=== PATIENT | male | born 1965 | race Caucasian/White ===

== ENCOUNTER 2016-12-04 07:56 | Day surgery (SDC) | payer BC ==
[~2016-12-04] VITALS: Ht 177.8 cm; Wt 85.9 kg
[~2016-12-04 07:56] MED LIST: ENOX100P SQ; HYDR-3516 PO
[2016-12-04] MEDS ORDERED: ENOX80P SQ (08:53)
[2016-12-04 08:55] VITALS: BP 125/8; PULSE 95; RESP 20; TEMP 98.3; O2SAT 96
[2016-12-04] MEDS ORDERED: LIDOCAINE 1%/EPINEPHrine 1:100,000 SOLN 20 ML VIAL ONE (09:36)
[2016-12-04 09:40] LABS: APTT (PATIENT) 26.2 SEC (24.3-30.1)
[2016-12-04] MEDS ORDERED: SODIUM CHLOR 0.9% 1000 ML INJ 1,000 ML IV SCH (10:00)
[2016-12-04] MEDS ORDERED: MIDAZOLAM HCL 5 MG/5 ML VIAL ONE (10:17)
[2016-12-04] MEDS ORDERED: fentaNYL CITRATE 250 MCG/5 ML AMP ONE (10:17)
[2016-12-04 11:20] VITALS: BP 119/74; PULSE 94; RESP 18; TEMP 98; O2SAT 95
[2016-12-04 11:35] VITALS: BP 109/73; PULSE 94; RESP 18; O2SAT 94
[2016-12-04 12:05] VITALS: BP 126/77; PULSE 89; RESP 18; O2SAT 99
--- NOTE | 2016-12-04 12:15 | RADRPT ---
EXAM DATE/TIME: 12/04/2016 11:22 [facility] COMPARISON: CHEST EXPIRATION ONLY, June 18, 2016, 16:50. INDICATIONS : Left lung biopsy and thoracentesis. MEDICAL HISTORY : Cardiovascular disease. Carcinoma, lung. SURGICAL HISTORY : None. ENCOUNTER: Initial ACUITY: 1 day PAIN SCORE: 0/10 LOCATION: Bilateral chest FINDINGS: There is no evidence of pneumothorax status post thoracentesis and left pleural biopsy. A right inte rnal jugular [id number] has its tip at the junction of the superior vena cava and right ischium. CONCLUSION: 1. No pneumothorax status post left pleural biopsy and thoracentesis. Kashmir Kahn MD on December 04, 2016 at 12:08 Board Certified Radiologist. This report was verified electronically.
[2016-12-04 12:32] VITALS: BP 117/71; PULSE 87; RESP 18; O2SAT 98
[2016-12-04 13:05] VITALS: BP 123/86; PULSE 88; RESP 16; O2SAT 96
[2016-12-04 13:27] LABS: PLEURAL FLUID LYMPHS 37 %
--- NOTE | 2016-12-04 13:57 | RADRPT ---
EXAM DATE/TIME: 12/04/2016 10:22 [facility] COMPARISON: CT NEEDLE BIOPSY LUNG, LEFT, June 18, 2016, 14:40. INDICATIONS : Left lung mass. SEDATION TIME: 30 minutes BIOPSY SITE: Left lung MEDICATION(S): 1.) 3 mg midazolam (Versed) IV 2.) 150 mcg fentanyl (Sublimaze) IV DEVICE(S): 1.) 20 gauge Temno core biopsy needle MEDICAL HISTORY : Deep venous thrombosis. SURGICAL HISTORY : None. ENCOUNTER: Initial ACUITY: 1 day PAIN SCORE: 0/10 LOCATION: Left pleural-based mass A total of one core specimen(s) were obtained and sent to the laboratory for pathologic evaluation. PROCEDURE: 1. CT guided lung biopsy. 2. Conscious sedation with continuous EKG and oximetry monitoring. 3. EKG and oximetry remained stable throughout the procedure. Prior to the procedure informed consent was obtained. Any appropriate prior imaging studies were rev iewed. Using automated exposure control and adjustment of the mA and/or kV according to patient size, radiation dose was kept as low as reasonably achievable to obtain optimal diagnostic quality images. The site was prepped in a sterile fashion. Full sterile technique was used, including cap, mask, yazmin rile gloves and gown and a large sterile sheet. Hand hygiene and 2% chlorhexidine and/or betadine/al cohol prep was utilized per protocol for cutaneous antisepsis. The skin and subcutaneous tissues wer e infiltrated with local anesthetic solution. With CT guidance the previously identified target was localized. Biopsy was performed using the presc ribed needle as above. Adequate hemostasis was obtained with compression at the puncture site. Follow-up CT scan reveals no pneumothorax. Conscious sedation was performed with the prescribed dosages and duration as above in the presence of an independent trained radiology nurse to assist in the monitoring of the patient. EKG and oximetry remained stable throughout the procedure. The patient tolerated the procedure well and there were no complications. The patient was sent to Radiology Outpatient Unit in stable condition. CONCLUSION: Uncomplicated CT guided biopsy of left pleural-based mass. Kashmir Kahn MD on December 04, 2016 at 13:54 Board Certified Radiologist. This report was verified electronically.
--- NOTE | 2016-12-04 15:20 | RADRPT ---
EXAM DATE/TIME: 12/04/2016 10:45 INDICATIONS : Left pleural effusion. SEDATION TIME: 30 minutes MEDICATION(S): 1.) 3 mg midazolam (Versed) IV 2.) 150 mcg fentanyl (Sublimaze) IV DEVICE(S): 1.) 18 gauge Tellez blunt needle FLUID: Total volume of 70 cc of clear, yellow fluid was removed. Fluid was sent for laboratory ordered studies. MEDICAL HISTORY : Deep venous thrombosis. SURGICAL HISTORY : None. ENCOUNTER: Initial ACUITY: 1 day PAIN SCORE: 0/10 LOCATION: Left chest PROCEDURE: 1. CT guided left thoracentesis. 2. Conscious sedation with continuous EKG and oximetry monitoring. 3. EKG and oximetry remained stable throughout the procedure. The site was prepped in sterile fashion. Full sterile technique was used, including cap, mask, steri le gloves and gown and a large sterile sheet. Hand hygiene and 2% chlorhexidine and/or betadine/alco hol prep was utilized per protocol for cutaneous antisepsis. The skin and subcutaneous tissues were infiltrated with local anesthetic solution. Using automated exposure control and adjustment of the mA and/or kV according to patient size, radiation dose was kept as low as reasonably achievable to obta in optimal diagnostic quality images. With the patient supine on the CT table, entry level business analyst images were obtained through the chest demonstrating t he left-sided pleural effusion. Dermatotomy was made and the prescribed catheter was advanced into t he pleural fluid. The pleural fluid as above was removed from the hemithorax. Post procedural scan show reduction in the amount of fluid with no evidence of pneumothorax. The patient tolerated the procedure well and there were no complications. EKG and oximetry remained s table throughout the procedure. The patient was sent to recovery in stable condition. CONCLUSION: Uncomplicated CT-guided left thoracentesis. Kashmir Kahn MD on December 04, 2016 at 15:18 Board Certified Radiologist. This report was verified electronically.
== END 2016-12-04 13:21 | disposition home or self-care (01) ==
LOC: HRIP 07:56 → HRAD 07:56
PROVIDERS: ATTEND Internal Medicine
DX: C34.12 Malignant neoplasm of upper lobe, left bronchus or lung (principal); J90 Pleural effusion, not elsewhere classified; I25.10 Atherosclerotic heart disease of native coronary artery without angina pectoris; Z86.718 Personal history of other venous thrombosis and embolism; Z79.01 Long term (current) use of anticoagulants
CPT/HCPCS: 32405; 32555; 71010; 77012; 85610; 85730; 88112; 88305; 89051; J1642; J2250; J3010; J7030

== ENCOUNTER 2016-12-16 11:20 | Emergency (ER) | payer BC ==
[~2016-12-16] VITALS: Ht 177.8 cm; Wt 85.5 kg
[~2016-12-16 11:20] MED LIST changes: -ENOX100P SQ; +ENOX80P SQ; -HYDR-3516 PO
[2016-12-16 11:23] VITALS: BP 134/83; PULSE 104; RESP 15; TEMP 98.2; O2SAT 98
--- NOTE | 2016-12-16 11:30 | PD ---
Physical Exam Date Seen by Provider: Dec 16, 2016 Time Seen by Provider: 11:30 Narrative 51 y/o patient of Dr. Lieberman with Hx. of stage 3 lung cancer presents with 4 day Hx. of increased pain and swelling around Port on Left upper chest and neck. Patient recently changed to Xeralto from injectable Heparin and symptoms started. Patient denies fever, Chills or difficulty breathing or swallowing. V.S Stable and Patient awaiting Med Bed Placement. Data Data Last Documented VS Vital Signs Date Time Temp Pulse Resp B/P Pulse Ox O2 Delivery O2 Flow Rate FiO2 12/16/16 11:23 98.2 104 15 134/83 98 MDM Medical Record Reviewed: Yes Supervised Visit with AMAURY: Yes Condition: Stable Gerry Abdul Dec 16, 2016 11:30
[2016-12-16] MEDS ORDERED: SODIUM CHLORIDE 0.9% FLUSH 10 ML FLUSH IV FLUSH PRN (12:15)
[2016-12-16 12:43] VITALS: RESP 16; O2SAT 95
[2016-12-16] MEDS ORDERED: SODIUM CHLOR 0.9% 1000 ML INJ 1,000 ML IV ONE (13:00)
[2016-12-16 13:07] LABS: AUTOMATED NEUTROPHIL # 7.4 TH/MM3 (1.8-7.7); BASOPHIL % 0.2 % (0.0-2.0); EOSINOPHIL % 0.5 % (0.0-4.0); HEMATOCRIT 40.5 % (39.0-51.0); HEMO FLAGS DIFF FINAL; LYMPH % 5.9 % (9.0-44.0); LYMPHOCYTE # 0.5 TH/MM3 (1.0-4.8); MEAN CELL VOLUME 92.7 FL (80.0-100.0); MEAN CORPUSCULAR HEMOGLOBIN 32.1 PG (27.0-34.0); MEAN CORPUSCULAR HGB CONC 34.6 % (32.0-36.0); MONO % 9.4 % (0.0-8.0); PLATELET COUNT 301 TH/MM3 (150-450); RED BLOOD COUNT 4.37 MIL/MM3 (4.50-5.90); RED CELL DISTRIBUTION WIDTH 14.3 % (11.6-17.2); WHITE BLOOD COUNT 8.8 TH/MM3 (4.0-11.0)
[2016-12-16 13:20] LABS: BICARBONATE 27.7 MEQ/L (21.0-32.0); POTASSIUM 3.8 MEQ/L (3.5-5.1)
[2016-12-16] MEDS ORDERED: IOHEXOL 350 MG/ML 10 ML VIAL (for RAD DIAG) IV ONE (14:03)
--- NOTE | 2016-12-16 14:40 | PD ---
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 Patient associates this with the port to being in its apex. Patient states that he is noticeably worsened gradually over the past 2-3 days. He's not had any infusions recently. States the Court was placed many months ago. Denies any difficulty swallowing denies any fevers. He was recently on Xarelto but he didn't like it so he switched back to Lovenox shots for history of DVT in his lower extremity. Denies any chest pain shortness of breath or fever PFSH Past Medical History Arthritis: Yes (KNEE) Cancer: Yes (MASS FOUND IN LEFT LUNG) Cardiovascular Problems: Yes High Cholesterol: Yes Chemotherapy: Yes Diabetes: No Diminished Hearing: No Endocrine: No Gastrointestinal Disorders: Yes Genitourinary: No Immune Disorder: No Musculoskeletal: Yes Neurologic: No Psychiatric: No Reproductive: No Respiratory: No Radiation Therapy: Yes Past Surgical History Other Surgery: Yes (PORT PLACEMENT) Social History Alcohol Use: No Tobacco Use: No Substance Use: No Allergies-Medications (Allergen,Severity, Reaction): Coded Allergies: Penicillin (Verified Allergy, Unknown, 12/16/16) Reported Meds & Prescriptions Reported Meds & Active Scripts Active Reported Lovenox Inj (Enoxaparin Sodium) 80 mg/0.8 ML Syr 80 Mg SQ BID Review of Systems Except as stated in HPI: all other systems reviewed are Neg Physical Exam Narrative GENERAL: Well-developed well-nourished no apparent distress SKIN: Focused skin assessment warm/dry. HEAD: Atraumatic. Normocephalic. EYES: Pupils equal and round. No scleral icterus. No injection or drainage. ENT: No nasal bleeding or discharge. Mucous membranes pink and moist. His nonpulsatile fairly firm area on the right side of the neck appears underneath the tubing from the port on the right side. There is no swelling of the port itself. Minimally tender to palpation of surrounding erythema or fluctuance. This could be consistent with a hematoma or could be mass. NECK: Trachea midline. No JVD. CARDIOVASCULAR: Regular rate and rhythm. No murmur appreciated. RESPIRATORY: No accessory muscle use. Clear to auscultation. Breath sounds equal bilaterally. GASTROINTESTINAL: Abdomen soft, non-tender, nondistended. Hepatic and splenic margins not palpable. MUSCULOSKELETAL: No obvious deformities. No clubbing. No cyanosis. No edema. NEUROLOGICAL: Awake and alert. No obvious cranial nerve deficits. Motor grossly within normal limits. Normal speech. PSYCHIATRIC: Appropriate mood and affect; insight and judgment normal. Data Data Last Documented VS Vital Signs Date Time Temp Pulse Resp B/P Pulse Ox O2 Delivery O2 Flow Rate FiO2 12/16/16 12:43 16 95 Room Air 12/16/16 11:23 98.2 104 134/83 Orders Basic Metabolic Panel (Bmp) (12/16/16 12:15) Complete Blood Count With Diff (12/16/16 12:15) Iv Access Insert/Monitor (12/16/16 12:15) Ecg Monitoring (12/16/16 12:15) Oximetry (12/16/16 12:15) Sodium Chloride 0.9% Flush (Ns Flush) (12/16/16 12:15) Ct Soft Tiss Neck W Iv Cont (12/16/16 ) Sodium Chlor 0.9% 1000 Ml Inj (Ns 1000 M (12/16/16 13:00) Electrocardiogram (12/16/16 ) Troponin I (12/16/16 12:52) Iohexol 350 Inj (Omnipaque 350 Inj) (12/16/16 14:03) Labs Laboratory Tests Test 12/16/16 12:40 White Blood Count 8.8 TH/MM3 Red Blood Count 4.37 MIL/MM3 Hemoglobin 14.0 GM/DL Hematocrit 40.5 % Mean Corpuscular Volume 92.7 FL Mean Corpuscular Hemoglobin 32.1 PG Mean Corpuscular Hemoglobin 34.6 % Concent Red Cell Distribution Width 14.3 % Platelet Count 301 TH/MM3 Mean Platelet Volume 7.3 FL Neutrophils (%) (Auto) 84.0 % Lymphocytes (%) (Auto) 5.9 % Monocytes (%) (Auto) 9.4 % Eosinophils (%) (Auto) 0.5 % Basophils (%) (Auto) 0.2 % Neutrophils # (Auto) 7.4 TH/MM3 Lymphocytes # (Auto) 0.5 TH/MM3 Monocytes # (Auto) 0.8 TH/MM3 Eosinophils # (Auto) 0.0 TH/MM3 Basophils # (Auto) 0.0 TH/MM3 CBC Comment DIFF FINAL Differential Comment Sodium Level 136 MEQ/L Potassium Level 3.8 MEQ/L Chloride Level 102 MEQ/L Carbon Dioxide Level 27.7 MEQ/L Anion Gap 6 MEQ/L Blood Urea Nitrogen 13 MG/DL Creatinine 0.82 MG/DL Estimat Glomerular Filtration 98 ML/MIN Rate Random Glucose 91 MG/DL Calcium Level 9.6 MG/DL MDM Medical Decision Making Medical Screen Exam Complete: Yes Emergency Medical Condition: Yes Differential Diagnosis Mass, hematoma, thyroid nodule, lymphadenopathy, abscess is less likely. Narrative Course Last [address] 12/16/16 0000 Signed Impressions: Service Date/Time: Friday, December 16, 2016 13:51 - CONCLUSION: Multiple enlarged confluent lymph nodes in the right internal jugular chain and supraclavicular region. Multiple necrotic lymph nodes in this region. A discrete defined drainable fluid collection is not seen. Joo Leavitt MD Patient appears well in no apparent distress. I reviewed the note from November [address] Mack the patient's oncologist and apparently the patient had a PET scan sometime recently which did show a 7 mm right supraclavicular lymph node. This may be progression of this lymph node. The necrotic nature of the CAT scan now may indicate that this is his body resolving this lymph node. However I do not feel qualified to make that judgment at this time. I recommended patient follow-up with his oncologist Dr. Mack. 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 The patient 's airway is intact and has no hemodynamic compromise from this lesion. The results were all discussed with the patient and my opinion that this may be spread of metastatic disease versus resolving metastatic disease but the only person to be able to tell for sure would be Dr. Mack. Patient does have orders for an outpatient ultrasound of this area as well as and recurrent PET scan. He is stable for discharge at this time. Diagnosis Primary Impression: Neck mass Disposition: 01 DISCHARGE HOME Condition: Stable Kashmir Saha MD Dec 16, 2016 14:39
--- NOTE | 2016-12-16 14:46 | RADRPT ---
EXAM DATE/TIME: 12/16/2016 13:51 [facility] COMPARISON: No previous studies available for comparison. INDICATIONS : Pain and swelling at right side of neck for two days. IV CONTRAST: 60 cc Omnipaque 350 (iohexol) IV RADIATION DOSE: 13.80 CTDIvol (mGy) MEDICAL HISTORY : Carcinoma, lung. SURGICAL HISTORY : None. ENCOUNTER: Initial ACUITY: 2 days PAIN SCALE: 6/10 LOCATION: Right neck TECHNIQUE: Volumetric scanning of the neck was performed. Using automated exposure control and adjustment of th e mA and/or kV according to patient size, radiation dose was kept as low as reasonably achievable to obtain optimal diagnostic quality images. FINDINGS: NASOPHARYNX: The nasopharyngeal airway has a normal configuration. No mucosal thickening or mass is seen. OROPHARYNX: The intrinsic muscles of the tongue are symmetric. The tonsillar pillars are intact. The prevertebr al soft tissues are not thickened. LARYNX: The supraglottic, glottic, and infraglottic structures are intact. PARAPHARYNGEAL: The parapharyngeal space is intact. SALIVARY GLANDS: The parotid and submandibular glands are intact. LYMPH NODES: Multiple enlarged, necrotic right-sided jugular chain lymph nodes inferior to the hyoid bone. Enlarge d right supraclavicular lymph nodes also seen. Largest discrete low density measures 1.6 x 1.2 cm on image #80. Aggregate of several adjacent lymph nodes in the right supraclavicular region measures 3.7 cm. Prominent surrounding soft tissue edema. Adjacent right internal jugular central venous catheter is seen. Organized drainable abscess is not seen. THYROID: Homogeneous enhancement without evidence of nodule. BONES: Unremarkable. Patchy opacity at the lung apex on the left with 1.1 cm nodular density CONCLUSION: Multiple enlarged confluent lymph nodes in the right internal jugular chain and supraclavicular regio n. Multiple necrotic lymph nodes in this region. A discrete defined drainable fluid collection is not seen. Joo Leavitt MD on December 16, 2016 at 14:38 Board Certified Radiologist. This report was verified electronically.
--- NOTE | 2016-12-16 15:47 | PD ---
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 Problem Time Seen by Provider: 12:07 Travel History International Travel<30 days: No Contact w/Intl Traveler<30days: No Traveled to known affect area: No PFSH Past Medical History Arthritis: Yes (KNEE) Cancer: Yes (MASS FOUND IN LEFT LUNG) Cardiovascular Problems: Yes High Cholesterol: Yes Chemotherapy: Yes Diabetes: No Diminished Hearing: No Endocrine: No Gastrointestinal Disorders: Yes Genitourinary: No Immune Disorder: No Musculoskeletal: Yes Neurologic: No Psychiatric: No Reproductive: No Respiratory: No Radiation Therapy: Yes Past Surgical History Other Surgery: Yes (PORT PLACEMENT) Social History Alcohol Use: No Tobacco Use: No Substance Use: No Allergies-Medications (Allergen,Severity, Reaction): Coded Allergies: Penicillin (Verified Allergy, Unknown, 12/16/16) Reported Meds & Prescriptions Reported Meds & Active Scripts Active Reported Lovenox Inj (Enoxaparin Sodium) 80 mg/0.8 ML Syr 80 Mg SQ BID Data Data Last Documented VS Vital Signs Date Time Temp Pulse Resp B/P Pulse Ox O2 Delivery O2 Flow Rate FiO2 12/16/16 12:43 16 95 Room Air 12/16/16 11:23 98.2 104 134/83 Orders Basic Metabolic Panel (Bmp) (12/16/16 12:15) Complete Blood Count With Diff (12/16/16 12:15) Iv Access Insert/Monitor (12/16/16 12:15) Ecg Monitoring (12/16/16 12:15) Oximetry (12/16/16 12:15) Sodium Chloride 0.9% Flush (Ns Flush) (12/16/16 12:15) Ct Soft Tiss Neck W Iv Cont (12/16/16 ) Sodium Chlor 0.9% 1000 Ml Inj (Ns 1000 M (12/16/16 13:00) Electrocardiogram (12/16/16 ) Troponin I (12/16/16 12:52) Iohexol 350 Inj (Omnipaque 350 Inj) (12/16/16 14:03) Labs Laboratory Tests Test 12/16/16 12:40 White Blood Count 8.8 TH/MM3 Red Blood Count 4.37 MIL/MM3 Hemoglobin 14.0 GM/DL Hematocrit 40.5 % Mean Corpuscular Volume 92.7 FL Mean Corpuscular Hemoglobin 32.1 PG Mean Corpuscular Hemoglobin 34.6 % Concent Red Cell Distribution Width 14.3 % Platelet Count 301 TH/MM3 Mean Platelet Volume 7.3 FL Neutrophils (%) (Auto) 84.0 % Lymphocytes (%) (Auto) 5.9 % Monocytes (%) (Auto) 9.4 % Eosinophils (%) (Auto) 0.5 % Basophils (%) (Auto) 0.2 % Neutrophils # (Auto) 7.4 TH/MM3 Lymphocytes # (Auto) 0.5 TH/MM3 Monocytes # (Auto) 0.8 TH/MM3 Eosinophils # (Auto) 0.0 TH/MM3 Basophils # (Auto) 0.0 TH/MM3 CBC Comment DIFF FINAL Differential Comment Sodium Level 136 MEQ/L Potassium Level 3.8 MEQ/L Chloride Level 102 MEQ/L Carbon Dioxide Level 27.7 MEQ/L Anion Gap 6 MEQ/L Blood Urea Nitrogen 13 MG/DL Creatinine 0.82 MG/DL Estimat Glomerular Filtration 98 ML/MIN Rate Random Glucose 91 MG/DL Calcium Level 9.6 MG/DL MDM Diagnosis Primary Impression: Neck mass Disposition: 01 DISCHARGE HOME Condition: Stable Kashmir Saha MD Dec 16, 2016 15:47
--- NOTE | 2016-12-17 23:07 | EKG ---
Date Performed: 12/16/2016 Time Performed: 13:00:21 PTAGE: 51 years EKG: Sinus rhythm NORMAL ECG PREVIOUS TRACING : 05/22/2016 12.35 Compared to prior tracing no significant change DOCTOR: Mariusz Fatima Interpretating Date/Time 12/17/2016 23:05:54
== END 2016-12-16 16:27 | disposition home or self-care (01) ==
LOC: NEPD 11:20
DX: C34.92 Malignant neoplasm of unspecified part of left bronchus or lung (principal); R22.1 Localized swelling, mass and lump, neck; E78.00 Pure hypercholesterolemia, unspecified; Z79.01 Long term (current) use of anticoagulants; Z86.718 Personal history of other venous thrombosis and embolism
CPT/HCPCS: 70491; 80048; 84484; 85025; 93005; 96360; 99284; J7030; Q9967

== ENCOUNTER 2016-12-31 10:30 | Emergency (ER) | payer BC ==
[~2016-12-31] VITALS: Ht 177.8 cm; Wt 85.0 kg
[2016-12-31 10:31] VITALS: BP 136/94; PULSE 120; RESP 20; TEMP 98; O2SAT 98
--- NOTE | 2016-12-31 11:05 | PD ---
HPI Chief Complaint: Edema Time Seen by Provider: 11:00 Travel History International Travel<30 days: No Contact w/Intl Traveler<30days: No Traveled to known affect area: No History of Present Illness HPI 51-year-old male with history of stage IV cancer of the lungs, has completed chemotherapy and is currently getting radiation therapy with Dr. Hickman, presents to the ER today because he states that he has had right arm discoloration, tingling and swelling starting yesterday. He was told by his oncologist to come to the ER because there is concern that he has a tumor to his right neck area and a may have included his vessels on the right. He reports mild shortness of breath intermittently. Otherwise denies any fevers, chest pains, or other symptoms. Modifying Factors: None Associated Signs & Symptoms: Right arm discoloration, swelling, tingling and discomfort Risk Factors: Right neck metastasis of lung cancer PFSH Past Medical History Arthritis: Yes (KNEE) Cancer: Yes (MASS FOUND IN LEFT LUNG) Cardiovascular Problems: Yes High Cholesterol: Yes Chemotherapy: Yes Diabetes: No Diminished Hearing: No Endocrine: No Gastrointestinal Disorders: Yes Genitourinary: No Immune Disorder: No Musculoskeletal: Yes Neurologic: No Psychiatric: No Reproductive: No Respiratory: No Radiation Therapy: Yes Past Surgical History Other Surgery: Yes (PORT PLACEMENT) Social History Alcohol Use: No Tobacco Use: No Substance Use: No Allergies-Medications (Allergen,Severity, Reaction): Coded Allergies: Penicillin (Verified Allergy, Unknown, 12/31/16) Reported Meds & Prescriptions Reported Meds & Active Scripts Active Reported Lovenox Inj (Enoxaparin Sodium) 80 mg/0.8 ML Syr 80 Mg SQ BID Review of Systems Except as stated in HPI: all other systems reviewed are Neg Physical Exam Narrative GENERAL: Well-developed middle age white male patient currently in mild distress awake and oriented 3. SKIN: Focused skin assessment warm/dry. HEAD: Atraumatic. Normocephalic. EYES: Pupils equal and round. No scleral icterus. No injection or drainage. ENT: No nasal bleeding or discharge. Mucous membranes pink and moist. NECK: Trachea midline. No JVD. CARDIOVASCULAR: Regular rate and rhythm. No murmur appreciated. Pulses are present and equal bilaterally. RESPIRATORY: No accessory muscle use. Clear to auscultation. Breath sounds equal bilaterally. GASTROINTESTINAL: Abdomen soft, non-tender, nondistended. Hepatic and splenic margins not palpable. MUSCULOSKELETAL: No obvious deformities. No clubbing. No cyanosis. No edema. EXTREMITIES: There is notable erythema of the right arm versus the left. Pulses are present bilaterally and is neurovascularly intact. NEUROLOGICAL: Awake and alert. No obvious cranial nerve deficits. Motor grossly within normal limits. Normal speech. PSYCHIATRIC: Appropriate mood and affect; insight and judgment normal. Data Data Last Documented VS Vital Signs Date Time Temp Pulse Resp B/P Pulse Ox O2 Delivery O2 Flow Rate FiO2 12/31/16 10:53 122 18 Room Air 12/31/16 10:31 98.0 136/94 98 Orders Complete Blood Count With Diff (12/31/16 11:00) Comprehensive Metabolic Panel (12/31/16 11:00) Prothrombin Time / Inr (Pt) (12/31/16 11:00) Act Partial Throm Time (Ptt) (12/31/16 11:00) Ct Pulmonary Angiogram (12/31/16 11:15) Us Arm Venous Doppler (12/31/16 11:52) Iohexol 350 Inj (Omnipaque 350 Inj) (12/31/16 13:43) Enoxaparin Inj (Lovenox Inj) (12/31/16 14:00) Labs Laboratory Tests Test 12/31/16 11:19 White Blood Count 9.6 TH/MM3 Red Blood Count 4.16 MIL/MM3 Hemoglobin 13.0 GM/DL Hematocrit 37.7 % Mean Corpuscular Volume 90.7 FL Mean Corpuscular Hemoglobin 31.3 PG Mean Corpuscular Hemoglobin 34.5 % Concent Red Cell Distribution Width 14.4 % Platelet Count 309 TH/MM3 Mean Platelet Volume 7.1 FL Neutrophils (%) (Auto) 84.7 % Lymphocytes (%) (Auto) 4.4 % Monocytes (%) (Auto) 9.6 % Eosinophils (%) (Auto) 0.8 % Basophils (%) (Auto) 0.5 % Neutrophils # (Auto) 8.1 TH/MM3 Lymphocytes # (Auto) 0.4 TH/MM3 Monocytes # (Auto) 0.9 TH/MM3 Eosinophils # (Auto) 0.1 TH/MM3 Basophils # (Auto) 0.0 TH/MM3 CBC Comment DIFF FINAL Differential Comment Prothrombin Time 12.5 SEC Prothromb Time International 1.1 RATIO Ratio Activated Partial 33.8 SEC Thromboplast Time Sodium Level 136 MEQ/L Potassium Level 3.9 MEQ/L Chloride Level 100 MEQ/L Carbon Dioxide Level 28.2 MEQ/L Anion Gap 8 MEQ/L Blood Urea Nitrogen 14 MG/DL Creatinine 0.86 MG/DL Estimat Glomerular Filtration 93 ML/MIN Rate Random Glucose 97 MG/DL Calcium Level 9.3 MG/DL Total Bilirubin 0.5 MG/DL Aspartate Amino Transf 28 U/L (AST/SGOT) Alanine Aminotransferase 41 U/L (ALT/SGPT) Alkaline Phosphatase 93 U/L Total Protein 8.3 GM/DL Albumin 3.5 GM/DL MDM Medical Decision Making Medical Screen Exam Complete: Yes Emergency Medical Condition: Yes Medical Record Reviewed: Yes Interpretation(s) Laboratory Tests Test 12/31/16 11:19 Red Blood Count 4.16 MIL/MM3 (4.50-5.90) Hematocrit 37.7 % (39.0-51.0) Neutrophils (%) (Auto) 84.7 % (16.0-70.0) Lymphocytes (%) (Auto) 4.4 % (9.0-44.0) Monocytes (%) (Auto) 9.6 % (0.0-8.0) Neutrophils # (Auto) 8.1 TH/MM3 (1.8-7.7) Lymphocytes # (Auto) 0.4 TH/MM3 (1.0-4.8) Prothrombin Time 12.5 SEC (9.8-11.6) Activated Partial 33.8 SEC Thromboplast Time (24.3-30.1) Total Protein 8.3 GM/DL (6.4-8.2) Last 24 hours Impressions Upper Extremity Ultrasound 12/31/16 1152 Signed Impressions: Service Date/Time: Saturday, December 31, 2016 12:02 - CONCLUSION: There is occlusive and nonocclusive deep venous thrombosis involving the right upper extremity as noted above. Dash Chester MD CT Angiography 12/31/16 1115 Signed Impressions: Service Date/Time: Saturday, December 31, 2016 13:23 - CONCLUSION: 1. No evidence of acute pulmonary embolism. 2. The previously noted mass in the left upper lung has decreased in size from 5.8 cm to 1.9 cm. 3. New scattered interstitial infiltrates are seen in the left upper lung. 4. There is diffuse infiltrate in the left lower lung 5. Nodular infiltrates are seen in the medial right upper lung and right lower lung. This could be inflammatory or metastatic disease. Dash Chester MD Differential Diagnosis Right arm tingling, swelling, discomfort with cancer historyDVT versus SVC syndrome versus cellulitis Narrative Course Ultrasound shows a right arm DVT. CTA did not reveal any signs of PE. It does spot the right sided lung mass which is our deep been seen previously on scanning. Patient is on Lovenox. Case was discussed with Dr. Hickman who is patient's oncologist and he states that he can manage the patient as an outpatient at this point. He does not recommend further therapy other than Lovenox now. Return for any worsening in symptoms or shortness of breath or new symptoms as needed. The plan has been discussed with the patient and he states understanding. Diagnosis Primary Impression: Deep vein thrombosis (DVT) of right upper extremity Disposition: 01 DISCHARGE HOME Condition: Stable Key Santos MD December 31, 2016 11:04
[2016-12-31 11:33] LABS: AUTOMATED NEUTROPHIL # 8.1 TH/MM3 (1.8-7.7); BASOPHIL % 0.5 % (0.0-2.0); EOSINOPHIL # 0.1 TH/MM3 (0-0.4); EOSINOPHIL % 0.8 % (0.0-4.0); HEMATOCRIT 37.7 % (39.0-51.0); HEMO FLAGS DIFF FINAL; LYMPH % 4.4 % (9.0-44.0); LYMPHOCYTE # 0.4 TH/MM3 (1.0-4.8); MEAN CELL VOLUME 90.7 FL (80.0-100.0); MEAN CORPUSCULAR HEMOGLOBIN 31.3 PG (27.0-34.0); MEAN CORPUSCULAR HGB CONC 34.5 % (32.0-36.0); MONO % 9.6 % (0.0-8.0); NEUT % 84.7 % (16.0-70.0); PLATELET COUNT 309 TH/MM3 (150-450); RED BLOOD COUNT 4.16 MIL/MM3 (4.50-5.90); RED CELL DISTRIBUTION WIDTH 14.4 % (11.6-17.2); WHITE BLOOD COUNT 9.6 TH/MM3 (4.0-11.0)
[2016-12-31 11:41] LABS: APTT (PATIENT) 33.8 SEC (24.3-30.1); INTERNATIONAL NORMALIZED RATIO 1.1 RATIO; PROTHROMBIN TIME - PATIENT 12.5 SEC (9.8-11.6)
[2016-12-31 11:48] LABS: ANION GAP 8 MEQ/L (5-15); AST (GOT) 28 U/L (15-37); BICARBONATE 28.2 MEQ/L (21.0-32.0); BLOOD UREA NITROGEN 14 MG/DL (7-18); CHLORIDE 100 MEQ/L (98-107); GLOMERULAR FILTRATION RATE 93 ML/MIN (>89); POTASSIUM 3.9 MEQ/L (3.5-5.1); SODIUM (NA) 136 MEQ/L (136-145)
[2016-12-31 11:51] LABS: ALKALINE PHOSPHATASE 93 U/L (45-117); ALT (GPT) 41 U/L (12-78); TOTAL BILIRUBIN ADULT 0.5 MG/DL (0.2-1.0)
--- NOTE | 2016-12-31 12:49 | RADRPT ---
EXAM DATE/TIME: 12/31/2016 12:02 [facility] COMPARISON: No previous studies available for comparison. INDICATIONS : Right arm discoloration and pain. MEDICAL HISTORY : Hypercholesterolemia. Arthritis. Carcinoma, lung. Pulmonary embolism. Deep vein thrombosis. Anticoagu lant therapy, Lovenox. SURGICAL HISTORY : Right knee. Chemotherapy. Radiation therapy. Port placement. ENCOUNTER: Initial ACUITY: 2 day PAIN SCORE: 5/10 LOCATION: Right arm. FINDINGS: There is evidence of occlusive deep venous thrombosis involving the subclavian and axillary veins. Th ere is some nonocclusive DVT in the jugular vein. The brachial, basilic and cephalic veins are patent . CONCLUSION: There is occlusive and nonocclusive deep venous thrombosis involving the right upper extremity as not ed above. Dash Chester MD on December 31, 2016 at 12:45 Board Certified Radiologist. This report was verified electronically.
[2016-12-31] MEDS ORDERED: IOHEXOL 350 MG/ML 10 ML VIAL (for RAD DIAG) IV ONE (13:43)
--- NOTE | 2016-12-31 13:54 | RADRPT ---
EXAM DATE/TIME: 12/31/2016 13:23 [facility] COMPARISON: CT PULMONARY ANGIOGRAM, June 14, 2016, 16:41. INDICATIONS : History of lung cancer with dyspnea and right arm swelling IV CONTRAST: 65 cc Omnipaque 350 (iohexol) IV RADIATION DOSE: 23.38 CTDIvol (mGy) MEDICAL HISTORY : Carcinoma, lung. SURGICAL HISTORY : None. ENCOUNTER: Initial ACUITY: 1 day PAIN SCALE: 5/10 LOCATION: Right arm TECHNIQUE: Volumetric scanning of the chest was performed using a pulmonary embolism protocol MIP images were re constructed. Using automated exposure control and adjustment of the mA and/or kV according to patien t size, radiation dose was kept as low as reasonably achievable to obtain optimal diagnostic quality images. FINDINGS: PULMONARY ARTERIES: No filling defects are seen in the pulmonary arteries through the segmental level. LUNGS: There is scattered interstitial infiltrates throughout the left upper lung. There is diffuse intersti tial and some airspace infiltrate involving the left lower lung. There is a nodular infiltrate involv ing the medial right upper lung and medial right lower lung. The previously noted mass in the anterio r left upper lung has decreased in size from 5.8 cm on the prior study to 1.9 cm with pleural thicken ing on today's study. PLEURAE: There is no pleural effusion. MEDIASTINUM: There is good visualization of the great vessels of the middle mediastinum. No evidence of mediastin al or hilar adenopathy/mass. MUSCULOSKELETAL: Within normal limits for patient age. MISCELLANEOUS: The visualized upper abdominal organs demonstrate no acute abnormality. CONCLUSION: 1. No evidence of acute pulmonary embolism. 2. The previously noted mass in the left upper lung has decreased in size from 5.8 cm to 1.9 cm. 3. New scattered interstitial infiltrates are seen in the left upper lung. 4. There is diffuse infiltrate in the left lower lung 5. Nodular infiltrates are seen in the medial right upper lung and right lower lung. This could be in flammatory or metastatic disease. Dash Chester MD on December 31, 2016 at 13:45 Board Certified Radiologist. This report was verified electronically.
[2016-12-31] MEDS ORDERED: ENOXAPARIN SODIUM 80 MG/0.8 ML SYRINGE SQ ONE (14:00)
== END 2016-12-31 14:42 | disposition home or self-care (01) ==
LOC: NEPE 10:30
DX: I82.621 Acute embolism and thrombosis of deep veins of right upper extremity (principal); E78.00 Pure hypercholesterolemia, unspecified; C34.90 Malignant neoplasm of unspecified part of unspecified bronchus or lung; Z51.11 Encounter for antineoplastic chemotherapy; Z79.899 Other long term (current) drug therapy
CPT/HCPCS: 71275; 80053; 85025; 85610; 85730; 93971; 99284; Q9967

== ENCOUNTER 2017-01-07 19:24 | Emergency (ER) | payer BC ==
[~2017-01-07] VITALS: Ht 177.8 cm; Wt 86.0 kg
[2017-01-07 19:27] VITALS: BP 117/78; PULSE 111; RESP 16; TEMP 99; O2SAT 98
--- NOTE | 2017-01-07 19:59 | PD ---
HPI Chief Complaint: Fever Time Seen by Provider: 19:58 Travel History International Travel<30 days: No Contact w/Intl Traveler<30days: No Traveled to known affect area: No History of Present Illness HPI 51-year-old male presents to the emergency department for evaluation of fever. Patient is undergoing chemotherapy and radiation therapy for poorly differentiated non-small cell lung cancer. He had a recent CT scan in October that showed a 7 mm right supraclavicular lymph node. Patient has history of PE and DVT and is currently on Lovenox. He last had radiation therapy on the right neck on . He reports low-grade fever since then. However, last night, his fever reached 102.7. He states that he called his oncologist today, Dr. Mack, who recommended he come to the emergency department. The patient denies any other symptoms. No cough or congestion. No abdominal pain. No nausea, vomiting, diarrhea. Reports no other medical problems. He takes no other medications other than Lovenox. PFSH Past Medical History Hx Anticoagulant Therapy: Yes (LOVENOX) Arthritis: Yes (KNEE) Cancer: Yes (MASS FOUND IN LEFT LUNG) Cardiovascular Problems: Yes High Cholesterol: Yes Chemotherapy: Yes Diabetes: No Diminished Hearing: No Endocrine: No Gastrointestinal Disorders: Yes Genitourinary: No Immune Disorder: No Musculoskeletal: Yes Neurologic: No Psychiatric: No Reproductive: No Respiratory: Yes (LUNG CANCER) Radiation Therapy: Yes Past Surgical History Other Surgery: Yes (PORT PLACEMENT) Social History Alcohol Use: No Tobacco Use: No Substance Use: No Allergies-Medications (Allergen,Severity, Reaction): Coded Allergies: Penicillin (Verified Allergy, Unknown, 01/07/17) Reported Meds & Prescriptions Reported Meds & Active Scripts Active Reported Lovenox Inj (Enoxaparin Sodium) 80 mg/0.8 ML Syr 80 Mg SQ BID Review of Systems Except as stated in HPI: all other systems reviewed are Neg Physical Exam Narrative GENERAL: Well-nourished, well-developed male patient, afebrile at this time. SKIN: Focused skin assessment warm/dry. HEAD: Normocephalic. Atraumatic EYES: No scleral icterus. No injection or drainage. NECK: Supple, trachea midline. No JVD or lymphadenopathy. Patient has right lower neck mass that is firm to palpation. CARDIOVASCULAR: Regular rate and rhythm without murmurs, gallops, or rubs. RESPIRATORY: Breath sounds equal bilaterally. No accessory muscle use. Lungs sounds are clear to auscultation. GASTROINTESTINAL: Abdomen soft, non-tender, nondistended. MUSCULOSKELETAL: No cyanosis, or edema. BACK: Nontender without obvious deformity. No CVA tenderness. Data Data Last Documented VS Vital Signs Date Time Temp Pulse Resp B/P Pulse Ox O2 Delivery O2 Flow Rate FiO2 01/07/17 19:27 99.0 111 16 117/78 98 Room Air Orders Electrocardiogram (01/07/17 19:56) Complete Blood Count With Diff (01/07/17 19:56) Comprehensive Metabolic Panel (01/07/17 19:56) Lactic Acid Sepsis Protocol (01/07/17 19:56) Magnesium (Mg) (01/07/17 19:56) Urinalysis - C+S If Indicated (01/07/17 19:56) Influenzae A/B Antigen (01/07/17 19:56) Blood Culture (01/07/17 19:56) Chest, Single Ap (01/07/17 19:56) Sodium Chlor 0.9% 1000 Ml Inj (Ns 1000 M (01/07/17 20:00) Levofloxacin 750 Mg Premix Inj (Levaquin (01/07/17 21:45) Oseltamivir (Tamiflu) (01/07/17 21:45) Labs Laboratory Tests Test 01/07/17 01/07/17 20:25 20:40 White Blood Count 8.6 TH/MM3 Red Blood Count 3.73 MIL/MM3 Hemoglobin 11.5 GM/DL Hematocrit 32.9 % Mean Corpuscular Volume 88.4 FL Mean Corpuscular Hemoglobin 30.9 PG Mean Corpuscular Hemoglobin 35.0 % Concent Red Cell Distribution Width 14.6 % Platelet Count 379 TH/MM3 Mean Platelet Volume 7.3 FL Neutrophils (%) (Auto) 77.4 % Lymphocytes (%) (Auto) 6.9 % Monocytes (%) (Auto) 14.6 % Eosinophils (%) (Auto) 0.6 % Basophils (%) (Auto) 0.5 % Neutrophils # (Auto) 6.6 TH/MM3 Lymphocytes # (Auto) 0.6 TH/MM3 Monocytes # (Auto) 1.3 TH/MM3 Eosinophils # (Auto) 0.1 TH/MM3 Basophils # (Auto) 0.0 TH/MM3 CBC Comment DIFF FINAL Differential Comment Sodium Level 135 MEQ/L Potassium Level 4.0 MEQ/L Chloride Level 98 MEQ/L Carbon Dioxide Level 28.3 MEQ/L Anion Gap 9 MEQ/L Blood Urea Nitrogen 9 MG/DL Creatinine 0.77 MG/DL Estimat Glomerular Filtration 106 ML/MIN Rate Random Glucose 105 MG/DL Lactic Acid Level 1.2 mmol/L Calcium Level 8.8 MG/DL Magnesium Level 2.3 MG/DL Total Bilirubin 0.3 MG/DL Aspartate Amino Transf 26 U/L (AST/SGOT) Alanine Aminotransferase 34 U/L (ALT/SGPT) Alkaline Phosphatase 90 U/L Total Protein 7.6 GM/DL Albumin 3.1 GM/DL Urine Color YELLOW Urine Turbidity HAZY Urine pH 7.0 Urine Specific [place] 1.009 Urine Protein NEG mg/dL Urine Glucose (UA) NEG mg/dL Urine Ketones NEG mg/dL Urine Occult Blood NEG Urine Nitrite NEG Urine Bilirubin NEG Urine Urobilinogen LESS THAN 2.0 MG/DL Urine Leukocyte Esterase NEG Urine RBC 1 /hpf Urine WBC 2 /hpf Urine Amorphous Sediment RARE Microscopic Urinalysis Comment CATH-CULT NOT IND MDM Medical Decision Making Medical Screen Exam Complete: Yes Emergency Medical Condition: Yes Medical Record Reviewed: Yes Interpretation(s) Last Impressions Chest X-Ray 01/07/171955 Signed Impressions: Service Date/Time: Saturday, January 07, 2017 20:01 - CONCLUSION: 1. Patchy left lung consolidation most characteristic of bronchopneumonia or post radiation changes. There is an underlying left lung mass which is not well delineated. Right lung is clear. Scott Layton MD Differential Diagnosis Fever versus pneumonia versus UTI Narrative Course 51-year-old male presents to the emergency department for evaluation of fever that reached 102.7 last night. Patient is undergoing radiation therapy and chemotherapy. EKG, CBC, CMP, magnesium, lactic acid, blood cultures 2, UA, and influenza are ordered and pending. Chest x-ray is ordered and pending. Patient is given normal saline 1 L IV bolus. EKG shows sinus tachycardia, heart rate 105, no acute ST changes. CBC shows normal WBC of 8.6, hemoglobin 11.5, hematocrit 32.9. CMP shows no acute abnormality. Magnesium is 2.3. Lactic acid is 1.2. UA is negative for acute infection. Influenza is positive for flu A. Chest x-ray shows patchy left lung consolidation most characteristic of bronchopneumonia or post radiation changes. There is an underlying left lung mass which is not well delineated. Right lung is clear. I discussed the case with my attending physician, Dr. Juarez, who agrees with plan and disposition. Patient appears well on exam. He would like to go home. Patient is given Levaquin 750mg IV and Tamiflu 75 mg PO in the emergency department. He will be discharged with a prescription for Levaquin and Tamiflu. He is to return for any acute, worsening of symptoms. Patient is agreeable. The patient was discharged in stable condition with instructions, including return instructions and follow up instructions. Diagnosis Primary Impression: Influenza A Additional Impression: Pneumonia Qualified Code: J18.9 - Pneumonia of left lung due to infectious organism, unspecified part of lung Referrals: Oncologist Patient Instructions: Community Acquired Pneumonia (ED), General Instructions, Influenza (ED) Additional Instructions: Take Levaquin as directed. You received your first dose in the emergency department. Take Tamiflu as directed until gone. You received first dose here in the emergency department. Tylenol every 4 hours as needed for fever. Follow-up with your primary care physician and oncologist. Return to the emergency department for any acute worsening of symptoms. Med/Other Pt SpecificInfo: Prescription(s) given Scripts Levofloxacin (Levaquin)750 Mg Qmm033 Mg PO DAILY 6 Days Ref 0 Prov:Mirian Cummins 01/07/17 Oseltamivir (Tamiflu)75 Mg Cap75 Mg PO BID 5 Days Ref 0 Prov:Mirian Cummins 01/07/17 Disposition: DISCHARGE HOME Condition: Stable Mirian Cummins January 07, 2017 19:59
[2017-01-07] MEDS ORDERED: SODIUM CHLOR 0.9% 1000 ML INJ 1,000 ML IV ONE (20:00)
--- NOTE | 2017-01-07 20:48 | RADRPT ---
EXAM DATE/TIME: 01/07/2017 20:01 [facility] COMPARISON: CT PULMONARY ANGIOGRAM, December 31, 2016, 13:23. INDICATIONS : Fever MEDICAL HISTORY : Cardiovascular disease. Carcinoma, lung. Left lung biopsy and thoracentesis. SURGICAL HISTORY : [place] ENCOUNTER: Initial ACUITY: 1 day PAIN SCORE: 0/10 LOCATION: Bilateral chest FINDINGS: A single view of the chest demonstrates a tear space disease in the left lung, probably slightly incr eased from CT on December 31 and most characteristic of a left-sided pneumonia. There is a known left lung mass recently decreased in size on CT presumably from radiation therapy. [id number] in super vena cava. Right lung is clear. CONCLUSION: 1. Patchy left lung consolidation most characteristic of bronchopneumonia or post radiation changes. There is an underlying left lung mass which is not well delineated. Right lung is clear. Scott Layton MD on January 07, 2017 at 20:45 Board Certified Radiologist. This report was verified electronically.
[2017-01-07 21:00] VITALS: BP 117/77; PULSE 106; RESP 18; O2SAT 98
[2017-01-07 21:05] LABS: AUTOMATED NEUTROPHIL # 6.6 TH/MM3 (1.8-7.7); BASOPHIL % 0.5 % (0.0-2.0); EOSINOPHIL # 0.1 TH/MM3 (0-0.4); EOSINOPHIL % 0.6 % (0.0-4.0); HEMATOCRIT 32.9 % (39.0-51.0); HEMO FLAGS DIFF FINAL; LYMPH % 6.9 % (9.0-44.0); LYMPHOCYTE # 0.6 TH/MM3 (1.0-4.8); MEAN CELL VOLUME 88.4 FL (80.0-100.0); MEAN CORPUSCULAR HEMOGLOBIN 30.9 PG (27.0-34.0); MONO % 14.6 % (0.0-8.0); NEUT % 77.4 % (16.0-70.0); PLATELET COUNT 379 TH/MM3 (150-450); RED BLOOD COUNT 3.73 MIL/MM3 (4.50-5.90); RED CELL DISTRIBUTION WIDTH 14.6 % (11.6-17.2); WHITE BLOOD COUNT 8.6 TH/MM3 (4.0-11.0)
[2017-01-07 21:16] LABS: ANION GAP 9 MEQ/L (5-15); AST (GOT) 26 U/L (15-37); BICARBONATE 28.3 MEQ/L (21.0-32.0); BLOOD UREA NITROGEN 9 MG/DL (7-18); CHLORIDE 98 MEQ/L (98-107); GLOMERULAR FILTRATION RATE 106 ML/MIN (>89); MAGNESIUM 2.3 MG/DL (1.5-2.5); SODIUM (NA) 135 MEQ/L (136-145)
[2017-01-07 21:20] LABS: ALKALINE PHOSPHATASE 90 U/L (45-117); ALT (GPT) 34 U/L (12-78); TOTAL BILIRUBIN ADULT 0.3 MG/DL (0.2-1.0)
[2017-01-07 21:23] LABS: BLOOD, URINE NEG (NEG); GLUCOSE,URINE NEG (NEG); KETONE, URINE NEG (NEG); NITRITE,URINE NEG (NEG); URINE COLOR YELLOW (YELLW/STRAW)
[2017-01-07 21:24] LABS: COMMENT (UR) CATH-CULT NOT IND; CULTURE IF INDICATED CATH CULTURE NOT IND
[2017-01-07] MEDS ORDERED: OSELTAMIVIR PHOSPHATE 75 MG CAP PO ONE (21:45)
[2017-01-07] MEDS ORDERED: LEVOFLOXACIN 750 MG PREMIX INJ 150 ML IV ONE (21:45)
[2017-01-07] MEDS ORDERED: LEVA750T PO (21:46)
[2017-01-07] MEDS ORDERED: OSEL75 PO (21:46)
[2017-01-07 22:25] VITALS: BP 123/75
--- NOTE | 2017-01-08 15:15 | EKG ---
Date Performed: 01/07/2017 Time Performed: 20:46:18 PTAGE: 51 years EKG: SINUS TACHYCARDIA ABNORMAL RHYTHM ECG Compared to prior tracing no significant change PREVIOUS TRACING : 12/16/2016 13.00 DOCTOR: Joseph Whitman Interpretating Date/Time 01/08/2017 15:14:04
== END 2017-01-07 22:35 | disposition home or self-care (01) ==
LOC: NEPC 19:24
DX: J09.X2 Influenza due to identified novel influenza A virus with other respiratory manifestations (principal); J18.9 Pneumonia, unspecified organism; R00.0 Tachycardia, unspecified; C34.90 Malignant neoplasm of unspecified part of unspecified bronchus or lung; E78.00 Pure hypercholesterolemia, unspecified; Z79.01 Long term (current) use of anticoagulants; Z86.79 Personal history of other diseases of the circulatory system; Z87.19 Personal history of other diseases of the digestive system; Z87.39 Personal history of other diseases of the musculoskeletal system and connective tissue
CPT/HCPCS: 71010; 80053; 81001; 83605; 83735; 85025; 87040; 87804; 93005; 96374; 99284; J1642; J1956; J7030

== ENCOUNTER 2017-03-23 19:19 | Inpatient (IN) | payer BC ==
[~2017-03-23] VITALS: Ht 175.3 cm; Wt 96.1 kg
[2017-03-23] VITALS (23 sets, daily range): BP systolic 86–154; BP diastolic 52–92; PULSE 98–140; RESP 14–20; TEMP 99.1–99.6; O2SAT 99–100
[2017-03-23] MEDS: SODIUM CHLORIDE 0.9% FLUSH 10 ML FLUSH IV FLUSH SCH (08:38)
[~2017-03-23 19:19] MED LIST changes: +LEVA750T PO; +OSEL75 PO
[2017-03-23] MEDS ORDERED: PROPOFOL 1000 MG/100 ML INJ 100 ML ONE (19:28)
[2017-03-23] MEDS ORDERED: ETOMIDATE 20 MG/10 ML VIAL ONE (19:28)
[2017-03-23] MEDS ORDERED: LIDOCAINE HCL 2% 100 MG/5 ML SYRINGE ONE (19:28)
[2017-03-23] MEDS ORDERED: LORazepam 2 MG/ML VIAL ONE ×2 (19:29→19:38)
[2017-03-23] MEDS ORDERED: SUCCINYLCHOLINE CHLORIDE 200 MG/10 ML VIAL ONE (19:29)
[2017-03-23] MEDS ORDERED: SODIUM CHLORIDE 0.9% FLUSH 10 ML FLUSH IVF PRN ×4 (19:30→20:30)
[2017-03-23] MEDS ORDERED: SODIUM CHLOR 0.9% 1000 ML INJ 1,000 ML IV ONE (19:35)
[2017-03-23] MEDS ORDERED: ONDANSETRON HCL 4 MG/2 ML VIAL ONE (19:40)
[2017-03-23] MEDS ORDERED: ONDANSETRON HCL 4 MG/2 ML VIAL IV PUSH ONE ×2 (19:45→20:00)
[2017-03-23] MEDS: PROPOFOL 1000 MG/100 ML INJ 100 ML IV SCH (19:45)
[2017-03-23] MEDS ORDERED: LORazepam 2 MG/ML VIAL IVS ONE (19:45)
[2017-03-23] MEDS ORDERED: FOSPHENYTOIN INJ 1,000 MGPE in SODIUM CHLORIDE 0.9% INJ 50 ML IV ONE (19:45)
[2017-03-23] MEDS ORDERED: LORazepam 2 MG/ML VIAL IV PUSH ONE (19:45)
[2017-03-23] MEDS ORDERED: LORazepam 2 MG/ML VIAL IV ONE ×2 (19:55→20:00)
--- NOTE | 2017-03-23 19:59 | RADRPT ---
EXAM DATE/TIME: 03/23/2017 19:47 [facility] COMPARISON: CHEST SINGLE AP, January 07, 2017, 20:01. CT PULMONARY ANGIOGRAM, December 31, 2016, 13:23. INDICATIONS : Post intubation MEDICAL HISTORY : Cardiovascular disease. Carcinoma, lung. Left lung biopsy and SURGICAL HISTORY : [place] ENCOUNTER: Initial ACUITY: 1 day PAIN SCORE: Non-responsive. LOCATION: Bilateral chest FINDINGS: Endotracheal tube is in satisfactory position. Right [id number] in superior vena cava. There is a left lung mass and perihilar airspace disease. No significant effusion. Right lung clear. CONCLUSION: 1. Endotracheal tube in satisfactory position. Left lung mass and perihilar airspace disease similar to January 07. There is now some apical pleural thickening on the left. Scott Layton MD on March 23, 2017 at 19:56 Board Certified Radiologist. This report was verified electronically.
[2017-03-23] MEDS ORDERED: ETOMIDATE 20 MG/10 ML VIAL IV PUSH ONE (20:00)
[2017-03-23] MEDS ORDERED: PROPOFOL 1000 MG/100 ML INJ 100 ML IV SCH (20:00)
[2017-03-23] MEDS ORDERED: SUCCINYLCHOLINE CHLORIDE 200 MG/10 ML VIAL IV PUSH ONE (20:00)
[2017-03-23] MEDS ORDERED: DEXAMETHASONE SOD PHOS 4 MG/ML VIAL IV PUSH ONE (20:15)
[2017-03-23] MEDS ORDERED: MANNITOL 12.5 GM/50 ML VIAL IV ONE (20:15)
[2017-03-23] MEDS ORDERED: MIDAZOLAM 100 MG/100 ML INJ 100 ML IV SCH (20:15)
[2017-03-23] MEDS ORDERED: SODIUM CHLORID 0.9% 500 ML INJ 500 ML IV ONE (20:15)
[2017-03-23] MEDS ORDERED: SODIUM CHLOR 0.9% 1000 ML INJ 1,000 ML IV SCH (20:15)
--- NOTE | 2017-03-23 20:20 | PD ---
HPI Chief Complaint: seizure Time Seen by Provider: 19:35 Travel History International Travel<30 days: No Contact w/Intl Traveler<30days: No Traveled to known affect area: No History of Present Illness HPI 51-year-old male with history of stage IV lung cancer on Lovenox presents to the emergency department from home by EMS transport for evaluation of possible stroke and new onset seizure. According to paramedics to relay the history noted just prior to arrival to the emergency department the patient started having weakness and shaking of the left upper extremity and left lower extremity was some facial droop. Patient was reportedly awake during this episode and the symptoms seemed to dissipate and patient was left with left- sided weakness and then paramedics report en route to the hospital started having recurrent tremor and shaking of the left upper extremity and left lower extremity. Upon arrival to the emergency department patient was awake GCS was 15 patient knew his name and date of and monitored thereafter started having recurrent seizure form activity of the left lower extremity left upper extremity and then developed generalized seizure. Initial onset of seizure activity was approximately 5-8 minutes in duration according to paramedics description by seizure activity en route and while arriving to the emergency department was approximately 10 minutes in duration before stopping and then generalized seizure activity was approximately 5 minutes in duration. Patient started to arouse from postictal state and then again had recurrent generalized seizure activity. 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 histology/chemotherapy-Nivolumab q 2 weeks on arthritis dyslipidemia knee surgery [employer] GERD intractable cough; no tobacco use; nursing notes reviewed Hx Anticoagulant Therapy: Yes (LOVENOX) Arthritis: Yes (KNEE) Cancer: Yes (MASS FOUND IN LEFT LUNG) Cardiovascular Problems: Yes High Cholesterol: Yes Chemotherapy: Yes Diabetes: No Diminished Hearing: No Endocrine: No Gastrointestinal Disorders: Yes Genitourinary: No Immune Disorder: No Musculoskeletal: Yes Neurologic: No Psychiatric: No Reproductive: No Respiratory: Yes (LUNG CANCER) Radiation Therapy: Yes Past Surgical History Other Surgery: Yes (PORT PLACEMENT) Social History Alcohol Use: No Tobacco Use: No Substance Use: No Allergies-Medications (Allergen,Severity, Reaction): Coded Allergies: Penicillin (Verified Allergy, Unknown, 03/24/17) Reported Meds & Prescriptions Reported Meds & Active Scripts Active Reported Lovenox Inj (Enoxaparin Sodium) 80 mg/0.8 ML Syr 80 Mg SQ BID Review of Systems ROS Limitations: Clinical Condition, Altered Mental Status, Other: () Except as stated in HPI: all other systems reviewed are Neg General / Constitutional: No: Fever, Chills HENT: Positive: Congestion Cardiovascular: No: Chest Pain or Discomfort Respiratory: Positive: Cough, No: Shortness of Breath, Pleuritic Pain Gastrointestinal: No: Vomiting, Abdominal Pain Genitourinary: No: Flank Pain Musculoskeletal: No: Pain Neurologic: Positive: Seizures (today) Psychiatric: No: Anxiety Hematologic/Lymphatic: No: Easy Bruising Physical Exam Narrative GENERAL: Well-developed well-nourished male in moderate distress with diaphoresis and tachypnea with active tonic-clonic shaking of the left upper and lower extremities; awake and oriented to person and place. SKIN: Warm and diaphoretic HEAD: Atraumatic. Normocephalic. EYES: Pupils equal and round. Extraocular muscles intact. No scleral icterus. No injection or drainage. ENT: No nasal bleeding or discharge. Mucous membranes pink and moist. NECK: Trachea midline. No JVD. Supple. CARDIOVASCULAR: Increased Regular rate and rhythm. RESPIRATORY: No accessory muscle use. Clear to auscultation. Breath sounds equal bilaterally. GASTROINTESTINAL: Abdomen soft, non-tender, nondistended. Hepatic and splenic margins not palpable. MUSCULOSKELETAL: Extremities without clubbing, cyanosis, or edema. No obvious deformities. NEUROLOGICAL: Awake and alert. No obvious cranial nerve deficits. Motor grossly within normal limits. Five out of 5 muscle strength in the right sided arms and legs. Mild slurring of speech. PSYCHIATRIC: Appropriate mood and affect; insight and judgment normal. Data Data Last Documented VS Vital Signs Date Time Temp Pulse Resp B/P Pulse Ox O2 Delivery O2 Flow Rate FiO2 03/23/17 20:05 126 16 88/54 100 Ventilator 100 03/23/17 19:30 15.00 03/23/17 19:20 99.1 Orders Blood Glucose (03/23/17 19:24) Ecg Monitoring (03/23/17 19:24) Iv Access Insert/Monitor (03/23/17 19:24) Oximetry (03/23/17 19:24) Sodium Chloride 0.9% Flush (Ns Flush) (03/23/17 19:30) Fosphenytoin Inj (Cerebyx Inj) (03/23/17 19:45) Etomidate Inj (Amidate Inj) (03/23/17 19:28) Lidocaine 2% Inj (Xylocaine 2% Inj) (03/23/17 19:28) Propofol 1000 Mg/100 Ml Inj (Diprivan 10 (03/23/17 19:28) Succinylcholine Inj (Quelicin Inj) (03/23/17 19:29) Lorazepam Inj (Ativan Inj) (03/23/17 19:29) Sodium Chloride 0.9% Flush (Ns Flush) (03/23/17 19:45) Complete Blood Count With Diff (03/23/17 19:35) Alcohol (Ethanol) (03/23/17 19:35) Drug Screen, Random Urine (03/23/17 19:35) Blood Culture (03/23/17 19:35) Ct Brain W/O Iv Contrast(Rout) (03/23/17 ) Blood Glucose (03/23/17 19:35) Ecg Monitoring (03/23/17 19:35) Iv Access Insert/Monitor (03/23/17 19:35) Oximetry (03/23/17 19:35) Comprehensive Metabolic Panel (03/23/17 19:35) Sodium Chlor 0.9% 1000 Ml Inj (Ns 1000 M (03/23/17 19:35) Sodium Chloride 0.9% Flush (Ns Flush) (03/23/17 19:45) Lorazepam Inj (Ativan Inj) (03/23/17 19:45) Ua Includes Microscopic (03/23/17 19:35) Chest, Single Ap (03/23/17 ) Lorazepam Inj (Ativan Inj) (03/23/17 19:45) Lorazepam Inj (Ativan Inj) (03/23/17 19:38) Ondansetron Inj (Zofran Inj) (03/23/17 19:45) Ondansetron Inj (Zofran Inj) (03/23/17 19:40) Propofol 1000 Mg/100 Ml Inj (Diprivan 10 (03/23/17 20:00) Propofol 1000 Mg/100 Ml Inj (Diprivan 10 (03/23/17 20:00) ^ Infusion (03/23/17 19:47) RASS (03/23/17 19:47) Neurological Rass Scale BOB.Q2H (03/23/17 19:47) Etomidate Inj (Amidate Inj) (03/23/17 20:00) Succinylcholine Inj (Quelicin Inj) (03/23/17 20:00) Mannitol Inj (Mannitol Inj) (03/23/17 20:15) Dexamethasone Inj (Decadron Inj) (03/23/17 20:15) Sodium Chlorid 0.9% 500 Ml Inj (Ns 500 M (03/23/17 20:15) Midazolam 100 Mg/Ml Inj (Versed 100 Mg/M (03/23/17 20:15) Neurological Rass Scale Q30MX2,Q2HX4,Q4H (03/23/17 20:09) Sodium Chlor 0.9% 1000 Ml Inj (Ns 1000 M (03/23/17 20:15) Dana-Gastric Tube Insert/Mon (03/23/17 20:13) Urinary Catheter Insert/Apply (03/23/17 20:13) Ammonia (03/23/17 20:13) Lactic Acid Sepsis Protocol (03/23/17 20:13) Blood Culture (03/23/17 20:13) Arterial Blood Gas (Abg) (03/23/17 ) Resp Ventilation- Volume (03/23/17 ) Admit To Inpatient (03/23/17 ) Code Status (03/23/17 20:23) Vital Signs (Adult) BOB.Q1H (03/23/17 20:23) Activity Bed Rest (03/23/17 20:23) Scrap Drop Engineer / Telemetry BOB.Q8H (03/23/17 20:23) Intake + Output BOB.Q8H (03/23/17 20:23) Diet Npo (03/24/17 Breakfast) Sodium Chlor 0.9% 1000 Ml Inj (Ns 1000 M (03/23/17 20:23) Sodium Chloride 0.9% Flush (Ns Flush) (03/23/17 20:30) Albuterol-Ipratropium Neb (Duoneb Neb) (03/23/17 22:00) Albuterol Neb (Albuterol Neb) (03/23/17 20:30) Chlorhexidine 0.12% Liq (Peridex 0.12% L (03/24/17 08:00) Pantoprazole Inj (Protonix Inj) (03/24/17 09:00) Complete Blood Count With Diff (03/24/17 06:00) Comprehensive Metabolic Panel (03/24/17 06:00) Sputum Culture And Gram Stain (03/23/17 20:23) Chest, Single Ap (03/24/17 06:00) Resp Pulse Oximetry (03/23/17 ) Resp Ventilation- Volume (03/23/17 ) Scd Bilateral/Knee High BOB.BID (03/23/17 20:23) Kiko Bilateral/Knee High BOB.QSHIFT (03/23/17 20:23) ^ Initiate Protocol (03/23/17 20:23) Instruction (03/23/17 20:23) Misc Nursing Information (03/23/17 20:30) Chlorhexidine 2% Cloth (Chlorhexidine 2% (03/24/17 04:00) Chlorhexidine 2% Cloth (Chlorhexidine 2% (03/23/17 20:30) Mrsa Pcr Surveillance (03/23/17 20:23) Midazolam 100 Mg/Ml Inj (Versed 100 Mg/M (03/23/17 20:30) Neurological Rass Scale Q30MX2,Q2HX4,Q4H (03/23/17 20:23) Inpatient Certification (03/23/17 ) Admit Order (Ed Use Only) (03/23/17 ) ^ Saline Lock (03/23/17 20:25) Resp Oxygen Hector C Titrat 1-4 L (03/23/17 ) Notify Dr: Other (03/23/17 20:25) Sodium Chloride 0.9% Flush (Ns Flush) (03/23/17 21:00) Consult Neurosurgery (03/23/17 20:25) Magnesium (Mg) (03/23/17 20:10) Phosphorus (Po4) (03/23/17 20:10) Labs Laboratory Tests Test 03/23/17 03/23/17 20:10 20:20 White Blood Count 9.7 TH/MM3 Red Blood Count 4.49 MIL/MM3 Hemoglobin 13.4 GM/DL Hematocrit 39.3 % Mean Corpuscular Volume 87.6 FL Mean Corpuscular Hemoglobin 29.8 PG Mean Corpuscular Hemoglobin 34.0 % Concent Red Cell Distribution Width 15.8 % Platelet Count 290 TH/MM3 Mean Platelet Volume 7.6 FL Neutrophils (%) (Auto) 78.0 % Lymphocytes (%) (Auto) 11.0 % Monocytes (%) (Auto) 8.4 % Eosinophils (%) (Auto) 1.4 % Basophils (%) (Auto) 1.2 % Neutrophils # (Auto) 7.6 TH/MM3 Lymphocytes # (Auto) 1.1 TH/MM3 Monocytes # (Auto) 0.8 TH/MM3 Eosinophils # (Auto) 0.1 TH/MM3 Basophils # (Auto) 0.1 TH/MM3 CBC Comment DIFF FINAL Differential Comment Sodium Level 140 MEQ/L Potassium Level 4.3 MEQ/L Chloride Level 105 MEQ/L Carbon Dioxide Level 21.7 MEQ/L Anion Gap 13 MEQ/L Blood Urea Nitrogen 19 MG/DL Creatinine 1.20 MG/DL Estimat Glomerular Filtration 63 ML/MIN Rate Random Glucose 137 MG/DL Calcium Level 8.7 MG/DL Phosphorus Level 4.8 MG/DL Magnesium Level 1.9 MG/DL Total Bilirubin 0.3 MG/DL Aspartate Amino Transf 42 U/L (AST/SGOT) Alanine Aminotransferase 61 U/L (ALT/SGPT) Alkaline Phosphatase 76 U/L Total Protein 7.5 GM/DL Albumin 3.3 GM/DL Ethyl Alcohol Level LESS THAN 3 MG/DL Lactic Acid Level 6.3 mmol/L Ammonia 96 MCMOL/L [facility] Medical Decision Making Medical Screen Exam Complete: Yes Emergency Medical Condition: Yes Medical Record Reviewed: Yes Interpretation(s) CBC & BMP Diagram 03/23/17 20:[address] 03/23/17 0000 Signed Impressions: Service Date/Time: Thursday, March 23, 2017 19:48 - CONCLUSION: 1. 1.7 cm mass in right parietal lobe with surrounding edema and localized mass effect most characteristic of metastatic disease given history of lung carcinoma. Scott Layton MD Chest X-Ray 03/23/17 0000 Signed Impressions: Service Date/Time: Thursday, March 23, 2017 19:47 - CONCLUSION: 1. Endotracheal tube in satisfactory position. Left lung mass and perihilar airspace disease similar to January 07. There is now some apical pleural thickening on the left. Scott Layton MD ammonia: 96, elevated lactic acid: 6.3, elevated uds: negative alcohol: less bharat 3, not elevated Differential Diagnosis New-onset focal seizure, generalized seizure, Eber's paralysis, intracranial bleed, intracranial metastatic mass, arrhythmia, likely disturbance, sepsis Narrative Course Patient arrived with paramedics with left-sided tonic-clonic jerking of the arm and leg and then shortly thereafter went into a generalized seizure. Determination was made to intubate the patient due to ongoing recurrent seizure form activity. IV access had been obtained by EMS prior to arrival additional IV access obtained. Glucose per paramedics and at bedside . Ativan 2 mg ordered stat for seizure activity IV administered this was repeated Ativan 2 mg IV administered with some control of seizure form activity as well as 1 g of fosphenytoin ordered to be administered IV. Patient was admitted with 100 mg of succinylcholine IV and 20 mg of Amidate IV with a #8 endotracheal tube with direct visualization of the vocal cords and rapid color change of CO2 detector and bilateral lung sounds without gastric sounds to auscultation. Postintubation chest x-ray ordered and patient taken immediately to CT CT identifies a mass in the right posterior parietal region of the brain with edema and local mass effect. Call placed to chip bin conveyor tender neurosurgery case discussed with Dr. Palmer Call placed to chip bin conveyor tender neuropsychology service director case discussed with Dr. Lobato Call placed to chip bin conveyor tender oncology case discussed with Dr. Deras covering for patient's oncologist Dr. Hickman @ 8:30 informed of 's/patient's status Critical Care Narrative Aggregate critical care time was 35 minutes. Time to perform other separately billable procedures was not included in the critical care time. My time did not include minutes spent treating any other patients simultaneously or on activities that did not directly contribute to the patient's treatment. The services I provided to this patient were to treat and/or prevent clinically significant deterioration that could result in: Status epilepticus, respiratory arrest, I provided critical care services requiring my management, as noted below: Chart data review, documentation time, medication orders and management, vital sign assessments/reviewing monitor data, ordering and reviewing lab tests, ordering and interpreting/reviewing x-rays and diagnostic studies, care of the patient and discussion of the patient with the admitting physicians. Procedures Procedure Narrative Emergently the following procedure was performed: INTUBATION: The patient was put in optimal position for the procedure. Rapid sequence intubation was initiated by me using 20 milligrams of etomidate IV and 100 milligrams of succinylcholine IV. The patient was intubated with a [-] cuffed endotracheal tube. Tube placement was confirmed by visualization of the tube and balloon passing through the cords, capnometry and subsequent chest x- ray. Breath sounds were equal and well aerated bilaterally postintubation. No breath sounds over stomach. Patient tolerated procedure well. Physician Communication Physician Communication discused with Dr Palmer --mannitol 25 gm now and decadron 4mg q 6h; discussed with Dr Layton 1.7 cm massc/w metastatic disease w mass effect; discussed with Dr Nails--admit to ICU [facility]; discussed w oncology Diagnosis Primary Impression: Neoplasm of brain causing mass effect on adjacent structures Additional Impression: Seizure Admitting Information Admitting Physician Requests: Admit Raine Belle MD Mar 23, 2017 20:20
--- NOTE | 2017-03-23 20:21 | RADRPT ---
EXAM DATE/TIME: 03/23/2017 19:48 [facility] COMPARISON: No previous studies available for comparison. INDICATIONS : Lung cancer.Seizure today. Rule out CVA vs. tumor. RADIATION DOSE: 58.91 CTDIvol (mGy) This report was called by Dr. Layton to Dr. Belle at 8: 19 PM MEDICAL HISTORY : Metastatic, lung. Pulmonary embolism SURGICAL HISTORY : None. ENCOUNTER: Initial ACUITY: 1 day PAIN SCALE: Non-responsive LOCATION: cranial TECHNIQUE: Multiple contiguous axial images were obtained of the head. Using automated exposure control and adj ustment of the mA and/or kV according to patient size, radiation dose was kept as low as reasonably a chievable to obtain optimal diagnostic quality images. DICOM format image data is available electro nically for review and comparison. FINDINGS: There is a 1.7 cm mass in the right parietal lobe with surrounding edema and localized mass effect wi th sulcal effacement. There is no significant midline shift at this time. No hydrocephalus. No other intracranial masses are identified. No evidence for recent infarction. CONCLUSION: 1. 1.7 cm mass in right parietal lobe with surrounding edema and localized mass effect most character istic of metastatic disease given history of lung carcinoma. Scott Layton MD on March 23, 2017 at 20:15 Board Certified Radiologist. This report was verified electronically.
[2017-03-23] MEDS ORDERED: SODIUM CHLORIDE 0.9% FLUSH 10 ML FLUSH IV FLUSH PRN (20:30)
[2017-03-23] MEDS ORDERED: MISCELLANEOUS NURSING INFORMATION XX SCH (20:30)
[2017-03-23] MEDS ORDERED: CHLORHEXIDINE GLUCONATE 2 % 1 PACK (2 CLOTHS) TOP PRN (20:30)
[2017-03-23] MEDS ORDERED: RESP: ALBUTEROL 2.5 MG/3 ML NEB (PRN) INH (20:30)
[2017-03-23] MEDS: SODIUM CHLOR 0.9% 1000 ML INJ 1,000 ML IV SCH (20:30)
[2017-03-23 20:31] LABS: AUTOMATED NEUTROPHIL # 7.6 TH/MM3 (1.8-7.7); BASOPHIL # 0.1 TH/MM3 (0-0.2); BASOPHIL % 1.2 % (0.0-2.0); EOSINOPHIL # 0.1 TH/MM3 (0-0.4); EOSINOPHIL % 1.4 % (0.0-4.0); HEMATOCRIT 39.3 % (39.0-51.0); LYMPHOCYTE # 1.1 TH/MM3 (1.0-4.8); MEAN CELL VOLUME 87.6 FL (80.0-100.0); MEAN CORPUSCULAR HEMOGLOBIN 29.8 PG (27.0-34.0); MONO % 8.4 % (0.0-8.0); PLATELET COUNT 290 TH/MM3 (150-450); RED BLOOD COUNT 4.49 MIL/MM3 (4.50-5.90); RED CELL DISTRIBUTION WIDTH 15.8 % (11.6-17.2); WHITE BLOOD COUNT 9.7 TH/MM3 (4.0-11.0)
[2017-03-23 20:33] LABS: HEMO FLAGS DIFF FINAL
[2017-03-23 20:38] LABS: CHLORIDE 105 MEQ/L (98-107); SODIUM (NA) 140 MEQ/L (136-145)
[2017-03-23 20:39] LABS: BLOOD GAS BASE EXCESS -0.9 mmol/L (-2-2); BLOOD GAS CARBOXYHEMOGLOBIN 1.2 % (0-4); BLOOD GAS HCO3 24 mmol/L (22-26); BLOOD GAS METHEMOGLOBIN 1.2 % (0-2); BLOOD GAS O2 HGB SATURATION 98 % (90-100); BLOOD GAS OXYGEN CONTENT 18.4 Vol % (12.0-20.0); BLOOD GAS PCO2 41 mmHG (38-42); BLOOD GAS PO2 332 mmHG (61-120); BLOOD GAS TOTAL HGB 12.9 G/DL (12.0-16.0); TEMP CORR TO 98.6
[2017-03-23 20:40] LABS: CRITICAL VALUE NO; DRAW SITE LT RADIAL; FIO2 100 %; NUMBER OF ARTERIAL PUNCTURES 1; OXYGEN DEVICE VENTILATOR; STAT YES; ULNAR PULSE PRESENT; VENT SETTINGS PRVC/AC14/600/5PEEP/
[2017-03-23 20:42] LABS: ANION GAP 13 MEQ/L (5-15); BICARBONATE 21.7 MEQ/L (21.0-32.0); BLOOD UREA NITROGEN 19 MG/DL (7-18)
[2017-03-23 20:43] LABS: MAGNESIUM 1.9 MG/DL (1.5-2.5)
[2017-03-23 20:45] LABS: ALT (GPT) 61 U/L (12-78); AST (GOT) 42 U/L (15-37); GLOMERULAR FILTRATION RATE 63 ML/MIN (>89)
[2017-03-23] MEDS ORDERED: MAGNESIUM SULFATE INJ 2 GM in SODIUM CHLORIDE 0.9% INJ 96 ML IV PRN (20:45)
[2017-03-23] MEDS ORDERED: POTASSIUM PHOSPHATE MONOBASIC 500 MG TAB PO/TUBE PRN (20:45)
[2017-03-23] MEDS ORDERED: POTASSIUM CHLORIDE 25 MEQ EFFERVESCENT TAB PO PRN (20:45)
[2017-03-23] MEDS ORDERED: POTASSIUM PHOSPHATE INJ 30 MMOL in SODIUM CHLOR 0.9% 250 ML INJ 250 ML IV PRN (20:45)
[2017-03-23] MEDS ORDERED: MAGNESIUM OXIDE 400 MG TAB PO PRN (20:45)
[2017-03-23] MEDS ORDERED: SODIUM PHOSPHATE INJ 30 MMOL in SODIUM CHLOR 0.9% 250 ML INJ 240 ML IV PRN (20:45)
[2017-03-23] MEDS ORDERED: POTASSIUM CHLOR 40 MEQ PREMIX 100 ML IV PRN ×2 (20:45)
[2017-03-23] MEDS ORDERED: MAGNESIUM SULFATE INJ 4 GM in SODIUM CHLORIDE 0.9% INJ 92 ML IV PRN (20:45)
[2017-03-23] MEDS ORDERED: POTASSIUM CHLOR 20 MEQ PREMIX 100 ML IV PRN ×2 (20:45)
[2017-03-23] MEDS ORDERED: POTASSIUM PHOSPHATE MONOBASIC 500 MG TAB PO PRN (20:45)
[2017-03-23 20:47] LABS: TOTAL BILIRUBIN ADULT 0.3 MG/DL (0.2-1.0)
[2017-03-23 20:48] LABS: ALKALINE PHOSPHATASE 76 U/L (45-117)
[2017-03-23 20:51] LABS: POTASSIUM 4.3 MEQ/L (3.5-5.1)
[2017-03-23 20:56] LABS: ALCOHOL LESS THAN 3 MG/DL (0-5)
--- NOTE | 2017-03-23 20:57 | PD.CONS ---
HPI Service neurosurg Consult Requested By Dr Belle Reason for Consult Brain mass causing seizures Primary Care Physician Unknown History of Present Illness mr Mendosa is a 51-year-old male with history of stage IV lung cancer, Lovenox therapy for DVT and PE, who presented to the emergency department for evaluation of possible stroke alert and new onset seizure. EMS was called for new onset of seizures involving his left lower extremity. According to paramedics during route he developed weakness and shaking of the left upper and lower extremity with a facial droop, but without loss of consciousness. In the ER initially was awake alert then developed focal left- sided seizures followed by generalized seizure for 5 min. No tongue bitting. No incontinence of stool or urine. He received Ativan Initially aroused from postictal state and then developed recurrent generalized seizures. He was intubated for airway protection. CT of the head showed right parietal mass 1.7 cm suspicious for metastatic lesion. He was loaded with Cerebyx 1 g. An EEG had been ordered. He is intubated sedated with Versed. He moves all 4 extremity. Neurosurgical consultation was requested. 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 Hickman Arthritis Dyslipidemia GERD Past Surgical History InfusaPort placement Knee surgery Biopsy Reported Medications Lovenox Inj (Enoxaparin Sodium) 80 mg/0.8 ML Syr 80 Mg SQ BID Active Ordered Medications Current Medications Sodium Chloride 2 ml 2 ml UNSCH PRN IVF FLUSH AFTER USING IV ACCESS; Start 03/23 at 19:30; Stop 03/23/17 at 20:32; Status DC Fosphenytoin Sodium/Sodium Chloride (Cerebyx Inj/NS Inj) 70 ml @ 300 mls/hr ONCE ONCE IV Last administered on 03/23/17t 20:15; Start 03/23/17 at 19:45; Stop 03/23/17 at 19:58; Status DC Etomidate (Amidate Inj) 20 mg STK-MED ONCE .ROUTE ; Start 03/23/17 at 19:28; Stop 03/23/17 at 19:29; Status DC Lidocaine HCl 100 mg 100 mg STK-MED ONCE .ROUTE ; Start 03/23/17 at 19:28; Stop 03/23/17 at 19:52; Status DC Propofol (Diprivan 1000 Mg/100ml Inj) 100 ml @ As Directed STK-MED ONCE .ROUTE ; Start 03/23/17 at 19:28; Stop 03/23/17 at 19:29; Status DC Succinylcholine Chloride (Quelicin Inj) 200 mg STK-MED ONCE .ROUTE ; Start at 19:29; Stop 03/23/17 at 19:30; Status DC Lorazepam (Ativan Inj) 2 mg STK-MED ONCE .ROUTE Last administered on 03/23/17 19:38; Start 03/23/17 at 19:29; Stop 03/23/17 at 19:30; Status DC Sodium Chloride 2 ml 2 ml UNSCH PRN IVF FLUSH AFTER USING IV ACCESS; Start 03/23 at 19:45; Stop 03/23/17 at 20:32; Status DC Sodium Chloride (NS 1000 ml Inj) 1,000 ml @ 125 mls/hr Q8H ONCE IV ; Start 03/23 at 19:35; Stop 03/23/17 at 20:31; Status DC Sodium Chloride (NS Flush) 2 ml UNSCH PRN IVF FLUSH AFTER USING IV ACCESS; Start 03/23/17 at 19:45; Stop 03/23/17 at 20:32; Status DC Lorazepam (Ativan Inj) 2 mg ONCE ONCE IVS ; Start 03/23/17 at 19:45; Stop at 19:52; Status DC Lorazepam (Ativan Inj) 2 mg ONCE ONCE IV PUSH Last administered on 03/23/17 19 :25; Start 03/23/17 at 19:45; Stop 03/23/17 at 19:46; Status DC Lorazepam (Ativan Inj) 2 mg STK-MED ONCE .ROUTE Last administered on 03/23/17 19:40; Start 03/23/17 at 19:38; Stop 03/23/17 at 19:39; Status DC Ondansetron HCl (Zofran Inj) 4 mg ONCE ONCE IV PUSH Last administered on 19:35; Start 03/23/17 at 19:45; Stop 03/23/17 at 19:46; Status DC Ondansetron HCl 4 mg 4 mg STK-MED ONCE .ROUTE ; Start 03/23/17 at 19:40; Stop 03/23/17 at 19:41; Status DC Propofol 100 ml @ 0 mls/hr TITRATE IV Last administered on 03/23/17 19:45; Start 03/23/17 at 20:00 Propofol (Diprivan 1000 Mg/100ml Inj) 100 ml @ 0 mls/hr TITRATE IV ; Start at 20:00 Etomidate (Amidate Inj) 20 mg ONCE ONCE IV PUSH Last administered on 03/23/17 19:30; Start 03/23/17 at 20:00; Stop 03/23/17 at 20:01; Status DC Succinylcholine Chloride (Quelicin Inj) 100 mg ONCE ONCE IV PUSH Last administered on 03/23/17 19:30; Start 03/23/17 at 20:00; Stop 03/23/17 at 20:01; Status DC Mannitol (Mannitol Inj) 25 gm ONCE ONCE IV Last administered on 03/23/17 21:34 ; Start 03/23/17 at 20:15; Stop 03/23/17 at 20:16; Status DC Dexamethasone Sodium Phosphate 4 mg 4 mg ONCE ONCE IV PUSH Last administered on 03/23/17 21:54; Start 03/23/17 at 20:15; Stop 03/23/17 at 20:16; Status DC Sodium Chloride 500 ml @ 500 mls/hr BOLUS ONCE IV Last administered on 19:30; Start 03/23/17 at 20:15; Stop 03/23/17 at 21:14; Status DC Midazolam HCl 100 ml @ 0 mls/hr TITRATE IV ; Start 03/23/17 at 20:15; Stop at 20:44; Status DC Sodium Chloride 1,000 ml @ 125 mls/hr Q8H IV ; Start 03/23/17 at 20:15; Stop 03/23/17 at 20:31; Status DC Sodium Chloride (NS 1000 ml Inj) 1,000 ml @ 75 mls/hr [id number] IV Last administered on 03/24/17 09:43; Start 03/23/17 at 20:23 Sodium Chloride (NS Flush) 2 ml UNSCH PRN IV FLUSH FLUSH AFTER USING IV ACCESS ; Start 03/23/17 at 20:30 Albuterol/ Ipratropium (Duoneb Neb) 1 ampule Q6HR NEB NEB Last administered on 03/24/17 07:57; Start 03/23/17 at 22:00 Albuterol Sulfate (Albuterol Neb) 2.5 mg Q4HR NEB PRN INH SHORTNESS OF BREATH; Start 03/23/17 at 20:30 Chlorhexidine Gluconate (Peridex 0.12% Liq) 15 ml BID@08,20 MT Last administered on 03/24/17 08:37; Start 03/24/17 at 08:00 Pantoprazole Sodium (Protonix Inj) 40 mg DAILY IV Last administered on 08:37; Start 03/24/17 at 09:00 Miscellaneous Information 1 [id number] ; Start 03/23/17 at 20:30 Chlorhexidine Gluconate (Chlorhexidine 2% Cloth) 3 pack Taper DAILY@04 TOP Last administered on 03/24/17 04:00; Start 03/24/17 at 04:00; Stop 03/20/18 at 03: 59 Chlorhexidine Gluconate 3 pack 3 pack UNSCH PRN TOP HYGIENIC CARE; Start at 20:30 Midazolam HCl (Versed 100 Mg/ ml Inj) 100 ml @ 0 mls/hr TITRATE IV Last administered on 03/24/17 05:15; Start 03/23/17 at 20:30 Sodium Chloride (NS Flush) 2 ml BID IV FLUSH Last administered on 03/24/17 08: 40; Start 03/23/17 at 21:00 Sodium Chloride (NS Flush) 2 ml UNSCH PRN IVF FLUSH AFTER USING IV ACCESS; Start 03/23/17 at 20:30; Status UNV Dexamethasone Sodium Phosphate (Decadron Inj) 6 mg Q6HR IV PUSH Last administered on 03/24/17 05:15; Start 03/24/17 at 00:00 Fosphenytoin Sodium 100 mgpe 100 mgpe Q8HR IV Last administered on 03/24/17t 05: 15; Start 03/23/17 at 22:00 Potassium Chloride 100 ml @ 50 mls/hr Q2H PRN IV For Potassium 2.8 - 3.2 mEq/L ; Start 03/23/17 at 20:45 Potassium Chloride (KCl 20 Meq Premix Inj) 100 ml @ 50 mls/hr Q2H PRN IV For Potassium 2.8 - 3.2 mEq/L; Start 03/23/17 at 20:45 Potassium Bicarb/ Potassium Chloride 50 meq 50 meq UNSCH PRN PO For Potassium 3.3 - 3.5 mEq/L; Start 03/23/17 at 20:45 Potassium Chloride 100 ml @ 25 mls/hr UNSCH PRN IV For Potassium 3.3 - 3.5 mEq /L; Start 03/23/17 at 20:45 Potassium Chloride 100 ml @ 50 mls/hr Q2H PRN IV For Potassium 3.3 - 3.5 mEq/L ; Start 03/23/17 at 20:45 Magnesium Sulfate/ Sodium Chloride (Magnesium Sulfate Inj/NS Inj) 100 ml @ 50 mls/hr UNSCH PRN IV For Magnesium 0.9 - 1.1 mg/dL; Start 03/23/17 at 20:45 Magnesium Oxide 800 mg 800 mg UNSCH PRN PO For Magnesium 1.2 - 1.6 mg/dL; Start 03/23/17 at 20:45 Magnesium Sulfate/ Sodium Chloride (Magnesium Sulfate Inj/NS Inj) 100 ml @ 50 mls/hr UNSCH PRN IV For Magnesium 1.2 - 1.6 mg/dL; Start 03/23/17 at 20:45 Potassium Phosphate 2000 mg 2,000 mg Q4H PRN PO For Phosphorus < 2.5 mg/dL; Start 03/23/17 at 20:45 Sodium Phosphate/ Sodium Chloride (Sodium Phosphate Inj/NS 250 ml Inj) 250 ml @ 42 mls/hr UNSCH PRN IV For Phosphorus < 2.5 mg/dL; Start 03/23/17 at 20:45 Potassium Phosphate 2000 mg 2,000 mg UNSCH PRN PO/TUBE SEE LABEL COMMENTS; Start 03/23/17 at 20:45 Potassium Phosphate/Sodium Chloride (Potassium Phosphate Inj/NS 250 ml Inj) 260 ml @ 42 mls/hr UNSCH PRN IV SEE LABEL COMMENTS; Start 03/23/17 at 20:45 Potassium Bicarb/ Potassium Chloride 25 meq 25 meq ONCE ONCE PO ; Start at 21:00; Stop 03/23/17 at 21:01; Status DC Clindamycin Phosphate 600 mg/ Sodium Chloride 104 ml @ 208 mls/hr Q8H IV Last administered on 03/24/17 03:06; Start 03/24/17 at 03:00 Aztreonam/Sodium Chloride (Azactam Inj/NS Inj) 100 ml @ 200 mls/hr Q8H IV Last administered on 03/24/17 03:06; Start 03/24/17 at 03:00 Lorazepam (Ativan Inj) 2 mg Q2H PRN IV PUSH seizure; Start 03/24/17 at 02:00 Lactulose (Lactulose Liq) 30 ml QID PO Last administered on 03/24/17 08:37; Start 03/24/17 at 09:00 Ondansetron HCl (Zofran Inj) 4 mg NOW ONCE IV PUSH Last administered on 20:07; Start 03/23/17 at 20:00; Stop 03/24/17 at 04:15; Status DC Lorazepam (Ativan Inj) 1 mg NOW ONCE IV ; Start 03/23/17 at 20:00; Stop 03/23/17 at 20:01; Status Cancel Lorazepam (Ativan Inj) 1 mg NOW ONCE IV Last administered on 03/23/17 20:00; Start 03/23/17 at 19:55; Stop 03/24/17 at 04:27; Status DC Gadodiamide (Omniscan Pf Inj) 18 ml STK-MED ONCE IV Last administered on 10:02; Start 03/24/17 at 10:02; Stop 03/24/17 at 10:03; Status DC Family History Family History: reviewed and does not contribute to this illness. No history of brain tumors stroke or aneurysms Positive for prostate and colon cancer in mother's relatives Social History Quit smoking 2 years ago. No alcohol use. No illicit drug use Physical Exam Physical Exam The patient is intubated and sedated. Localizes to painful stimulii with all 4 extremities. Cranial Nerves: Pupils equal, round, reactive to light. Eyes appear conjugated. There was no nystagmus, no papilledema. Face musculature appeared symmetrical at rest. Face sensation, olfaction, visual jimenes, and hearing cannot be adequately assessed due to his neurological condition. The patient has a corneal reflex. He has a gag reflex. The sternocleidomastoid and trapezius are symmetrical. Cervical Spine: His neck is soft, supple, without nuchal rigidity. Motor: His muscle tone and bulk are normal. He moves purposefully all 4 extremities with left sided weakness Reflexes: Deep tendon reflexes are 1+ and symmetrical in the biceps, triceps, and brachioradialis, bilaterally, in the upper extremities. In the lower extremities, the patellar and ankles are 1+, bilaterally. There is a right plantar flexion response, equivocal left. There is no clonus Sensory: On examination there is response to painful stimuli, localizing with both upper and lower extremities. Cerebellar: Examination cannot be adequately assessed due to the patient's neurological condition. Laboratory Laboratory Tests Test 03/23/17 03/23/17 03/23/17 20:10 20:20 20:30 White Blood Count 9.7 Red Blood Count 4.49 Hemoglobin 13.4 Hematocrit 39.3 Mean Corpuscular Volume 87.6 Mean Corpuscular Hemoglobin 29.8 Mean Corpuscular Hemoglobin 34.0 Concent Red Cell Distribution Width 15.8 Platelet Count 290 Mean Platelet Volume 7.6 Neutrophils (%) (Auto) 78.0 Lymphocytes (%) (Auto) 11.0 Monocytes (%) (Auto) 8.4 Eosinophils (%) (Auto) 1.4 Basophils (%) (Auto) 1.2 Neutrophils # (Auto) 7.6 Lymphocytes # (Auto) 1.1 Monocytes # (Auto) 0.8 Eosinophils # (Auto) 0.1 Basophils # (Auto) 0.1 CBC Comment DIFF FINAL Differential Comment Sodium Level 140 Potassium Level 4.3 Chloride Level 105 Carbon Dioxide Level 21.7 Anion Gap 13 Blood Urea Nitrogen 19 Creatinine 1.20 Estimat Glomerular Filtration 63 Rate Random Glucose 137 Calcium Level 8.7 Phosphorus Level 4.8 Magnesium Level 1.9 Total Bilirubin 0.3 Aspartate Amino Transf 42 (AST/SGOT) Alanine Aminotransferase 61 (ALT/SGPT) Alkaline Phosphatase 76 Total Protein 7.5 Albumin 3.3 Lactic Acid Level 6.3 Blood Gas Puncture Site LT RADIAL Blood Gas Patient Temperature 98.6 Blood Gas HCO3 24 Blood Gas Base Excess -0.9 Blood Gas Oxygen Saturation 98 Arterial Blood pH 7.38 Arterial Blood Partial 41 Pressure CO2 Arterial Blood Partial 332 Pressure O2 Arterial Blood Oxygen Content 18.4 Arterial Blood 1.2 Carboxyhemoglobin Arterial Blood Methemoglobin 1.2 Blood Gas Hemoglobin 12.9 Oxygen Delivery Device VENTILATOR Blood Gas Ventilator Setting PRVC/AC14/600/5PEEP/ Blood Gas Inspired Oxygen 100 Date/Time Procedure Status Source Growth 03/23/17 20:15 Aerobic Blood Culture Received Blood Peripheral Pending 03/23/17 20:15 Anaerobic Blood Culture Received Blood Peripheral Pending Result Diagram: 03/23/17200903/23/172009 Imaging Last Impressions Head CT 03/23/17 0000 Signed Impressions: Service Date/Time: Thursday, March 23, 2017 19:48 - CONCLUSION: 1. 1.7 cm mass in right parietal lobe with surrounding edema and localized mass effect most characteristic of metastatic disease given history of lung carcinoma. Scott Layton MD Chest X-Ray 03/23/17 0000 Signed Impressions: Service Date/Time: Thursday, March 23, 2017 19:47 - CONCLUSION: 1. Endotracheal tube in satisfactory position. Left lung mass and perihilar airspace disease similar to January 07. There is now some apical pleural thickening on the left. Scott Layton MD Assessment and Plan Assessment and Plan (1) New onset seizure Diagnosis: Principal (2) Acute respiratory failure Diagnosis: Principal (3) Brain metastases Diagnosis: Principal (4) Neoplasm of brain causing mass effect on adjacent structures Diagnosis: Principal (5) Pulmonary embolism Diagnosis: Secondary (6) DVT (deep venous thrombosis) Diagnosis: Secondary (7) Stage 4 lung cancer Diagnosis: Secondary Attending Statement Neuro. neuro checks in a serial fashion. Recommend MRI brain in the morning. Start decadron 4mg q 6 hrs for vasogenic edema, MAnnitol Phosphenytoin or keppra for seizure control. Neurology consult. Follow up EEG Given his clinical condition is at increased surgical risk DVT/PE. Will need to discontinue anticoagulation for surgery. He is a high surgical risk. Recommend placement of Hanna filter Pulmonary. He is on mechanical ventilation, aggressive pulmonary toilette, nasotracheal suction, and breathing treatments with nebulizers. PT and OT evaluation Nutrition. NPO Renal. monitor closely urine output, BUN and creatinine Endocrine. Monitor serial Acu checks and SSI as needed in detail ID monitor for signs of infection Protonix for stress ulcer prophylaxis Kiko hose and SCD's for DVT prophylaxis Gatito Palmer MD Mar 23, 2017 20:57
[2017-03-23] MEDS ORDERED: POTASSIUM CHLORIDE 25 MEQ EFFERVESCENT TAB PO ONE (21:00)
[2017-03-23 21:04] LABS: BLOOD, URINE TRACE (NEG); GLUCOSE,URINE NEG (NEG); KETONE, URINE NEG (NEG); NITRITE,URINE NEG (NEG); PH, URINE 5.5 (5.0-8.5)
[2017-03-23 21:16] LABS: SQUAMOUS EPITHELIAL CELL URINE 0-5 /hpf (0-5); URINE COLOR YELLOW (YELLW/STRAW); WBC, URINE 0-2 /hpf (0-5)
[2017-03-23] MEDS: RESP: ALBUTEROL 2.5 MG/IPRATROPIUM 0.5 MG NEB (SCH) NEB (21:33)
[2017-03-23] MEDS: MIDAZOLAM 100 MG/100 ML INJ 100 ML IV SCH (21:41)
[2017-03-23 22:26] LABS: LACTIC ACID GHOST NOT REPORTABLE
[2017-03-24] VITALS (19 sets, daily range): BP systolic 91–112; BP diastolic 53–86; PULSE 87–100; RESP 13–16; TEMP 97.9–98.8; O2SAT 97–100
[2017-03-24] MEDS: PROPOFOL 1000 MG/100 ML INJ 100 ML IV SCH (00:58)
--- NOTE | 2017-03-24 01:20 | HHI.HP ---
HPI Service Critical Care Medicine Primary Care Physician Unknown Admission Diagnosis brain mass/neoplasm-metastaic; new onset seizure Diagnosis: (1) New onset seizure Diagnosis: Principal (2) Acute respiratory failure Diagnosis: Principal (3) Brain metastases Diagnosis: Principal (4) Neoplasm of brain causing mass effect on adjacent structures Diagnosis: Principal (5) Pulmonary embolism Diagnosis: Secondary (6) DVT (deep venous thrombosis) Diagnosis: Secondary (7) Stage 4 lung cancer Diagnosis: Secondary Chief Complaint: New onset seizures Respiratory failure Travel History International Travel<30 Days: No Contact w/Intl Traveler <30 Da: No Traveled to Known Affected Are: No History of Present Illness Patient is a 51-year-old male with past medical history significant for stage IV lung cancer (Dr. Hickman is the oncologist), chronic Lovenox therapy for DVT and PE, who presented to the emergency department for evaluation of possible stroke and new onset seizure. EMS was called for new onset focal seizures involving left lower extremity. According to paramedics en route patient started having weakness and shaking of the left upper and lower extremity with possible facial droop, but without loss of consciousness. In the ER initially was awake alert then developed focal left-sided seizures followed by generalized seizure for 5 min, received Ativan for this. Initially aroused from postictal state and then again had recurrent generalized seizure activity. Patient was intubated for airway protection. CT of the head showed right parietal mass 1.7 cm suspicious for metastatic lesion. I was contacted for admission. Patient was started on Versed infusion. Patient had been already loaded with Cerebyx 1 g, I will continue 100 mg IV every 8 hours. Also an EEG had been ordered. I have ordered MRI of the brain neurosurgery consult. I evaluated the patient in the Main ICU. He is intubated sedated with Versed. He purposefully moves all 4 extremity Review of Systems ROS Limitations: Intubated, Altered Mental Status Past Family Social History Allergies: Coded Allergies: Penicillin (Verified Allergy, Unknown, 03/24/17) Past Medical History History of DVT and PE on Lovenox Stage IV poorly differentiated non-small cell lung cancer on Nivolumab per Dr. Hickman Arthritis Dyslipidemia GERD Past Surgical History Port placement Knee surgery Biopsy Reported Medications Lovenox Inj (Enoxaparin Sodium) 80 mg/0.8 ML Syr 80 Mg SQ BID Active Ordered Medications Reviewed Family History Positive for prostate and colon cancer in mother's relatives Social History Quit smoking 2 years ago. No alcohol use Physical Exam Vital Signs Vital Signs Date Time Temp Pulse Resp B/P Pulse Ox O2 Delivery O2 Flow Rate FiO2 03/23/17 23:20 100 50 03/23/17 21:24 100 50 03/23/17 20:42 100 60 03/23/17 20:05 126 16 88/54 100 Ventilator 100 03/23/17 20:00 120 16 100/65 100 Ventilator 100 03/23/17 19:57 100 100 03/23/17 19:57 118 16 97/52 100 Ventilator 100 03/23/17 19:50 122 16 110/66 100 Ventilator 100 03/23/17 19:45 120 16 118/70 100 Ventilator 100 03/23/17 19:35 100 100 03/23/17 19:31 100 03/23/17 19:30 100 15.00 03/23/17 19:20 99.1 140 20 154/92 99 03/23/17 19:20 140 20 100 Room Air 03/23/17 19:20 20 100 Room Air Physical Exam GENERAL: Well-developed well-nourished male intubated sedated with Versed SKIN: Warm and dry HEAD: Atraumatic. Normocephalic. EYES: Pupils equal and round. No scleral icterus. No injection or drainage. ENT: No nasal bleeding or discharge. Orotracheally intubated NECK: Trachea midline. No JVD. Supple. CARDIOVASCULAR: S1-S2 normal no murmurs RESPIRATORY: Clear to auscultation. Breath sounds equal bilaterally. GASTROINTESTINAL: Abdomen soft, non-tender, nondistended. Hepatic and splenic margins not palpable. MUSCULOSKELETAL: Extremities without clubbing, cyanosis, or edema. NEUROLOGICAL: Intubated heavily sedated. Pupils are equal. Moves all 4 extremities purposefully did not commands on sedation Laboratory Laboratory Tests Test 03/23/17 03/23/17 03/23/17 03/23/17 20:10 20:20 20:30 22:30 White Blood Count 9.7 Red Blood Count 4.49 Hemoglobin 13.4 Hematocrit 39.3 Mean Corpuscular Volume 87.6 Mean Corpuscular Hemoglobin 29.8 Mean Corpuscular Hemoglobin 34.0 Concent Red Cell Distribution Width 15.8 Platelet Count 290 Mean Platelet Volume 7.6 Neutrophils (%) (Auto) 78.0 Lymphocytes (%) (Auto) 11.0 Monocytes (%) (Auto) 8.4 Eosinophils (%) (Auto) 1.4 Basophils (%) (Auto) 1.2 Neutrophils # (Auto) 7.6 Lymphocytes # (Auto) 1.1 Monocytes # (Auto) 0.8 Eosinophils # (Auto) 0.1 Basophils # (Auto) 0.1 CBC Comment DIFF FINAL Differential Comment Sodium Level 140 Potassium Level 4.3 Chloride Level 105 Carbon Dioxide Level 21.7 Anion Gap 13 Blood Urea Nitrogen 19 Creatinine 1.20 Estimat Glomerular Filtration 63 Rate Random Glucose 137 Calcium Level 8.7 Phosphorus Level 4.8 Magnesium Level 1.9 Total Bilirubin 0.3 Aspartate Amino Transf 42 (AST/SGOT) Alanine Aminotransferase 61 (ALT/SGPT) Alkaline Phosphatase 76 Total Protein 7.5 Albumin 3.3 Ethyl Alcohol Level LESS THAN 3 Lactic Acid Level 6.3 3.2 Ammonia 96 Urine Color YELLOW Urine Turbidity CLEAR Urine pH 5.5 Urine Specific [place] 1.020 Urine Protein 30 Urine Glucose (UA) NEG Urine Ketones NEG Urine Occult Blood TRACE Urine Nitrite NEG Urine Bilirubin NEG Urine Leukocyte Esterase NEG Urine RBC 4-9 Urine WBC 0-2 Urine Squamous Epithelial 0-5 Cells Urine Bacteria NONE Microscopic Urinalysis Comment Blood Gas Puncture Site LT RADIAL Blood Gas Patient Temperature 98.6 Blood Gas HCO3 24 Blood Gas Base Excess -0.9 Blood Gas Oxygen Saturation 98 Arterial Blood pH 7.38 Arterial Blood Partial 41 Pressure CO2 Arterial Blood Partial 332 Pressure O2 Arterial Blood Oxygen Content 18.4 Arterial Blood 1.2 Carboxyhemoglobin Arterial Blood Methemoglobin 1.2 Blood Gas Hemoglobin 12.9 Oxygen Delivery Device VENTILATOR Blood Gas Ventilator Setting PRVC/AC14/600/5PEEP/ Blood Gas Inspired Oxygen 100 Urine Opiates Screen NEG Urine Barbiturates Screen NEG Urine Amphetamines Screen NEG Urine Benzodiazepines Screen NEG Urine Cocaine Screen NEG Urine Cannabinoids Screen NEG Date/Time Procedure Status Source Growth 03/23/17 20:15 Aerobic Blood Culture Received Blood Peripheral Pending 03/23/17 20:15 Anaerobic Blood Culture Received Blood Peripheral Pending Result Diagram: 03/23/17200903/23/172009 Imaging CT of the brain shows right parietal lobe mass with surrounding edema and local mass effect Assessment and Plan Assessment and Plan NEURO: New-onset seizures Acute encephalopathy Right parietal mass with surrounding edema - New onset Seizures secondary to metastatic brain lesion - Ativan when necessary for seizure, Versed for seizure control and ventilator synchrony - Decadron 6 mg 1 and IV every 6 hours. Mannitol 25 g IV [address] Palmer - Neurosurgery consult is pending. MRI with and without contrast - Loaded with Cerebyx 1.5 mg, continue 100 mg IV every 8 hours - Check EEG RESP: Acute respiratory failure Stage IV lung cancer - Intubated due to lack of airway protection - Continue mechanical ventilation - Start weaning trials in 24 hours - DuoNeb every 6 hours when necessary if needed - Antibiotics only if there is evidence of pneumonia CV: Lactic acidosis secondary to seizure - Normal saline IV fluids 1L bolus and 75 ml per hour GI: - Nothing by mouth, IV Protonix, bowel regimen : - Monitor renal function closely. Nunez catheter. ID: - Antibiotics if indicated. Check sputum culture HEME: Stage IV lung cancer History of DVT and PE on chronic anticoagulation - Consult oncology Dr. Hickman - Hold Lovenox secondary to metastatic brain lesion ENDO: - Electrolyte replacement per protocol PROPH: - Bilateral lower extremity SCDs. Avoid chemical DVT prophylaxis due to brain metastases. IV Protonix LINES: - Utilize peripheral IVs, central line if needed CC time 45 min Code Status Full Discussed Condition With Dr. Belle and patient's Problem Qualifiers (1) Acute respiratory failure: Qualified Code: J96.00 - Acute respiratory failure, unspecified whether with hypoxia or hypercapnia (2) Pulmonary embolism: (3) DVT (deep venous thrombosis): (4) Stage 4 lung cancer: Qualified Code: C34.90 - Stage 4 malignant neoplasm of lung, unspecified laterality Home Nails MD Mar 24, 2017 01:20 Home Nails MD Mar 24, 2017 01:20
[2017-03-24] MEDS: DEXAMETHASONE SOD PHOS 4 MG/ML VIAL IV PUSH SCH ×5 (01:22→23:10)
[2017-03-24] MEDS: CLINDAMYCIN INJ 600 MG in SODIUM CHLORIDE 0.9% INJ 100 ML IV SCH ×3 (03:06→20:44)
[2017-03-24] MEDS: AZTREONAM INJ 2,000 MG in SODIUM CHLORIDE 0.9% INJ 100 ML IV SCH ×3 (03:06→18:06)
[2017-03-24] MEDS: RESP: ALBUTEROL 2.5 MG/IPRATROPIUM 0.5 MG NEB (SCH) NEB ×4 (03:39→20:25)
[2017-03-24] MEDS: CHLORHEXIDINE GLUCONATE 2 % 1 PACK (2 CLOTHS) TOP SCH (04:00)
[2017-03-24] MEDS: FOSPHENYTOIN SODIUM 100 MG PE/2 ML VIAL IV SCH ×3 (05:15→23:09)
[2017-03-24] MEDS: MIDAZOLAM 100 MG/100 ML INJ 100 ML IV SCH ×2 (05:15→14:52)
[2017-03-24 07:10] LABS: AUTOMATED NEUTROPHIL # 10.2 TH/MM3 (1.8-7.7); BASOPHIL % 0.1 % (0.0-2.0); HEMO FLAGS DIFF FINAL; LYMPH % 3.2 % (9.0-44.0); LYMPHOCYTE # 0.3 TH/MM3 (1.0-4.8); MEAN CELL VOLUME 88.9 FL (80.0-100.0); MEAN CORPUSCULAR HEMOGLOBIN 29.9 PG (27.0-34.0); MEAN CORPUSCULAR HGB CONC 33.6 % (32.0-36.0); NEUT % 95.7 % (16.0-70.0); PLATELET COUNT 243 TH/MM3 (150-450); RED BLOOD COUNT 4.27 MIL/MM3 (4.50-5.90); RED CELL DISTRIBUTION WIDTH 16.6 % (11.6-17.2); WHITE BLOOD COUNT 10.7 TH/MM3 (4.0-11.0)
[2017-03-24 07:30] LABS: ANION GAP 9 MEQ/L (5-15); BICARBONATE 25.8 MEQ/L (21.0-32.0); BLOOD UREA NITROGEN 17 MG/DL (7-18); CHLORIDE 105 MEQ/L (98-107); GLOMERULAR FILTRATION RATE 89 ML/MIN (>89); SODIUM (NA) 140 MEQ/L (136-145)
[2017-03-24 07:33] LABS: ALKALINE PHOSPHATASE 72 U/L (45-117); ALT (GPT) 61 U/L (12-78); AST (GOT) 44 U/L (15-37); TOTAL BILIRUBIN ADULT 0.3 MG/DL (0.2-1.0)
[2017-03-24] MEDS: LACTULOSE SYRUP 20 GM/30 ML CUP PO SCH ×4 (08:37→20:27)
[2017-03-24] MEDS: PANTOPRAZOLE SODIUM 40 MG VIAL IV SCH (08:37)
[2017-03-24] MEDS: CHLORHEXIDINE 0.12% (ORAL KIT) 15 ML CUP MT SCH ×2 (08:37→20:19)
[2017-03-24] MEDS: SODIUM CHLORIDE 0.9% FLUSH 10 ML FLUSH IV FLUSH SCH ×2 (08:40→20:20)
[2017-03-24] MEDS: SODIUM CHLOR 0.9% 1000 ML INJ 1,000 ML IV SCH ×2 (09:43→23:09)
[2017-03-24] MEDS ORDERED: GADODIAMIDE PF 287 MG/ML 20 ML VIAL (for RAD MRI) IV ONE (10:02)
--- NOTE | 2017-03-24 10:34 | RADRPT ---
EXAM DATE/TIME: 03/24/2017 09:40 [facility] COMPARISON: CT BRAIN W/O CONTRAST, March 23, 2017, 19:48. INDICATIONS : Mass. Seizure. CONTRAST: 18 cc Omniscan (gadodiamide) IV MEDICAL HISTORY : Metastatic, lung. SURGICAL HISTORY : Right knee surgery. ENCOUNTER: Initial ACUITY: 2 day PAIN SCORE: 0/10 LOCATION: cranial TECHNIQUE: Multiplanar, multisequence MRI of the brain was performed both prior to and following the administrat ion of paramagnetic contrast. FINDINGS: Examination quality is significantly degraded by motion artifact. CEREBRUM: The ventricles are normal in size. There is vasogenic edema in the right parietal high convexity surr ounding a peripherally enhancing mass measuring 2.0 x 1.6 x 2.0 cm. There is mild local mass effect. No midline shift, hemorrhage or acute infarction. No extraaxial fluid collections are seen. WHITE MATTER: No significant white matter abnormality is identified POSTERIOR FOSSA: No lesion is visualized. DIFFUSION IMAGING: No focal areas of restricted diffusion are seen. No evidence of acute infarction. EXTRACRANIAL: No acute finding. POST-CONTRAST: There is a peripherally enhancing mass in the right parietal high convexity measuring up to 2 cm. CONCLUSION: Examination quality is degraded by motion artifact. There is a single 2 cm peripherally enhancing les ion in the right parietal high convexity with marked surrounding vasogenic edema. Imaging features ar e nonspecific but given the history of a lung cancer, metastatic disease should be top consideration. Infection or other brain lesions could have a similar appearance. Jesu Beltran MD on March 24, 2017 at 10:26 Board Certified Radiologist. This report was verified electronically.
--- NOTE | 2017-03-24 10:46 | PD.CONS ---
HPI Consult Requested By Primary Care Physician Unknown Past Family Social History Allergies: Coded Allergies: Penicillin (Verified Allergy, Unknown, 03/24/17) Physical Exam Vital Signs Vital Signs Date Time Temp Pulse Resp B/P Pulse Ox O2 Delivery O2 Flow Rate FiO2 03/24/17 10:20 40 03/24/17 09:00 100 60 03/24/17 07:58 99 40 03/24/17 07:00 97 Mechanical Ventilator 50 03/24/17 06:00 100 03/24/17 04:10 99 50 03/24/17 04:00 96 03/24/17 04:00 98.2 96 16 95/53 99 03/24/17 02:00 90 03/24/17 01:48 98 50 03/24/17 00:00 98.4 99 16 112/58 99 03/24/17 00:00 99 03/23/17 23:30 99.6 98 16 122/65 100 03/23/17 23:20 100 50 03/23/17 23:00 118 16 117/63 99 Ventilator 50 03/23/17 22:42 112 16 118/60 99 Ventilator 50 03/23/17 22:28 116 16 125/69 100 Ventilator 50 03/23/17 22:13 138 16 144/73 100 Ventilator 50 03/23/17 21:43 104 16 114/58 100 Ventilator 50 03/23/17 21:28 110 16 96/65 99 Ventilator 50 03/23/17 21:24 50 03/23/17 21:24 100 50 03/23/17 21:13 110 14 101/66 99 Ventilator 60 03/23/17 20:58 108 14 93/59 100 Ventilator 60 03/23/17 20:43 106 14 105/59 100 Ventilator 60 03/23/17 20:42 100 60 03/23/17 20:42 60 03/23/17 20:39 110 16 113/69 100 Ventilator 100 03/23/17 20:30 112 16 86/66 100 Ventilator 100 03/23/17 20:05 126 16 88/54 100 Ventilator 100 03/23/17 20:00 120 16 100/65 100 Ventilator 100 8//17 19:57 100 100 03/23/17 19:57 118 16 97/52 100 Ventilator 100 03/23/17 19:50 122 16 110/66 100 Ventilator 100 03/23/17 19:45 120 16 118/70 100 Ventilator 100 03/23/17 19:35 100 100 03/23/17 19:31 100 03/23/17 19:30 100 15.00 03/23/17 19:20 99.1 140 20 154/92 99 03/23/17 19:20 140 20 100 Room Air 03/23/17 19:20 20 100 Room Air Laboratory Laboratory Tests Test 03/23/17 03/23/17 03/23/17 03/23/17 20:10 20:20 20:30 22:30 White Blood Count 9.7 Red Blood Count 4.49 Hemoglobin 13.4 Hematocrit 39.3 Mean Corpuscular Volume 87.6 Mean Corpuscular Hemoglobin 29.8 Mean Corpuscular Hemoglobin 34.0 Concent Red Cell Distribution Width 15.8 Platelet Count 290 Mean Platelet Volume 7.6 Neutrophils (%) (Auto) 78.0 Lymphocytes (%) (Auto) 11.0 Monocytes (%) (Auto) 8.4 Eosinophils (%) (Auto) 1.4 Basophils (%) (Auto) 1.2 Neutrophils # (Auto) 7.6 Lymphocytes # (Auto) 1.1 Monocytes # (Auto) 0.8 Eosinophils # (Auto) 0.1 Basophils # (Auto) 0.1 CBC Comment DIFF FINAL Differential Comment Sodium Level 140 Potassium Level 4.3 Chloride Level 105 Carbon Dioxide Level 21.7 Anion Gap 13 Blood Urea Nitrogen 19 Creatinine 1.20 Estimat Glomerular Filtration 63 Rate Random Glucose 137 Calcium Level 8.7 Phosphorus Level 4.8 Magnesium Level 1.9 Total Bilirubin 0.3 Aspartate Amino Transf 42 (AST/SGOT) Alanine Aminotransferase 61 (ALT/SGPT) Alkaline Phosphatase 76 Total Protein 7.5 Albumin 3.3 Ethyl Alcohol Level LESS THAN 3 Lactic Acid Level 6.3 3.2 Ammonia 96 Urine Color YELLOW Urine Turbidity CLEAR Urine pH 5.5 Urine Specific [place] 1.020 Urine Protein 30 Urine Glucose (UA) NEG Urine Ketones NEG Urine Occult Blood TRACE Urine Nitrite NEG Urine Bilirubin NEG Urine Leukocyte Esterase NEG Urine RBC 4-9 Urine WBC 0-2 Urine Squamous Epithelial 0-5 Cells Urine Bacteria NONE Microscopic Urinalysis Comment Blood Gas Puncture Site LT RADIAL Blood Gas Patient Temperature 98.6 Blood Gas HCO3 24 Blood Gas Base Excess -0.9 Blood Gas Oxygen Saturation 98 Arterial Blood pH 7.38 Arterial Blood Partial 41 Pressure CO2 Arterial Blood Partial 332 Pressure O2 Arterial Blood Oxygen Content 18.4 Arterial Blood 1.2 Carboxyhemoglobin Arterial Blood Methemoglobin 1.2 Blood Gas Hemoglobin 12.9 Oxygen Delivery Device VENTILATOR Blood Gas Ventilator Setting [id number]/AC14/600/[id number]/ Blood Gas Inspired Oxygen 100 Urine Opiates Screen NEG Urine Barbiturates Screen NEG Urine Amphetamines Screen NEG Urine Benzodiazepines Screen NEG Urine Cocaine Screen NEG Urine Cannabinoids Screen NEG Test 03/23/17 03/24/17 23:45 06:44 Nasal Screen MRSA (PCR) MRSA NOT DETECTED White Blood Count 10.7 Red Blood Count 4.27 Hemoglobin 12.8 Hematocrit 38.0 Mean Corpuscular Volume 88.9 Mean Corpuscular Hemoglobin 29.9 Mean Corpuscular Hemoglobin 33.6 Concent Red Cell Distribution Width 16.6 Platelet Count 243 Mean Platelet Volume 7.0 Neutrophils (%) (Auto) 95.7 Lymphocytes (%) (Auto) 3.2 Monocytes (%) (Auto) 1.0 Eosinophils (%) (Auto) 0.0 Basophils (%) (Auto) 0.1 Neutrophils # (Auto) 10.2 Lymphocytes # (Auto) 0.3 Monocytes # (Auto) 0.1 Eosinophils # (Auto) 0.0 Basophils # (Auto) 0.0 CBC Comment DIFF FINAL Differential Comment Sodium Level 140 Potassium Level 4.0 Chloride Level 105 Carbon Dioxide Level 25.8 Anion Gap 9 Blood Urea Nitrogen 17 Creatinine 0.89 Estimat Glomerular Filtration 89 Rate Random Glucose 145 Calcium Level 8.6 Total Bilirubin 0.3 Aspartate Amino Transf 44 (AST/SGOT) Alanine Aminotransferase 61 (ALT/SGPT) Alkaline Phosphatase 72 Ammonia 32 Total Protein 7.2 Albumin 3.3 Phenytoin (Dilantin) Level 10.5 Date/Time Procedure Status Source Growth 03/23/17 20:15 Aerobic Blood Culture Received Blood Peripheral Pending 03/23/17 20:15 Anaerobic Blood Culture Received Blood Peripheral Pending 03/23/17 06:40 Gram Stain Received Sputum Endotracheal Pending 03/23/17 06:40 Sputum Culture Received Sputum Endotracheal Pending Result Diagram: 03/24/1744 03/24/17 0644 Gatito Palmer MD Mar 24, 2017 10:46 Continue decadron 4mg q6 hrs for vasogenic edema, Mannitol as needed Continue Phosphenytoin for seizure prophylaxis. Neurology consult. EEG Pulmonary. On [id number] ventilation. Continueaggressive pulmonary toilette, nasotracheal suction, and breathing treatments with nebulizers. PT and OT evaluation Nutrition. tube feeding Renal. Continue to monitor closely urine output, BUN and creatinine Endocrine. Continue to Monitor serial Acu checks and SSI as needed in detail ID Continue to monitor for signs of infection ContinueProtonix for stress ulcer prophylaxis Continue Kiko hose and SCD's for DVT prophylaxis Discussed with his Gatito Palmer MD Mar 24, 2017 10:46
--- NOTE | 2017-03-24 10:50 | HHI.NSPN ---
Note Status Status: Progress Note Interval History Diagnosis brain tumor Interval History mr Mendosa is a 51-year-old male with history of stage IV lung cancer, Lovenox therapy for DVT and PE, who presented to the emergency department for evaluation of possible stroke alert and new onset seizure. EMS was called for new onset of seizures involving his left lower extremity. According to paramedics during route he developed weakness and shaking of the left upper and lower extremity with a facial droop, but without loss of consciousness. In the ER initially was awake alert then developed focal left- sided seizures followed by generalized seizure for 5 min. No tongue bitting. No incontinence of stool or urine. He received Ativan Initially aroused from postictal state and then developed recurrent generalized seizures. He was intubated for airway protection. CT of the head showed right parietal mass 1.7 cm suspicious for metastatic lesion. He was loaded with Cerebyx 1 g. An EEG had been ordered. He is intubated sedated with Versed. He moves all 4 extremity. Neurosurgical consultation was requested. 03/24. Intubated and sedated. EEG with seizure activity, on Keppra and phosphenytoin Labs, Micro, & Vital Signs Results Date Time Temp Pulse Resp B/P Pulse Ox O2 Delivery O2 Flow Rate FiO2 03/24/17 10:20 40 03/24/17 09:00 100 60 03/24/17 07:58 99 40 03/24/17 07:00 97 Mechanical Ventilator 50 03/24/17 06:00 100 03/24/17 04:10 99 50 03/24/17 04:00 96 03/24/17 04:00 98.2 96 16 95/53 99 03/24/17 02:00 90 03/24/17 01:48 98 50 03/24/17 00:00 98.4 99 16 112/58 99 03/24/17 00:00 99 03/23/17 23:30 99.6 98 16 122/65 100 03/23/17 23:20 100 50 03/23/17 23:00 118 16 117/63 99 Ventilator 50 03/23/17 22:42 112 16 118/60 99 Ventilator 50 8/5/17 22:28 116 16 125/69 100 Ventilator 50 8/5/17 22:13 138 16 144/73 100 Ventilator 50 8/5/17 21:43 104 16 114/58 100 Ventilator 50 8/5/17 21:28 110 16 96/65 99 Ventilator 50 8/5/17 21:24 50 8/5/17 21:24 100 50 8/5/17 21:13 110 14 101/66 99 Ventilator 60 8/5/17 20:58 108 14 93/59 100 Ventilator 60 8/5/17 20:43 106 14 105/59 100 Ventilator 60 8/5/17 20:42 100 60 8/5/17 20:42 60 8//17 20:39 110 16 113/69 100 Ventilator 100 8/17 20:30 112 16 86/66 100 Ventilator 100 17 20:05 126 16 88/54 100 Ventilator 100 03/23/17 20:00 120 16 100/65 100 Ventilator 100 03/23/17 19:57 100 100 03/23/17 19:57 118 16 97/52 100 Ventilator 100 03/23/17 19:50 122 16 110/66 100 Ventilator 100 17 19:45 120 16 118/70 100 Ventilator 100 03/23/17 19:35 100 100 03/23/17 19:31 100 03/23/17 19:30 100 15.00 03/23/17 19:20 99.1 140 20 154/92 99 03/23/17 19:20 140 20 100 Room Air 03/23/17 19:20 20 100 Room Air 03/24/17 06:59 Intake Total 812 ml Output Total 1410 ml Balance -598 ml Constitutional Vital Signs Date Time Temp Pulse Resp B/P Pulse Ox O2 Delivery O2 Flow Rate FiO2 03/24/17 10:20 40 03/24/17 09:00 100 60 03/24/17 07:58 99 40 03/24/17 07:00 97 Mechanical Ventilator 50 03/24/17 06:00 100 03/24/17 04:10 99 50 03/24/17 04:00 96 03/24/17 04:00 98.2 96 16 95/53 99 03/24/17 02:00 90 03/24/17 01:48 98 50 03/24/17 00:00 98.4 99 16 112/58 99 8/6/17 00:00 99 8//17 23:30 99.6 98 16 122/65 100 8/5/17 23:20 100 50 8/5/17 23:00 118 16 117/63 99 Ventilator 50 8/17 22:42 112 16 118/60 99 Ventilator 50 8//17 22:28 116 16 125/69 100 Ventilator 50 8//17 22:13 138 16 144/73 100 Ventilator 50 8//17 21:43 104 16 114/58 100 Ventilator 50 8// 21:28 110 16 96/65 99 Ventilator 50 8/01/02 21:24 50 8// 21:24 100 50 8// 21:13 110 14 101/66 99 Ventilator 60 8/01/02 20:58 108 14 93/59 100 Ventilator 60 /01/02 20:43 106 14 105/59 100 Ventilator 60 8/01/02 20:42 100 60 8/01/02 20:42 60 8/01/02 20:39 110 16 113/69 100 Ventilator 100 03/23/17 20:30 112 16 86/66 100 Ventilator 100 03/23/17 20:05 126 16 88/54 100 Ventilator 100 8 20:00 120 16 100/65 100 Ventilator 100 8 19:57 100 100 8/01/02 19:57 118 16 97/52 100 Ventilator 100 03/23/17 19:50 122 16 110/66 100 Ventilator 100 03/23/17 19:45 120 16 118/70 100 Ventilator 100 03/23/17 19:35 100 100 8/01/02 19:31 100 8/01/02 19:30 100 15.00 8 19:20 99.1 140 20 154/92 99 03/23/17 19:20 140 20 100 Room Air 03/23/17 19:20 20 100 Room Air 03/24/17 06:59 Intake Total 812 ml Output Total 1410 ml Balance -598 ml Review of Systems/Exam Exam Mr Mendosa remains intubated and sedated. Localizes to painful stimulus with all 4 extremities. Cranial Nerves: Pupils equal, round, reactive to light. Eyes appear conjugated. There was no nystagmus, no papilledema. Face musculature appeared symmetrical at rest. Face sensation, olfaction, visual jimenes, and hearing cannot be adequately assessed due to his neurological condition. The patient has a corneal reflex. He has a gag reflex. The sternocleidomastoid and trapezius are symmetrical. Cervical Spine: His neck is soft, supple, without nuchal rigidity. Motor: His muscle tone and bulk are normal. He moves purposefully all 4 extremities with left sided weakness Reflexes: Deep tendon reflexes are 1+ and symmetrical in the biceps, triceps, and brachioradialis, bilaterally, in the upper extremities. In the lower extremities, the patellar and ankles are 1+, bilaterally. There is a bilateral plantar flexion response. There is no clonus Sensory: On examination there is response to painful stimuli, localizing with both upper and lower extremities. Cerebellar: Examination cannot be adequately assessed due to the patient's neurological condition. Medications Current Medications Current Medications Sodium Chloride 2 ml 2 ml UNSCH PRN IVF FLUSH AFTER USING IV ACCESS; Start 03/23 at 19:30; Stop 03/23/17 at 20:32; Status DC Fosphenytoin Sodium/Sodium Chloride (Cerebyx Inj/NS Inj) 70 ml @ 300 mls/hr ONCE ONCE IV Last administered on 03/23/17 20:15; Start 03/23/17 at 19:45; Stop 03/23/17 at 19:58; Status DC Etomidate (Amidate Inj) 20 mg STK-MED ONCE .ROUTE ; Start 03/23/17 at 19:28; Stop 03/23/17 at 19:29; Status DC Lidocaine HCl 100 mg 100 mg STK-MED ONCE .ROUTE ; Start 03/23/17 at 19:28; Stop 03/23/17 at 19:52; Status DC Propofol (Diprivan 1000 Mg/100ml Inj) 100 ml @ As Directed STK-MED ONCE .ROUTE ; Start 03/23/17 at 19:28; Stop 03/23/17 at 19:29; Status DC Succinylcholine Chloride (Quelicin Inj) 200 mg STK-MED ONCE .ROUTE ; Start at 19:29; Stop 03/23/17 at 19:30; Status DC Lorazepam (Ativan Inj) 2 mg STK-MED ONCE .ROUTE Last administered on 03/23/17 19:38; Start 03/23/17 at 19:29; Stop 03/23/17 at 19:30; Status DC Sodium Chloride 2 ml 2 ml UNSCH PRN IVF FLUSH AFTER USING IV ACCESS; Start 03/23 at 19:45; Stop 03/23/17 at 20:32; Status DC Sodium Chloride (NS 1000 ml Inj) 1,000 ml @ 125 mls/hr Q8H ONCE IV ; Start 03/23 at 19:35; Stop 03/23/17 at 20:31; Status DC Sodium Chloride (NS Flush) 2 ml UNSCH PRN IVF FLUSH AFTER USING IV ACCESS; Start 03/23/17 at 19:45; Stop 03/23/17 at 20:32; Status DC Lorazepam (Ativan Inj) 2 mg ONCE ONCE IVS ; Start 03/23/17 at 19:45; Stop at 19:52; Status DC Lorazepam (Ativan Inj) 2 mg ONCE ONCE IV PUSH Last administered on 03/23/17 19 :25; Start 03/23/17 at 19:45; Stop 03/23/17 at 19:46; Status DC Lorazepam (Ativan Inj) 2 mg STK-MED ONCE .ROUTE Last administered on 03/23/17 19:40; Start 03/23/17 at 19:38; Stop 03/23/17 at 19:39; Status DC Ondansetron HCl (Zofran Inj) 4 mg ONCE ONCE IV PUSH Last administered on 19:35; Start 03/23/17 at 19:45; Stop 03/23/17 at 19:46; Status DC Ondansetron HCl 4 mg 4 mg STK-MED ONCE .ROUTE ; Start 03/23/17 at 19:40; Stop 03/23/17 at 19:41; Status DC Propofol 100 ml @ 0 mls/hr TITRATE IV Last administered on 03/23/17 19:45; Start 03/23/17 at 20:00 Propofol (Diprivan 1000 Mg/100ml Inj) 100 ml @ 0 mls/hr TITRATE IV ; Start at 20:00 Etomidate (Amidate Inj) 20 mg ONCE ONCE IV PUSH Last administered on 03/23/17 19:30; Start 03/23/17 at 20:00; Stop 03/23/17 at 20:01; Status DC Succinylcholine Chloride (Quelicin Inj) 100 mg ONCE ONCE IV PUSH Last administered on 03/23/17 19:30; Start 03/23/17 at 20:00; Stop 03/23/17 at 20:01; Status DC Mannitol (Mannitol Inj) 25 gm ONCE ONCE IV Last administered on 03/23/17 21:34 ; Start 03/23/17 at 20:15; Stop 03/23/17 at 20:16; Status DC Dexamethasone Sodium Phosphate 4 mg 4 mg ONCE ONCE IV PUSH Last administered on 03/23/17 21:54; Start 03/23/17 at 20:15; Stop 03/23/17 at 20:16; Status DC Sodium Chloride 500 ml @ 500 mls/hr BOLUS ONCE IV Last administered on 19:30; Start 03/23/17 at 20:15; Stop 03/23/17 at 21:14; Status DC Midazolam HCl 100 ml @ 0 mls/hr TITRATE IV ; Start 03/23/17 at 20:15; Stop at 20:44; Status DC Sodium Chloride 1,000 ml @ 125 mls/hr Q8H IV ; Start 03/23/17 at 20:15; Stop 03/23/17 at 20:31; Status DC Sodium Chloride (NS 1000 ml Inj) 1,000 ml @ 75 mls/hr [id number] IV Last administered on 03/24/17 09:43; Start 03/23/17 at 20:23 Sodium Chloride (NS Flush) 2 ml UNSCH PRN IV FLUSH FLUSH AFTER USING IV ACCESS ; Start 03/23/17 at 20:30 Albuterol/ Ipratropium (Duoneb Neb) 1 ampule Q6HR NEB NEB Last administered on 03/24/17 07:57; Start 03/23/17 at 22:00 Albuterol Sulfate (Albuterol Neb) 2.5 mg Q4HR NEB PRN INH SHORTNESS OF BREATH; Start 03/23/17 at 20:30 Chlorhexidine Gluconate (Peridex 0.12% Liq) 15 ml BID@08,20 MT Last administered on 03/24/17 08:37; Start 03/24/17 at 08:00 Pantoprazole Sodium (Protonix Inj) 40 mg DAILY IV Last administered on 08:37; Start 03/24/17 at 09:00 Miscellaneous Information 1 [id number] ; Start 03/23/17 at 20:30 Chlorhexidine Gluconate (Chlorhexidine 2% Cloth) 3 pack Taper DAILY@04 TOP Last administered on 03/24/17 04:00; Start 03/24/17 at 04:00; Stop 03/20/18 at 03: 59 Chlorhexidine Gluconate 3 pack 3 pack UNSCH PRN TOP HYGIENIC CARE; Start at 20:30 Midazolam HCl (Versed 100 Mg/ ml Inj) 100 ml @ 0 mls/hr TITRATE IV Last administered on 03/24/17 05:15; Start 03/23/17 at 20:30 Sodium Chloride (NS Flush) 2 ml BID IV FLUSH Last administered on 03/24/17 08: 40; Start 03/23/17 at 21:00 Sodium Chloride (NS Flush) 2 ml UNSCH PRN IVF FLUSH AFTER USING IV ACCESS; Start 03/23/17 at 20:30; Status UNV Dexamethasone Sodium Phosphate (Decadron Inj) 6 mg Q6HR IV PUSH Last administered on 03/24/17 05:15; Start 03/24/17 at 00:00 Fosphenytoin Sodium 100 mgpe 100 mgpe Q8HR IV Last administered on 03/24/17 05: 15; Start 03/23/17 at 22:00 Potassium Chloride 100 ml @ 50 mls/hr Q2H PRN IV For Potassium 2.8 - 3.2 mEq/L ; Start 03/23/17 at 20:45 Potassium Chloride (KCl 20 Meq Premix Inj) 100 ml @ 50 mls/hr Q2H PRN IV For Potassium 2.8 - 3.2 mEq/L; Start 03/23/17 at 20:45 Potassium Bicarb/ Potassium Chloride 50 meq 50 meq UNSCH PRN PO For Potassium 3.3 - 3.5 mEq/L; Start 03/23/17 at 20:45 Potassium Chloride 100 ml @ 25 mls/hr UNSCH PRN IV For Potassium 3.3 - 3.5 mEq /L; Start 03/23/17 at 20:45 Potassium Chloride 100 ml @ 50 mls/hr Q2H PRN IV For Potassium 3.3 - 3.5 mEq/L ; Start 03/23/17 at 20:45 Magnesium Sulfate/ Sodium Chloride (Magnesium Sulfate Inj/NS Inj) 100 ml @ 50 mls/hr UNSCH PRN IV For Magnesium 0.9 - 1.1 mg/dL; Start 03/23/17 at 20:45 Magnesium Oxide 800 mg 800 mg UNSCH PRN PO For Magnesium 1.2 - 1.6 mg/dL; Start 03/23/17 at 20:45 Magnesium Sulfate/ Sodium Chloride (Magnesium Sulfate Inj/NS Inj) 100 ml @ 50 mls/hr UNSCH PRN IV For Magnesium 1.2 - 1.6 mg/dL; Start 03/23/17 at 20:45 Potassium Phosphate 2000 mg 2,000 mg Q4H PRN PO For Phosphorus < 2.5 mg/dL; Start 03/23/17 at 20:45 Sodium Phosphate/ Sodium Chloride (Sodium Phosphate Inj/NS 250 ml Inj) 250 ml @ 42 mls/hr UNSCH PRN IV For Phosphorus < 2.5 mg/dL; Start 03/23/17 at 20:45 Potassium Phosphate 2000 mg 2,000 mg UNSCH PRN PO/TUBE SEE LABEL COMMENTS; Start 03/23/17 at 20:45 Potassium Phosphate/Sodium Chloride (Potassium Phosphate Inj/NS 250 ml Inj) 260 ml @ 42 mls/hr UNSCH PRN IV SEE LABEL COMMENTS; Start 03/23/17 at 20:45 Potassium Bicarb/ Potassium Chloride 25 meq 25 meq ONCE ONCE PO ; Start at 21:00; Stop 03/23/17 at 21:01; Status DC Clindamycin Phosphate 600 mg/ Sodium Chloride 104 ml @ 208 mls/hr Q8H IV Last administered on 03/24/17 03:06; Start 03/24/17 at 03:00 Aztreonam/Sodium Chloride (Azactam Inj/NS Inj) 100 ml @ 200 mls/hr Q8H IV Last administered on 03/24/17 03:06; Start 03/24/17 at 03:00 Lorazepam (Ativan Inj) 2 mg Q2H PRN IV PUSH seizure; Start 03/24/17 at 02:00 Lactulose (Lactulose Liq) 30 ml QID PO Last administered on 03/24/17 08:37; Start 03/24/17 at 09:00 Ondansetron HCl (Zofran Inj) 4 mg NOW ONCE IV PUSH Last administered on 20:07; Start 03/23/17 at 20:00; Stop 03/24/17 at 04:15; Status DC Lorazepam (Ativan Inj) 1 mg NOW ONCE IV ; Start 03/23/17 at 20:00; Stop 03/23/17 at 20:01; Status Cancel Lorazepam (Ativan Inj) 1 mg NOW ONCE IV Last administered on 03/23/17 20:00; Start 03/23/17 at 19:55; Stop 03/24/17 at 04:27; Status DC Gadodiamide (Omniscan Pf Inj) 18 ml STK-MED ONCE IV Last administered on 10:02; Start 03/24/17 at 10:02; Stop 03/24/17 at 10:03; Status DC Medical Decision Making MDM Remarks Last Impressions Brain MRI 03/24/17 0000 Signed Impressions: Service Date/Time: Friday, March 24, 2017 09:40 - CONCLUSION: Examination quality is degraded by motion artifact. There is a single 2 cm peripherally enhancing lesion in the right parietal high convexity with marked surrounding vasogenic edema. Imaging features are nonspecific but given the history of a lung cancer, metastatic disease should be top consideration. Infection or other brain lesions could have a similar appearance. Jesu Beltran MD Head CT 03/23/17 0000 Signed Impressions: Service Date/Time: Thursday, March 23, 2017 19:48 - CONCLUSION: 1. 1.7 cm mass in right parietal lobe with surrounding edema and localized mass effect most characteristic of metastatic disease given history of lung carcinoma. Scott Layton MD Chest X-Ray 03/23/17 0000 Signed Impressions: Service Date/Time: Thursday, March 23, 2017 19:47 - CONCLUSION: 1. Endotracheal tube in satisfactory position. Left lung mass and perihilar airspace disease similar to January 07. There is now some apical pleural thickening on the left. Scott Layton MD Attending Statement Neuro. Continue neuro checks in a serial fashion. MRI brain will be done today. It shows an enhancing mass on the right side with extensive surrounding edema. I discussed with his the alternatives of treatment including surgery, radiation versus palliative treatment. I favor a surgical resection. I have discussed the case with who is in agreement. We will further discuss with Continue decadron 4mg q6 hrs for vasogenic edema, Mannitol as needed Continue Phosphenytoin for seizure prophylaxis. Neurology consult. EEG Pulmonary. On [id number] ventilation. Continueaggressive pulmonary toilette, nasotracheal suction, and breathing treatments with nebulizers. PT and OT evaluation Nutrition. tube feeding Renal. Continue to monitor closely urine output, BUN and creatinine Endocrine. Continue to Monitor serial Acu checks and SSI as needed in detail ID Continue to monitor for signs of infection ContinueProtonix for stress ulcer prophylaxis Continue Kiko hose and SCD's for DVT prophylaxis Discussed with his and Dr Deras, Gatito Mireles MD Mar 24, 2017 10:50
--- NOTE | 2017-03-24 11:18 | RADRPT ---
EXAM DATE/TIME: 03/24/2017 11:08 [facility] COMPARISON: CHEST SINGLE AP, March 23, 2017, 19:47. INDICATIONS : Respiratory disease MEDICAL HISTORY : Metastatic, lung. Seizure. SURGICAL HISTORY : Right knee surgery. Infusaport ENCOUNTER: Initial ACUITY: 2 days PAIN SCORE: Non-responsive. LOCATION: chest FINDINGS: Portable AP view of the chest demonstrates a normal-sized cardiac silhouette. Endotracheal tube tip i s at the clavicular head level measuring 4.6 cm from the lulú. Nasogastric tube is looped in the st omach. [id number] remains present. Patient is rotated but there is slight leftward shift of the me diastinum. There is stable opacity at the left lung apex. Right lung is clear. No pneumothorax is see n. CONCLUSION: Stable opacity at the apex of the left hemithorax. Jesu Beltran MD on March 24, 2017 at 11:15 Board Certified Radiologist. This report was verified electronically.
[2017-03-24] MEDS ORDERED: levETIRAcetam 1000 MG INJ 100 ML IV ONE (12:30)
--- NOTE | 2017-03-24 13:13 | MB ---
cc: SERGEY LYNCH M.D. DATE OF CONSULTATION: 03/24/2017. REASON FOR CONSULTATION: Seizure. HISTORY OF PRESENT ILLNESS: Mr. Mendosa is a 52-year-old man who has a history of lung cancer with known metastasis to the neck diagnosed last May and treated with chemotherapy and radiation therapy. He was stable until yesterday when he had a new onset generalized seizure which started as a focal seizure involving the left upper and left lower extremity and facial twitching. Following this, he was weak on the left side and came to the ER had a grand mal seizure in the emergency room. He has since been loaded with Cerebyx and was started on Keppra with no recurrent seizure activity. He has no previous history of seizure. PAST MEDICAL HISTORY: 1. History of DVT. 2. History of PE. He is on Lovenox at home. 3. He has a history of nonsmall cell lung cancer with metastasis to the neck area treating with radiation therapy and chemotherapy. ALLERGIES: PENICILLIN. MEDICATIONS AT HOME: 1. Lovenox 80 milligrams subcutaneous twice a day. SOCIAL HISTORY: No history of alcohol use. NEUROLOGICAL EXAMINATION: VITAL SIGNS: Blood pressure is 99/86, pulse 91, respiratory rate is 16, temperature 98 degrees. HIGHER CORTICAL FUNCTIONS: He is sedated at the present time and intubated. CRANIAL NERVES: Pupils equal and reactive. MOTOR EXAM: On motor exam, he has no spontaneous limb movement. There is no seizure activity noted. Tone is diminished. REFLEXES: Reflexes are symmetric. IMAGING STUDIES: CT of the brain shows a 1.7 cm mass in the right parietal lobe with edema and localized mass effect. MR of the brain reveals a 2 cm peripherally enhancing lesion in the right parietal high convexity with surrounding edema, probable metastatic tumor. LABS: White count 10,700, hemoglobin 12.8, hematocrit 38%, platelet count 243,000. Sodium is 140, potassium is 4, chloride 105, carbon dioxide is 25.8, the BUN is 17, the creatinine is 0.89, GFR is 89, glucose is 145, calcium is 8.6. AST 44, ALT 61. Ammonia 96. Tox screen: Dilantin level today is 10.5. IMPRESSION: A focal seizure with secondary generalization most likely related to what appears to be a solitary metastasis in the right parietal area. RECOMMENDATIONS: 1. Continue the Cerebyx as well as the Keppra. 2. Will review the EEG. 3. Neurosurgery has already been consulted as well regarding the metastatic tumor. 4. The patient currently is on Decadron as well for the mass effect. MD JONATHAN Seals/VAL /12:32 PM /1:04 PM
--- NOTE | 2017-03-24 14:05 | MB ---
cc: LISA RAMIREZ M.D. DATE OF CONSULTATION: 03/24/2017. REASON FOR CONSULTATION: Oncology was consulted to render opinion regarding a patient with metastatic lung cancer who presented with new-onset seizure. ATTENDING PHYSICIAN: Dr. Nails. HISTORY OF PRESENT ILLNESS: The patient is a 52-year-old male diagnosed with [id number] lung cancer about a year ago. Initially he was diagnosed with stage III squamous cell carcinoma and he received radiation with chemotherapy followed by consolidation chemotherapy. He subsequently developed progression of disease and received more radiation. He was recently started on Opdivo. He saw Dr. Hickman recently and CT scan reportedly showed "good response to the Opdivo". He was doing well but was brought in by EMS yesterday because of new-onset seizure. According to his daughter, the patient suddenly collapsed and was noted to have twitching of his left side. EMS was called and he developed recurrent generalized seizure. He was subsequently intubated. On presentation, CT of the head showed a 1.7 cm mass in the right parietal lobe with significant vasogenic edema and no bleeding noted. There was mass effect but no midline shift. PAST MEDICAL HISTORY: 1. Metastatic non-small cell lung cancer. 2. Recurrent DVT and pulmonary embolism. He was on Lovenox. 3. Osteoarthritis. 4. Hyperlipidemia. 5. Gastroesophageal reflux disease (GERD). PAST SURGICAL HISTORY: 1. Port placement. 2. Knee surgery. 3. Lung biopsy. FAMILY HISTORY: Noncontributory. SOCIAL HISTORY: He has quit tobacco about two years ago. No significant alcohol use. ALLERGIES: PENICILLIN. CURRENT MEDICATIONS: 1. Keppra. 2. Protonix. 3. Lactulose. 4. Clindamycin. 5. Aztreonam. 6. DuoNeb. 7. Fosphenytoin. 8. Decadron. 9. Versed. REVIEW OF SYSTEMS: Review of systems not obtainable. PHYSICAL EXAMINATION: VITAL SIGNS: Temperature 97.9, blood pressure 93/55. GENERAL: He is sedated on ventilator. HEAD, EYES, EARS, NOSE, THROAT: Atraumatic, normocephalic. Pupils equal, round, reactive to light. OROPHARYNX: ET tube noted. No bleeding. NECK: No thyromegaly. No palpable mass. LYMPHATIC: No palpable cervical, clavicular, axillary or inguinal lymph nodes. CARDIOVASCULAR: Regular S1-S2. No murmur. LUNGS: Clear to auscultation anteriorly. ABDOMEN: Abdomen soft. I could not palpate liver or spleen. EXTREMITIES: No cyanosis or clubbing. No significant edema. SCDs in place. NEUROLOGIC EXAM: He is sedated but still arousable. ASSESSMENT: 1. Metastatic non-small cell lung cancer. He was diagnosed with stage III squamous cell carcinoma of the lungs about a year ago. He was treated with radiation with concurrent cisplatin and Taxol. He also received two cycles of consolidation chemotherapy after concurrent treatment. He developed supraclavicular adenopathy and progression of disease. He then received radiation. He subsequently was started on Opdivo and had a good response. His recent CT reportedly showed good response and no evidence of progression of disease. He now has developed new onset seizure. CT showed a new 1.7 cm mass in the right parietal lobe with significant vasogenic edema. He also had a brain MRI which showed a single 2-cm peripherally enhancing lesion in the right parietal high complexity with marked surrounding vasogenic edema. There is no other lesion noted. No midline shift noted. Dr. Palmer has seen the patient and the patient is a candidate for surgical resection of this mass. I had an extensive discussion with the patient's daughter at the bedside. Given his significant symptoms with multiple seizures, I think surgical intervention may be the fastest way to control his symptoms. I told her also that if the family does not want surgery then the next option will be radiation. With a solitary brain lesion, he would be a candidate for stereotactic radiation. She is going to discuss this with family before making a decision. 2. Brain metastasis as above. 3. 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 He is currently on fosphenytoin and Keppra. He is also on Decadron. 4. History of multiple DVTs and pulmonary embolism. He was on Lovenox. His last thromboembolic event was several months ago. He has no lower extremity edema at this time. He is on a ventilator to protect the airway because of the seizure. However, with his metastatic disease and history of multiple clots, he likely is going to have another thromboembolic event without the anticoagulation. Unfortunately he has competing needs at this time. He has a risk of developing bleeding in the brain with anticoagulation. I am going to discuss this with Dr. Palmer to see if we could maintain him on a low-dose prophylactic heparin which could give him some protection against another recurrent clot. I explained the dilemma to the patient's daughter and she understands. 5. Osteoarthritis. 6. Hyperlipidemia. 7. Gastroesophageal reflux disease (GERD). RECOMMENDATIONS: 1. Discussion with the patient's daughter at the bedside as above. 2. Continue Decadron. 3. Management of seizures per neurology. 4. Awaiting the patient's family's decision regarding whether to proceed with resection of the brain mass. If not, he is going to need radiation. 5. Will discuss with Dr. Palmer to see if we could start the patient on low-dose prophylactic heparin. Thank you, Dr. Nails, for asking me to see this patient. MD CAMILO Stacy/JCC /1:17 PM /1:47 PM PRERNA
--- NOTE | 2017-03-24 14:09 | MG ---
cc: SERGEY LYNCH M.D. Lab No: [id number]. Date: 03/24/2017 Age: Sex: M Race: TECHNIQUE: 17 channel EEG. DESCRIPTION: The background rhythm reveals a symmetrical alpha rhythm frequency of 8 Hz, amplitude is about 20-30 microvolts. There is some focal slowing of the left hemisphere in the theta range. Occasional sharp activity is identified over the right parietal area and there is element of phase reversal as well on occasion. No other lateralizing features are identified. Photic was done with a normal driving response. INTERPRETATION: Abnormal study. There is sharp activity of the right hemisphere consistent with the right hemisphere seizure focus as well as focal slowing of the right hemisphere, which is consistent with a diagnosis of right hemisphere tumor. MD JONATHAN Seals/VAL /1:58 PM /2:03 PM
[2017-03-24] MEDS: HEPARIN SODIUM - SQ 10,000 UNITS/ML VIAL SQ SCH ×2 (14:22→20:20)
[2017-03-24] MEDS ORDERED: FOSPHENYTOIN SODIUM 500 MG PE/10 ML VIAL IV ONE (18:45)
[2017-03-24] MEDS ORDERED: FOSPHENYTOIN INJ 500 MGPE in SODIUM CHLORIDE 0.9% INJ 50 ML IV ONE (19:00)
[2017-03-24] MEDS: levETIRAcetam 1000 MG INJ 100 ML IV SCH (21:46)
[2017-03-25] VITALS (19 sets, daily range): BP systolic 94–103; BP diastolic 55–64; PULSE 70–97; RESP 12–16; TEMP 97.9–98.2; O2SAT 94–100
[2017-03-25] MEDS: MIDAZOLAM 100 MG/100 ML INJ 100 ML IV SCH ×3 (00:26→19:39)
[2017-03-25] MEDS: RESP: ALBUTEROL 2.5 MG/IPRATROPIUM 0.5 MG NEB (SCH) NEB ×4 (04:33→20:10)
[2017-03-25] MEDS: CLINDAMYCIN INJ 600 MG in SODIUM CHLORIDE 0.9% INJ 100 ML IV SCH ×3 (06:13→18:54)
[2017-03-25] MEDS: CHLORHEXIDINE GLUCONATE 2 % 1 PACK (2 CLOTHS) TOP SCH (06:15)
[2017-03-25] MEDS: DEXAMETHASONE SOD PHOS 4 MG/ML VIAL IV PUSH SCH ×4 (06:46→23:22)
[2017-03-25] MEDS: AZTREONAM INJ 2,000 MG in SODIUM CHLORIDE 0.9% INJ 100 ML IV SCH ×3 (06:46→20:28)
[2017-03-25] MEDS: FOSPHENYTOIN SODIUM 100 MG PE/2 ML VIAL IV SCH ×3 (06:46→23:22)
[2017-03-25] MEDS: CHLORHEXIDINE 0.12% (ORAL KIT) 15 ML CUP MT SCH ×2 (08:53→20:28)
[2017-03-25] MEDS: levETIRAcetam 1000 MG INJ 100 ML IV SCH ×2 (09:26→20:28)
[2017-03-25] MEDS: PANTOPRAZOLE SODIUM 40 MG VIAL IV SCH (09:27)
[2017-03-25] MEDS: LACTULOSE SYRUP 20 GM/30 ML CUP PO SCH ×4 (09:27→20:28)
[2017-03-25] MEDS: SODIUM CHLORIDE 0.9% FLUSH 10 ML FLUSH IV FLUSH SCH ×2 (09:27→20:28)
[2017-03-25] MEDS: HEPARIN SODIUM - SQ 10,000 UNITS/ML VIAL SQ SCH (09:27)
--- NOTE | 2017-03-25 10:23 | PD.ONC.PN ---
Subjective Subjective Remarks Afebrile overnight. Patient intubated, sedated. Objective Data Date Time Temp Pulse Resp B/P Pulse Ox O2 Delivery O2 Flow Rate FiO2 03/25/17 07:56 94 40 03/25/17 07:00 100 Mechanical Ventilator 50 03/25/17 06:35 96 40 03/25/17 06:00 88 03/25/17 04:00 98.1 83 12 94/57 97 03/25/17 04:00 83 03/25/17 04:00 40 03/25/17 03:45 98 40 03/25/17 02:00 82 03/25/17 00:00 98.2 88 12 99/55 96 03/25/17 00:00 40 03/25/17 00:00 88 03/24/17 22:00 92 03/24/17 20:20 97 40 03/24/17 20:00 98.8 92 13 92/54 99 03/24/17 20:00 92 03/24/17 20:00 40 03/24/17 19:00 100 Mechanical Ventilator 50 03/24/17 18:00 90 03/24/17 16:49 97 40 03/24/17 16:00 87 03/24/17 16:00 97.9 87 13 91/57 97 03/24/17 16:00 40 03/24/17 14:00 90 03/24/17 12:00 97.9 89 14 93/55 100 03/24/17 12:00 40 03/24/17 12:00 89 03/24/17 11:07 98 40 03/24/17 10:20 40 03/25/17 03/25/17 03/25/17 06:59 14:59 22:59 Intake Total 618 ml Output Total 675 ml Balance -57 ml Result Diagram: 03/24/17 0644 03/24/17 0644 Laboratory Results Laboratory Tests Test 03/24/17 03/25/17 21:19 03:59 Phenytoin (Dilantin) Level 16.4 MCG/ML 13.0 MCG/ML Culture Results Microbiology Date/Time Procedure Status Source Growth 03/23/17 06:40 Gram Stain - Final Resulted Sputum Endotracheal 03/23/17 06:40 Sputum Culture Resulted Sputum Endotracheal Pending 03/23/17 20:10 Aerobic Blood Culture - Preliminary Resulted Blood Peripheral NO GROWTH IN 1 DAY 03/23/17 20:10 Anaerobic Blood Culture - Preliminary Resulted Blood Peripheral NO GROWTH IN 1 DAY 03/23/17 20:15 Aerobic Blood Culture - Preliminary Resulted Blood Peripheral NO GROWTH IN 1 DAY 03/23/17 20:15 Anaerobic Blood Culture - Preliminary Resulted Blood Peripheral NO GROWTH IN 1 DAY Administered Medications Medications (Trade) Dose Ordered Sig/Pina Route PRN Reason Start Time Stop Time Status Last Admin Dose Admin Propofol 100 ml @ 0 mls/hr TITRATE IV 03/23/17 20:00 03/23/17 19:45 Sodium Chloride (NS 1000 ml Inj) 1,000 ml @ 75 mls/hr [id number] IV 03/23/17 20:23 03/24/17 23:09 Chlorhexidine Gluconate (Peridex 0.12% Liq) 15 ml BID@08,20 MT 03/24/17 08:00 03/25/17 08:53 Pantoprazole Sodium (Protonix Inj) 40 mg DAILY IV 03/24/17 09:00 03/25/17 09:27 Chlorhexidine Gluconate 3 pack 3 pack Taper DAILY@04 TOP 03/24/17 04:00 03/20/18 03:59 03/25/17 06:15 Midazolam HCl (Versed 100 Mg/ ml Inj) 100 ml @ 0 mls/hr TITRATE IV 03/23/17 20:30 03/25/17 00:26 Sodium Chloride (NS Flush) 2 ml BID IV FLUSH 03/23/17 21:00 03/25/17 09:27 Dexamethasone Sodium Phosphate (Decadron Inj) 6 mg Q6HR IV PUSH 03/24/17 00:00 03/25/17 06:46 Fosphenytoin Sodium 100 mgpe 100 mgpe Q8HR IV 03/23/17 22:00 03/25/17 06:46 Clindamycin Phosphate 600 mg/ Sodium Chloride 104 ml @ 208 mls/hr Q8H IV 03/24/17 03:00 03/25/17 06:13 Aztreonam/Sodium Chloride (Azactam Inj/NS Inj) 100 ml @ 200 mls/hr Q8H IV 03/24/17 03:00 03/25/17 06:46 Lactulose 30 ml 30 ml QID PO 03/24/17 09:00 03/25/17 09:27 Levetriacetam (Keppra 1000 Mg Inj) 100 ml @ 400 mls/hr Q12HR IV 03/24/17 21:00 03/25/17 09:26 Heparin Sodium (Porcine) (Heparin Inj) 5,000 units Q12HR SQ 03/24/17 13:45 03/25/17 09:27 Objective Remarks GENERAL: Middle aged male supine in bed intubated, sedated. SKIN: Warm and dry. HEAD: Normocephalic. EYES: no injection or drainage. NECK: Supple, trachea midline CARDIOVASCULAR: Regular rate and rhythm RESPIRATORY: anterior jimenes clear. on mechanical ventilation. GASTROINTESTINAL: Abdomen soft, non-tender, nondistended. EXTREMITIES: No cyanosis NEUROLOGICAL: intubated, sedated. Assessment/Plan Problem List: (1) Metastatic primary lung cancer Status: Acute Plan: --Metastatic non-small cell lung cancer. 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 --was treated with radiation with concurrent cisplatin and Taxol. received two cycles of consolidation chemotherapy after concurrent treatment. --developed supraclavicular adenopathy and progression of disease. then received radiation. --subsequently was started on Opdivo and had a good response. --recent CT reportedly showed good response and no evidence of progression of disease. now has developed new onset seizure. --CT showed a new 1.7 cm mass in the right parietal lobe with significant vasogenic edema. also had a brain MRI which showed a single 2-cm peripherally enhancing lesion in the right parietal high complexity with marked surrounding vasogenic edema. no other lesion noted. No midline shift noted. --the patient is a candidate for surgical resection of this mass. --With a solitary brain lesion, he would be a candidate for stereotactic radiation. 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 --currently on fosphenytoin and Keppra + Decadron. (3) DVT (deep venous thrombosis) Status: Acute Plan: IVC filter ordered in IR --History of multiple DVTs and pulmonary embolism. --was on Lovenox. --last thromboembolic event was several months ago. --with his metastatic disease and history of multiple clots, he likely is going to have another thromboembolic event without the anticoagulation. --Unfortunately he has competing needs at this time. He has a risk of developing bleeding in the brain with anticoagulation. Assessment 52y/o male with metastatic lung cancer who presented with new-onset seizure. h/o Metastatic non-small cell lung cancer. Recurrent DVT and pulmonary embolism. He was on Lovenox. Osteoarthritis. Hyperlipidemia. Gastroesophageal reflux disease (GERD). Plan 1. will order retrievable IVC filter in invasive radiology 2. supportive care 3. continue Decadron. d/w Dr. Hickman, patient's nurse, Dr. Art Attending Statement The exam, history, and the medical decision-making described in the above note were completed with the assistance of the mid-level provider. I reviewed and agree with the findings presented. I attest that I had a [id number] encounter with the patient on the same day, and personally performed and documented my assessment and findings in the medical record. 2 cm right parietal mass--had seizure activity. intubated for airway protection case discussed with Dr. Yoon and Dr. Palmer Best option is to proceed with resection of isolated mass to minimize co- morbidity that may result from mass effect XRT treatment post-op will need restaging once stable post-op Hx of PE continue heparin will need to be stopped prior to surgery and post -op IVC filter placement today will need to switch to another treatment option systemically. PDL-1 inhibitor vs systemic chemotherapy discussed with patient's at length d/w rn Problem Qualifiers (1) DVT (deep venous thrombosis): Luisa Sal Mar 25, 2017 10:23 Fermin Hickman MD Mar 25, 2017 22:15
[2017-03-25 12:06] LABS: APTT (PATIENT) 19.6 SEC (24.3-30.1)
[2017-03-25] MEDS: SODIUM CHLOR 0.9% 1000 ML INJ 1,000 ML IV SCH (12:33)
--- NOTE | 2017-03-25 14:13 | HHI.NSPN ---
(Nancy Barajas) Note Status Status: Progress Note (Nancy Barajas) Interval History Interval History 03/25: pt seen this am during rounds, remains intubated, MRI Brain yesterday completed, no reports of clinical seizures overnight - for repeat EEG this morning. (Nancy Barajas) Labs, Micro, & Vital Signs Results Date Time Temp Pulse Resp B/P Pulse Ox O2 Delivery O2 Flow Rate FiO2 03/25/17 12:00 40 03/25/17 12:00 98.1 97 16 100/60 100 03/25/17 12:00 97 03/25/17 11:16 40 03/25/17 11:14 100 40 03/25/17 10:00 87 03/25/17 08:00 50 03/25/17 08:00 86 03/25/17 08:00 97.9 86 16 100/58 100 03/25/17 07:56 94 40 03/25/17 07:00 100 Mechanical Ventilator 50 03/25/17 06:35 96 40 03/25/17 06:00 88 03/25/17 04:00 98.1 83 12 94/57 97 03/25/17 04:00 83 03/25/17 04:00 40 03/25/17 03:45 98 40 03/25/17 02:00 82 03/25/17 00:00 98.2 88 12 99/55 96 03/25/17 00:00 40 03/25/17 00:00 88 03/24/17 22:00 92 03/24/17 20:20 97 40 03/24/17 20:00 98.8 92 13 92/54 99 03/24/17 20:00 92 03/24/17 20:00 40 03/24/17 19:00 100 Mechanical Ventilator 50 03/24/17 18:00 90 03/24/17 16:49 97 40 03/24/17 16:00 87 03/24/17 16:00 97.9 87 13 91/57 97 03/24/17 16:00 40 03/25/17 06:59 Intake Total 2679 ml Output Total 2205 ml Balance 474 ml Constitutional Vital Signs Date Time Temp Pulse Resp B/P Pulse Ox O2 Delivery O2 Flow Rate FiO2 03/25/17 12:00 40 03/25/17 12:00 98.1 97 16 100/60 100 03/25/17 12:00 97 03/25/17 11:16 40 03/25/17 11:14 100 40 03/25/17 10:00 87 03/25/17 08:00 50 03/25/17 08:00 86 03/25/17 08:00 97.9 86 16 100/58 100 03/25/17 07:56 94 40 03/25/17 07:00 100 Mechanical Ventilator 50 03/25/17 06:35 96 40 03/25/17 06:00 88 03/25/17 04:00 98.1 83 12 94/57 97 03/25/17 04:00 83 03/25/17 04:00 40 03/25/17 03:45 98 40 03/25/17 02:00 82 03/25/17 00:00 98.2 88 12 99/55 96 03/25/17 00:00 40 03/25/17 00:00 88 03/24/17 22:00 92 03/24/17 20:20 97 40 03/24/17 20:00 98.8 92 13 92/54 99 03/24/17 20:00 92 03/24/17 20:00 40 03/24/17 19:00 100 Mechanical Ventilator 50 03/24/17 18:00 90 03/24/17 16:49 97 40 03/24/17 16:00 87 03/24/17 16:00 97.9 87 13 91/57 97 03/24/17 16:00 40 03/25/17 06:59 Intake Total 2679 ml Output Total 2205 ml Balance 474 ml (Nancy Barajas) Review of Systems/Exam Exam Mr Mendosa remains intubated and sedated. Follows simple commands Cranial Nerves: Pupils equal, round, reactive to light. Eyes appear conjugated. There was no nystagmus, no papilledema. Face musculature appeared symmetrical at rest. Cervical Spine: His neck is soft, supple, without nuchal rigidity. Motor: His muscle tone and bulk are normal. He moves purposefully all 4 extremities to command, appears weaker on the left Reflexes: bilateral plantar flexion response. Sensory: On examination there is response to painful stimuli, localizing with both upper and lower extremities. Cerebellar: Examination cannot be adequately assessed due to the patient's neurological condition. (Nancy Barajas) Exam Mr Mendosa remains intubated and sedated. Follows simple commands Cranial Nerves: Pupils equal, round, reactive to light. Eyes appear conjugated. There was no nystagmus, no papilledema. Face musculature appeared symmetrical at rest. Cervical Spine: His neck is soft, supple, without nuchal rigidity. Motor: His muscle tone and bulk are normal. He moves purposefully all 4 extremities to command, with left-sided weakness Reflexes: bilateral plantar flexion response. No ankle clonus Sensory: On examination there is response to painful stimuli, localizing with both upper and lower extremities. Cerebellar: Examination cannot be adequately assessed due to the patient's neurological condition (Gatito Palmer MD) Medications Current Medications Current Medications Medications (Trade) Dose Ordered Sig/Pina Route PRN Reason Start Time Stop Time Status Last Admin Dose Admin Propofol 100 ml @ 0 mls/hr TITRATE IV 03/23/17 20:00 03/23/17 19:45 Propofol 100 ml @ 0 mls/hr TITRATE IV 03/23/17 20:00 Sodium Chloride (NS 1000 ml Inj) 1,000 ml @ 75 mls/hr [id number] IV 03/23/17 20:23 03/25/17 12:33 Sodium Chloride (NS Flush) 2 ml UNSCH PRN IV FLUSH FLUSH AFTER USING IV ACCESS 03/23/17 20:30 Chlorhexidine Gluconate (Peridex 0.12% Liq) 15 ml BID@08,20 MT 03/24/17 08:00 03/25/17 08:53 Pantoprazole Sodium (Protonix Inj) 40 mg DAILY IV 03/24/17 09:00 03/25/17 09:27 Miscellaneous Information 1 [id number] XX 03/23/17 20:30 Chlorhexidine Gluconate (Chlorhexidine 2% Cloth) 3 pack Taper DAILY@04 TOP 03/24/17 04:00 03/20/18 03:59 03/25/17 06:15 Chlorhexidine Gluconate 3 pack 3 pack UNSCH PRN [facility] 03/23/17 20:30 Midazolam HCl (Versed 100 Mg/ ml Inj) 100 ml @ 0 mls/hr TITRATE IV 03/23/17 20:30 03/25/17 11:05 Sodium Chloride (NS Flush) 2 ml BID IV FLUSH 03/23/17 21:00 03/25/17 09:27 Dexamethasone Sodium Phosphate (Decadron Inj) 6 mg Q6HR IV PUSH 03/24/17 00:00 03/25/17 11:43 Fosphenytoin Sodium 100 mgpe 100 mgpe Q8HR IV 03/23/17 22:00 03/25/17 13:29 Potassium Chloride 100 ml @ 50 mls/hr Q2H PRN IV For Potassium 2.8 - 3.2 mEq/L 03/23/17 20:45 Potassium Chloride (KCl 20 Meq Premix Inj) 100 ml @ 50 mls/hr Q2H PRN IV For Potassium 2.8 - 3.2 mEq/L 03/23/17 20:45 Potassium Bicarb/ Potassium Chloride 50 meq 50 meq UNSCH PRN PO For Potassium 3.3 - 3.5 mEq/L 03/23/17 20:45 Potassium Chloride 100 ml @ 25 mls/hr UNSCH PRN IV For Potassium 3.3 - 3.5 mEq/L 03/23/17 20:45 Potassium Chloride 100 ml @ 50 mls/hr Q2H PRN IV For Potassium 3.3 - 3.5 mEq/L 03/23/17 20:45 Magnesium Sulfate/ Sodium Chloride (Magnesium Sulfate Inj/NS Inj) 100 ml @ 50 mls/hr UNSCH PRN IV For Magnesium 0.9 - 1.1 mg/dL 03/23/17 20:45 Magnesium Oxide 800 mg 800 mg UNSCH PRN PO For Magnesium 1.2 - 1.6 mg/dL 03/23/17 20:45 Magnesium Sulfate/ Sodium Chloride (Magnesium Sulfate Inj/NS Inj) 100 ml @ 50 mls/hr UNSCH PRN IV For Magnesium 1.2 - 1.6 mg/dL 03/23/17 20:45 Potassium Phosphate 2000 mg 2,000 mg Q4H PRN PO For Phosphorus < 2.5 mg/dL 03/23/17 20:45 Sodium Phosphate/ Sodium Chloride (Sodium Phosphate Inj/NS 250 ml Inj) 250 ml @ 42 mls/hr UNSCH PRN IV For Phosphorus < 2.5 mg/dL 03/23/17 20:45 Potassium Phosphate 2000 mg 2,000 mg UNSCH PRN PO/TUBE SEE LABEL COMMENTS 03/23/17 20:45 Potassium Phosphate 30 mmol/ Sodium Chloride 260 ml @ 42 mls/hr UNSCH PRN IV SEE LABEL COMMENTS 03/23/17 20:45 Clindamycin Phosphate 600 mg/ Sodium Chloride 104 ml @ 208 mls/hr Q8H IV 03/24/17 03:00 03/25/17 11:05 Aztreonam/Sodium Chloride (Azactam Inj/NS Inj) 100 ml @ 200 mls/hr Q8H IV 03/24/17 03:00 03/25/17 11:43 Lorazepam (Ativan Inj) 2 mg Q2H PRN IV PUSH seizure 03/24/17 02:00 Lactulose 30 ml 30 ml QID PO 03/24/17 09:00 03/25/17 13:29 Levetriacetam (Keppra 1000 Mg Inj) 100 ml @ 400 mls/hr Q12HR IV 03/24/17 21:00 03/25/17 09:26 Heparin Sodium (Porcine) (Heparin Inj) 5,000 units Q12HR SQ 03/24/17 13:45 03/25/17 09:27 (Nancy Barajas) Medical Decision Making MDM Remarks 52 y/o male presents for seizures MRI Brain shows left right parietal mass lesion, suspected for metastatic lung CA DVT, PE (Nancy Barajas) Plan Plan Remarks dw , to OR tomorrow for resection of brain mass, will need IVC filter placed prior surgery hold sq heparin for surgery tomorrow cont AEDs, f/u levels, f/u EEG NPO tonight at midnight (Nancy Barajas) Attending Statement I discussed his condition with Dr Hickman and with his . The alternatives of treatment were again discussed including surgery versus radiation. I recommend consideration to a stereotactic image guided right parieto-occipital craniotomy with microsurgical resection mass. We have discussed the details including the [id number] details of the surgical procedure, its indications, alternatives, risks, and potential complications. Risks and potential complications include, but are not limited to, infection, blood loss, CSF leak, partial or complete loss of sight in one or both eyes, paresis, paralysis, permanent pain or difficulty swallowing, loss of bowel or bladder function, complications from anesthesia, blood clot, stroke, myocardial infarction, or even . He is in 2 anticonvulsants,, Keppra And fosphenytoin. Follow-up he's levels. EEG shows some improvement He is at increased surgical risk due to his recent DVT. I recommend placement of a Omi filter prior to the surgery Pulmonary. Continue aggressive pulmonary toilette, nasotracheal suction, and breathing treatments with nebulizers. Daily PT and OT Nutrition. Tolerating Oral diet Renal. Continue to monitor closely urine output, BUN and creatinine Endocrine. Continue to Monitor serial Acu checks and SSI as needed in detail ID continue to monitor for signs of infection Continue Protonix for stress ulcer prophylaxis Continue DVT prophylaxis Further recommendations will be provided depending on the patient's clinical evaluation and follow up studies. The exam, history, and the medical decision-making described in the above note were completed with the assistance of the mid-level provider. I reviewed and agree with the findings presented. I attest that I had a [id number] encounter with the patient on the same day, and personally performed and documented my assessment and findings in the medical record. (Gatito Palmer MD) Nancy Barajas Mar 25, 2017 14:13 Gatito Palmer MD Mar 25, 2017 14:59
[2017-03-25] MEDS ORDERED: VANCOMYCIN INJ 1,000 MG in SODIUM CHLOR 0.9% 250 ML INJ 250 ML IV SCH (14:30)
[2017-03-25] MEDS ORDERED: GADODIAMIDE PF 287 MG/ML 20 ML VIAL (for RAD MRI) IV ONE (16:31)
--- NOTE | 2017-03-25 17:36 | RADRPT ---
EXAM DATE/TIME: 03/25/2017 16:10 [facility] COMPARISON: No previous studies available for comparison. INDICATIONS : Metastatic disease. CONTRAST: 18 cc Omniscan (gadodiamide) IV MEDICAL HISTORY : Carcinoma, lung. SURGICAL HISTORY : Rt knee surgery. ENCOUNTER: Initial ACUITY: 1 week PAIN SCORE: Nonresponsive. LOCATION: head TECHNIQUE: An MRI brain stealth procedure was performed. The information will be used in the OR for localizatio n. FINDINGS: A 2 cm heterogeneously enhancing mass is present in the high convexity right parietal region with mod erate surrounding vasogenic edema. No other similar lesions are present elsewhere. The contralateral left hemisphere is unremarkable. Ventricles are symmetric and normal. Basal cisterns are patent. CONCLUSION: 2 cm enhancing mass in the right parietal region Jesu Veras MD on March 25, 2017 at 17:32 Board Certified Radiologist. This report was verified electronically.
--- NOTE | 2017-03-25 19:11 | PD.RAD ---
Post Procedure Progress Note Pre Procedure Diagnosis: (1) Stage 4 lung cancer Post Procedure Diagnosis: (1) Stage 4 lung cancer Procedure Date: Mar 25, 2017 Supervising Radiologist: Jesu Veras Proceduralist/Assist: Lazaro Juares, RT(R), Debbi Huff RT(R) Anesthesia: Local, Conscious Sedation Plan of Activity Patient to Unit: Critical Care Patient Condition: Critical See PACS Report for procedural detail/treatment Vascular-Venous Procedure Procedure 1 Procedure(s): Permanent IVC Filter Access Access Site(s): Right Femoral Vein Closure Site(s): Right manual pressure Jesu Veras MD Mar 25, 2017 19:11
[2017-03-25] MEDS ORDERED: IOHEXOL 350 MG/ML 50 ML BTL (for RAD DIAG) IV ONE (20:09)
--- NOTE | 2017-03-25 20:58 | RADRPT ---
EXAM DATE/TIME: 03/25/2017 16:24 [facility] COMPARISON: No previous studies available for comparison. INDICATIONS : Patient presents with chronic lovenox therapy for deep vein thrombosis in need of filter placement. 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 Ultrasound-guided puncture of the right subclavian vein. 2. Conscious sedation with continuous EKG and Oximetry monitoring. 3. venography of the right subclavian vein The risks, benefits and alternatives to the procedure were explained and verbal and written consent w as obtained. The site was prepped in sterile fashion. Full sterile technique was used, including ca p, mask, sterile gloves and gown and a large sterile sheet. Hand hygiene and 2% chlorhexidine and/or betadine/alcohol prep was utilized per protocol for cutaneous antisepsis. The skin and subcutaneous tissues were infiltrated with local anesthetic solution. A right internal jugular vein was found to be occluded by ultrasound evaluation. Attention was turned to ultrasound guided puncture of the right subclavian vein which was accomplished lateral to the rig ht clavicle. Micropuncture guidewire would not pass centrally and therefore a 3 Icelandic vessel dilator was inserted and venography was performed. Subtraction venography reveals total occlusion of the medial right subclavian vein with flow through supraclavicular, low neck and chest collaterals. There is no reconstitution of the right brachiocepha lic vein identified. The puncture site was closed with manual pressure and hemostasis was obtained. The patient tolerated the procedure well and there were no complications. Conscious sedation was performed with the prescribed dosages and duration as above in the presence of an independent trained radiology nurse to assist in the monitoring of the patient. EKG and oximetry remained stable throughout the procedure. 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 Inferior vena caval filter will be placed via the femoral vein. Jesu Veras MD on March 25, 2017 at 20:54 Board Certified Radiologist. This report was verified electronically.
--- NOTE | 2017-03-25 20:59 | RADRPT ---
EXAM DATE/TIME: 03/25/2017 16:24 [facility] COMPARISON: No previous studies available for comparison. INDICATIONS : Patient presents with chronic lovenox therapy for deep vein thrombosis in need of filter placement. 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 Ultrasound-guided venipuncture. 2. Inferior venacavogram. 3. Inferior vena cava filter placement. 4. Conscious sedation with continuous EKG and oximetry monitoring. The risks, benefits and alternatives to the procedure were explained and verbal and written consent w as obtained. The site was prepped in sterile fashion. Full sterile technique was used, including ca p, mask, sterile gloves and gown and a large sterile sheet. Hand hygiene and 2% chlorhexidine and/or betadine/alcohol prep was utilized per protocol for cutaneous antisepsis. The skin and subcutaneous tissues were infiltrated with local anesthetic solution. With ultrasound and fluoroscopic guidance the targeted vein was punctured and a vascular sheath was p laced. Inferior venacavogram was performed to demonstrate level of renal veins. No caval thrombus was identified. The prescribed filter was deployed in the infrarenal inferior vena cava. Following deplo yment the filter was identified in good position. Conscious sedation was performed with the prescribed dosages and duration as above in the presence of an independent trained radiology nurse to assist in the monitoring of the patient. EKG and oximetry remained stable throughout the procedure. The patient tolerated the procedure well and there were n o complications. The patient was sent to post anesthesia recovery in stable condition. CONCLUSION: Uncomplicated inferior vena cava filter placement as above. Jesu Veras MD on March 25, 2017 at 20:57 Board Certified Radiologist. This report was verified electronically.
--- NOTE | 2017-03-25 21:30 | HHI.CCPN ---
Subjective Remarks/Hospital Course Hospital Course: Patient is a 51-year-old male with past medical history significant for stage IV lung cancer (Dr. Hickman is the oncologist), chronic Lovenox therapy for DVT and PE, who presented to the emergency department for evaluation of possible stroke and new onset seizure. EMS was called for new onset focal seizures involving left lower extremity. According to paramedics en route patient started having weakness and shaking of the left upper and lower extremity with possible facial droop, but without loss of consciousness. In the ER initially was awake alert then developed focal left-sided seizures followed by generalized seizure for 5 min, received Ativan for this. Initially aroused from postictal state and then again had recurrent generalized seizure activity. Patient was intubated for airway protection. CT of the head showed right parietal mass 1.7 cm suspicious for metastatic lesion. I was contacted for admission. Patient was started on Versed infusion. Patient had been already loaded with Cerebyx 1 g, I will continue 100 mg IV every 8 hours. Also an EEG had been ordered. I have ordered MRI of the brain neurosurgery consult. I evaluated the patient in the Main ICU. He is intubated sedated with Versed. He purposefully moves all 4 extremity Subjective: 03/25: persistent seizures yesterday. repeat cerebyx load and keppra load. plan to go to OR for tumor resection tomorrow. also has history of DVt/PE. will need IVC filter prior to OR. Objective Vital Signs Date Time Temp Pulse Resp B/P Pulse Ox O2 Delivery O2 Flow Rate FiO2 03/25/17 20:03 100 40 03/25/17 18:00 98.2 85 16 100/63 03/25/17 07:00 Mechanical Ventilator 03/23/17 19:30 15.00 Intake and Output 03/24/17 03/24/17 03/24/17 07:59 15:59 23:59 Intake Total 762 ml 1178 ml 883 ml Output Total 550 ml 1100 ml 430 ml Balance 212 ml 78 ml 453 ml Result Diagram: 03/24/17 0644 03/24/[address] of the brain shows right parietal lobe mass with surrounding edema and local mass effect Objective Remarks GENERAL: middle-aged male intubated sedated with Versed SKIN: Warm and dry HEAD: Atraumatic. Normocephalic. EYES: Pupils equal and round. No scleral icterus. No injection or drainage. ENT: No nasal bleeding or discharge. Orotracheally intubated NECK: Trachea midline. No JVD CARDIOVASCULAR: regular rate, rhythm. RESPIRATORY: Breath sounds equal bilaterally. GASTROINTESTINAL: Abdomen soft, non-tender, nondistended. MUSCULOSKELETAL: Extremities without clubbing, cyanosis, or edema. NEUROLOGICAL: Intubated heavily sedated. Pupils are equal. Moves all 4 extremities purposefully did not commands on sedation A/P Assessment and Plan Assessment: 52yM with metastatic lung cancer, mets to brain presents with intractable seizures. repeat phenytoin levels. leave intubated for OR tomorrow. NEURO: New-onset seizures Acute encephalopathy Right parietal mass with surrounding edema - New onset Seizures secondary to metastatic brain lesion - Ativan when necessary for seizure, Versed for seizure control and ventilator synchrony - Decadron 6 mg IV every 6 hours. - Neurosurgery following - or tomorrow for resection. - cerebyx 100 mg IV every 8 hours - repeat levels. - Check EEG again today RESP: Acute hypoxic and hypercarbic respiratory failure Stage IV lung cancer - Continue mechanical ventilation - no SBT today given going to OR tomorrow. - DuoNeb every 6 hours when necessary if needed CV: Lactic acidosis secondary to seizure- resolved. - Normal saline mivf @ 75cc/hr. GI: - Nothing by mouth, IV Protonix, bowel regimen : - Monitor renal function closely. Nunez catheter. ID: - Antibiotics if indicated. Check sputum culture- ngtd. HEME: Stage IV lung cancer History of DVT and PE on chronic anticoagulation - Consult oncology Dr. Hickman - Hold Lovenox secondary to metastatic brain lesion - IVC filter today before surgery. ENDO: - Electrolyte replacement per protocol PROPH: - Bilateral lower extremity SCDs. Avoid chemical DVT prophylaxis due to brain metastases. IV Protonix LINES: - Utilize peripheral IVs, central line if needed William Art MD Mar 25, 2017 21:30
[2017-03-26] VITALS (16 sets, daily range): BP systolic 88–125; BP diastolic 54–75; PULSE 62–87; RESP 16–22; TEMP 97.7–98.1; O2SAT 96–100
[2017-03-26] MEDS: SODIUM CHLOR 0.9% 1000 ML INJ 1,000 ML IV SCH ×2 (01:43→06:08)
[2017-03-26] MEDS: AZTREONAM INJ 2,000 MG in SODIUM CHLORIDE 0.9% INJ 100 ML IV SCH ×4 (02:24→20:38)
[2017-03-26] MEDS: CHLORHEXIDINE GLUCONATE 2 % 1 PACK (2 CLOTHS) TOP SCH (02:24)
[2017-03-26] MEDS: CLINDAMYCIN INJ 600 MG in SODIUM CHLORIDE 0.9% INJ 100 ML IV SCH ×3 (02:24→20:38)
[2017-03-26] MEDS: RESP: ALBUTEROL 2.5 MG/IPRATROPIUM 0.5 MG NEB (SCH) NEB ×4 (03:45→21:53)
[2017-03-26 05:06] LABS: HEMATOCRIT 38.5 % (39.0-51.0); MEAN CELL VOLUME 90.1 FL (80.0-100.0); MEAN CORPUSCULAR HEMOGLOBIN 30.6 PG (27.0-34.0); MEAN CORPUSCULAR HGB CONC 33.9 % (32.0-36.0); PLATELET COUNT 250 TH/MM3 (150-450); RED BLOOD COUNT 4.27 MIL/MM3 (4.50-5.90); RED CELL DISTRIBUTION WIDTH 16.7 % (11.6-17.2); REVIEW FLAG FINAL; WHITE BLOOD COUNT 12.6 TH/MM3 (4.0-11.0)
[2017-03-26 05:16] LABS: APTT (PATIENT) 21.7 SEC (24.3-30.1); PROTHROMBIN TIME - PATIENT 10.9 SEC (9.8-11.6)
[2017-03-26 05:35] LABS: BICARBONATE 26.3 MEQ/L (21.0-32.0); POTASSIUM 3.7 MEQ/L (3.5-5.1)
[2017-03-26] MEDS: FOSPHENYTOIN SODIUM 100 MG PE/2 ML VIAL IV SCH ×3 (05:36→22:49)
[2017-03-26] MEDS: DEXAMETHASONE SOD PHOS 4 MG/ML VIAL IV PUSH SCH ×3 (05:37→17:46)
[2017-03-26] MEDS: MIDAZOLAM 100 MG/100 ML INJ 100 ML IV SCH ×2 (06:08→17:46)
[2017-03-26] MEDS: PROPOFOL 1000 MG/100 ML INJ 100 ML IV SCH ×3 (06:08→17:45)
[2017-03-26] MEDS: VANCOMYCIN HCL 1000 MG VIAL ONE ×2 (07:59→12:31)
[2017-03-26] MEDS ORDERED: ceFAZolin 2 GM PREMIX 50 ML ONE (07:59)
[2017-03-26] MEDS: THROMBIN (TOPICAL) 5,000 UNIT VIAL ONE ×2 (07:59→12:31)
[2017-03-26] MEDS: GENTAMICIN SULFATE 80 MG/2 ML VIAL ONE ×2 (08:00→12:31)
[2017-03-26] MEDS: BACITRACIN TOP OINT 15 GM TUBE ONE ×2 (08:00→12:31)
[2017-03-26] MEDS ORDERED: levETIRAcetam 500 MG/5 ML VIAL IV ONE (08:00)
[2017-03-26] MEDS: GELFOAM SIZE 100 ONE ×2 (08:00→12:31)
[2017-03-26] MEDS ORDERED: FUROSEMIDE 40 MG/4 ML VIAL ONE (08:00)
[2017-03-26] MEDS ORDERED: LIDOCAINE 1%/EPINEPHrine 1:100,000 SOLN 20 ML VIAL ONE (08:01)
[2017-03-26] MEDS ORDERED: SODIUM CHLOR 0.9% 250 ML INJ 250 ML ONE (08:01)
[2017-03-26] MEDS ORDERED: MANNITOL INJ 50 ML ONE (08:01)
[2017-03-26] MEDS ORDERED: LIDOCAINE HCL 1% 50 ML VIAL ONE (08:03)
[2017-03-26] MEDS: CHLORHEXIDINE 0.12% (ORAL KIT) 15 ML CUP MT SCH ×2 (08:22→20:39)
[2017-03-26] MEDS: levETIRAcetam 1000 MG INJ 100 ML IV SCH ×2 (08:38→20:39)
[2017-03-26] MEDS: PANTOPRAZOLE SODIUM 40 MG VIAL IV SCH (08:41)
[2017-03-26] MEDS: SODIUM CHLORIDE 0.9% FLUSH 10 ML FLUSH IV FLUSH SCH (08:42)
[2017-03-26] MEDS: LACTULOSE SYRUP 20 GM/30 ML CUP PO SCH ×4 (08:42→20:38)
--- NOTE | 2017-03-26 10:23 | MG ---
cc: SRIDEVI RIZO M.D. Lab No: Date: 03/25/2017 Age: Sex: M Race: REQUESTING PHYSICIAN Dr. Chavarria. An EEG was obtained on this 52-year-old patient with history of hemisphere tumor and new onset seizures. MEDICATIONS 1. Keppra. 2. Cerebyx. 3. Decadron. DESCRIPTION The EEG is showing a lot of asleep features with sleepy spindles and beta activity as well. There is a right hemisphere slowing and intermittently there is some delta activity with some probable occasional intermixed sharp discharge, some sharp waves are seen intermixed with this delta slowing on the right and this appears to be maximum posteriorly. The patient seems asleep and described as intubated. Photic stimulation showed no overt change. At the very end the patient awakens and there is muscle artifact. INTERPRETATION Abnormal EEG because of intermixed slowing that appears to be maximum on the right hemisphere, more posteriorly with some associated sharp waves and possible sharp discharge suggesting focal structural and possible epileptiform features on the right. No ictal pattern. Sridevi Rizo MD OFC/TLL /8:33 PM /10:13 AM
--- NOTE | 2017-03-26 10:51 | PD.ONC.PN ---
Subjective Subjective Remarks Afebrile overnight. Patient intubated, sedated. Going for surgery at 11AM today. Objective Data Date Time Temp Pulse Resp B/P Pulse Ox O2 Delivery O2 Flow Rate FiO2 03/26/17 10:00 69 03/26/17 08:00 63 03/26/17 08:00 98.0 63 16 90/57 96 03/26/17 08:00 40 03/26/17 07:57 96 40 03/26/17 06:00 83 03/26/17 04:00 77 03/26/17 04:00 97.8 69 16 109/54 100 03/26/17 04:00 40 03/26/17 03:41 100 40 03/26/17 02:00 82 03/26/17 00:00 86 03/26/17 00:00 98.0 86 22 88/54 100 03/26/17 00:00 40 03/25/17 23:58 99 40 03/25/17 22:00 70 03/25/17 20:03 100 40 03/25/17 20:00 98.1 70 16 103/64 100 03/25/17 20:00 70 03/25/17 20:00 40 03/25/17 18:47 100 03/25/17 18:00 98.2 85 16 100/63 100 03/25/17 18:00 40 03/25/17 18:00 85 03/25/17 16:00 100 03/25/17 14:00 80 03/25/17 12:00 40 03/25/17 12:00 98.1 97 16 100/60 100 03/25/17 12:00 97 03/25/17 11:16 40 03/25/17 11:14 100 40 03/26/17 03/26/17 03/26/17 07:00 15:00 23:00 Intake Total 885 ml Output Total 1750 ml Balance -865 ml Result Diagram: 03/26/1740903/26/17409 Laboratory Results Laboratory Tests Test 03/25/17 03/26/17 11:22 04:10 Prothrombin Time 11.0 SEC 10.9 SEC Prothromb Time International 1.0 RATIO 1.0 RATIO Ratio Activated Partial 19.6 SEC 21.7 SEC Thromboplast Time White Blood Count 12.6 TH/MM3 Red Blood Count 4.27 MIL/MM3 Hemoglobin 13.1 GM/DL Hematocrit 38.5 % Mean Corpuscular Volume 90.1 FL Mean Corpuscular Hemoglobin 30.6 PG Mean Corpuscular Hemoglobin 33.9 % Concent Red Cell Distribution Width 16.7 % Platelet Count 250 TH/MM3 Mean Platelet Volume 7.4 FL Sodium Level 142 MEQ/L Potassium Level 3.7 MEQ/L Chloride Level 107 MEQ/L Carbon Dioxide Level 26.3 MEQ/L Anion Gap 9 MEQ/L Blood Urea Nitrogen 18 MG/DL Creatinine 0.70 MG/DL Estimat Glomerular Filtration 118 ML/MIN Rate Random Glucose 120 MG/DL Calcium Level 8.9 MG/DL Phenytoin (Dilantin) Level 11.1 MCG/ML Blood Type A POSITIVE Antibody Screen NEGATIVE Blood Bank Comment Culture Results Microbiology Date/Time Procedure Status Source Growth 03/23/17 20:10 Aerobic Blood Culture - Preliminary Resulted Blood Peripheral NO GROWTH IN 2 DAYS 03/23/17 20:10 Anaerobic Blood Culture - Preliminary Resulted Blood Peripheral NO GROWTH IN 2 DAYS 03/23/17 20:15 Aerobic Blood Culture - Preliminary Resulted Blood Peripheral NO GROWTH IN 2 DAYS 03/23/17 20:15 Anaerobic Blood Culture - Preliminary Resulted Blood Peripheral NO GROWTH IN 2 DAYS Administered Medications Medications (Trade) Dose Ordered Sig/Pina Route PRN Reason Start Time Stop Time Status Last Admin Dose Admin Sodium Chloride (NS 1000 ml Inj) 1,000 ml @ 75 mls/hr [id number] IV 03/23/17 20:23 03/26/17 06:08 Pantoprazole Sodium (Protonix Inj) 40 mg DAILY IV 03/24/17 09:00 03/26/17 08:41 Chlorhexidine Gluconate 3 pack 3 pack Taper DAILY@04 TOP 03/24/17 04:00 03/20/18 03:59 03/26/17 02:24 Midazolam HCl (Versed 100 Mg/ ml Inj) 100 ml @ 0 mls/hr TITRATE IV 03/23/17 20:30 03/26/17 06:08 Sodium Chloride (NS Flush) 2 ml BID IV FLUSH 03/23/17 21:00 03/26/17 08:42 Dexamethasone Sodium Phosphate (Decadron Inj) 6 mg Q6HR IV PUSH 03/24/17 00:00 03/26/17 05:37 Fosphenytoin Sodium 100 mgpe 100 mgpe Q8HR IV 03/23/17 22:00 03/26/17 05:36 Clindamycin Phosphate 600 mg/ Sodium Chloride 104 ml @ 208 mls/hr Q8H IV 03/24/17 03:00 03/26/17 02:24 Aztreonam/Sodium Chloride (Azactam Inj/NS Inj) 100 ml @ 200 mls/hr Q8H IV 03/24/17 03:00 03/26/17 10:19 Lactulose 30 ml 30 ml QID PO 03/24/17 09:00 03/25/17 20:28 Levetriacetam (Keppra 1000 Mg Inj) 100 ml @ 400 mls/hr Q12HR IV 03/24/17 21:00 03/26/17 08:38 Heparin Sodium (Porcine) (Heparin Inj) 5,000 units Q12HR SQ 03/24/17 13:45 Hold 03/25/17 09:27 Chlorhexidine Gluconate 15 ml 15 ml BID@08,20 MT 03/26/17 08:00 03/26/17 08:22 Propofol (Diprivan 1000 Mg/100ml Inj) 100 ml @ 0 mls/hr TITRATE IV 03/25/17 22:30 03/26/17 06:08 Objective Remarks GENERAL: Middle aged male supine in bed intubated. at bedside. SKIN: Warm and dry. HEAD: Normocephalic. EYES: no injection or drainage. NECK: Supple, trachea midline CARDIOVASCULAR: +S1/S2 RESPIRATORY: anterior jimenes clear. on mechanical ventilation. GASTROINTESTINAL: Abdomen soft, non-tender, nondistended. EXTREMITIES: No cyanosis NEUROLOGICAL: intubated, sedated. Assessment/Plan Problem List: (1) Metastatic primary lung cancer Status: Acute Plan: --Metastatic non-small cell lung cancer. 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 --was treated with radiation with concurrent cisplatin and Taxol. received two cycles of consolidation chemotherapy after concurrent treatment. --developed supraclavicular adenopathy and progression of disease. then received radiation. --subsequently was started on Opdivo and had a good response. --recent CT reportedly showed good response and no evidence of progression of disease. now has developed new onset seizure. --CT showed a new 1.7 cm mass in the right parietal lobe with significant vasogenic edema. also had a brain MRI which showed a single 2-cm peripherally enhancing lesion in the right parietal high complexity with marked surrounding vasogenic edema. no other lesion noted. No midline shift noted. --the patient is a candidate for surgical resection of this mass. --With a solitary brain lesion, he would be a candidate for stereotactic radiation. 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 --currently on fosphenytoin and Keppra + Decadron. (3) DVT (deep venous thrombosis) Status: Acute Plan: --s/p IVC filter in IR --History of multiple DVTs and pulmonary embolism. --last thromboembolic event was several months ago. --with his metastatic disease and history of multiple clots, he likely is going to have another thromboembolic event without the anticoagulation. --Unfortunately he has competing needs at this time. He has a risk of developing bleeding in the brain with anticoagulation. Assessment 52y/o male with metastatic lung cancer who presented with new-onset seizure. h/o Metastatic non-small cell lung cancer. Recurrent DVT and pulmonary embolism. He was on Lovenox. Osteoarthritis. Hyperlipidemia. Gastroesophageal reflux disease (GERD). Plan 1. monitor CBC 2. supportive care 3. hold heparin vangie-operatively Attending Statement The exam, history, and the medical decision-making described in the above note were completed with the assistance of the mid-level provider. I reviewed and agree with the findings presented. I attest that I had a [id number] encounter with the patient on the same day, and personally performed and documented my assessment and findings in the medical record. Patient seen post-op. intubated and sedated bedside continue to hold heparin discussion with ---answered questions--patient will need rehab Brain XRT will be most likely outpatient further systemic therapy outpatient . d/w rn Problem Qualifiers (1) DVT (deep venous thrombosis): Luisa Sal Mar 26, 2017 10:51 Fermin Hickman MD Mar 27, 2017 00:05
[2017-03-26] MEDS ORDERED: SODIUM CHLORID 0.9% 500 ML INJ 500 ML IV ONE (12:00)
[2017-03-26] MEDS ORDERED: SODIUM CHLOR 0.9% 250 ML INJ 250 ML IV ONE (12:00)
[2017-03-26] MEDS ORDERED: ePHEDrine/NS 25 MG/5 ML SYR IV ONE (12:00)
[2017-03-26] MEDS ORDERED: PHENYLEPH/NS 1000 MCG/10 ML SYR IV ONE (12:00)
[2017-03-26] MEDS ORDERED: LACTATED RINGER'S 1000 ML INJ 3,000 ML IV ONE (12:00)
[2017-03-26] MEDS ORDERED: PROPOFOL 200 MG/20 ML AMP IV ONE (12:00)
[2017-03-26] MEDS ORDERED: ACETAMINOPHEN/HYDROcodone 325 MG/10 MG TAB PO PRN ×2 (14:00)
[2017-03-26] MEDS ORDERED: MAGNESIUM SULFATE INJ 4 GM in SODIUM CHLORIDE 0.9% INJ 100 ML IV PRN (14:00)
[2017-03-26] MEDS ORDERED: POTASSIUM CHLOR 20 MEQ PREMIX 100 ML IV PRN (14:00)
[2017-03-26] MEDS ORDERED: SODIUM CHLORIDE 0.9% FLUSH 5 ML FLUSH IVF PRN (14:00)
[2017-03-26] MEDS ORDERED: CALCIUM GLUCONATE 10% 1 GM/10 ML VIAL IV PRN (14:00)
[2017-03-26] MEDS ORDERED: MORPHINE SULFATE 4 MG/ML INJ IV PUSH PRN ×2 (14:00)
[2017-03-26] MEDS ORDERED: ACETAMINOPHEN 325 MG TAB PO PRN (14:00)
[2017-03-26] MEDS ORDERED: BISACODYL 10 MG SUPP RECTAL PRN (14:00)
[2017-03-26] MEDS ORDERED: ONDANSETRON HCL 4 MG/2 ML VIAL IV PRN (14:00)
[2017-03-26] MEDS ORDERED: DO NOT ADM ANY ANTICOAGULANT DRUGS PRN (14:05)
[2017-03-26] MEDS ORDERED: fentaNYL CITRATE 250 MCG/5 ML AMP ONE (14:23)
--- NOTE | 2017-03-26 14:57 | RADRPT ---
EXAM DATE/TIME: 03/26/2017 14:47 [facility] COMPARISON: MRI BRAIN STEALTH W CONTRAST, March 25, 2017, 16:10. CT BRAIN W/O CONTRAST, March 23, 2017, 19:48 . INDICATIONS : Post operative brain mass. RADIATION DOSE: 62.85 CTDIvol (mGy) MEDICAL HISTORY : Brain tumor. SURGICAL HISTORY : Craniotomy. ENCOUNTER: Initial ACUITY: 1 day PAIN SCALE: Non-responsive LOCATION: Bilateral cranial TECHNIQUE: Multiple contiguous axial images were obtained of the head. Using automated exposure control and adj ustment of the mA and/or kV according to patient size, radiation dose was kept as low as reasonably a chievable to obtain optimal diagnostic quality images. DICOM format image data is available electro nically for review and comparison. FINDINGS: Today's exam is compared to the prior studies. Patient is recently status post a right posterior cran iotomy. The previously noted enhancing lesion in the posterior right parietal lobe has been surgicall y removed. Postsurgical changes are now noted in this area along with a internal drain. The ventricle s remain normal in size and midline in position. There is some intracranial air and system with recen t surgery. No acute intracranial hemorrhage. The posterior fossa is unremarkable and stable. There is good position of the craniotomy flap. CONCLUSION: 1. Status post a right-sided craniotomy. 2. Expected postsurgical changes are noted in the right posterior parietal lobe. Dash Chester MD on March 26, 2017 at 14:54 Board Certified Radiologist. This report was verified electronically.
--- NOTE | 2017-03-26 15:08 | PD.OP ---
Operative Report Date of Surgery: Mar 26, 2017 Preoperative Diagnosis: Right parietal mass Postoperative Diagnosis: Right parietal mass, non-small cell carcinoma Procedure: Stereotactic image guided right parietal craniotomy with microsurgical resection of unknown small cell carcinoma Anesthesia: general Surgeon: Gatito Palmer Care Giver(s): Anjali Rich Operation and Findings: INTRAOPERATIVE FINDINGS Frozen section consistent with metastatic non-small cell carcinoma INDICATIONS FOR THE PROCEDURE Mr Mendosa is a 52-year-old male with history of lung carcinoma who presented with new onset seizures and left sided weakness. he was found to have a right parietal lobe mass with severe edema, causing mass effect on the underlying brain and midline shift. I have discussed with his the [id number] details of the procedure, its indications, alternatives, risks and potential complications with the patient including but not limited to the risk of infection, hemorrhage, paralysis, stroke, heart attack, even vegetative state or even the possibility of . The patient fully understands. All her questions were answered. No guarantees were given. She voiced requesting the procedure and provided informed consent. She has been offered the alternative of not having aggressive management. DETAILS OF THE SURGICAL PROCEDURE Prior to the surgery the patient underwent MRI of the brain according to the stereotactic protocol. The information was transferred to the workstation located in the operative suite. Preoperative registration was performed. The patient was then transferred to the operating room. After induction of general anesthesia, endotracheal intubation was done. A Nunez catheter, bilateral BG hose, sequential compression devices were placed and kept throughout the procedure. The patient was positioned supine on a 30/80 table over gel mattress with her head in rigid fixation using the [place] head teacher. All pressure points were carefully padded with egg crate mattress. The eyes were tapped shut after ointment was applied by the anesthesiologist to prevent corneal abrasion. A Nara hugger was placed over the exposed lower body to maintain control of the core body temperature. The electrophysiological team placed the needles and electrodes in their proper location and baseline SSEP's evoked potentials were registered. The rigid reference body was attached to the head teacher and intraoperative registration was performed with a laser. The right parietal area was shaved, prepped and draped in the usual sterile fashion. A standard curvilinear horse shoe incision was outlined on the scalp and infiltrated with 1% lidocaine with epinephrine. The skin incision was made with a #10 blade down to the level of the periosteum. Arely clips were applied to the scalp. Using a Bovie, the temporalis fascia and muscle were incised and a subperiosteal dissection was performed reflecting the scalp flap anteriorly. The scalp was covered with a moist sponge and held in position using fish hooks. The TPS drill was brought to the field and a bur hole was made in the parietal region using the craniotome attachment. Then, using the footplate attachment, a frontal craniotomy flap was elevated. The dura was bulging, with mass effect due to the underlying tumor. The tumor was identified with the brainlab, and the dura was opened with a 15 blade and metzembaun sissors and retracted with 4- 0 Neurolon sutures attached to the fascia. At this point of the procedure the operative microscope was draped in the usual sterile fashion and brought to the field. The rest of the surgical procedure was performed using microdissection technique with the exception of the closure. Under the operative microscope a small corticotomy was performed and the mass was ressected using microsurgical dissection technique, with the micro-bipolar forceps, microscissors, micro-suction, and gentle irrigation. The specimen was sent to the lab for histological analysis. The frozen section was reported as consistent with non-small cell metastatic carcinoma. Specimen was also sent for final hystopathological annalysis. A gross total resection of the mass was achieved. Appropriate hemostasis was then secured using the bipolar conference organizer. Then the incision was irrigated with saline solution. The dural edges were tacked to the bone. The craniotomy flap was then repositioned and secured in place using Striker plates and screws. A 7 millimeter Lorenzo-Evans drain was then left in the subgaleal space and externalized through a separate stab incision. The incision was then closed in layers. 0 Vicryl in interrupted sutures were used to close the temporalis fascia. The galea was closed with interrupted 3- 0 Vicryl. Modesta were applied to the skin. The drain was secured with a 3-0 nylon. At the end of the procedure, the sponge, needle and instrument counts were all correct. Estimated blood loss was less than 100 cc. No blood transfusion was given. No intraoperative complications occurred. The patient received prophylactic antibiotics. The patient was then transferred to the recovery room in stable condition. COMPLICATIONS None Gatito Palmer MD Mar 26, 2017 15:08
[2017-03-26 15:23] LABS: AUTOMATED NEUTROPHIL # 8.2 TH/MM3 (1.8-7.7); HEMATOCRIT 33.8 % (39.0-51.0); HEMO FLAGS DIFF FINAL; LYMPH % 2.8 % (9.0-44.0); LYMPHOCYTE # 0.2 TH/MM3 (1.0-4.8); MEAN CELL VOLUME 89.8 FL (80.0-100.0); MEAN CORPUSCULAR HEMOGLOBIN 30.8 PG (27.0-34.0); MEAN CORPUSCULAR HGB CONC 34.3 % (32.0-36.0); MONO % 5.3 % (0.0-8.0); NEUT % 91.9 % (16.0-70.0); PLATELET COUNT 222 TH/MM3 (150-450); RED BLOOD COUNT 3.76 MIL/MM3 (4.50-5.90); RED CELL DISTRIBUTION WIDTH 16.8 % (11.6-17.2); WHITE BLOOD COUNT 8.9 TH/MM3 (4.0-11.0)
[2017-03-26 15:56] LABS: BICARBONATE 26.5 MEQ/L (21.0-32.0); POTASSIUM 3.5 MEQ/L (3.5-5.1)
[2017-03-26] MEDS: NS + KCL 20 MEQ INJ 1,000 ML IV SCH (16:09)
[2017-03-26] MEDS: ceFAZolin 2 GM PREMIX 50 ML IV SCH (20:38)
[2017-03-26] MEDS: DOCUSATE SODIUM 100 MG CAP PO SCH (20:39)
[2017-03-26] MEDS: SODIUM CHLORIDE 0.9% FLUSH 5 ML FLUSH IVF SCH (20:39)
--- NOTE | 2017-03-26 20:52 | HHI.CCPN ---
Subjective Remarks/Hospital Course Hospital Course: Patient is a 51-year-old male with past medical history significant for stage IV lung cancer (Dr. Hickman is the oncologist), chronic Lovenox therapy for DVT and PE, who presented to the emergency department for evaluation of possible stroke and new onset seizure. EMS was called for new onset focal seizures involving left lower extremity. According to paramedics en route patient started having weakness and shaking of the left upper and lower extremity with possible facial droop, but without loss of consciousness. In the ER initially was awake alert then developed focal left-sided seizures followed by generalized seizure for 5 min, received Ativan for this. Initially aroused from postictal state and then again had recurrent generalized seizure activity. Patient was intubated for airway protection. CT of the head showed right parietal mass 1.7 cm suspicious for metastatic lesion. I was contacted for admission. Patient was started on Versed infusion. Patient had been already loaded with Cerebyx 1 g, I will continue 100 mg IV every 8 hours. Also an EEG had been ordered. I have ordered MRI of the brain neurosurgery consult. I evaluated the patient in the Main ICU. He is intubated sedated with Versed. He purposefully moves all 4 extremity Subjective: 03/25: persistent seizures yesterday. repeat cerebyx load and keppra load. plan to go to OR for tumor resection tomorrow. also has history of DVt/PE. will need IVC filter prior to OR. 03/26: went to OR today for crani. s/p crani, I evaluated the patient when he was immediately post-op. still somnolent from anesthesia. remains intubated. successful crani resection, minimal EBL. Objective Vital Signs Date Time Temp Pulse Resp B/P Pulse Ox O2 Delivery O2 Flow Rate FiO2 03/26/17 18:00 76 03/26/17 16:33 98 40 03/26/17 16:00 98.1 16 110/62 Automatic Cuff 03/26/17 14:35 Mechanical Ventilator 03/23/17 19:30 15.00 Intake and Output 03/25/17 03/25/17 03/25/17 07:59 15:59 23:59 Intake Total 618 ml 1043 ml 710 ml Output Total 675 ml 1850 ml 1650 ml Balance -57 ml -807 ml -940 ml Result Diagram: 03/26/17 1420 03/26/[address] of the brain shows right parietal lobe mass with surrounding edema and local mass effect Objective Remarks GENERAL: middle-aged male intubated sedated with Versed SKIN: Warm and dry HEAD: Atraumatic. Normocephalic. EYES: Pupils equal and round. No scleral icterus. No injection or drainage. ENT: No nasal bleeding or discharge. Orotracheally intubated NECK: Trachea midline. No JVD CARDIOVASCULAR: regular rate, rhythm. RESPIRATORY: Breath sounds equal bilaterally. GASTROINTESTINAL: Abdomen soft, non-tender, nondistended. MUSCULOSKELETAL: Extremities without clubbing, cyanosis, or edema. NEUROLOGICAL: Intubated heavily sedated. Pupils are equal. Moves all 4 extremities purposefully did not commands on sedation A/P Assessment and Plan Assessment: 52yM with metastatic lung cancer, mets to brain presents with intractable seizures. now POD 0 s/p craniotomy with tumor resection. NEURO: New-onset seizures Acute encephalopathy Right parietal mass with surrounding edema - New onset Seizures secondary to metastatic brain lesion - Ativan when necessary for seizure, Versed for seizure control and ventilator synchrony - Decadron 6 mg IV every 6 hours. - Neurosurgery following - Crani 03/26 with tumor resection - cerebyx 100 mg IV every 8 hours - f/u post-op CT head RESP: Acute hypoxic and hypercarbic respiratory failure Stage IV lung cancer - Continue mechanical ventilation - no SBT today given recent post-op. will discuss with Dr. Palmer possibility of wean to extubate tomorrow. - DuoNeb every 6 hours when necessary if needed CV: Lactic acidosis secondary to seizure- resolved. - Normal saline mivf @ 75cc/hr. GI: - start TF., IV Protonix, bowel regimen : - Monitor renal function closely. Nunez catheter. ID: - no suspicion of infection. vangie-op abx per nsgy. HEME: Stage IV lung cancer History of DVT and PE on chronic anticoagulation - Consult oncology Dr. Hickman - Hold Lovenox secondary to metastatic brain lesion - IVC filter 03/25. ENDO: - Electrolyte replacement per protocol PROPH: - Bilateral lower extremity SCDs. Avoid chemical DVT prophylaxis due to brain metastases. IV Protonix LINES: - Utilize peripheral IVs, central line if needed William Art MD Mar 26, 2017 20:51
[2017-03-27] VITALS (17 sets, daily range): BP systolic 97–142; BP diastolic 57–84; PULSE 65–109; RESP 12–18; TEMP 98–99.5; O2SAT 94–100
[2017-03-27] MEDS: NS + KCL 20 MEQ INJ 1,000 ML IV SCH ×3 (00:36→20:00)
[2017-03-27] MEDS: DEXAMETHASONE SOD PHOS 4 MG/ML VIAL IV PUSH SCH ×5 (00:36→23:51)
[2017-03-27] MEDS: CHLORHEXIDINE GLUCONATE 2 % 1 PACK (2 CLOTHS) TOP SCH (03:37)
[2017-03-27] MEDS: SODIUM CHLOR 0.9% 1000 ML INJ 1,000 ML IV SCH ×2 (03:38→17:43)
[2017-03-27] MEDS: AZTREONAM INJ 2,000 MG in SODIUM CHLORIDE 0.9% INJ 100 ML IV SCH ×3 (03:45→18:02)
[2017-03-27] MEDS: CLINDAMYCIN INJ 600 MG in SODIUM CHLORIDE 0.9% INJ 100 ML IV SCH ×3 (03:45→18:03)
[2017-03-27] MEDS: RESP: ALBUTEROL 2.5 MG/IPRATROPIUM 0.5 MG NEB (SCH) NEB ×4 (03:49→21:58)
[2017-03-27] MEDS: PROPOFOL 1000 MG/100 ML INJ 100 ML IV SCH ×2 (04:02→08:12)
[2017-03-27] MEDS: ceFAZolin 2 GM PREMIX 50 ML IV SCH ×2 (04:03→11:51)
[2017-03-27 05:12] LABS: AUTOMATED NEUTROPHIL # 11.3 TH/MM3 (1.8-7.7); BASOPHIL % 0.2 % (0.0-2.0); EOSINOPHIL % 0.1 % (0.0-4.0); HEMATOCRIT 36.7 % (39.0-51.0); LYMPH % 4.5 % (9.0-44.0); LYMPHOCYTE # 0.6 TH/MM3 (1.0-4.8); MEAN CELL VOLUME 88.2 FL (80.0-100.0); MEAN CORPUSCULAR HEMOGLOBIN 29.8 PG (27.0-34.0); MEAN CORPUSCULAR HGB CONC 33.8 % (32.0-36.0); MONO % 7.1 % (0.0-8.0); NEUT % 88.1 % (16.0-70.0); PLATELET COUNT 236 TH/MM3 (150-450); RED BLOOD COUNT 4.17 MIL/MM3 (4.50-5.90); WHITE BLOOD COUNT 12.9 TH/MM3 (4.0-11.0)
[2017-03-27 05:21] LABS: HEMO FLAGS AUTO DIFF
[2017-03-27 05:25] LABS: BICARBONATE 22.6 MEQ/L (21.0-32.0); POTASSIUM 3.7 MEQ/L (3.5-5.1)
[2017-03-27] MEDS: FOSPHENYTOIN SODIUM 100 MG PE/2 ML VIAL IV SCH ×3 (05:34→21:48)
[2017-03-27 06:18] LABS: SCAN/DIFF AUTO DIFF CONFIRMED
[2017-03-27] MEDS: CHLORHEXIDINE 0.12% (ORAL KIT) 15 ML CUP MT SCH ×2 (07:36→20:00)
[2017-03-27] MEDS: SODIUM CHLORIDE 0.9% FLUSH 5 ML FLUSH IVF SCH ×2 (07:36→20:10)
[2017-03-27] MEDS: PANTOPRAZOLE SOD 40 MG DELAYED RELEASE TAB PO SCH (07:36)
--- NOTE | 2017-03-27 07:41 | HHI.CCPN ---
Subjective Remarks/Hospital Course Hospital Course: Patient is a 51-year-old male with past medical history significant for stage IV lung cancer (Dr. Hickman is the oncologist), chronic Lovenox therapy for DVT and PE, who presented to the emergency department for evaluation of possible stroke and new onset seizure. EMS was called for new onset focal seizures involving left lower extremity. According to paramedics en route patient started having weakness and shaking of the left upper and lower extremity with possible facial droop, but without loss of consciousness. In the ER initially was awake alert then developed focal left-sided seizures followed by generalized seizure for 5 min, received Ativan for this. Initially aroused from postictal state and then again had recurrent generalized seizure activity. Patient was intubated for airway protection. CT of the head showed right parietal mass 1.7 cm suspicious for metastatic lesion. I was contacted for admission. Patient was started on Versed infusion. Patient had been already loaded with Cerebyx 1 g, I will continue 100 mg IV every 8 hours. Also an EEG had been ordered. I have ordered MRI of the brain neurosurgery consult. I evaluated the patient in the Main ICU. He is intubated sedated with Versed. He purposefully moves all 4 extremity Subjective: 03/25: persistent seizures yesterday. repeat cerebyx load and keppra load. plan to go to OR for tumor resection tomorrow. also has history of DVt/PE. will need IVC filter prior to OR. 03/26: went to OR today for crani. s/p crani, I evaluated the patient when he was immediately post-op. still somnolent from anesthesia. remains intubated. successful crani resection, minimal EBL. 03/27: Wild when sedation lightened - will need to perform rapid extubation. Objective Vital Signs Date Time Temp Pulse Resp B/P Pulse Ox O2 Delivery O2 Flow Rate FiO2 03/27/17 06:00 71 03/27/17 04:00 40 03/27/17 04:00 98.1 16 124/71 100 03/26/17 14:35 Mechanical Ventilator 03/23/17 19:30 15.00 Intake and Output 03/26/17 03/26/17 03/27/17 08:00 16:00 00:00 Intake Total 885 ml 6162 ml 551 ml Output Total 1750 ml 4225 ml 1950 ml Balance -865 ml 1937 ml -1399 ml Result Diagram: 03/27/17 0452 03/27/[address] of the brain shows right parietal lobe mass with surrounding edema and local mass effect Objective Remarks GENERAL: middle-aged male intubated sedated with Versed SKIN: Warm and dry HEAD: Atraumatic. Normocephalic. EYES: Pupils equal and round. No scleral icterus. No injection or drainage. ENT: No nasal bleeding or discharge. Orotracheally intubated NECK: Trachea midline. No JVD CARDIOVASCULAR: regular rate, rhythm. RESPIRATORY: Breath sounds equal bilaterally. GASTROINTESTINAL: Abdomen soft, non-tender, nondistended. MUSCULOSKELETAL: Extremities without clubbing, cyanosis, or edema. NEUROLOGICAL: Intubated heavily sedated. Pupils are equal. Moves all 4 extremities purposefully did not commands on sedation A/P Assessment and Plan Assessment: 52yM with metastatic lung cancer, mets to brain presents with intractable seizures. now POD 0 s/p craniotomy with tumor resection. NEURO: New-onset seizures Acute encephalopathy Right parietal mass with surrounding edema - New onset Seizures secondary to metastatic brain lesion - Ativan when necessary for seizure, Versed for seizure control and ventilator synchrony - Decadron 6 mg IV every 6 hours. - Neurosurgery following - Crani 03/26 with tumor resection - cerebyx 100 mg IV every 8 hours - f/u post-op CT head RESP: Acute hypoxic and hypercarbic respiratory failure Stage IV lung cancer - Continue mechanical ventilation - no SBT today given recent post-op. will discuss with Dr. Palmer possibility of wean to extubate tomorrow. - DuoNeb every 6 hours when necessary if needed CV: Lactic acidosis secondary to seizure- resolved. - Normal saline mivf @ 75cc/hr. GI: - start TF., IV Protonix, bowel regimen : - Monitor renal function closely. Nunez catheter. ID: - no suspicion of infection. vangie-op abx per nsgy. HEME: Stage IV lung cancer History of DVT and PE on chronic anticoagulation - Consult oncology Dr. Hickman - Hold Lovenox secondary to metastatic brain lesion - IVC filter 03/25. ENDO: - Electrolyte replacement per protocol PROPH: - Bilateral lower extremity SCDs. Avoid chemical DVT prophylaxis due to brain metastases. IV Protonix LINES: - Utilize peripheral IVs, central line if needed Overall impression: Acceptable respiratory status on ventilator - try to extubated today. Nabor Westfall MD Mar 27, 2017 07:40
[2017-03-27] MEDS: levETIRAcetam 1000 MG INJ 100 ML IV SCH ×2 (07:45→20:10)
[2017-03-27] MEDS: DOCUSATE SODIUM 100 MG CAP PO SCH ×2 (07:45→20:10)
[2017-03-27] MEDS: PANTOPRAZOLE SODIUM 40 MG VIAL IVP SCH (07:45)
[2017-03-27] MEDS: LACTULOSE SYRUP 20 GM/30 ML CUP PO SCH ×4 (07:45→20:10)
--- NOTE | 2017-03-27 09:34 | HHI.NSPN ---
(Nancy Barajas) Note Status Status: Progress Note (Nancy Barajas) Interval History Interval History Mr. Mendosa is a 52 y/o male underwent right parietal craniotomy for resection of brain mets 03/26/17. 03/27: intubated and sedated. post/op CT Head completed. possible extubation today. EEG yesterday report noted. Dilantin levels yesterday was 11. (Nancy Barajas) Labs, Micro, & Vital Signs Results Date Time Temp Pulse Resp B/P Pulse Ox O2 Delivery O2 Flow Rate FiO2 03/27/17 08:00 98.0 73 17 107/69 100 Arterial Line 03/27/17 08:00 40 03/27/17 08:00 65 03/27/17 07:55 100 40 03/27/17 06:00 71 03/27/17 04:00 68 03/27/17 04:00 40 03/27/17 04:00 98.1 68 16 124/71 100 03/27/17 03:45 100 50 03/27/17 02:00 73 03/27/17 00:21 100 50 03/27/17 00:00 40 03/27/17 00:00 98.1 66 16 97/57 100 03/27/17 00:00 66 03/26/17 22:00 87 03/26/17 20:56 100 40 03/26/17 20:00 74 03/26/17 20:00 40 03/26/17 20:00 97.7 80 19 125/75 100 03/26/17 18:00 76 03/26/17 16:33 98 40 03/26/17 16:00 62 03/26/17 16:00 98.1 62 16 110/62 100 Automatic Cuff 03/26/17 16:00 40 03/26/17 14:35 72 14 100/58 100 Mechanical Ventilator 40 03/26/17 14:30 99 100 03/26/17 14:15 73 14 104/57 99 Mechanical Ventilator 40 03/26/17 14:05 97.5 72 14 102/67 100 Mechanical Ventilator 40 03/26/17 11:00 98.0 68 16 90/54 97 Arterial Line 03/26/17 11:00 100 03/26/17 10:00 69 03/27/17 06:59 Intake Total 7958 ml Output Total 7870 ml Balance 88 ml Constitutional Vital Signs Date Time Temp Pulse Resp B/P Pulse Ox O2 Delivery O2 Flow Rate FiO2 03/27/17 08:00 98.0 73 17 107/69 100 Arterial Line 03/27/17 08:00 40 03/27/17 08:00 65 03/27/17 07:55 100 40 03/27/17 06:00 71 03/27/17 04:00 68 03/27/17 04:00 40 03/27/17 04:00 98.1 68 16 124/71 100 03/27/17 03:45 100 50 03/27/17 02:00 73 03/27/17 00:21 100 50 03/27/17 00:00 40 03/27/17 00:00 98.1 66 16 97/57 100 03/27/17 00:00 66 03/26/17 22:00 87 03/26/17 20:56 100 40 03/26/17 20:00 74 03/26/17 20:00 40 03/26/17 20:00 97.7 80 19 125/75 100 03/26/17 18:00 76 03/26/17 16:33 98 40 03/26/17 16:00 62 03/26/17 16:00 98.1 62 16 110/62 100 Automatic Cuff 03/26/17 16:00 40 03/26/17 14:35 72 14 100/58 100 Mechanical Ventilator 40 03/26/17 14:30 99 100 03/26/17 14:15 73 14 104/57 99 Mechanical Ventilator 40 03/26/17 14:05 97.5 72 14 102/67 100 Mechanical Ventilator 40 03/26/17 11:00 98.0 68 16 90/54 97 Arterial Line 03/26/17 11:00 100 03/26/17 10:00 69 03/27/17 06:59 Intake Total 7958 ml Output Total 7870 ml Balance 88 ml (Nancy Barajas) Review of Systems/Exam Exam Navya intubated and sedated. Cranial Nerves: Pupils 3 mm equal, round, reactive to light. Eyes conjugated. Wound is clean and dry with wrapped dressing. JOEY drain intact with min to mod drainage. Motor: sedated, minimal withdrawals to extremities (Nancy Barajas) Medications Current Medications Current Medications Medications (Trade) Dose Ordered Sig/Pina Route PRN Reason Start Time Stop Time Status Last Admin Dose Admin Sodium Chloride (NS 1000 ml Inj) 1,000 ml @ 75 mls/hr [id number] IV 03/23/17 20:23 03/26/17 06:08 Miscellaneous Information 1 Q361D XX 03/23/17 20:30 Chlorhexidine Gluconate (Chlorhexidine 2% Cloth) 3 pack Taper DAILY@04 TOP 03/24/17 04:00 03/20/18 03:59 03/27/17 03:37 Chlorhexidine Gluconate 3 pack 3 pack UNSCH PRN TOP HYGIENIC CARE 03/23/17 20:30 Midazolam HCl (Versed 100 Mg/ ml Inj) 100 ml @ 0 mls/hr TITRATE IV 03/23/17 20:30 03/26/17 17:46 Dexamethasone Sodium Phosphate (Decadron Inj) 6 mg Q6HR IV PUSH 03/24/17 00:00 03/27/17 05:34 Fosphenytoin Sodium 100 mgpe 100 mgpe Q8HR IV 03/23/17 22:00 03/27/17 05:34 Potassium Chloride 100 ml @ 50 mls/hr Q2H PRN IV For Potassium 2.8 - 3.2 mEq/L 03/23/17 20:45 Potassium Chloride (KCl 20 Meq Premix Inj) 100 ml @ 50 mls/hr Q2H PRN IV For Potassium 2.8 - 3.2 mEq/L 03/23/17 20:45 Potassium Bicarb/ Potassium Chloride 50 meq 50 meq UNSCH PRN PO For Potassium 3.3 - 3.5 mEq/L 03/23/17 20:45 Potassium Chloride 100 ml @ 25 mls/hr UNSCH PRN IV For Potassium 3.3 - 3.5 mEq/L 03/23/17 20:45 Potassium Chloride 100 ml @ 50 mls/hr Q2H PRN IV For Potassium 3.3 - 3.5 mEq/L 03/23/17 20:45 Magnesium Sulfate/ Sodium Chloride (Magnesium Sulfate Inj/NS Inj) 100 ml @ 50 mls/hr UNSCH PRN IV For Magnesium 0.9 - 1.1 mg/dL 03/23/17 20:45 Magnesium Oxide 800 mg 800 mg UNSCH PRN PO For Magnesium 1.2 - 1.6 mg/dL 03/23/17 20:45 Magnesium Sulfate/ Sodium Chloride (Magnesium Sulfate Inj/NS Inj) 100 ml @ 50 mls/hr UNSCH PRN IV For Magnesium 1.2 - 1.6 mg/dL 03/23/17 20:45 Potassium Phosphate 2000 mg 2,000 mg Q4H PRN PO For Phosphorus < 2.5 mg/dL 03/23/17 20:45 Sodium Phosphate/ Sodium Chloride (Sodium Phosphate Inj/NS 250 ml Inj) 250 ml @ 42 mls/hr UNSCH PRN IV For Phosphorus < 2.5 mg/dL 03/23/17 20:45 Potassium Phosphate 2000 mg 2,000 mg UNSCH PRN PO/TUBE SEE LABEL COMMENTS 03/23/17 20:45 Potassium Phosphate 30 mmol/ Sodium Chloride 260 ml @ 42 mls/hr UNSCH PRN IV SEE LABEL COMMENTS 03/23/17 20:45 Clindamycin Phosphate 600 mg/ Sodium Chloride 104 ml @ 208 mls/hr Q8H IV 03/24/17 03:00 03/27/17 03:45 Aztreonam/Sodium Chloride (Azactam Inj/NS Inj) 100 ml @ 200 mls/hr Q8H IV 03/24/17 03:00 03/27/17 03:45 Lorazepam (Ativan Inj) 2 mg Q2H PRN IV PUSH seizure 03/24/17 02:00 Lactulose 30 ml 30 ml QID PO 03/24/17 09:00 03/27/17 07:45 Levetriacetam (Keppra 1000 Mg Inj) 100 ml @ 400 mls/hr Q12HR IV 03/24/17 21:00 03/27/17 07:45 Heparin Sodium (Porcine) (Heparin Inj) 5,000 units Q12HR SQ 03/24/17 13:45 Hold 03/25/17 09:27 Chlorhexidine Gluconate 15 ml 15 ml BID@08,20 MT 03/26/17 08:00 03/27/17 07:36 Propofol 100 ml @ 0 mls/hr TITRATE IV 03/25/17 22:30 03/27/17 08:12 Potassium Chloride/Sodium Chloride (NS + KCl 20 Meq Inj) 1,000 ml @ 100 mls/hr Q10H IV 03/26/17 14:00 03/27/17 00:36 IV Flush (NS Flush) 2 ml UNSCH PRN IVF FLUSH AFTER USING IV ACCESS 03/26/17 14:00 IV Flush 2 ml 2 ml BID IVF 03/26/17 21:00 03/27/17 07:36 Cefazolin Sodium/ Dextrose (Ancef 2 Gm Premix) 50 ml @ 100 mls/hr Q8H IV 03/26/17 20:00 03/27/17 12:29 03/27/17 04:03 Bisacodyl (Dulcolax Supp) 10 mg DAILY PRN RECTAL CONSTIPATION 03/26/17 14:00 Docusate Sodium (Colace) 100 mg BID PO 03/26/17 21:00 03/27/17 07:45 Pantoprazole Sodium (Protonix) 40 mg DAILY PO 03/27/17 09:00 Pantoprazole Sodium (Protonix Inj) 40 mg DAILY IVP 03/27/17 09:00 03/27/17 07:45 Ondansetron HCl (Zofran Inj) 4 mg Q6H PRN IV NAUSEA OR VOMITING 03/26/17 14:00 Calcium Gluconate 1 gm 1 gm UNSCH PRN IV SEE LABEL COMMENTS 03/26/17 14:00 Potassium Chloride 100 ml @ 50 mls/hr UNSCH PRN IV POTASSIUM LESS THAN 4 03/26/17 14:00 Magnesium Sulfate/ Sodium Chloride (Magnesium Sulfate Inj/NS Inj) 108 ml @ 108 mls/hr UNSCH PRN IV MAGNESIUM LESS THAN 2 03/26/17 14:00 Acetaminophen/ Hydrocodone Bitart ([place] 10-325 Mg) 1 tab Q4H PRN PO PAIN SCALE 1 TO 5 03/26/17 14:00 Acetaminophen/ Hydrocodone Bitart ([place] 10-325 Mg) 2 tab Q4H PRN PO PAIN SCALE 6 TO 10 03/26/17 14:00 Morphine Sulfate (Morphine Inj) 2 mg Q2H PRN IV PUSH PAIN SCALE 1 TO 6 03/26/17 14:00 Morphine Sulfate (Morphine Inj) 4 mg Q2H PRN IV PUSH PAIN SCALE 7 TO 10 03/26/17 14:00 Acetaminophen (Tylenol) 650 mg Q4H PRN PO TEMPERATURE > 101.5 F 03/26/17 14:00 Miscellaneous Information ALL NURSING DEPARTME... UNSCH PRN .XX SEE LABEL COMMENTS 03/26/17 14:05 03/27/17 14:04 (Nancy Barajas) Medical Decision Making MDM Remarks 52 y/o male presents for seizures MRI Brain shows left right parietal mass lesion, suspected for metastatic lung CA. s/p right parietal craniotomy with resection of brain mass 03/26/17 f/u CT Head 03/26/17 with expected postsurgical changes DVT, PE, s/p placement of IVC filter EEG 03/26/17 reports poss right epileptiform activities (Nancy Barajas) Plan Plan Remarks cont neuro checks possible extubation today per critical care Dr. Palmer requests repeat EEG today, cont current AEDs, Neurology following for mgt of seizures (Nancy Barajas) Attending Statement The exam, history, and the medical decision-making described in the above note were completed with the assistance of the mid-level provider. I reviewed and agree with the findings presented. I attest that I had a [id number] encounter with the patient on the same day, and personally performed and documented my assessment and findings in the medical record. (Gatito Palmer MD) Nancy Barajas Mar 27, 2017 09:34 Gatito Palmer MD Mar 30, 2017 17:03
--- NOTE | 2017-03-27 11:26 | PD.ONC.PN ---
Subjective Subjective Remarks Afebrile overnight. Patient intubated, mildly sedated. at bedside. Per nurse, they are planning possible extubation this afternoon. Objective Data Date Time Temp Pulse Resp B/P Pulse Ox O2 Delivery O2 Flow Rate FiO2 03/27/17 11:10 40 03/27/17 10:28 100 40 03/27/17 10:25 40 03/27/17 10:00 84 03/27/17 08:00 98.0 73 17 107/69 100 Arterial Line 03/27/17 08:00 40 03/27/17 08:00 65 03/27/17 07:55 100 40 03/27/17 06:00 71 03/27/17 04:00 68 03/27/17 04:00 40 03/27/17 04:00 98.1 68 16 124/71 100 03/27/17 03:45 100 50 03/27/17 02:00 73 03/27/17 00:21 100 50 03/27/17 00:00 40 03/27/17 00:00 98.1 66 16 97/57 100 03/27/17 00:00 66 03/26/17 22:00 87 03/26/17 20:56 100 40 03/26/17 20:00 74 03/26/17 20:00 40 03/26/17 20:00 97.7 80 19 125/75 100 03/26/17 18:00 76 03/26/17 16:33 98 40 03/26/17 16:00 62 03/26/17 16:00 98.1 62 16 110/62 100 Automatic Cuff 03/26/17 16:00 40 03/26/17 14:35 72 14 100/58 100 Mechanical Ventilator 40 03/26/17 14:30 99 100 03/26/17 14:15 73 14 104/57 99 Mechanical Ventilator 40 03/26/17 14:05 97.5 72 14 102/67 100 Mechanical Ventilator 40 03/27/17 03/27/17 03/27/17 07:00 15:00 23:00 Intake Total 1245 ml Output Total 1695 ml Balance -450 ml Result Diagram: 03/27/17 0452 03/27/17 0452 Laboratory Results Laboratory Tests Test 03/26/17 03/27/17 14:20 04:52 White Blood Count 8.9 TH/MM3 12.9 TH/MM3 Red Blood Count 3.76 MIL/MM3 4.17 MIL/MM3 Hemoglobin 11.6 GM/DL 12.4 GM/DL Hematocrit 33.8 % 36.7 % Mean Corpuscular Volume 89.8 FL 88.2 FL Mean Corpuscular Hemoglobin 30.8 PG 29.8 PG Mean Corpuscular Hemoglobin 34.3 % 33.8 % Concent Red Cell Distribution Width 16.8 % 17.0 % Platelet Count 222 TH/MM3 236 TH/MM3 Mean Platelet Volume 7.3 FL 7.2 FL Neutrophils (%) (Auto) 91.9 % 88.1 % Lymphocytes (%) (Auto) 2.8 % 4.5 % Monocytes (%) (Auto) 5.3 % 7.1 % Eosinophils (%) (Auto) 0.0 % 0.1 % Basophils (%) (Auto) 0.0 % 0.2 % Neutrophils # (Auto) 8.2 TH/MM3 11.3 TH/MM3 Lymphocytes # (Auto) 0.2 TH/MM3 0.6 TH/MM3 Monocytes # (Auto) 0.5 TH/MM3 0.9 TH/MM3 Eosinophils # (Auto) 0.0 TH/MM3 0.0 TH/MM3 Basophils # (Auto) 0.0 TH/MM3 0.0 TH/MM3 CBC Comment DIFF FINAL AUTO DIFF Differential Comment AUTO DIFF CONFIRMED Sodium Level 143 MEQ/L 141 MEQ/L Potassium Level 3.5 MEQ/L 3.7 MEQ/L Chloride Level 107 MEQ/L 111 MEQ/L Carbon Dioxide Level 26.5 MEQ/L 22.6 MEQ/L Anion Gap 10 MEQ/L 7 MEQ/L Blood Urea Nitrogen 18 MG/DL 18 MG/DL Creatinine 0.73 MG/DL 0.72 MG/DL Estimat Glomerular Filtration 112 ML/MIN 114 ML/MIN Rate Random Glucose 117 MG/DL 104 MG/DL Calcium Level 8.1 MG/DL 8.3 MG/DL Administered Medications Medications (Trade) Dose Ordered Sig/Pina Route PRN Reason Start Time Stop Time Status Last Admin Dose Admin Sodium Chloride (NS 1000 ml Inj) 1,000 ml @ 75 mls/hr [id number] IV 03/23/17 20:23 03/26/17 06:08 Chlorhexidine Gluconate 3 pack 3 pack Taper DAILY@04 TOP 03/24/17 04:00 03/20/18 03:59 8/9/17 03:37 Midazolam HCl (Versed 100 Mg/ ml Inj) 100 ml @ 0 mls/hr TITRATE IV 03/23/17 20:30 03/26/17 17:46 Dexamethasone Sodium Phosphate (Decadron Inj) 6 mg Q6HR IV PUSH 03/24/17 00:00 03/27/17 05:34 Fosphenytoin Sodium 100 mgpe 100 mgpe Q8HR IV 03/23/17 22:00 03/27/17 05:34 Clindamycin Phosphate 600 mg/ Sodium Chloride 104 ml @ 208 mls/hr Q8H IV 03/24/17 03:00 03/27/17 10:05 Aztreonam/Sodium Chloride (Azactam Inj/NS Inj) 100 ml @ 200 mls/hr Q8H IV 03/24/17 03:00 03/27/17 10:05 Lactulose 30 ml 30 ml QID PO 03/24/17 09:00 03/27/17 07:45 Levetriacetam (Keppra 1000 Mg Inj) 100 ml @ 400 mls/hr Q12HR IV 03/24/17 21:00 03/27/17 07:45 Heparin Sodium (Porcine) (Heparin Inj) 5,000 units Q12HR SQ 03/24/17 13:45 Hold 03/25/17 09:27 Chlorhexidine Gluconate 15 ml 15 ml BID@08,20 MT 03/26/17 08:00 03/27/17 07:36 Propofol 100 ml @ 0 mls/hr TITRATE IV 03/25/17 22:30 03/27/17 08:12 Potassium Chloride/Sodium Chloride (NS + KCl 20 Meq Inj) 1,000 ml @ 100 mls/hr Q10H IV 03/26/17 14:00 03/27/17 10:04 IV Flush 2 ml 2 ml BID IVF 03/26/17 21:00 03/27/17 07:36 Cefazolin Sodium/ Dextrose (Ancef 2 Gm Premix) 50 ml @ 100 mls/hr Q8H IV 03/26/17 20:00 03/27/17 12:29 03/27/17 04:03 Docusate Sodium (Colace) 100 mg BID PO 03/26/17 21:00 03/27/17 07:45 Pantoprazole Sodium (Protonix Inj) 40 mg DAILY IVP 03/27/17 09:00 03/27/17 07:45 Objective Remarks GENERAL: chronically ill male supine in bed intubated. SKIN: Warm and dry. HEAD: Normocephalic. bandages and JOEY drains in place with SS drainage EYES: no injection or drainage. NECK: Supple, trachea midline CARDIOVASCULAR: +S1/S2 RESPIRATORY: anterior jimenes clear. on mechanical ventilation. GASTROINTESTINAL: Abdomen nondistended. EXTREMITIES: No cyanosis NEUROLOGICAL: intubated, sedated. Assessment/Plan Problem List: (1) Metastatic primary lung cancer Status: Acute Plan: admitted with new onset seizure. --CT showed a new 1.7 cm mass in the right parietal lobe with significant vasogenic edema. also had a brain MRI which showed a single 2-cm peripherally enhancing lesion in the right parietal high complexity with marked surrounding vasogenic edema. no other lesion noted. No midline shift noted. --s/p craniotomy and resection of mass via Dr. Palmer on 03/26/17 History: --Metastatic non-small cell lung cancer. 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 --was treated with radiation with concurrent cisplatin and Taxol. received two cycles of consolidation chemotherapy after concurrent treatment. --developed supraclavicular adenopathy and progression of disease. then received radiation. --subsequently was started on Opdivo and had a good response. --recent CT reportedly showed good response and no evidence of progression of disease. 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 --currently on fosphenytoin and Keppra + Decadron. (3) DVT (deep venous thrombosis) Status: Acute Plan: --s/p IVC filter in IR --History of multiple DVTs and pulmonary embolism. --last thromboembolic event was several months ago. --with his metastatic disease and history of multiple clots, he likely is going to have another thromboembolic event without the anticoagulation. --Unfortunately he has competing needs at this time. He has a risk of developing bleeding in the brain with anticoagulation. Assessment 52y/o male with metastatic lung cancer who presented with new-onset seizure. h/o Metastatic non-small cell lung cancer. Recurrent DVT and pulmonary embolism. He was on Lovenox. Osteoarthritis. Hyperlipidemia. Gastroesophageal reflux disease (GERD). Plan 1. continue Decadron 2. extubation today per critical care 3. supportive care Attending Statement The exam, history, and the medical decision-making described in the above note were completed with the assistance of the mid-level provider. I reviewed and agree with the findings presented. I attest that I had a [id number] encounter with the patient on the same day, and personally performed and documented my assessment and findings in the medical record. supportive care for now continue steroids hold heparin for now Problem Qualifiers (1) DVT (deep venous thrombosis): Luisa Sal Mar 27, 2017 11:26 Fermin Hickman MD Mar 27, 2017 23:13
--- NOTE | 2017-03-27 16:49 | HHI.PR ---
Review/Management Diagnosis parietal metastasis s/p resection secondary SZ---stable on cerebyx and keppra. Diagnosis/Plan: Subjective Subjective Comments s/p craniotomy for right parietal tumor No recurrent focal sz. Active Medications Current Medications Medications (Trade) Dose Ordered Sig/Pina Route Start Time Stop Time Status Last Admin (NS 1000 ml Inj) 1,000 ml @ 75 mls/hr [id number] IV 03/23/17 20:23 03/26/17 06:08 Miscellaneous Information 1 Q361D XX 03/23/17 20:30 (Chlorhexidine 2% Cloth) 3 pack Taper DAILY@04 TOP 03/24/17 04:00 03/20/18 03:59 03/27/17 03:37 Chlorhexidine Gluconate 3 pack 3 pack UNSCH PRN TOP 03/23/17 20:30 (Versed 100 Mg/ ml Inj) 100 ml @ 0 mls/hr TITRATE IV 03/23/17 20:30 03/26/17 17:46 (Decadron Inj) 6 mg Q6HR IV PUSH 03/24/17 00:00 03/27/17 11:51 Fosphenytoin Sodium 100 mgpe 100 mgpe Q8HR IV 03/23/17 22:00 03/27/17 14:22 Potassium Chloride 100 ml @ 50 mls/hr Q2H PRN IV 03/23/17 20:45 (KCl 20 Meq Premix Inj) 100 ml @ 50 mls/hr Q2H PRN IV 03/23/17 20:45 Potassium Bicarb/ Potassium Chloride 50 meq 50 meq UNSCH PRN PO 03/23/17 20:45 Potassium Chloride 100 ml @ 25 mls/hr UNSCH PRN IV 03/23/17 20:45 Potassium Chloride 100 ml @ 50 mls/hr Q2H PRN IV 03/23/17 20:45 (Magnesium Sulfate Inj/NS Inj) 100 ml @ 50 mls/hr UNSCH PRN IV 03/23/17 20:45 Magnesium Oxide 800 mg 800 mg UNSCH PRN PO 03/23/17 20:45 (Magnesium Sulfate Inj/NS Inj) 100 ml @ 50 mls/hr UNSCH PRN IV 03/23/17 20:45 Potassium Phosphate 2000 mg 2,000 mg Q4H PRN PO 03/23/17 20:45 (Sodium Phosphate Inj/NS 250 ml Inj) 250 ml @ 42 mls/hr UNSCH PRN IV 03/23/17 20:45 Potassium Phosphate 2000 mg 2,000 mg UNSCH PRN PO/TUBE 03/23/17 20:45 Potassium Phosphate 30 mmol/ Sodium Chloride 260 ml @ 42 mls/hr UNSCH PRN IV 03/23/17 20:45 Clindamycin Phosphate 600 mg/ Sodium Chloride 104 ml @ 208 mls/hr Q8H IV 03/24/17 03:00 03/27/17 10:05 (Azactam Inj/NS Inj) 100 ml @ 200 mls/hr Q8H IV 03/24/17 03:00 03/27/17 10:05 (Ativan Inj) 2 mg Q2H PRN IV PUSH 03/24/17 02:00 Lactulose 30 ml 30 ml QID PO 03/24/17 09:00 03/27/17 12:55 (Keppra 1000 Mg Inj) 100 ml @ 400 mls/hr Q12HR IV 03/24/17 21:00 03/27/17 07:45 (Heparin Inj) 5,000 units Q12HR SQ 03/24/17 13:45 Hold 03/25/17 09:27 Chlorhexidine Gluconate 15 ml 15 ml BID@08,20 MT 03/26/17 08:00 03/27/17 07:36 Propofol 100 ml @ 0 mls/hr TITRATE IV 03/25/17 22:30 03/27/17 08:12 (NS + KCl 20 Meq Inj) 1,000 ml @ 100 mls/hr Q10H IV 03/26/17 14:00 03/27/17 10:04 (NS Flush) 2 ml UNSCH PRN IVF 03/26/17 14:00 (NS Flush) 2 ml BID IVF 03/26/17 21:00 03/27/17 07:36 (Dulcolax Supp) 10 mg DAILY PRN RECTAL 03/26/17 14:00 (Colace) 100 mg BID PO 03/26/17 21:00 03/27/17 07:45 (Protonix) 40 mg DAILY PO 03/27/17 09:00 (Protonix Inj) 40 mg DAILY IVP 03/27/17 09:00 03/27/17 07:45 (Zofran Inj) 4 mg Q6H PRN IV 03/26/17 14:00 Calcium Gluconate 1 gm 1 gm UNSCH PRN IV 03/26/17 14:00 Potassium Chloride 100 ml @ 50 mls/hr UNSCH PRN IV 03/26/17 14:00 (Magnesium Sulfate Inj/NS Inj) 108 ml @ 108 mls/hr UNSCH PRN IV 03/26/17 14:00 ([place] 10-325 Mg) 1 tab Q4H PRN PO 03/26/17 14:00 ([place] 10-325 Mg) 2 tab Q4H PRN PO 03/26/17 14:00 (Morphine Inj) 2 mg Q2H PRN IV PUSH 03/26/17 14:00 (Morphine Inj) 4 mg Q2H PRN IV PUSH 03/26/17 14:00 (Tylenol) 650 mg Q4H PRN PO 03/26/17 14:00 Allergies Allergies Coded Allergies Penicillin (Verified Allergy, Unknown, 03/24/17) Exam I&O / VS 03/26/17 03/26/17 03/27/17 15:00 23:00 07:00 Intake Total 6162 ml 551 ml 1245 ml Output Total 4225 ml 1950 ml 1695 ml Balance 1937 ml -1399 ml -450 ml Intake IV Total 1762 ml 551 ml 1245 ml Other 4400 ml Output Urine Total 2550 ml 1800 ml 1600 ml Gastric Drainage Total 50 ml 0 ml 75 ml Drainage Total 25 ml 150 ml 20 ml Estimated Blood Loss 200 ml Other 1400 ml # Bowel Movements 0 0 Vital Signs Date Time Temp Pulse Resp B/P Pulse Ox O2 Delivery O2 Flow Rate FiO2 03/27/17 16:00 100 03/27/17 16:00 98.0 109 18 138/76 100 03/27/17 14:05 108 03/27/17 14:05 99 Nasal Cannula 3 03/27/17 14:05 99 Nasal Cannula 3.00 03/27/17 14:05 99 Nasal Cannula 3.00 03/27/17 14:00 108 03/27/17 13:55 40 03/27/17 13:42 40 03/27/17 12:00 40 03/27/17 12:00 108 03/27/17 12:00 98.2 105 12 123/71 100 03/27/17 11:10 Nasal Cannula 40 03/27/17 11:10 40 03/27/17 10:28 100 40 03/27/17 10:25 40 03/27/17 10:00 84 03/27/17 08:00 98.0 73 17 107/69 100 Arterial Line 03/27/17 08:00 40 03/27/17 08:00 65 03/27/17 07:55 100 40 03/27/17 06:00 71 03/27/17 04:00 68 03/27/17 04:00 40 03/27/17 04:00 98.1 68 16 124/71 100 03/27/17 03:45 100 50 03/27/17 02:00 73 03/27/17 00:21 100 50 03/27/17 00:00 40 03/27/17 00:00 98.1 66 16 97/57 100 03/27/17 00:00 66 03/26/17 22:00 87 03/26/17 20:56 100 40 03/26/17 20:00 74 03/26/17 20:00 40 03/26/17 20:00 97.7 80 19 125/75 100 03/26/17 18:00 76 Exam Comments alert, follow commands, \CN intact MOTOR 12/21 bue no drift. Objective Micro and Labs Laboratory Tests Test 03/27/17 04:52 White Blood Count 12.9 Red Blood Count 4.17 Hemoglobin 12.4 Hematocrit 36.7 Mean Corpuscular Volume 88.2 Mean Corpuscular Hemoglobin 29.8 Mean Corpuscular Hemoglobin 33.8 Concent Red Cell Distribution Width 17.0 Platelet Count 236 Mean Platelet Volume 7.2 Neutrophils (%) (Auto) 88.1 Lymphocytes (%) (Auto) 4.5 Monocytes (%) (Auto) 7.1 Eosinophils (%) (Auto) 0.1 Basophils (%) (Auto) 0.2 Neutrophils # (Auto) 11.3 Lymphocytes # (Auto) 0.6 Monocytes # (Auto) 0.9 Eosinophils # (Auto) 0.0 Basophils # (Auto) 0.0 CBC Comment AUTO DIFF Differential Comment AUTO DIFF CONFIRMED Sodium Level 141 Potassium Level 3.7 Chloride Level 111 Carbon Dioxide Level 22.6 Anion Gap 7 Blood Urea Nitrogen 18 Creatinine 0.72 Estimat Glomerular Filtration 114 Rate Random Glucose 104 Calcium Level 8.3 Date/Time Procedure Status Source Growth 03/23/17 20:15 Aerobic Blood Culture - Preliminary Resulted Blood Peripheral NO GROWTH IN 4 DAYS 03/23/17 20:15 Anaerobic Blood Culture - Preliminary Resulted Blood Peripheral NO GROWTH IN 4 DAYS 03/23/17 06:40 Gram Stain - Final Complete Sputum Endotracheal 03/23/17 06:40 Sputum Culture - Final Complete Sputum Endotracheal HEAVY GROWTH NORMAL RESPIRATORY ELIGIO Alfonso Wilkins PhD Mar 27, 2017 16:49
--- NOTE | 2017-03-27 22:03 | MG ---
cc: SRIDEVI RIZO M.D. Lab No: Date: 03/27/17 Age: 52 Sex: M Race: REFERRING KAIDEN Barajas. An EEG was obtained on this 52-year-old patient history of being intubated and Versed was turned off, Diprivan turned off. There is a lot of sleep activity. There are delta rhythms, some probable sleepy spindles. Right hemisphere slowing is consistent and there are associated sharp discharge. The patient seems to awaken for brief periods of time and artifact is noted. Later on some spike discharges on the right posterior head region are noted as well. Photic stimulation shows some driving response versus mild photomyoclonus. INTERPRETATION Abnormal EEG because of continuous right hemisphere slowing with posterior sharp and some spike discharges. These discharges are of epileptiform significance but no ictal pattern noted. Findings suggest right more than left hemisphere structural abnormality as well. Sridevi Rizo MD [facility]/EO /9:24 PM /9:55 PM
[2017-03-28] VITALS (15 sets, daily range): BP systolic 135–155; BP diastolic 79–92; PULSE 84–103; RESP 10–16; TEMP 97.9–98.5; O2SAT 96–98
[2017-03-28] MEDS: CLINDAMYCIN INJ 600 MG in SODIUM CHLORIDE 0.9% INJ 100 ML IV SCH ×3 (02:34→17:52)
[2017-03-28] MEDS: AZTREONAM INJ 2,000 MG in SODIUM CHLORIDE 0.9% INJ 100 ML IV SCH ×3 (03:03→17:52)
[2017-03-28] MEDS: CHLORHEXIDINE GLUCONATE 2 % 1 PACK (2 CLOTHS) TOP SCH (03:12)
[2017-03-28] MEDS: DEXAMETHASONE SOD PHOS 4 MG/ML VIAL IV PUSH SCH ×4 (05:08→23:29)
[2017-03-28] MEDS: NS + KCL 20 MEQ INJ 1,000 ML IV SCH ×2 (05:09→16:15)
[2017-03-28] MEDS: FOSPHENYTOIN SODIUM 100 MG PE/2 ML VIAL IV SCH ×3 (05:30→21:18)
[2017-03-28] MEDS: SODIUM CHLOR 0.9% 1000 ML INJ 1,000 ML IV SCH ×2 (06:10→20:23)
[2017-03-28] MEDS: CHLORHEXIDINE 0.12% (ORAL KIT) 15 ML CUP MT SCH ×2 (07:38→20:00)
[2017-03-28] MEDS: PANTOPRAZOLE SOD 40 MG DELAYED RELEASE TAB PO SCH (07:38)
[2017-03-28] MEDS: SODIUM CHLORIDE 0.9% FLUSH 5 ML FLUSH IVF SCH ×2 (07:38→21:16)
[2017-03-28] MEDS: LACTULOSE SYRUP 20 GM/30 ML CUP PO SCH ×4 (07:38→21:00)
[2017-03-28] MEDS: PANTOPRAZOLE SODIUM 40 MG VIAL IVP SCH (07:50)
[2017-03-28] MEDS: levETIRAcetam 1000 MG INJ 100 ML IV SCH ×2 (07:50→21:16)
[2017-03-28] MEDS: DOCUSATE SODIUM 100 MG CAP PO SCH ×2 (07:50→21:16)
--- NOTE | 2017-03-28 10:28 | HHI.CCPN ---
Subjective Remarks/Hospital Course Hospital Course: Patient is a 51-year-old male with past medical history significant for stage IV lung cancer (Dr. Hickman is the oncologist), chronic Lovenox therapy for DVT and PE, who presented to the emergency department for evaluation of possible stroke and new onset seizure. EMS was called for new onset focal seizures involving left lower extremity. According to paramedics en route patient started having weakness and shaking of the left upper and lower extremity with possible facial droop, but without loss of consciousness. In the ER initially was awake alert then developed focal left-sided seizures followed by generalized seizure for 5 min, received Ativan for this. Initially aroused from postictal state and then again had recurrent generalized seizure activity. Patient was intubated for airway protection. CT of the head showed right parietal mass 1.7 cm suspicious for metastatic lesion. I was contacted for admission. Patient was started on Versed infusion. Patient had been already loaded with Cerebyx 1 g, I will continue 100 mg IV every 8 hours. Also an EEG had been ordered. I have ordered MRI of the brain neurosurgery consult. I evaluated the patient in the Main ICU. He is intubated sedated with Versed. He purposefully moves all 4 extremity Subjective: 03/25: persistent seizures yesterday. repeat cerebyx load and keppra load. plan to go to OR for tumor resection tomorrow. also has history of DVt/PE. will need IVC filter prior to OR. 03/26: went to OR today for crani. s/p crani, I evaluated the patient when he was immediately post-op. still somnolent from anesthesia. remains intubated. successful crani resection, minimal EBL. 03/27: Wild when sedation lightened - will need to perform rapid extubation. 03/28: Extubated and calm. Swallow eval good. Objective Vital Signs Date Time Temp Pulse Resp B/P Pulse Ox O2 Delivery O2 Flow Rate FiO2 03/28/17 10:00 96 03/28/17 08:39 98 Nasal Cannula 3.00 03/28/17 08:00 98.1 13 135/81 03/27/17 13:55 40 Intake and Output 03/27/17 03/27/17 03/28/17 08:00 16:00 00:00 Intake Total 1245 ml 1190 ml 1200 ml Output Total 1695 ml 1845 ml 1330 ml Balance -450 ml -655 ml -130 ml Result Diagram: 03/27/17 0452 03/27/[address] of the brain shows right parietal lobe mass with surrounding edema and local mass effect Objective Remarks GENERAL: middle-aged male, alert, conversant. SKIN: Warm and dry HEAD: Atraumatic. Normocephalic. EYES: Pupils equal and round. No scleral icterus. No injection or drainage. ENT: No nasal bleeding or discharge. Airway widely patent. NECK: Trachea midline. No JVD CARDIOVASCULAR: regular rate, rhythm. RESPIRATORY: Breath sounds equal bilaterally. Clear. GASTROINTESTINAL: Abdomen soft, non-tender, nondistended. MUSCULOSKELETAL: Extremities without clubbing, cyanosis, or edema. NEUROLOGICAL: Alert, conversant. Pupils are equal. A/P Assessment and Plan Assessment: 52yM with metastatic lung cancer, mets to brain presents with intractable seizures. now POD 2 s/p craniotomy with tumor resection. NEURO: New-onset seizures Acute encephalopathy Right parietal mass with surrounding edema - New onset Seizures secondary to metastatic brain lesion - Ativan when necessary for seizure, Versed for seizure control and ventilator synchrony - Decadron 6 mg IV every 6 hours. - Neurosurgery following - Crani 03/26 with tumor resection - cerebyx 100 mg IV every 8 hours - f/u post-op CT head RESP: Acute hypoxic and hypercarbic respiratory failure Stage IV lung cancer - Continue mechanical ventilation - no SBT today given recent post-op. will discuss with Dr. Palmer possibility of wean to extubate tomorrow. - DuoNeb every 6 hours when necessary if needed CV: Lactic acidosis secondary to seizure- resolved. - Normal saline mivf @ 75cc/hr. GI: - start TF., IV Protonix, bowel regimen : - Monitor renal function closely. Nunez catheter. ID: - no suspicion of infection. vangie-op abx per nsgy. HEME: Stage IV lung cancer History of DVT and PE on chronic anticoagulation - Consult oncology Dr. Hickman - [place] Lovenox secondary to metastatic brain lesion - IVC filter 03/25. ENDO: - Electrolyte replacement per protocol PROPH: - Bilateral lower extremity SCDs. Avoid chemical DVT prophylaxis due to brain metastases. IV Protonix LINES: - Utilize peripheral IVs, central line if needed Overall impression: Two days following resection of solitary brain met from lung cancer. Extubated yesterday. No more seizures. Nabor Westfall MD Mar 28, 2017 10:28
--- NOTE | 2017-03-28 10:48 | PD.ONC.PN ---
Subjective Subjective Remarks Afebrile overnight. Patient extubated and awake and oriented. Patient ate some breakfast this morning. Slight headache. Objective Data Date Time Temp Pulse Resp B/P Pulse Ox O2 Delivery O2 Flow Rate FiO2 03/28/17 10:00 96 03/28/17 08:39 98 Nasal Cannula 3.00 03/28/17 08:00 86 03/28/17 08:00 98.1 85 13 135/81 97 03/28/17 07:00 98 Nasal Cannula 3.00 03/28/17 06:00 90 03/28/17 04:00 98.4 89 13 143/79 97 03/28/17 04:00 89 03/28/17 03:48 96 Nasal Cannula 3.00 03/28/17 02:00 84 03/28/17 00:32 98 Nasal Cannula 3.00 03/28/17 00:00 98.2 84 16 145/79 96 03/28/17 00:00 84 03/27/17 22:00 94 3.00 03/27/17 22:00 86 03/27/17 20:00 92 03/27/17 20:00 99.5 94 17 142/84 96 03/27/17 19:00 97 Nasal Cannula 3.00 03/27/17 18:00 100 03/27/17 16:00 100 03/27/17 16:00 98.0 109 18 138/76 100 03/27/17 14:05 108 03/27/17 14:05 99 Nasal Cannula 3 03/27/17 14:05 99 Nasal Cannula 3.00 03/27/17 14:05 99 Nasal Cannula 3.00 03/27/17 14:00 108 03/27/17 13:55 40 03/27/17 13:42 40 03/27/17 12:00 40 03/27/17 12:00 108 03/27/17 12:00 98.2 105 12 123/71 100 03/27/17 11:10 Nasal Cannula 40 03/27/17 11:10 40 03/28/17 03/28/17 03/28/17 07:00 15:00 23:00 Intake Total 1085 ml Output Total 1666 ml Balance -581 ml Result Diagram: 03/27/17 0452 03/27/17 0452 Administered Medications Medications (Trade) Dose Ordered Sig/Pina Route PRN Reason Start Time Stop Time Status Last Admin Dose Admin Sodium Chloride (NS 1000 ml Inj) 1,000 ml @ 75 mls/hr [id number] IV 03/23/17 20:23 03/26/17 06:08 Chlorhexidine Gluconate 3 pack 3 pack Taper DAILY@04 TOP 03/24/17 04:00 03/20/18 03:59 03/28/17 03:12 Midazolam HCl (Versed 100 Mg/ ml Inj) 100 ml @ 0 mls/hr TITRATE IV 03/23/17 20:30 03/26/17 17:46 Dexamethasone Sodium Phosphate (Decadron Inj) 6 mg Q6HR IV PUSH 03/24/17 00:00 03/28/17 05:08 Fosphenytoin Sodium 100 mgpe 100 mgpe Q8HR IV 03/23/17 22:00 03/28/17 05:30 Clindamycin Phosphate 600 mg/ Sodium Chloride 104 ml @ 208 mls/hr Q8H IV 03/24/17 03:00 03/28/17 10:09 Aztreonam/Sodium Chloride (Azactam Inj/NS Inj) 100 ml @ 200 mls/hr Q8H IV 03/24/17 03:00 03/28/17 10:09 Lactulose 30 ml 30 ml QID PO 03/24/17 09:00 03/27/17 12:55 Levetriacetam (Keppra 1000 Mg Inj) 100 ml @ 400 mls/hr Q12HR IV 03/24/17 21:00 03/28/17 07:50 Heparin Sodium (Porcine) (Heparin Inj) 5,000 units Q12HR SQ 03/24/17 13:45 Hold 03/25/17 09:27 Chlorhexidine Gluconate 15 ml 15 ml BID@08,20 MT 03/26/17 08:00 03/27/17 07:36 Propofol 100 ml @ 0 mls/hr TITRATE IV 03/25/17 22:30 03/27/17 08:12 Potassium Chloride/Sodium Chloride (NS + KCl 20 Meq Inj) 1,000 ml @ 100 mls/hr Q10H IV 03/26/17 14:00 03/28/17 05:09 IV Flush (NS Flush) 2 ml BID IVF 03/26/17 21:00 03/28/17 07:38 Docusate Sodium (Colace) 100 mg BID PO 03/26/17 21:00 03/28/17 07:50 Pantoprazole Sodium (Protonix Inj) 40 mg DAILY IVP 03/27/17 09:00 03/28/17 07:50 Ondansetron HCl (Zofran Inj) 4 mg Q6H PRN IV NAUSEA OR VOMITING 03/26/17 14:00 03/27/17 21:52 Objective Remarks GENERAL: chronically ill male sitting up in bed in nad SKIN: Warm and dry. HEAD: Normocephalic. EYES: no injection or drainage. NECK: Supple, trachea midline CARDIOVASCULAR: +S1/S2 RESPIRATORY: anterior jimenes clear. On 3L O2 via NC GASTROINTESTINAL: Abdomen nondistended. EXTREMITIES: No cyanosis NEUROLOGICAL: awake and alert, normal speech. moving all extremities. Assessment/Plan Problem List: (1) Metastatic primary lung cancer Status: Acute Plan: admitted with new onset seizure. --CT showed a new 1.7 cm mass in the right parietal lobe with significant vasogenic edema. also had a brain MRI which showed a single 2-cm peripherally enhancing lesion in the right parietal high complexity with marked surrounding vasogenic edema. no other lesion noted. No midline shift noted. --s/p craniotomy and resection of mass via Dr. Palmer on 03/26/17 History: --Metastatic non-small cell lung cancer. 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 --was treated with radiation with concurrent cisplatin and Taxol. received two cycles of consolidation chemotherapy after concurrent treatment. --developed supraclavicular adenopathy and progression of disease. then received radiation. --subsequently was started on Opdivo and had a good response. --recent CT reportedly showed good response and no evidence of progression of disease. 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 --currently on fosphenytoin and Keppra + Decadron. (3) DVT (deep venous thrombosis) Status: Acute Plan: --s/p IVC filter in IR --History of multiple DVTs and pulmonary embolism. --last thromboembolic event was several months ago. --with his metastatic disease and history of multiple clots, he likely is going to have another thromboembolic event without the anticoagulation. --Unfortunately he has competing needs at this time. He has a risk of developing bleeding in the brain with anticoagulation. Assessment 52y/o male with metastatic lung cancer who presented with new-onset seizure. h/o Metastatic non-small cell lung cancer. Recurrent DVT and pulmonary embolism. He was on Lovenox. Osteoarthritis. Hyperlipidemia. Gastroesophageal reflux disease (GERD). Plan 1. await NS clearance before resuming heparin 2. supportive care 3. continue Decadron Attending Statement The exam, history, and the medical decision-making described in the above note were completed with the assistance of the mid-level provider. I reviewed and agree with the findings presented. I attest that I had a [id number] encounter with the patient on the same day, and personally performed and documented my assessment and findings in the medical record. Problem Qualifiers (1) DVT (deep venous thrombosis): Luisa Sal Mar 28, 2017 10:48 Fermin Hickman MD Mar 28, 2017 23:39
--- NOTE | 2017-03-28 16:32 | HHI.NSPN ---
(Nancy Barajas) Note Status Status: Progress Note (Nancy Barajas) Interval History Interval History Mr. Mendosa is a 52 y/o male underwent right parietal craniotomy for resection of brain mets 03/26/17. 03/27: intubated and sedated. post/op CT Head completed. possible extubation today. EEG yesterday report noted. Dilantin levels yesterday was 11. 03/28:extubated, doing very well, brushing his teeth. Surgical pain controlled. EEG yesterday still shows sharps abnormalities. (Nancy Barajas) Labs, Micro, & Vital Signs Results Date Time Temp Pulse Resp B/P Pulse Ox O2 Delivery O2 Flow Rate FiO2 03/28/17 16:00 98.4 100 10 153/92 98 03/28/17 16:00 96 03/28/17 14:00 97 03/28/17 12:00 93 03/28/17 12:00 98.5 96 13 155/87 97 03/28/17 10:00 96 03/28/17 08:39 98 Nasal Cannula 3.00 03/28/17 08:00 86 03/28/17 08:00 98.1 85 13 135/81 97 03/28/17 07:00 98 Nasal Cannula 3.00 03/28/17 06:00 90 03/28/17 04:00 98.4 89 13 143/79 97 03/28/17 04:00 89 03/28/17 03:48 96 Nasal Cannula 3.00 03/28/17 02:00 84 03/28/17 00:32 98 Nasal Cannula 3.00 03/28/17 00:00 98.2 84 16 145/79 96 03/28/17 00:00 84 03/27/17 22:00 94 3.00 03/27/17 22:00 86 03/27/17 20:00 92 03/27/17 20:00 99.5 94 17 142/84 96 03/27/17 19:00 97 Nasal Cannula 3.00 03/27/17 18:00 100 03/28/17 06:59 Intake Total 3475 ml Output Total 4841 ml Balance -1366 ml Constitutional Vital Signs Date Time Temp Pulse Resp B/P Pulse Ox O2 Delivery O2 Flow Rate FiO2 03/28/17 16:00 98.4 100 10 153/92 98 03/28/17 16:00 96 03/28/17 14:00 97 03/28/17 12:00 93 03/28/17 12:00 98.5 96 13 155/87 97 03/28/17 10:00 96 03/28/17 08:39 98 Nasal Cannula 3.00 03/28/17 08:00 86 03/28/17 08:00 98.1 85 13 135/81 97 03/28/17 07:00 98 Nasal Cannula 3.00 03/28/17 06:00 90 03/28/17 04:00 98.4 89 13 143/79 97 03/28/17 04:00 89 03/28/17 03:48 96 Nasal Cannula 3.00 03/28/17 02:00 84 03/28/17 00:32 98 Nasal Cannula 3.00 03/28/17 00:00 98.2 84 16 145/79 96 03/28/17 00:00 84 03/27/17 22:00 94 3.00 03/27/17 22:00 86 03/27/17 20:00 92 03/27/17 20:00 99.5 94 17 142/84 96 03/27/17 19:00 97 Nasal Cannula 3.00 03/27/17 18:00 100 03/28/17 06:59 Intake Total 3475 ml Output Total 4841 ml Balance -1366 ml (Nancy Barajas) Review of Systems/Exam Exam Mr. Mendosa is alert, awake. Currently brushing his teeth. Cranial Nerves: Pupils 3 mm equal, round, reactive to light. Eyes conjugated. Wound is clean and dry with wrapped dressing. JOEY drain with minimal drainage. Motor: moves all four extremities, left side much stronger (Nancy Barajas) Medications Current Medications Current Medications Medications (Trade) Dose Ordered Sig/Pina Route PRN Reason Start Time Stop Time Status Last Admin Dose Admin Sodium Chloride (NS 1000 ml Inj) 1,000 ml @ 75 mls/hr [id number] IV 03/23/17 20:23 03/26/17 06:08 Miscellaneous Information 1 [id number] XX 03/23/17 20:30 Chlorhexidine Gluconate (Chlorhexidine 2% Cloth) 3 pack Taper DAILY@04 TOP 03/24/17 04:00 03/20/18 03:59 03/28/17 03:12 Chlorhexidine Gluconate 3 pack 3 pack UNSCH PRN TOP HYGIENIC CARE 03/23/17 20:30 Midazolam HCl (Versed 100 Mg/ ml Inj) 100 ml @ 0 mls/hr TITRATE IV 03/23/17 20:30 03/26/17 17:46 Dexamethasone Sodium Phosphate (Decadron Inj) 6 mg Q6HR IV PUSH 03/24/17 00:00 03/28/17 11:51 Fosphenytoin Sodium 100 mgpe 100 mgpe Q8HR IV 03/23/17 22:00 03/28/17 13:00 Potassium Chloride 100 ml @ 50 mls/hr Q2H PRN IV For Potassium 2.8 - 3.2 mEq/L 03/23/17 20:45 Potassium Chloride (KCl 20 Meq Premix Inj) 100 ml @ 50 mls/hr Q2H PRN IV For Potassium 2.8 - 3.2 mEq/L 03/23/17 20:45 Potassium Bicarb/ Potassium Chloride 50 meq 50 meq UNSCH PRN PO For Potassium 3.3 - 3.5 mEq/L 03/23/17 20:45 Potassium Chloride 100 ml @ 25 mls/hr UNSCH PRN IV For Potassium 3.3 - 3.5 mEq/L 03/23/17 20:45 Potassium Chloride 100 ml @ 50 mls/hr Q2H PRN IV For Potassium 3.3 - 3.5 mEq/L 03/23/17 20:45 Magnesium Sulfate/ Sodium Chloride (Magnesium Sulfate Inj/NS Inj) 100 ml @ 50 mls/hr UNSCH PRN IV For Magnesium 0.9 - 1.1 mg/dL 03/23/17 20:45 Magnesium Oxide 800 mg 800 mg UNSCH PRN PO For Magnesium 1.2 - 1.6 mg/dL 03/23/17 20:45 Magnesium Sulfate/ Sodium Chloride (Magnesium Sulfate Inj/NS Inj) 100 ml @ 50 mls/hr UNSCH PRN IV For Magnesium 1.2 - 1.6 mg/dL 03/23/17 20:45 Potassium Phosphate 2000 mg 2,000 mg Q4H PRN PO For Phosphorus < 2.5 mg/dL 03/23/17 20:45 Sodium Phosphate/ Sodium Chloride (Sodium Phosphate Inj/NS 250 ml Inj) 250 ml @ 42 mls/hr UNSCH PRN IV For Phosphorus < 2.5 mg/dL 03/23/17 20:45 Potassium Phosphate 2000 mg 2,000 mg UNSCH PRN PO/TUBE SEE LABEL COMMENTS 03/23/17 20:45 Potassium Phosphate 30 mmol/ Sodium Chloride 260 ml @ 42 mls/hr UNSCH PRN IV SEE LABEL COMMENTS 03/23/17 20:45 Clindamycin Phosphate 600 mg/ Sodium Chloride 104 ml @ 208 mls/hr Q8H IV 03/24/17 03:00 03/28/17 10:09 Aztreonam/Sodium Chloride (Azactam Inj/NS Inj) 100 ml @ 200 mls/hr Q8H IV 03/24/17 03:00 03/28/17 10:09 Lorazepam (Ativan Inj) 2 mg Q2H PRN IV PUSH seizure 03/24/17 02:00 Lactulose 30 ml 30 ml QID PO 03/24/17 09:00 03/27/17 12:55 Levetriacetam (Keppra 1000 Mg Inj) 100 ml @ 400 mls/hr Q12HR IV 03/24/17 21:00 03/28/17 07:50 Heparin Sodium (Porcine) (Heparin Inj) 5,000 units Q12HR SQ 03/24/17 13:45 Hold 03/25/17 09:27 Chlorhexidine Gluconate 15 ml 15 ml BID@08,20 MT 03/26/17 08:00 03/27/17 07:36 Propofol 100 ml @ 0 mls/hr TITRATE IV 03/25/17 22:30 03/27/17 08:12 Potassium Chloride/Sodium Chloride (NS + KCl 20 Meq Inj) 1,000 ml @ 100 mls/hr Q10H IV 03/26/17 14:00 03/28/17 16:15 IV Flush (NS Flush) 2 ml UNSCH PRN IVF FLUSH AFTER USING IV ACCESS 03/26/17 14:00 IV Flush (NS Flush) 2 ml BID IVF 03/26/17 21:00 03/28/17 07:38 Bisacodyl (Dulcolax Supp) 10 mg DAILY PRN RECTAL CONSTIPATION 03/26/17 14:00 Docusate Sodium (Colace) 100 mg BID PO 03/26/17 21:00 03/28/17 07:50 Pantoprazole Sodium (Protonix) 40 mg DAILY PO 03/27/17 09:00 Pantoprazole Sodium (Protonix Inj) 40 mg DAILY IVP 03/27/17 09:00 03/28/17 07:50 Ondansetron HCl (Zofran Inj) 4 mg Q6H PRN IV NAUSEA OR VOMITING 03/26/17 14:00 03/27/17 21:52 Calcium Gluconate 1 gm 1 gm UNSCH PRN IV SEE LABEL COMMENTS 03/26/17 14:00 Potassium Chloride 100 ml @ 50 mls/hr UNSCH PRN IV POTASSIUM LESS THAN 4 03/26/17 14:00 Magnesium Sulfate/ Sodium Chloride (Magnesium Sulfate Inj/NS Inj) 108 ml @ 108 mls/hr UNSCH PRN IV MAGNESIUM LESS THAN 2 03/26/17 14:00 Acetaminophen/ Hydrocodone Bitart (Falls 10-325 Mg) 1 tab Q4H PRN PO PAIN SCALE 1 TO 5 03/26/17 14:00 Acetaminophen/ Hydrocodone Bitart (Falls 10-325 Mg) 2 tab Q4H PRN PO PAIN SCALE 6 TO 10 03/26/17 14:00 Morphine Sulfate (Morphine Inj) 2 mg Q2H PRN IV PUSH PAIN SCALE 1 TO 6 03/26/17 14:00 Morphine Sulfate (Morphine Inj) 4 mg Q2H PRN IV PUSH PAIN SCALE 7 TO 10 03/26/17 14:00 Acetaminophen (Tylenol) 650 mg Q4H PRN PO TEMPERATURE > 101.5 F 03/26/17 14:00 (Nancy Barajas) Medical Decision Making MDM Remarks 52 y/o male presents for seizures MRI Brain shows left right parietal mass lesion, suspected for metastatic lung CA. s/p right parietal craniotomy with resection of brain mass 03/26/17 f/u CT Head 03/26/17 with expected postsurgical changes DVT, PE, s/p placement of IVC filter EEG 03/26/17 reports poss right epileptiform activities, EEG 03/27 with some epileptiform activities patient clinically improved, no clinical seizures seen (Nancy Barajas) Plan Plan Remarks doing well, ok to start mobilizing OOB with PT cont OT, ST con JOEY draining today, will dc tomorrow cont AEDs, cont seizure precautions discussed with patient and (Nancy Barajas) Attending Statement The exam, history, and the medical decision-making described in the above note were completed with the assistance of the mid-level provider. I reviewed and agree with the findings presented. I attest that I had a [id number] encounter with the patient on the same day, and personally performed and documented my assessment and findings in the medical record. (Gatito Palmer MD) Nancy Barajas Mar 28, 2017 16:32 Gatito Palmer MD Mar 30, 2017 22:16
[2017-03-29] VITALS (15 sets, daily range): BP systolic 107–143; BP diastolic 72–85; PULSE 82–116; RESP 12–15; TEMP 98.3–99.6; O2SAT 97–100
[2017-03-29] MEDS: NS + KCL 20 MEQ INJ 1,000 ML IV SCH ×3 (00:16→20:41)
[2017-03-29] MEDS: CLINDAMYCIN INJ 600 MG in SODIUM CHLORIDE 0.9% INJ 100 ML IV SCH ×3 (01:03→18:31)
[2017-03-29] MEDS: AZTREONAM INJ 2,000 MG in SODIUM CHLORIDE 0.9% INJ 100 ML IV SCH ×3 (01:04→18:05)
[2017-03-29] MEDS: CHLORHEXIDINE GLUCONATE 2 % 1 PACK (2 CLOTHS) TOP SCH (04:00)
[2017-03-29] MEDS: FOSPHENYTOIN SODIUM 100 MG PE/2 ML VIAL IV SCH ×2 (04:08→14:24)
[2017-03-29] MEDS: DEXAMETHASONE SOD PHOS 4 MG/ML VIAL IV PUSH SCH ×4 (04:08→22:52)
[2017-03-29 05:25] LABS: BICARBONATE 25.2 MEQ/L (21.0-32.0)
[2017-03-29] MEDS: CHLORHEXIDINE 0.12% (ORAL KIT) 15 ML CUP MT SCH ×2 (08:00→20:00)
[2017-03-29] MEDS: PANTOPRAZOLE SODIUM 40 MG VIAL IVP SCH (09:00)
[2017-03-29] MEDS: SODIUM CHLORIDE 0.9% FLUSH 5 ML FLUSH IVF SCH ×2 (09:00→20:42)
[2017-03-29] MEDS: DOCUSATE SODIUM 100 MG CAP PO SCH ×2 (09:14→20:41)
[2017-03-29] MEDS: PANTOPRAZOLE SOD 40 MG DELAYED RELEASE TAB PO SCH (09:14)
[2017-03-29] MEDS: levETIRAcetam 1000 MG INJ 100 ML IV SCH (09:14)
[2017-03-29] MEDS: LACTULOSE SYRUP 20 GM/30 ML CUP PO SCH ×4 (09:14→20:41)
[2017-03-29] MEDS: SODIUM CHLOR 0.9% 1000 ML INJ 1,000 ML IV SCH ×2 (09:43→23:03)
--- NOTE | 2017-03-29 10:27 | HHI.NSPN ---
(Nancy Barajas) The exam, history, and the medical decision-making described in the above note were completed with the assistance of the mid-level provider. I reviewed and agree with the findings presented. I attest that I had a [id number] encounter with the patient on the same day, and personally performed and documented my assessment and findings in the medical record. (Gatito Palmer MD) Note Status Status: Progress Note (Nancy Barajas) Interval History Interval History Mr. Mendosa is a 52 y/o male underwent right parietal craniotomy for resection of brain mets 03/26/17. 03/27: intubated and sedated. post/op CT Head completed. possible extubation today. EEG yesterday report noted. Dilantin levels yesterday was 11. 03/28:extubated, doing very well, brushing his teeth. Surgical pain controlled. EEG yesterday still shows sharps abnormalities. 03/29: no clinical seizures overnight, sitting up in chair eating breakfast. ( Nancy Barajas) Labs, Micro, & Vital Signs Results Date Time Temp Pulse Resp B/P Pulse Ox O2 Delivery O2 Flow Rate FiO2 03/29/17 10:00 116 03/29/17 08:00 99.0 82 14 135/79 97 03/29/17 08:00 86 03/29/17 07:41 98 Nasal Cannula 2.00 03/29/17 07:00 98 Nasal Cannula 2.00 03/29/17 06:00 84 03/29/17 04:00 98.3 100 14 143/85 98 03/29/17 04:00 100 03/29/17 02:00 82 03/29/17 01:08 97 3.00 03/29/17 00:00 99.1 82 14 142/84 97 03/29/17 00:00 82 03/28/17 22:00 88 03/28/17 20:00 97.9 89 12 148/87 98 03/28/17 20:00 86 03/28/17 19:00 97 Nasal Cannula 3.00 03/28/17 19:00 15 03/28/17 18:00 103 03/28/17 16:00 98.4 100 10 153/92 98 03/28/17 16:00 96 03/28/17 14:00 97 03/28/17 12:00 93 03/28/17 12:00 98.5 96 13 155/87 97 03/29/17 07:00 Intake Total 3303 ml Output Total 3827 ml Balance -524 ml Constitutional Vital Signs Date Time Temp Pulse Resp B/P Pulse Ox O2 Delivery O2 Flow Rate FiO2 03/29/17 10:00 116 03/29/17 08:00 99.0 82 14 135/79 97 03/29/17 08:00 86 03/29/17 07:41 98 Nasal Cannula 2.00 03/29/17 07:00 98 Nasal Cannula 2.00 03/29/17 06:00 84 03/29/17 04:00 98.3 100 14 143/85 98 03/29/17 04:00 100 03/29/17 02:00 82 03/29/17 01:08 97 3.00 03/29/17 00:00 99.1 82 14 142/84 97 03/29/17 00:00 82 03/28/17 22:00 88 03/28/17 20:00 97.9 89 12 148/87 98 03/28/17 20:00 86 03/28/17 19:00 97 Nasal Cannula 3.00 03/28/17 19:00 15 03/28/17 18:00 103 03/28/17 16:00 98.4 100 10 153/92 98 03/28/17 16:00 96 03/28/17 14:00 97 03/28/17 12:00 93 03/28/17 12:00 98.5 96 13 155/87 97 03/29/17 07:00 Intake Total 3303 ml Output Total 3827 ml Balance -524 ml (Nancy Barajas) Review of Systems/Exam Exam Mr. Mendosa is alert, awake. Slightly converses, bit slow to thinking. Follows commands. Voice hoarse. Sitting up in chair eating his breakfast. Follows commands without difficulties. Cranial Nerves: Pupils 3 mm equal, round, reactive to light. Eyes conjugated. Wound is healing well. JOEY drain with minimal drainage. Motor: moves all four extremities, left side weakness improving (Nancy Barajas) Medications Current Medications Current Medications Medications (Trade) Dose Ordered Sig/Pina Route PRN Reason Start Time Stop Time Status Last Admin Dose Admin Sodium Chloride (NS 1000 ml Inj) 1,000 ml @ 75 mls/hr [id number] IV 03/23/17 20:23 03/26/17 06:08 Miscellaneous Information 1 Q361D XX 03/23/17 20:30 Chlorhexidine Gluconate (Chlorhexidine 2% Cloth) Taper DAILY@04 TOP 03/24/17 04:00 03/20/18 03:59 03/28/17 03:12 Chlorhexidine Gluconate 3 pack 3 pack UNSCH PRN TOP HYGIENIC CARE 03/23/17 20:30 Midazolam HCl (Versed 100 Mg/ ml Inj) 100 ml @ 0 mls/hr TITRATE IV 03/23/17 20:30 03/26/17 17:46 Dexamethasone Sodium Phosphate (Decadron Inj) 6 mg Q6HR IV PUSH 03/24/17 00:00 03/29/17 04:08 Fosphenytoin Sodium 100 mgpe 100 mgpe Q8HR IV 03/23/17 22:00 03/29/17 04:08 Potassium Chloride 100 ml @ 50 mls/hr Q2H PRN IV For Potassium 2.8 - 3.2 mEq/L 03/23/17 20:45 Potassium Chloride (KCl 20 Meq Premix Inj) 100 ml @ 50 mls/hr Q2H PRN IV For Potassium 2.8 - 3.2 mEq/L 03/23/17 20:45 Potassium Bicarb/ Potassium Chloride 50 meq 50 meq UNSCH PRN PO For Potassium 3.3 - 3.5 mEq/L 03/23/17 20:45 Potassium Chloride 100 ml @ 25 mls/hr UNSCH PRN IV For Potassium 3.3 - 3.5 mEq/L 03/23/17 20:45 Potassium Chloride 100 ml @ 50 mls/hr Q2H PRN IV For Potassium 3.3 - 3.5 mEq/L 03/23/17 20:45 Magnesium Sulfate/ Sodium Chloride (Magnesium Sulfate Inj/NS Inj) 100 ml @ 50 mls/hr UNSCH PRN IV For Magnesium 0.9 - 1.1 mg/dL 03/23/17 20:45 Magnesium Oxide 800 mg 800 mg UNSCH PRN PO For Magnesium 1.2 - 1.6 mg/dL 03/23/17 20:45 Magnesium Sulfate/ Sodium Chloride (Magnesium Sulfate Inj/NS Inj) 100 ml @ 50 mls/hr UNSCH PRN IV For Magnesium 1.2 - 1.6 mg/dL 03/23/17 20:45 Potassium Phosphate 2000 mg 2,000 mg Q4H PRN PO For Phosphorus < 2.5 mg/dL 03/23/17 20:45 Sodium Phosphate/ Sodium Chloride (Sodium Phosphate Inj/NS 250 ml Inj) 250 ml @ 42 mls/hr UNSCH PRN IV For Phosphorus < 2.5 mg/dL 03/23/17 20:45 Potassium Phosphate 2000 mg 2,000 mg UNSCH PRN PO/TUBE SEE LABEL COMMENTS 03/23/17 20:45 Potassium Phosphate 30 mmol/ Sodium Chloride 260 ml @ 42 mls/hr UNSCH PRN IV SEE LABEL COMMENTS 03/23/17 20:45 Clindamycin Phosphate 600 mg/ Sodium Chloride 104 ml @ 208 mls/hr Q8H IV 03/24/17 03:00 03/29/17 01:03 Aztreonam/Sodium Chloride (Azactam Inj/NS Inj) 100 ml @ 200 mls/hr Q8H IV 03/24/17 03:00 03/29/17 01:04 Lorazepam (Ativan Inj) 2 mg Q2H PRN IV PUSH seizure 03/24/17 02:00 Lactulose 30 ml 30 ml QID PO 03/24/17 09:00 03/29/17 09:14 Levetriacetam (Keppra 1000 Mg Inj) 100 ml @ 400 mls/hr Q12HR IV 03/24/17 21:00 03/29/17 09:14 Heparin Sodium (Porcine) (Heparin Inj) 5,000 units Q12HR SQ 03/24/17 13:45 Hold 03/25/17 09:27 Chlorhexidine Gluconate 15 ml 15 ml BID@08,20 MT 03/26/17 08:00 03/27/17 07:36 Propofol 100 ml @ 0 mls/hr TITRATE IV 03/25/17 22:30 03/27/17 08:12 Potassium Chloride/Sodium Chloride (NS + KCl 20 Meq Inj) 1,000 ml @ 100 mls/hr Q10H IV 03/26/17 14:00 03/29/17 00:16 IV Flush (NS Flush) 2 ml UNSCH PRN IVF FLUSH AFTER USING IV ACCESS 03/26/17 14:00 IV Flush (NS Flush) 2 ml BID IVF 03/26/17 21:00 03/29/17 09:00 Bisacodyl (Dulcolax Supp) 10 mg DAILY PRN RECTAL CONSTIPATION 03/26/17 14:00 Docusate Sodium (Colace) 100 mg BID PO 03/26/17 21:00 03/29/17 09:14 Pantoprazole Sodium (Protonix) 40 mg DAILY PO 03/27/17 09:00 03/29/17 09:14 Pantoprazole Sodium (Protonix Inj) 40 mg DAILY IVP 03/27/17 09:00 03/28/17 07:50 Ondansetron HCl (Zofran Inj) 4 mg Q6H PRN IV NAUSEA OR VOMITING 03/26/17 14:00 03/27/17 21:52 Calcium Gluconate 1 gm 1 gm UNSCH PRN IV SEE LABEL COMMENTS 03/26/17 14:00 Potassium Chloride 100 ml @ 50 mls/hr UNSCH PRN IV POTASSIUM LESS THAN 4 03/26/17 14:00 Magnesium Sulfate/ Sodium Chloride (Magnesium Sulfate Inj/NS Inj) 108 ml @ 108 mls/hr UNSCH PRN IV MAGNESIUM LESS THAN 2 03/26/17 14:00 Acetaminophen/ Hydrocodone Bitart ([place] 10-325 Mg) 1 tab Q4H PRN PO PAIN SCALE 1 TO 5 03/26/17 14:00 03/28/17 17:50 Acetaminophen/ Hydrocodone Bitart ([place] 10-325 Mg) 2 tab Q4H PRN PO PAIN SCALE 6 TO 10 03/26/17 14:00 Morphine Sulfate (Morphine Inj) 2 mg Q2H PRN IV PUSH PAIN SCALE 1 TO 6 03/26/17 14:00 Morphine Sulfate (Morphine Inj) 4 mg Q2H PRN IV PUSH PAIN SCALE 7 TO 10 03/26/17 14:00 Acetaminophen (Tylenol) 650 mg Q4H PRN PO TEMPERATURE > 101.5 F 03/26/17 14:00 (Nancy Barajas) Medical Decision Making MDM Remarks 52 y/o male presents for seizures MRI Brain shows left right parietal mass lesion, suspected for metastatic lung CA. s/p right parietal craniotomy with resection of brain mass 03/26/17, final pathology of brain mass reports non-small cell carcinoma f/u CT Head 03/26/17 with expected postsurgical changes DVT, PE, s/p placement of IVC filter EEG 03/26/17 reports poss right epileptiform activities, EEG 03/27 with some epileptiform activities patient clinically improved, no clinical seizures seen (Nancy Barajas) Plan Plan Remarks doing well, cont PT, OT, ST dc JOEY drain cont neuro checks cont AEDs, mgt per neurology, cont seizure precautions ok to transfer to 5N only, Nursing called later following rounds, pt had episode of staring was unresponsive found slumped over in chair. no shaking episodes seen. will repeat EEG. obtain Dilantin levels. dw Dr. Palmer will clear to restart Heparin. (Nancy Barajas) Nancy Barajas Mar 29, 2017 10:27 Gatito Palmer MD Mar 30, 2017 22:18
[2017-03-29] MEDS ORDERED: PHENYTOIN INJ 250 MG/5 ML VIAL IV ONE (12:30)
[2017-03-29] MEDS ORDERED: PHENYTOIN INJ 500 MG in SODIUM CHLORIDE 0.9% INJ 100 ML IV ONE (12:45)
--- NOTE | 2017-03-29 15:28 | PD.ONC.PN ---
Subjective Subjective Remarks awake and in bed pleasant and having conversation had an episode of seizure like activity Dilantin level was low --loading dose of Dilantin given at bedside Objective Data Date Time Temp Pulse Resp B/P Pulse Ox O2 Delivery O2 Flow Rate FiO2 03/29/17 14:00 89 03/29/17 12:00 98.3 92 15 107/72 100 03/29/17 12:00 92 03/29/17 10:00 116 03/29/17 08:00 99.0 82 14 135/79 97 03/29/17 08:00 86 03/29/17 07:41 98 Nasal Cannula 2.00 03/29/17 07:00 98 Nasal Cannula 2.00 03/29/17 06:00 84 03/29/17 04:00 98.3 100 14 143/85 98 03/29/17 04:00 100 03/29/17 02:00 82 03/29/17 01:08 97 3.00 03/29/17 00:00 99.1 82 14 142/84 97 03/29/17 00:00 82 03/28/17 22:00 88 03/28/17 20:00 97.9 89 12 148/87 98 03/28/17 20:00 86 03/28/17 19:00 97 Nasal Cannula 3.00 03/28/17 19:00 15 03/28/17 18:00 103 03/28/17 16:00 98.4 100 10 153/92 98 03/28/17 16:00 96 03/29/17 03/29/17 03/29/17 07:00 15:00 23:00 Intake Total 995 ml 1492 ml Output Total 706 ml 800 ml Balance 289 ml 692 ml Result Diagram: 03/27/17 0452 03/29/17 0419 Laboratory Results Laboratory Tests Test 03/29/17 03/29/17 04:19 10:55 Sodium Level 138 MEQ/L Potassium Level 4.0 MEQ/L Chloride Level 103 MEQ/L Carbon Dioxide Level 25.2 MEQ/L Anion Gap 10 MEQ/L Blood Urea Nitrogen 25 MG/DL Creatinine 0.63 MG/DL Estimat Glomerular Filtration 133 ML/MIN Rate Random Glucose 109 MG/DL Calcium Level 9.1 MG/DL Phenytoin (Dilantin) Level 6.4 MCG/ML Administered Medications Medications (Trade) Dose Ordered Sig/Ipna Route PRN Reason Start Time Stop Time Status Last Admin Dose Admin Sodium Chloride (NS 1000 ml Inj) 1,000 ml @ 75 mls/hr [id number] IV 03/23/17 20:23 03/26/17 06:08 Chlorhexidine Gluconate Taper DAILY@04 TOP 03/24/17 04:00 03/20/18 03:59 03/28/17 03:12 Midazolam HCl (Versed 100 Mg/ ml Inj) 100 ml @ 0 mls/hr TITRATE IV 03/23/17 20:30 03/26/17 17:46 Dexamethasone Sodium Phosphate (Decadron Inj) 6 mg Q6HR IV PUSH 03/24/17 00:00 03/29/17 11:01 Fosphenytoin Sodium 100 mgpe 100 mgpe Q8HR IV 03/23/17 22:00 03/29/17 14:24 Clindamycin Phosphate 600 mg/ Sodium Chloride 104 ml @ 208 mls/hr Q8H IV 03/24/17 03:00 03/29/17 10:23 Aztreonam/Sodium Chloride (Azactam Inj/NS Inj) 100 ml @ 200 mls/hr Q8H IV 03/24/17 03:00 03/29/17 10:25 Lactulose 30 ml 30 ml QID PO 03/24/17 09:00 03/29/17 09:14 Levetriacetam (Keppra 1000 Mg Inj) 100 ml @ 400 mls/hr Q12HR IV 03/24/17 21:00 03/29/17 09:14 Heparin Sodium (Porcine) (Heparin Inj) 5,000 units Q12HR SQ 03/24/17 13:45 03/25/17 09:27 Chlorhexidine Gluconate 15 ml 15 ml BID@08,20 MT 03/26/17 08:00 03/27/17 07:36 Propofol 100 ml @ 0 mls/hr TITRATE IV 03/25/17 22:30 03/27/17 08:12 Potassium Chloride/Sodium Chloride (NS + KCl 20 Meq Inj) 1,000 ml @ 100 mls/hr Q10H IV 03/26/17 14:00 03/29/17 11:02 IV Flush (NS Flush) 2 ml BID IVF 03/26/17 21:00 03/29/17 09:00 Docusate Sodium (Colace) 100 mg BID PO 03/26/17 21:00 03/29/17 09:14 Pantoprazole Sodium (Protonix) 40 mg DAILY PO 03/27/17 09:00 03/29/17 09:14 Pantoprazole Sodium (Protonix Inj) 40 mg DAILY IVP 03/27/17 09:00 03/28/17 07:50 Ondansetron HCl (Zofran Inj) 4 mg Q6H PRN IV NAUSEA OR VOMITING 03/26/17 14:00 03/27/17 21:52 Acetaminophen/ Hydrocodone Bitart ([place] 10-325 Mg) 1 tab Q4H PRN PO PAIN SCALE 1 TO 5 03/26/17 14:00 03/28/17 17:50 Objective Remarks GENERAL: nad SKIN: Warm and dry. NECK: Supple, trachea midline. No JVD or lymphadenopathy. LYMPHATIC: No adenopathy. CARDIOVASCULAR: Regular rate and rhythm without murmurs. RESPIRATORY: Breath sounds equal bilaterally. No accessory muscle use. GASTROINTESTINAL: Abdomen soft, non-tender, nondistended. EXTREMITIES: No cyanosis, or edema. Assessment/Plan Problem List: (1) Metastatic primary lung cancer Status: Acute Plan: admitted with new onset seizure. --CT showed a new 1.7 cm mass in the right parietal lobe with significant vasogenic edema. also had a brain MRI which showed a single 2-cm peripherally enhancing lesion in the right parietal high complexity with marked surrounding vasogenic edema. no other lesion noted. No midline shift noted. --s/p craniotomy and resection of mass via Dr. Palmer on 03/26/17 History: --Metastatic non-small cell lung cancer. 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 --was treated with radiation with concurrent cisplatin and Taxol. received two cycles of consolidation chemotherapy after concurrent treatment. --developed supraclavicular adenopathy and progression of disease. then received radiation. --subsequently was started on Opdivo and had a good response. --recent CT reportedly showed good response and no evidence of progression of disease. 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 --currently on fosphenytoin and Keppra + Decadron. (3) DVT (deep venous thrombosis) Status: Acute Plan: --s/p IVC filter in IR --History of multiple DVTs and pulmonary embolism. --last thromboembolic event was several months ago. --with his metastatic disease and history of multiple clots, he likely is going to have another thromboembolic event without the anticoagulation. --Unfortunately he has competing needs at this time. He has a risk of developing bleeding in the brain with anticoagulation. Assessment 52y/o male with metastatic lung cancer who presented with new-onset seizure. h/o Metastatic non-small cell lung cancer. Recurrent DVT and pulmonary embolism. He was on Lovenox. Osteoarthritis. Hyperlipidemia. Gastroesophageal reflux disease (GERD). Plan - cleared by surgery to restart heparin--will start heparin GTT- no bolus - Continue Decadron and anti-convulsants - Discussed with patient and prognosis and treatment options - case discussed with Dr. Yoon--would receive XRT to area of the lesion-- possibly stereotactic - approximately 30 minutes spent in co-originating care and answering patient's questions d/w rn Problem Qualifiers (1) DVT (deep venous thrombosis): Fermin Hickman MD Mar 29, 2017 15:28
--- NOTE | 2017-03-29 18:49 | HHI.PR ---
Review/Management Diagnosis parietal metastasis s/p resection secondary SZ--- Plan change anticonvulsant to po and increase dilantin to 100 mg Q6 hr recheck phenytoin level in am Diagnosis/Plan: Subjective Subjective Comments Pt had focal SZ today--staring episode and unresponsive. Phenytoin level 6.4 and he was given additional 500 mg iv dilantin Active Medications Current Medications Medications (Trade) Dose Ordered Sig/Pina Route Start Time Stop Time Status Last Admin (NS 1000 ml Inj) 1,000 ml @ 75 mls/hr [id number] IV 03/23/17 20:23 03/26/17 06:08 Miscellaneous Information 1 Q361D XX 03/23/17 20:30 (Chlorhexidine 2% Cloth) Taper DAILY@04 TOP 03/24/17 04:00 03/20/18 03:59 03/28/17 03:12 Chlorhexidine Gluconate 3 pack 3 pack UNSCH PRN TOP 03/23/17 20:30 (Versed 100 Mg/ ml Inj) 100 ml @ 0 mls/hr TITRATE IV 03/23/17 20:30 03/26/17 17:46 (Decadron Inj) 6 mg Q6HR IV PUSH 03/24/17 00:00 03/29/17 17:18 Fosphenytoin Sodium 100 mgpe 100 mgpe Q8HR IV 03/23/17 22:00 03/29/17 14:24 Potassium Chloride 100 ml @ 50 mls/hr Q2H PRN IV 03/23/17 20:45 (KCl 20 Meq Premix Inj) 100 ml @ 50 mls/hr Q2H PRN IV 03/23/17 20:45 Potassium Bicarb/ Potassium Chloride 50 meq 50 meq UNSCH PRN PO 03/23/17 20:45 Potassium Chloride 100 ml @ 25 mls/hr UNSCH PRN IV 03/23/17 20:45 Potassium Chloride 100 ml @ 50 mls/hr Q2H PRN IV 03/23/17 20:45 (Magnesium Sulfate Inj/NS Inj) 100 ml @ 50 mls/hr UNSCH PRN IV 03/23/17 20:45 Magnesium Oxide 800 mg 800 mg UNSCH PRN PO 03/23/17 20:45 (Magnesium Sulfate Inj/NS Inj) 100 ml @ 50 mls/hr UNSCH PRN IV 03/23/17 20:45 Potassium Phosphate 2000 mg 2,000 mg Q4H PRN PO 03/23/17 20:45 (Sodium Phosphate Inj/NS 250 ml Inj) 250 ml @ 42 mls/hr UNSCH PRN IV 03/23/17 20:45 Potassium Phosphate 2000 mg 2,000 mg UNSCH PRN PO/TUBE 03/23/17 20:45 Potassium Phosphate 30 mmol/ Sodium Chloride 260 ml @ 42 mls/hr UNSCH PRN IV 03/23/17 20:45 Clindamycin Phosphate 600 mg/ Sodium Chloride 104 ml @ 208 mls/hr Q8H IV 03/24/17 03:00 03/29/17 18:31 (Azactam Inj/NS Inj) 100 ml @ 200 mls/hr Q8H IV 03/24/17 03:00 03/29/17 18:05 (Ativan Inj) 2 mg Q2H PRN IV PUSH 03/24/17 02:00 Lactulose 30 ml 30 ml QID PO 03/24/17 09:00 03/29/17 09:14 (Keppra 1000 Mg Inj) 100 ml @ 400 mls/hr Q12HR IV 03/24/17 21:00 03/29/17 09:14 (Heparin Inj) 5,000 units Q12HR SQ 03/24/17 13:45 03/25/17 09:27 Chlorhexidine Gluconate 15 ml 15 ml BID@08,20 MT 03/26/17 08:00 03/27/17 07:36 Propofol 100 ml @ 0 mls/hr TITRATE IV 03/25/17 22:30 03/27/17 08:12 (NS + KCl 20 Meq Inj) 1,000 ml @ 100 mls/hr Q10H IV 03/26/17 14:00 03/29/17 11:02 (NS Flush) 2 ml UNSCH PRN IVF 03/26/17 14:00 (NS Flush) 2 ml BID IVF 03/26/17 21:00 03/29/17 09:00 (Dulcolax Supp) 10 mg DAILY PRN RECTAL 03/26/17 14:00 (Colace) 100 mg BID PO 03/26/17 21:00 03/29/17 09:14 (Protonix) 40 mg DAILY PO 03/27/17 09:00 03/29/17 09:14 (Protonix Inj) 40 mg DAILY IVP 03/27/17 09:00 03/28/17 07:50 (Zofran Inj) 4 mg Q6H PRN IV 03/26/17 14:00 03/27/17 21:52 Calcium Gluconate 1 gm 1 gm UNSCH PRN IV 03/26/17 14:00 Potassium Chloride 100 ml @ 50 mls/hr UNSCH PRN IV 03/26/17 14:00 (Magnesium Sulfate Inj/NS Inj) 108 ml @ 108 mls/hr UNSCH PRN IV 03/26/17 14:00 ([place] 10-325 Mg) 1 tab Q4H PRN PO 03/26/17 14:00 03/28/17 17:50 ([place] 10-325 Mg) 2 tab Q4H PRN PO 03/26/17 14:00 (Morphine Inj) 2 mg Q2H PRN IV PUSH 03/26/17 14:00 (Morphine Inj) 4 mg Q2H PRN IV PUSH 03/26/17 14:00 (Tylenol) 650 mg Q4H PRN PO 03/26/17 14:00 Allergies Allergies Coded Allergies Penicillin (Verified Allergy, Unknown, 03/24/17) Exam I&O / VS 03/28/17 03/28/17 03/29/17 15:00 23:00 07:00 Intake Total 1182 ml 1126 ml 995 ml Output Total 2210 ml 911 ml 706 ml Balance -1028 ml 215 ml 289 ml Intake Oral 240 ml 240 ml 120 ml IV Total 942 ml 886 ml 875 ml Output Urine Total 2200 ml 900 ml 700 ml Drainage Total 10 ml 11 ml 6 ml # Bowel Movements 0 0 Vital Signs Date Time Temp Pulse Resp B/P Pulse Ox O2 Delivery O2 Flow Rate FiO2 03/29/17 18:00 97 03/29/17 16:00 92 03/29/17 16:00 99.6 92 13 115/77 100 03/29/17 14:00 89 03/29/17 12:00 98.3 92 15 107/72 100 03/29/17 12:00 92 03/29/17 10:00 116 03/29/17 08:00 99.0 82 14 135/79 97 03/29/17 08:00 86 03/29/17 07:41 98 Nasal Cannula 2.00 03/29/17 07:00 98 Nasal Cannula 2.00 03/29/17 06:00 84 03/29/17 04:00 98.3 100 14 143/85 98 03/29/17 04:00 100 03/29/17 02:00 82 03/29/17 01:08 97 3.00 03/29/17 00:00 99.1 82 14 142/84 97 03/29/17 00:00 82 03/28/17 22:00 88 03/28/17 20:00 97.9 89 12 148/87 98 03/28/17 20:00 86 03/28/17 19:00 97 Nasal Cannula 3.00 03/28/17 19:00 15 Exam Comments alert, follow commands, CN intact MOTOR 5/5 bue no drift. Objective Micro and Labs Laboratory Tests Test 03/29/17 03/29/17 04:19 10:55 Sodium Level 138 Potassium Level 4.0 Chloride Level 103 Carbon Dioxide Level 25.2 Anion Gap 10 Blood Urea Nitrogen 25 Creatinine 0.63 Estimat Glomerular Filtration 133 Rate Random Glucose 109 Calcium Level 9.1 Phenytoin (Dilantin) Level 6.4 Alfonso Wilkins PhD MD Mar 29, 2017 18:49
[2017-03-29 20:21] LABS: HEMATOCRIT 40.3 % (39.0-51.0); MEAN CELL VOLUME 89.2 FL (80.0-100.0); MEAN CORPUSCULAR HEMOGLOBIN 29.9 PG (27.0-34.0); MEAN CORPUSCULAR HGB CONC 33.5 % (32.0-36.0); PLATELET COUNT 195 TH/MM3 (150-450); RED BLOOD COUNT 4.52 MIL/MM3 (4.50-5.90); RED CELL DISTRIBUTION WIDTH 16.8 % (11.6-17.2); REVIEW FLAG FINAL
[2017-03-29 20:41] LABS: APTT (PATIENT) 25.4 SEC (24.3-30.1); INTERNATIONAL NORMALIZED RATIO 1.3 RATIO; PROTHROMBIN TIME - PATIENT 14.1 SEC (9.8-11.6)
[2017-03-29] MEDS: PHENYTOIN SODIUM 100 MG CAP PO SCH ×2 (20:41→22:53)
[2017-03-29] MEDS: levETIRAcetam 500 MG TAB PO SCH (20:41)
[2017-03-29] MEDS: HEPARIN-D5W 25,000 U/250 ML 250 ML IV SCH (20:43)
--- NOTE | 2017-03-29 20:56 | MG ---
cc: SRIDEVI COX MD Lab No: Date: 03/29/17 Age: 52 Sex: M Race: REFERRING PHYSICIAN Dr. Palmer An EEG was obtained on this 52-year-old patient awake and asleep, status post craniotomy. Prior EEG showed continuous right hemisphere slowing with posterior sharp and spike discharges. MEDICATIONS 1. Keppra. 2. Celebrex. This EEG continues to show bilateral slowing maximum right central parietal. There are some intermixed sharp discharges on the right central parietal head region. There are beta, theta and delta rhythms bilaterally and there is no ictal pattern. Photic stimulation showed no significant change. INTERPRETATION Abnormal EEG because of bilateral slowing, right more than left, maximum right central parietal with associated sharp discharges which are epileptiform but no ictal activity present. Sridevi Cox MD [facility] /7:32 PM /8:42 PM
--- NOTE | 2017-03-29 21:37 | HHI.PR ---
Subjective Remarks Follow up for metastatic lung cancer with brain metastasis, seizure activity. Mr. Mendosa is currently doing well. Apparently, while sitting in his chair he had a minor seizure today. Denies any fever, chills. Objective Vitals Vital Signs Date Time Temp Pulse Resp B/P Pulse Ox O2 Delivery O2 Flow Rate FiO2 03/29/17 20:08 99 Nasal Cannula 2.00 03/29/17 18:00 97 03/29/17 16:00 92 03/29/17 16:00 99.6 92 13 115/77 100 03/29/17 14:00 89 03/29/17 12:00 98.3 92 15 107/72 100 03/29/17 12:00 92 03/29/17 10:00 116 03/29/17 08:00 99.0 82 14 135/79 97 03/29/17 08:00 86 03/29/17 07:41 98 Nasal Cannula 2.00 03/29/17 07:00 98 Nasal Cannula 2.00 03/29/17 06:00 84 03/29/17 04:00 98.3 100 14 143/85 98 03/29/17 04:00 100 03/29/17 02:00 82 03/29/17 01:08 97 3.00 03/29/17 00:00 99.1 82 14 142/84 97 03/29/17 00:00 82 03/28/17 22:00 88 I/O 03/28/17 03/28/17 03/28/17 03/29/17 03/29/17 03/29/17 07:00 15:00 23:00 07:00 15:00 23:00 Intake Total 1085 ml 1182 ml 1126 ml 995 ml 1492 ml Output Total 1666 ml 2210 ml 911 ml 706 ml 800 ml Balance -581 ml -1028 ml 215 ml 289 ml 692 ml Intake Oral 120 ml 240 ml 240 ml 120 ml 400 ml IV Total 965 ml 942 ml 886 ml 875 ml 1092 ml Output Urine Total 1650 ml 2200 ml 900 ml 700 ml 800 ml Drainage Total 16 ml 10 ml 11 ml 6 ml # Bowel Movements 0 0 0 0 Result Diagram: 03/29/17 1955 03/29/17 0419 Imaging Last Impressions Head CT 03/26/17 0000 Signed Impressions: Service Date/Time: Sunday, March 26, 2017 14:47 - CONCLUSION: 1. Status post a right-sided craniotomy. 2. Expected postsurgical changes are noted in the right posterior parietal lobe. 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 Inferior vena caval filter will be placed via the femoral vein. Jesu Veras MD IVC Filter Placement X-Ray 03/25/17 0000 Signed Impressions: Service Date/Time: Saturday, March 25, 2017 16:24 - CONCLUSION: Uncomplicated inferior vena cava filter placement as above. Jesu Veras MD Brain MRI 03/25/17 0000 Signed Impressions: Service Date/Time: Saturday, March 25, 2017 16:10 - CONCLUSION: 2 cm enhancing mass in the right parietal region Jesu Veras MD Chest X-Ray 03/24/17 0600 Signed Impressions: Service Date/Time: Friday, March 24, 2017 11:08 - CONCLUSION: Stable opacity at the apex of the left hemithorax. Jesu Beltran MD Objective Remarks GENERAL: Alert, NAD. SKIN: Warm and dry. HEAD: S/p craniotomy, bloody fluid drainage from the incision area, soaking the towel. EYES: No scleral icterus. No injection or drainage. NECK: Supple, trachea midline. No JVD or lymphadenopathy. CARDIOVASCULAR: Regular rate and rhythm without murmurs, gallops, or rubs. RESPIRATORY: Breath sounds equal bilaterally. No accessory muscle use. GASTROINTESTINAL: Abdomen soft, non-tender, nondistended. MUSCULOSKELETAL: No cyanosis, or edema. BACK: Nontender without obvious deformity. No CVA tenderness. 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 A/P Problem List: (1) New onset seizure ICD Code: R56.9 Status: Acute (2) Acute respiratory failure ICD Code: J96.00 Status: Acute (3) Brain metastases ICD Code: C79.31 Status: Acute (4) Neoplasm of brain causing mass effect on adjacent structures ICD Code: D49.6 Status: Acute (5) Pulmonary embolism ICD Code: I26.99 Status: Acute (6) DVT (deep venous thrombosis) ICD Code: I82.409 Status: Acute (7) Stage 4 lung cancer ICD Code: C34.90 Status: Acute Assessment and Plan Mr. Mendosa is a pleasant 52 year old male with a history of stage IV lung cancer who was admitted due to possible stroke and seizure activity. In the ER initially was awake alert then developed focal left-sided seizures followed by generalized seizure for 5 min, received Ativan for this. Initially aroused from postictal state and then again had recurrent generalized seizure activity. Patient was intubated for airway protection. CT of the head showed right parietal mass 1.7 cm suspicious for metastatic lesion. Patient was admitted to ICU and neurosurgery was consulted. Patient underwent craniotomy with mass resection on 03/26/2017. Neurology consulted with regards to seizure activity. Patient's care was transferred to hospitalist service on 03/29/2017. - Metastatic non-small cell lung cancer - Metastatic right parietal mass with surrounding edema - Acute seizure - New onset seizure is likely due to mass, edema. - s/p craniotomy, surgical resection of the mass - Continue Dexamethasone 6mg IV Q6hrs, Keppra 1000 mg PO Q12hrs, Phenytoin dose increased, 100mg PO Q6hrs. - Phenytoin level in the AM. - Acute respiratory failure hypoxic and hypercarbic - Extubated on 03/27/2017. Maintain O2 via NC to keep O2 sat > 90%. - No clear indication to continue Aztreonam and Clindamycin. - IF okay with Neurosurgery, consider discontinuing antibiotics. - History of DVT, PE - Hold Lovenox due to metastatic brain lesion. - Cleared by surgery, Heme/Onc started heparin drip today without bolus. - IVC filter placed on 03/25/2017. Full code. Heparin Drip. Discussed with patient's , patient. Problem Qualifiers (1) Acute respiratory failure: Qualified Code: J96.00 - Acute respiratory failure, unspecified whether with hypoxia or hypercapnia (2) Pulmonary embolism: (3) DVT (deep venous thrombosis): (4) Stage 4 lung cancer: Qualified Code: C34.90 - Stage 4 malignant neoplasm of lung, unspecified laterality Luigi Melton DO Mar 29, 2017 21:37
[2017-03-30] VITALS (14 sets, daily range): BP systolic 108–152; BP diastolic 69–91; PULSE 81–108; RESP 12–19; TEMP 97.8–99.2; O2SAT 97–100
[2017-03-30] MEDS: CLINDAMYCIN INJ 600 MG in SODIUM CHLORIDE 0.9% INJ 100 ML IV SCH ×3 (01:11→20:22)
[2017-03-30] MEDS: AZTREONAM INJ 2,000 MG in SODIUM CHLORIDE 0.9% INJ 100 ML IV SCH ×3 (01:12→20:23)
[2017-03-30 03:54] LABS: APTT (PATIENT) 46.5 SEC (24.3-30.1)
[2017-03-30] MEDS: CHLORHEXIDINE GLUCONATE 2 % 1 PACK (2 CLOTHS) TOP SCH (04:00)
[2017-03-30] MEDS: PHENYTOIN SODIUM 100 MG CAP PO SCH (04:17)
[2017-03-30] MEDS: DEXAMETHASONE SOD PHOS 4 MG/ML VIAL IV PUSH SCH ×3 (04:18→18:15)
[2017-03-30] MEDS: CHLORHEXIDINE 0.12% (ORAL KIT) 15 ML CUP MT SCH ×2 (08:00→20:00)
[2017-03-30] MEDS: LACTULOSE SYRUP 20 GM/30 ML CUP PO SCH ×5 (09:00→20:11)
[2017-03-30] MEDS: PANTOPRAZOLE SOD 40 MG DELAYED RELEASE TAB PO SCH (09:00)
[2017-03-30] MEDS: SODIUM CHLORIDE 0.9% FLUSH 5 ML FLUSH IVF SCH ×2 (09:00→20:11)
[2017-03-30] MEDS: DOCUSATE SODIUM 100 MG CAP PO SCH ×2 (09:23→20:11)
[2017-03-30] MEDS: PANTOPRAZOLE SODIUM 40 MG VIAL IVP SCH (09:23)
[2017-03-30] MEDS: levETIRAcetam 500 MG TAB PO SCH ×2 (09:23→20:11)
[2017-03-30] MEDS: HEPARIN-D5W 25,000 U/250 ML 250 ML IV SCH ×2 (10:38→22:46)
[2017-03-30 10:56] LABS: APTT (PATIENT) 49.1 SEC (24.3-30.1)
--- NOTE | 2017-03-30 11:05 | HHI.NSPN ---
(Minesh Lai) History Chief Complaint: Unable to obtain due to patient wandering off on his own thoughts. (Minesh Lai) Interval History Mr. Mendosa is a 52 y/o male underwent right parietal craniotomy for resection of brain mets 03/26/17. 03/27: intubated and sedated. post/op CT Head completed. possible extubation today. EEG yesterday report noted. Dilantin levels yesterday was 11. 03/28:extubated, doing very well, brushing his teeth. Surgical pain controlled. EEG yesterday still shows sharps abnormalities. 03/29: no clinical seizures overnight, sitting up in chair eating breakfast. Nursing called later following rounds, pt had episode of staring was unresponsive found slumped over in chair. no shaking episodes seen. will repeat EEG. obtain Dilantin levels. 03/30: The patient is awake and alert, talking with his family. When asked questions for the review of systems the patient rambles on about other things and was not able to be redirected back. He was oriented to person, place and time though. His expressed her concern about his mental status. He does readily interact. (Minesh Lai) System Review Comments Unable to obtain due to patient wandering off on his own thoughts. (Minesh Lai) Exam Results Vital Signs Date Time Temp Pulse Resp B/P Pulse Ox O2 Delivery O2 Flow Rate FiO2 03/30/17 08:45 99 Nasal Cannula 2.00 03/30/17 08:00 97 03/30/17 08:00 99.2 18 152/91 03/27/17 13:55 40 Intake and Output 03/29/17 03/29/17 03/29/17 07:59 15:59 23:59 Intake Total 995 ml 1492 ml 1241 ml Output Total 706 ml 800 ml 750 ml Balance 289 ml 692 ml 491 ml (Minesh Lai) Physical Examination General: The patient is awake & alert, readily interacts, speech is rambling and not focused on questions being asked, affect flat, no apparent distress. HEENT: Surgical incision to posterior scalp w/intact jamaal, mild edema to flap area, JOEY drain site w/intact steri-strips, no active drainage, erythema or streaking to either, dried blood to scalp. PERRLA, EOMI. Neck: Active ROM w/o any pain, no JVD, trachea midline. Respiratory: CTAB w/o W/R/R, equal excursion, nonlaboured, on NC. Cardiovascular: S1S2 w/RRR w/o M/G/R, radial & pedal pulses 2+ bilaterally, cap refill < 2 sec, no pedal edema. Gastrointestinal: Abdomen soft, nontender, positive bowel sounds. Skin: Warm, dry & intact except for surgical incision to posterior scalp, no evident rashes, ulcerations or other lesions. Musculoskeletal: CHAVEZ w/o difficulty, no evident deformity or clubbing. Neurologic: AAOx3. Speech clear but confused, rambling and not appropriate to what was asked. PERRLA 3 mm brisk. Sensation intact to light touch to all extremities. Strength is 5/5 to all major flexion & extension muscle groups. (Minesh Lai) Medical Decision Making Impression and Plan Impression: 52 y/o male presents for seizures MRI Brain shows left right parietal mass lesion, suspected for metastatic lung CA. s/p right parietal craniotomy with resection of brain mass 03/26/17, final pathology of brain mass reports non-small cell carcinoma f/u CT Head 03/26/17 with expected postsurgical changes DVT, PE EEG 03/26/17 reports poss right epileptiform activities, EEG 03/27 with some epileptiform activities EEG demonstrated bilateral slowing, R>L, maximum right central parietal w/associated sharp discharges which are epileptiform but no itctal activity present. Patient doing well, motor strength normal, oriented to person, place & time but confused as to situation. Plan: Continue neuro checks. Continue PT, OT, ST Continue AEDs per Neurology. Continue seizure precautions. Clear to restart Heparin. (Minesh Lai) Attending Statement The exam, history, and the medical decision-making described in the above note were completed with the assistance of the mid-level provider. I reviewed and agree with the findings presented. I attest that I had a [id number] encounter with the patient on the same day, and personally performed and documented my assessment and findings in the medical record. On my examination this morning the patient is awake, mild lethargy. Speech is moderately slowed. He is oriented 3 but often starts talking about an appropriate situations and remains intermittently moderately confused according to the family. He has not slept very well for the first couple of days according to nursing staff. His most recent EEG reports have been reviewed. Dilantin level low this morning. We will refill us an increased dose. Add additional medications to help him sleep. Otherwise appears neurologically stable. (Damian Hickman MD) Minesh Lai Mar 30, 2017 11:05 Damian Hickman MD Mar 30, 2017 11:52
--- NOTE | 2017-03-30 12:11 | HHI.PR ---
Subjective Remarks Follow up for metastatic lung cancer with brain metastasis, seizure activity. at this time seen in his bedroom in the presence of his , no nausea, vomit or diarrhea. Objective Vital Signs Date Time Temp Pulse Resp B/P Pulse Ox O2 Delivery O2 Flow Rate FiO2 03/30/17 10:00 105 03/30/17 08:45 99 Nasal Cannula 2.00 03/30/17 08:43 99 Nasal Cannula 3.00 03/30/17 08:00 97 03/30/17 08:00 99.2 108 18 152/91 99 03/30/17 07:00 98 Nasal Cannula 3.00 03/30/17 06:00 81 03/30/17 04:00 98.5 83 12 127/81 97 03/30/17 04:00 83 03/30/17 02:00 91 03/30/17 00:00 98.8 89 12 128/84 97 03/30/17 00:00 89 03/29/17 22:00 89 03/29/17 20:08 99 Nasal Cannula 2.00 03/29/17 20:00 98.4 90 12 122/82 98 03/29/17 20:00 90 03/29/17 19:00 98 Nasal Cannula 3.00 03/29/17 18:00 97 03/29/17 16:00 92 03/29/17 16:00 99.6 92 13 115/77 100 03/29/17 14:00 89 I/O 03/29/17 03/29/17 03/29/17 03/30/17 03/30/17 03/30/17 07:00 15:00 23:00 07:00 15:00 23:00 Intake Total 995 ml 1492 ml 1241 ml 1109 ml Output Total 706 ml 800 ml 750 ml 1150 ml Balance 289 ml 692 ml 491 ml -41 ml Intake Oral 120 ml 400 ml 360 ml 150 ml IV Total 875 ml 1092 ml 881 ml 959 ml Output Urine Total 700 ml 800 ml 750 ml 1150 ml Drainage Total 6 ml # Bowel Movements 0 0 0 0 Result Diagram: 03/29/17 1955 03/29/17 0419 Imaging Last Impressions Head CT 03/26/17 0000 Signed Impressions: Service Date/Time: Sunday, March 26, 2017 14:47 - CONCLUSION: 1. Status post a right-sided craniotomy. 2. Expected postsurgical changes are noted in the right posterior parietal lobe. 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 Inferior vena caval filter will be placed via the femoral vein. Jesu Veras MD IVC Filter Placement X-Ray 03/25/17 0000 Signed Impressions: Service Date/Time: Saturday, March 25, 2017 16:24 - CONCLUSION: Uncomplicated inferior vena cava filter placement as above. Jesu Veras MD Brain MRI 03/25/17 0000 Signed Impressions: Service Date/Time: Saturday, March 25, 2017 16:10 - CONCLUSION: 2 cm enhancing mass in the right parietal region Jesu Veras MD Chest X-Ray 03/24/17 0600 Signed Impressions: Service Date/Time: Friday, March 24, 2017 11:08 - CONCLUSION: Stable opacity at the apex of the left hemithorax. 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 Other Results Laboratory Tests Test 03/26/17 03/27/17 03/29/17 03/29/17 04:10 04:52 04:19 19:55 Blood Type A POSITIVE Antibody Screen NEGATIVE Blood Bank Comment Neutrophils (%) (Auto) 88.1 % Lymphocytes (%) (Auto) 4.5 % Monocytes (%) (Auto) 7.1 % Eosinophils (%) (Auto) 0.1 % Basophils (%) (Auto) 0.2 % Neutrophils # (Auto) 11.3 TH/MM3 Lymphocytes # (Auto) 0.6 TH/MM3 Monocytes # (Auto) 0.9 TH/MM3 Eosinophils # (Auto) 0.0 TH/MM3 Basophils # (Auto) 0.0 TH/MM3 CBC Comment AUTO DIFF Differential Comment AUTO DIFF CONFIRMED Sodium Level 138 MEQ/L Potassium Level 4.0 MEQ/L Chloride Level 103 MEQ/L Carbon Dioxide Level 25.2 MEQ/L Anion Gap 10 MEQ/L Blood Urea Nitrogen 25 MG/DL Creatinine 0.63 MG/DL Estimat Glomerular Filtration 133 ML/MIN Rate Random Glucose 109 MG/DL Calcium Level 9.1 MG/DL White Blood Count 17.0 TH/MM3 Red Blood Count 4.52 MIL/MM3 Hemoglobin 13.5 GM/DL Hematocrit 40.3 % Mean Corpuscular Volume 89.2 FL Mean Corpuscular Hemoglobin 29.9 PG Mean Corpuscular Hemoglobin 33.5 % Concent Red Cell Distribution Width 16.8 % Platelet Count 195 TH/MM3 Mean Platelet Volume 7.0 FL Prothrombin Time 14.1 SEC Prothromb Time International 1.3 RATIO Ratio Test 03/30/17 03/30/17 03:31 09:30 Phenytoin (Dilantin) Level 9.8 MCG/ML Activated Partial 49.1 SEC Thromboplast Time Objective Remarks GENERAL: Alert, NAD. SKIN: Warm and dry. HEAD: S/p craniotomy, mechanical stitches in place, EYES: No scleral icterus. No injection or drainage. NECK: Supple, trachea midline. No JVD or lymphadenopathy. CARDIOVASCULAR: Regular rate and rhythm without murmurs, gallops, or rubs. RESPIRATORY: Breath sounds equal bilaterally. No accessory muscle use. GASTROINTESTINAL: Abdomen soft, non-tender, nondistended. MUSCULOSKELETAL: No cyanosis, or edema. BACK: Nontender without obvious deformity. No CVA tenderness. Medications and IVs Current Medications Medications (Trade) Dose Ordered Sig/Pina Route Start Time Stop Time Status Last Admin (NS 1000 ml Inj) 1,000 ml @ 75 mls/hr [id number] IV 03/23/17 20:23 03/26/17 06:08 Miscellaneous Information 1 [id number] XX 03/23/17 20:30 (Chlorhexidine 2% Cloth) Taper DAILY@04 TOP 03/24/17 04:00 03/20/18 03:59 03/28/17 03:12 Chlorhexidine Gluconate 3 pack 3 pack UNSCH PRN TOP 03/23/17 20:30 (Versed 100 Mg/ ml Inj) 100 ml @ 0 mls/hr TITRATE IV 03/23/17 20:30 03/26/17 17:46 Dexamethasone Sodium Phosphate 6 mg 6 mg Q6HR IV PUSH 03/24/17 00:00 03/30/17 04:18 Potassium Chloride 100 ml @ 50 mls/hr Q2H PRN IV 03/23/17 20:45 (KCl 20 Meq Premix Inj) 100 ml @ 50 mls/hr Q2H PRN IV 03/23/17 20:45 Potassium Bicarb/ Potassium Chloride 50 meq 50 meq UNSCH PRN PO 03/23/17 20:45 Potassium Chloride 100 ml @ 25 mls/hr UNSCH PRN IV 03/23/17 20:45 Potassium Chloride 100 ml @ 50 mls/hr Q2H PRN IV 03/23/17 20:45 (Magnesium Sulfate Inj/NS Inj) 100 ml @ 50 mls/hr UNSCH PRN IV 03/23/17 20:45 Magnesium Oxide 800 mg 800 mg UNSCH PRN PO 03/23/17 20:45 (Magnesium Sulfate Inj/NS Inj) 100 ml @ 50 mls/hr UNSCH PRN IV 03/23/17 20:45 Potassium Phosphate 2000 mg 2,000 mg Q4H PRN PO 03/23/17 20:45 (Sodium Phosphate Inj/NS 250 ml Inj) 250 ml @ 42 mls/hr UNSCH PRN IV 03/23/17 20:45 Potassium Phosphate 2000 mg 2,000 mg UNSCH PRN PO/TUBE 03/23/17 20:45 Potassium Phosphate 30 mmol/ Sodium Chloride 260 ml @ 42 mls/hr UNSCH PRN IV 03/23/17 20:45 Clindamycin Phosphate 600 mg/ Sodium Chloride 104 ml @ 208 mls/hr Q8H IV 03/24/17 03:00 03/30/17 10:53 (Azactam Inj/NS Inj) 100 ml @ 200 mls/hr Q8H IV 03/24/17 03:00 03/30/17 10:53 (Ativan Inj) 2 mg Q2H PRN IV PUSH 03/24/17 02:00 (Lactulose Liq) 30 ml QID PO 03/24/17 09:00 03/29/17 20:41 Chlorhexidine Gluconate 15 ml 15 ml BID@08,20 MT 03/26/17 08:00 03/30/17 08:00 Propofol 100 ml @ 0 mls/hr TITRATE IV 03/25/17 22:30 03/27/17 08:12 (NS + KCl 20 Meq Inj) 1,000 ml @ 100 mls/hr Q10H IV 03/26/17 14:00 03/29/17 20:41 (NS Flush) 2 ml UNSCH PRN IVF 03/26/17 14:00 (NS Flush) 2 ml BID IVF 03/26/17 21:00 03/30/17 09:00 (Dulcolax Supp) 10 mg DAILY PRN RECTAL 03/26/17 14:00 (Colace) 100 mg BID PO 03/26/17 21:00 03/30/17 09:23 (Protonix) 40 mg DAILY PO 03/27/17 09:00 03/29/17 09:14 (Protonix Inj) 40 mg DAILY IVP 03/27/17 09:00 03/30/17 09:23 (Zofran Inj) 4 mg Q6H PRN IV 03/26/17 14:00 03/27/17 21:52 Calcium Gluconate 1 gm 1 gm UNSCH PRN IV 03/26/17 14:00 Potassium Chloride 100 ml @ 50 mls/hr UNSCH PRN IV 03/26/17 14:00 (Magnesium Sulfate Inj/NS Inj) 108 ml @ 108 mls/hr UNSCH PRN IV 03/26/17 14:00 (Douglas 10-325 Mg) 1 tab Q4H PRN PO 03/26/17 14:00 03/28/17 17:50 (Douglas 10-325 Mg) 2 tab Q4H PRN PO 03/26/17 14:00 (Morphine Inj) 2 mg Q2H PRN IV PUSH 03/26/17 14:00 (Morphine Inj) 4 mg Q2H PRN IV PUSH 03/26/17 14:00 (Tylenol) 650 mg Q4H PRN PO 03/26/17 14:00 (Keppra) 1,000 mg Q12HR PO 03/29/17 21:00 03/30/17 09:23 Phenytoin 100 mg 100 mg Q6HR PO 03/29/17 19:00 03/30/17 04:17 (Heparin-D5W Inj) 250 ml @ 0 mls/hr TITRATE IV 03/29/17 19:30 03/30/17 10:38 A/P Assessment and Plan Mr. Mendosa is a pleasant 52 year old male with a history of stage IV lung cancer who was admitted due to possible stroke and seizure activity. In the ER initially was awake alert then developed focal left-sided seizures followed by generalized seizure for 5 min, received Ativan for this. Initially aroused from postictal state and then again had recurrent generalized seizure activity. Patient was intubated for airway protection. CT of the head showed right parietal mass 1.7 cm suspicious for metastatic lesion. Patient was admitted to ICU and neurosurgery was consulted. Patient underwent craniotomy with mass - Metastatic non-small cell lung cancer - Metastatic right parietal mass with surrounding edema - Acute seizure - New onset seizure is likely due to mass, edema. - s/p craniotomy, surgical resection of the mass - Continue Dexamethasone 6mg IV Q6hrs, Keppra 1000 mg PO Q12hrs, Phenytoin dose increased, 100mg PO Q6hrs. - Phenytoin level 9.8 - Acute respiratory failure hypoxic and hypercarbic - Extubated on 03/27/2017. Maintain O2 via NC to keep O2 sat > 90%. - No clear indication to continue Aztreonam and Clindamycin. - IF okay with Neurosurgery, consider discontinuing antibiotics. - History of DVT, PE - Hold Lovenox due to metastatic brain lesion. - Cleared by surgery, Heme/Onc started heparin drip today without bolus. - IVC filter placed on 03/25/2017. -Leukocytosis probable Steroids related. Full code. Heparin Drip. Discharge Planning Once cleared by specialists. Landon Pennington MD Mar 30, 2017 12:10
[2017-03-30] MEDS: SODIUM CHLOR 0.9% 1000 ML INJ 1,000 ML IV SCH (12:23)
[2017-03-30] MEDS ORDERED: PHENYTOIN INJ 250 MG/5 ML VIAL IV ONE (12:30)
[2017-03-30] MEDS: NS + KCL 20 MEQ INJ 1,000 ML IV SCH ×3 (13:00→20:11)
[2017-03-30] MEDS: LORazepam 2 MG/ML VIAL IV PUSH PRN (13:12)
--- NOTE | 2017-03-30 17:14 | EKG ---
Date Performed: 03/29/2017 Time Performed: 11:40:52 PTAGE: 52 years EKG: Sinus rhythm Short MA interval Borderline ECG Compared to prior tracing no significant change PREVIOUS TRACING : 01/07/2017 20.46 DOCTOR: Gabriele Bianchi Interpretating Date/Time 03/30/2017 17:12:19
[2017-03-30] MEDS: PHENYTOIN 50 MG CHEWABLE TAB PO SCH (18:14)
[2017-03-31] VITALS (13 sets, daily range): BP systolic 104–129; BP diastolic 71–84; PULSE 69–119; RESP 13–20; TEMP 98–99.8; O2SAT 97–99
[2017-03-31] MEDS: DEXAMETHASONE SOD PHOS 4 MG/ML VIAL IV PUSH SCH ×4 (00:08→17:57)
[2017-03-31] MEDS: PHENYTOIN 50 MG CHEWABLE TAB PO SCH ×3 (00:09→12:00)
[2017-03-31] MEDS: SODIUM CHLOR 0.9% 1000 ML INJ 1,000 ML IV SCH ×2 (00:17→15:03)
[2017-03-31] MEDS: CHLORHEXIDINE GLUCONATE 2 % 1 PACK (2 CLOTHS) TOP SCH (02:03)
[2017-03-31] MEDS: AZTREONAM INJ 2,000 MG in SODIUM CHLORIDE 0.9% INJ 100 ML IV SCH ×3 (02:14→19:52)
[2017-03-31] MEDS: CLINDAMYCIN INJ 600 MG in SODIUM CHLORIDE 0.9% INJ 100 ML IV SCH ×3 (02:14→19:52)
[2017-03-31 04:52] LABS: APTT (PATIENT) 53.2 SEC (24.3-30.1)
[2017-03-31] MEDS: NS + KCL 20 MEQ INJ 1,000 ML IV SCH (05:36)
[2017-03-31] MEDS: CHLORHEXIDINE 0.12% (ORAL KIT) 15 ML CUP MT SCH ×2 (08:00→20:00)
[2017-03-31] MEDS: SODIUM CHLORIDE 0.9% FLUSH 5 ML FLUSH IVF SCH ×2 (09:00→20:34)
[2017-03-31] MEDS: PANTOPRAZOLE SOD 40 MG DELAYED RELEASE TAB PO SCH (09:00)
[2017-03-31] MEDS: PANTOPRAZOLE SODIUM 40 MG VIAL IVP SCH (09:06)
[2017-03-31] MEDS: LACTULOSE SYRUP 20 GM/30 ML CUP PO SCH ×4 (09:06→20:34)
[2017-03-31] MEDS: levETIRAcetam 500 MG TAB PO SCH (09:06)
[2017-03-31] MEDS: DOCUSATE SODIUM 100 MG CAP PO SCH ×2 (09:06→20:34)
[2017-03-31] MEDS: LORazepam 2 MG/ML VIAL IV PUSH PRN (09:35)
--- NOTE | 2017-03-31 09:43 | HHI.NSPN ---
(Minesh Lai) History Chief Complaint: Unable to obtain due to patient wandering off on his own thoughts. (Minesh Lai) Interval History Mr. Mendosa is a 52 y/o male underwent right parietal craniotomy for resection of brain mets 03/26/17. 03/27: intubated and sedated. post/op CT Head completed. possible extubation today. EEG yesterday report noted. Dilantin levels yesterday was 11. 03/28:extubated, doing very well, brushing his teeth. Surgical pain controlled. EEG yesterday still shows sharps abnormalities. 03/29: no clinical seizures overnight, sitting up in chair eating breakfast. Nursing called later following rounds, pt had episode of staring was unresponsive found slumped over in chair. no shaking episodes seen. will repeat EEG. obtain Dilantin levels. 03/30: The patient is awake and alert, talking with his family. When asked questions for the review of systems the patient rambles on about other things and was not able to be redirected back. He was oriented to person, place and time though. His expressed her concern about his mental status. He does readily interact. 03/31: This morning the patient is awake and alert with his present. He continues to ramble on about things not related to the question asked. Nursing reports that the patient is having visual hallucinations and is confused as to what his situation is. The patient reports bleeding from the surgical site during the night. Nursing states that apparently as he was asleep and moved about some of the scabbing to the surgical incision broke off and he did have some minor bleeding. As this note is being finished Nursing reports that the patient is having another seizure with twitching although he is awake. (Minesh Lai) System Review Comments Unable to obtain due to patient wandering off on his own thoughts. (Minesh Lai) Exam Results Vital Signs Date Time Temp Pulse Resp B/P Pulse Ox O2 Delivery O2 Flow Rate FiO2 03/31/17 08:20 98 Nasal Cannula 03/31/17 08:00 98.1 89 16 117/81 03/31/17 07:27 2.00 03/27/17 13:55 40 Intake and Output 03/30/17 03/30/17 03/31/17 08:00 16:00 00:00 Intake Total 1109 ml 1100 ml 1439 ml Output Total 1150 ml 950 ml 100 ml Balance -41 ml 150 ml 1339 ml (Minesh Lai) Physical Examination General: The patient is awake & alert, readily interacts. His speech continues to ramble and is not related to the question asked. His affect remains flat. No apparent distress. HEENT: Surgical incision to posterior scalp w/intact jamaal, mild edema to area , JOEY drain site w/intact steri-strips, no active drainage, erythema or streaking to either, dried blood to scalp. PERRLA, EOMI. MMM & pink, tongue midline to protrusion. Neck: Active ROM w/o any pain, no JVD, trachea midline. Respiratory: CTAB w/o W/R/R, equal excursion, nonlaboured, on NC. Cardiovascular: S1S2 w/RRR w/o M/G/R, radial & pedal pulses 2+ bilaterally, cap refill < 2 sec, no pedal edema. Monitor is sinus rhythm w/o any ectopy noted. Gastrointestinal: Abdomen soft, nontender, positive bowel sounds. Skin: Warm, dry & intact except for surgical incision to posterior scalp, no evident rashes, ulcerations or other lesions. Musculoskeletal: CHAVEZ w/o difficulty, no evident deformity or clubbing. Neurologic: AAOx3. Speech clear but confused, rambling and not appropriate to what was asked. CN II-XII appear grossly intact, PERRLA 3 mm brisk. Sensation intact to light touch to all extremities. Strength is 4+ to 5/5 to all major flexion & extension muscle groups. (Minesh Lai) Medical Decision Making Impression and Plan Impression: 52 y/o male presents for seizures MRI Brain shows left right parietal mass lesion, suspected for metastatic lung CA. s/p right parietal craniotomy with resection of brain mass 03/26/17, final pathology of brain mass reports non-small cell carcinoma f/u CT Head 03/26/17 with expected postsurgical changes DVT, PE EEG 03/26/17 reports poss right epileptiform activities, EEG 03/27 with some epileptiform activities EEG demonstrated bilateral slowing, R>L, maximum right central parietal w/associated sharp discharges which are epileptiform but no itctal activity present. Patient doing well, motor strength essentially normal, oriented to person, place & time but confused as to situation. Patient still with intermittent active seizures. Plan: Continue neuro checks. Continue PT, OT, ST Continue AEDs per Neurology. Continue seizure precautions. Clear to restart Heparin. Ativan IV now. (Minesh Lai) Attending Statement I have personally seen and examined the patient on the date of this note. Pertinent documentation and study results have been reviewed by the undersigned. I have personally developed the treatment plan and performed medical decision making. Agree with findings, exam, and treatment plan as noted above. The patient is somewhat more lethargic this morning compared to exam of November 2016. He is still conversing slowly, following simple commands. He remains with mild to moderate confusion. A little weaker on the left versus the right upper extremity. Continued witnessed intermittent seizure activity noted this morning. Neurology service notified regarding the persistent seizure activity. EEG and progress Await a.m. Dilantin level. May require an additional anticonvulsant per neurology. Continue ISC observation (Damian Hickman MD) Minesh Lai Mar 31, 2017 09:43 Damian Hickman MD Mar 31, 2017 10:59
[2017-03-31] MEDS ORDERED: SODIUM CHLORIDE 0.9% IV ONE (13:00)
[2017-03-31] MEDS ORDERED: PHENYTOIN IV ONE (13:00)
--- NOTE | 2017-03-31 13:09 | HHI.PR ---
Subjective Remarks Follow up for metastatic lung cancer with brain metastasis, seizure activity. 03/31: Seen in his bedroom in the presence of Nurse Mr Ervin and his , for me he is stable and alert and oriented, complaint of constipation working on this with lactulose and Colace, has also Left Upper arm and left leg weakness. had seizures today and giving 300 mg of Dilantin at this time as per neurosurgery specialist. Objective Vital Signs Date Time Temp Pulse Resp B/P Pulse Ox O2 Delivery O2 Flow Rate FiO2 03/31/17 12:00 108 03/31/17 12:00 98.1 99 17 124/76 98 03/31/17 10:00 119 03/31/17 08:20 98 Nasal Cannula 03/31/17 08:00 98.1 89 16 117/81 99 03/31/17 08:00 90 03/31/17 07:27 98 Nasal Cannula 2.00 03/31/17 07:00 99 Nasal Cannula 2.00 03/31/17 06:00 69 03/31/17 04:00 80 03/31/17 04:00 98.0 80 13 104/71 98 03/31/17 02:00 92 03/31/17 00:00 98.0 84 17 117/75 99 03/31/17 00:00 84 03/30/17 22:00 90 03/30/17 21:11 100 Nasal Cannula 2.00 03/30/17 20:00 98.4 88 18 109/71 99 03/30/17 20:00 88 03/30/17 20:00 90 03/30/17 19:00 99 Nasal Cannula 2.00 03/30/17 18:00 106 03/30/17 16:00 105 03/30/17 16:00 97.8 96 19 108/69 98 03/30/17 14:00 88 I/O 03/30/17 03/30/17 03/30/17 03/31/17 03/31/17 03/31/17 07:00 15:00 23:00 07:00 15:00 23:00 Intake Total 1109 ml 1100 ml 1439 ml 996 ml Output Total 1150 ml 950 ml 100 ml 1150 ml Balance -41 ml 150 ml 1339 ml -154 ml Intake Oral 150 ml 480 ml IV Total 959 ml 1100 ml 959 ml 996 ml Output Urine Total 1150 ml 950 ml 100 ml 1150 ml # Bowel Movements 0 0 0 Result Diagram: 03/29/17 1955 03/29/17 0419 Imaging Last Impressions Head CT 03/26/17 0000 Signed Impressions: Service Date/Time: Sunday, March 26, 2017 14:47 - CONCLUSION: 1. Status post a right-sided craniotomy. 2. Expected postsurgical changes are noted in the right posterior parietal lobe. 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 Inferior vena caval filter will be placed via the femoral vein. Jesu Veras MD IVC Filter Placement X-Ray 03/25/17 0000 Signed Impressions: Service Date/Time: Saturday, March 25, 2017 16:24 - CONCLUSION: Uncomplicated inferior vena cava filter placement as above. Jesu Veras MD Brain MRI 03/25/17 0000 Signed Impressions: Service Date/Time: Saturday, March 25, 2017 16:10 - CONCLUSION: 2 cm enhancing mass in the right parietal region Jesu Veras MD Chest X-Ray 03/24/17 0600 Signed Impressions: Service Date/Time: Friday, March 24, 2017 11:08 - CONCLUSION: Stable opacity at the apex of the left hemithorax. 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 Other Results Laboratory Tests Test 03/27/17 03/29/17 03/29/17 03/31/17 04:52 04:19 19:55 03:49 Neutrophils (%) (Auto) 88.1 % Lymphocytes (%) (Auto) 4.5 % Monocytes (%) (Auto) 7.1 % Eosinophils (%) (Auto) 0.1 % Basophils (%) (Auto) 0.2 % Neutrophils # (Auto) 11.3 TH/MM3 Lymphocytes # (Auto) 0.6 TH/MM3 Monocytes # (Auto) 0.9 TH/MM3 Eosinophils # (Auto) 0.0 TH/MM3 Basophils # (Auto) 0.0 TH/MM3 CBC Comment AUTO DIFF Differential Comment AUTO DIFF CONFIRMED Sodium Level 138 MEQ/L Potassium Level 4.0 MEQ/L Chloride Level 103 MEQ/L Carbon Dioxide Level 25.2 MEQ/L Anion Gap 10 MEQ/L Blood Urea Nitrogen 25 MG/DL Creatinine 0.63 MG/DL Estimat Glomerular Filtration 133 ML/MIN Rate Random Glucose 109 MG/DL Calcium Level 9.1 MG/DL White Blood Count 17.0 TH/MM3 Red Blood Count 4.52 MIL/MM3 Hemoglobin 13.5 GM/DL Hematocrit 40.3 % Mean Corpuscular Volume 89.2 FL Mean Corpuscular Hemoglobin 29.9 PG Mean Corpuscular Hemoglobin 33.5 % Concent Red Cell Distribution Width 16.8 % Platelet Count 195 TH/MM3 Mean Platelet Volume 7.0 FL Prothrombin Time 14.1 SEC Prothromb Time International 1.3 RATIO Ratio Activated Partial 53.2 SEC Thromboplast Time Test 03/31/17 10:20 Phenytoin (Dilantin) Level 15.8 MCG/ML Objective Remarks GENERAL: Alert, NAD. SKIN: Warm and dry. HEAD: S/p craniotomy, mechanical stitches in place, EYES: No scleral icterus. No injection or drainage. NECK: Supple, trachea midline. No JVD or lymphadenopathy. CARDIOVASCULAR: Regular rate and rhythm without murmurs, gallops, or rubs. RESPIRATORY: Breath sounds equal bilaterally. No accessory muscle use. GASTROINTESTINAL: Abdomen soft, non-tender, nondistended. MUSCULOSKELETAL: No cyanosis, or edema. BACK: Nontender without obvious deformity. No CVA tenderness. Medications and IVs Current Medications Medications (Trade) Dose Ordered Sig/Pina Route Start Time Stop Time Status Last Admin (NS 1000 ml Inj) 1,000 ml @ 75 mls/hr [id number] IV 03/23/17 20:23 03/26/17 06:08 Miscellaneous Information 1 [id number] XX 03/23/17 20:30 (Chlorhexidine 2% Cloth) Taper DAILY@04 TOP 03/24/17 04:00 03/20/18 03:59 03/28/17 03:12 Chlorhexidine Gluconate 3 pack 3 pack UNSCH PRN TOP 03/23/17 20:30 (Versed 100 Mg/ ml Inj) 100 ml @ 0 mls/hr TITRATE IV 03/23/17 20:30 03/26/17 17:46 Dexamethasone Sodium Phosphate 6 mg 6 mg Q6HR IV PUSH 03/24/17 00:00 03/31/17 12:39 Potassium Chloride 100 ml @ 50 mls/hr Q2H PRN IV 03/23/17 20:45 (KCl 20 Meq Premix Inj) 100 ml @ 50 mls/hr Q2H PRN IV 03/23/17 20:45 Potassium Bicarb/ Potassium Chloride 50 meq 50 meq UNSCH PRN PO 03/23/17 20:45 Potassium Chloride 100 ml @ 25 mls/hr UNSCH PRN IV 03/23/17 20:45 Potassium Chloride 100 ml @ 50 mls/hr Q2H PRN IV 03/23/17 20:45 (Magnesium Sulfate Inj/NS Inj) 100 ml @ 50 mls/hr UNSCH PRN IV 03/23/17 20:45 Magnesium Oxide 800 mg 800 mg UNSCH PRN PO 03/23/17 20:45 (Magnesium Sulfate Inj/NS Inj) 100 ml @ 50 mls/hr UNSCH PRN IV 03/23/17 20:45 Potassium Phosphate 2000 mg 2,000 mg Q4H PRN PO 03/23/17 20:45 (Sodium Phosphate Inj/NS 250 ml Inj) 250 ml @ 42 mls/hr UNSCH PRN IV 03/23/17 20:45 Potassium Phosphate 2000 mg 2,000 mg UNSCH PRN PO/TUBE 03/23/17 20:45 Potassium Phosphate 30 mmol/ Sodium Chloride 260 ml @ 42 mls/hr UNSCH PRN IV 03/23/17 20:45 Clindamycin Phosphate 600 mg/ Sodium Chloride 104 ml @ 208 mls/hr Q8H IV 03/24/17 03:00 03/31/17 10:35 (Azactam Inj/NS Inj) 100 ml @ 200 mls/hr Q8H IV 03/24/17 03:00 03/31/17 10:35 (Ativan Inj) 2 mg Q2H PRN IV PUSH 03/24/17 02:00 03/31/17 09:35 (Lactulose Liq) 30 ml QID PO 03/24/17 09:00 03/31/17 09:06 Chlorhexidine Gluconate 15 ml 15 ml BID@08,20 MT 03/26/17 08:00 03/30/17 08:00 Propofol 100 ml @ 0 mls/hr TITRATE IV 03/25/17 22:30 03/27/17 08:12 (NS + KCl 20 Meq Inj) 1,000 ml @ 100 mls/hr Q10H IV 03/26/17 14:00 03/31/17 05:36 (NS Flush) 2 ml UNSCH PRN IVF 03/26/17 14:00 (NS Flush) 2 ml BID IVF 03/26/17 21:00 03/31/17 09:00 (Dulcolax Supp) 10 mg DAILY PRN RECTAL 03/26/17 14:00 (Colace) 100 mg BID PO 03/26/17 21:00 03/31/17 09:06 (Protonix) 40 mg DAILY PO 03/27/17 09:00 03/29/17 09:14 (Protonix Inj) 40 mg DAILY IVP 03/27/17 09:00 03/31/17 09:06 (Zofran Inj) 4 mg Q6H PRN IV 03/26/17 14:00 03/27/17 21:52 Calcium Gluconate 1 gm 1 gm UNSCH PRN IV 03/26/17 14:00 Potassium Chloride 100 ml @ 50 mls/hr UNSCH PRN IV 03/26/17 14:00 (Magnesium Sulfate Inj/NS Inj) 108 ml @ 108 mls/hr UNSCH PRN IV 03/26/17 14:00 (Thatcher 10-325 Mg) 1 tab Q4H PRN PO 03/26/17 14:00 03/28/17 17:50 (Thatcher 10-325 Mg) 2 tab Q4H PRN PO 03/26/17 14:00 (Morphine Inj) 2 mg Q2H PRN IV PUSH 03/26/17 14:00 (Morphine Inj) 4 mg Q2H PRN IV PUSH 03/26/17 14:00 (Tylenol) 650 mg Q4H PRN PO 03/26/17 14:00 Levetriacetam 1000 mg 1,000 mg Q12HR PO 03/29/17 21:00 03/31/17 09:06 (Heparin-D5W Inj) 250 ml @ 0 mls/hr TITRATE IV 03/29/17 19:30 03/30/17 22:46 Phenytoin 150 mg 150 mg Q6HR PO 03/30/17 18:00 03/31/17 12:00 (Dilantin Inj/NS Inj) 106 ml @ 110 mls/hr ONCE ONCE IV 03/31/17 13:00 03/31/17 13:57 A/P Assessment and Plan Mr. Mendosa is a pleasant 52 year old male with a history of stage IV lung cancer who was admitted due to possible stroke and seizure activity. In the ER initially was awake alert then developed focal left-sided seizures followed by generalized seizure for 5 min, received Ativan for this. Initially aroused from postictal state and then again had recurrent generalized seizure activity. Patient was intubated for airway protection. CT of the head showed right parietal mass 1.7 cm suspicious for metastatic lesion. Patient was admitted to ICU and neurosurgery was consulted. Patient underwent craniotomy with mass - Metastatic non-small cell lung cancer - Metastatic right parietal mass with surrounding edema - Acute seizure - New onset seizure is likely due to mass, edema. - s/p craniotomy, surgical resection of the mass 03/26/17 - Continue Dexamethasone 6mg IV Q6hrs, Keppra 1000 mg PO Q12hrs, Phenytoin dose increased, 150 mg PO Q6hrs. - Phenytoin level 9.8 continue with Seizures today Neurosurgery specialist giving 300 mg more of Dilantin and following. - Acute respiratory failure hypoxic and hypercarbic - Extubated on 03/27/2017. Maintain O2 via NC to keep O2 sat > 90%. - No clear indication to continue Aztreonam and Clindamycin. - IF okay with Neurosurgery, consider discontinuing antibiotics. - History of DVT, PE - Cleared by surgery, Heme/Onc started heparin drip today without bolus. - IVC filter placed on 03/25/2017. -Leukocytosis probable Steroids related. -Constipation continue Lactulose and Colace. Full code. Heparin Drip. Discharge Planning Once cleared by specialists. Landon Pennington MD Mar 31, 2017 13:09
--- NOTE | 2017-03-31 15:18 | RADRPT ---
EXAM DATE/TIME: 03/31/2017 14:47 [facility] COMPARISON: CT BRAIN W/O CONTRAST, March 26, 2017, 14:47. INDICATIONS : Left side weakness following seizure this morning. RADIATION DOSE: 56.35 CTDIvol (mGy) MEDICAL HISTORY : Carcinoma, lung. Seizures. Brain tumor. SURGICAL HISTORY : Brain tumor removed. ENCOUNTER: Initial ACUITY: 1 day PAIN SCALE: 0/10 LOCATION: cranial TECHNIQUE: Multiple contiguous axial images were obtained of the head. Using automated exposure control and adj ustment of the mA and/or kV according to patient size, radiation dose was kept as low as reasonably a chievable to obtain optimal diagnostic quality images. DICOM format image data is available electro nically for review and comparison. FINDINGS: CEREBRUM: A large parenchymal hematoma has developed in the left parietal lobe following removal of a surgical drain. The hematoma measures 6 x 3.6 cm in width. There is significant surrounding edema. Slight shif t of midline structures measuring approximately 4 mm is noted. The left cerebral hemisphere is stable . POSTERIOR FOSSA: The cerebellum and brainstem are intact. The 4th ventricle is midline. The cerebellopontine angle i s unremarkable. EXTRACRANIAL: The visualized portion of the orbits is intact. SKULL: The calvaria is intact. No evidence of skull fracture. CONCLUSION: Large 6 cm acute parenchymal hemorrhage in the right parietal lobe at the site of previous surgical d rain. Moderate mass effect and edema with mild midline shift. Otherwise stable appearing brain Salbador Davenport MD on March 31, 2017 at 15:13 Board Certified Radiologist. This report was verified electronically.
[2017-03-31] MEDS ORDERED: PHENYTOIN INJ 250 MG/5 ML VIAL ONE (17:56)
[2017-03-31] MEDS: PHENYTOIN INJ 100 MG/2 ML VIAL IV SCH (19:52)
--- NOTE | 2017-03-31 20:28 | RADRPT ---
EXAM DATE/TIME: 03/31/2017 20:07 [facility] COMPARISON: CT BRAIN W/O CONTRAST, March 26, 2017, 14:47. CT BRAIN W/O CONTRAST, March 31, 2017, 14:47. INDICATIONS : Follow up ICH - increased left hemiparesis. RADIATION DOSE: 34.38 CTDIvol (mGy) MEDICAL HISTORY : Seizures. Lung cancer. Brain tumor. SURGICAL HISTORY : Brain tumor removed. ENCOUNTER: Subsequent ACUITY: 1 day PAIN SCALE: Non-responsive LOCATION: cranial TECHNIQUE: Multiple contiguous axial images were obtained of the head. Using automated exposure control and adj ustment of the mA and/or kV according to patient size, radiation dose was kept as low as reasonably a chievable to obtain optimal diagnostic quality images. DICOM format image data is available electro nically for review and comparison. FINDINGS: Right parietal lobe hemorrhage is again seen and unchanged measuring 6 cm in greatest dimension. Righ t to left midline shift slightly increased measuring 5 mm compared to 4 mm on the prior study. There is also a small right frontal subdural hematoma measuring 4 mm in thickness. This is unchanged from t he prior study. There is also likely subdural hemorrhage on the right side of the tentorium measuring a maximum of 1.4 cm in thickness, also unchanged. Postsurgical findings in the right frontal skull again seen. CONCLUSION: 1. 6 cm parenchymal hematoma in the right parietal lobe unchanged. 2. Slight increase in right to left midline shift. 3. 4 mm right frontal subdural hemorrhage unchanged. 4. Likely subdural hemorrhage along the right tentorium also unchanged. Joo Leavitt MD on March 31, 2017 at 20:19 Board Certified Radiologist. This report was verified electronically.
[2017-03-31] MEDS: levETIRAcetam 1000 MG INJ 100 ML IV SCH (20:34)
--- NOTE | 2017-03-31 20:36 | HHI.NSPN ---
History Chief Complaint: Unable to obtain due to patient wandering off on his own thoughts. Interval History Mr. Mendosa was noted to have an additional seizure earlier this afternoon. Following that seizure, he developed left hemiparesis which did not improve. Within a couple of hours after the seizure, he had further deterioration in the left upper and lower extremity motor function, and a CT scan of the head was obtained which revealed approximately 3.5 x 6 cm right parieto-occipital acute parenchymal intracranial hemorrhage at the previous tumor site, with approximately 3-4 mm localized midline shift. The patient's heparin was stopped. He subsequently had some further deterioration in primarily left lower extremity motor function. A second follow-up CT scan of the head has been obtained which has revealed stable intracranial hemorrhage without expansion of the hematoma or further increased midline shift. He has no complaint of headache. No visual symptoms. No significant speech deficit. Exam Results Vital Signs Date Time Temp Pulse Resp B/P Pulse Ox O2 Delivery O2 Flow Rate FiO2 03/31/17 18:00 102 03/31/17 16:00 98.7 19 129/79 98 03/31/17 08:20 Nasal Cannula 03/31/17 07:27 2.00 03/27/17 13:55 40 Intake and Output 03/30/17 03/30/17 03/31/17 08:00 16:00 00:00 Intake Total 1109 ml 1100 ml 1439 ml Output Total 1150 ml 950 ml 100 ml Balance -41 ml 150 ml 1339 ml Physical Examination Mr. Mendosa remains awake and alert. His speech is clear and appropriate He follows simple commands well He has occasional episodes of mild confusion, but improved compared to earlier today and yesterday. Extraocular movements and visual jimenes to confrontation are intact Facial sensory motor testing is normal Sensation is intact to light touch in the upper and lower extremities Strength is diminished to 3/5 left biceps and hand intrinsics with minimal triceps and grafts. He has absent motor function in the left lower extremity Right upper and lower extremity motor function is normal Lab, Micro, Other Results 03/31/2017 CT scan of the head from approximately 1440 as well as follow-up CT scan from approximately 2009 images have been reviewed by the undersigned. The study reveals a right primarily parietal acute intracranial hemorrhage of somewhat moderate density, much of which is interspersed in the brain parenchyma. Head CT 03/31/17 0000 Signed Impressions: Service Date/Time: Friday, March 31, 2017 14:47 - CONCLUSION: Large 6 cm acute parenchymal hemorrhage in the right parietal lobe at the site of previous surgical drain. Moderate mass effect and edema with mild midline shift. Otherwise stable appearing brain Salbador Davenport MD Laboratory Tests Test 03/31/17 03/31/17 03:49 10:20 Activated Partial 53.2 SEC Thromboplast Time Phenytoin (Dilantin) Level 15.8 MCG/ML Medical Decision Making Impression and Plan Impression: 1. Acute intracranial hemorrhage at the right parietal neoplasm-craniotomy site. The hematoma is stable on the approximately 6 hour follow-up CT scan after heparin discontinued. Plan: Findings were discussed at length with the patient and his family. Options of conservative treatment versus surgical intervention were discussed. Since the follow-up CT scan of the head is stable, and there is minimal mass effect from the hematoma as well as relatively moderate attenuation of the hematoma on CT scan, it is felt most reasonable to continue conservative treatment and observation. The patient and family are in agreement with this plan. They are well aware of the risks of discontinuation of the anticoagulation, with a prior history of DVT and pulmonary embolus. Damian Hickman MD Mar 31, 2017 20:35
[2017-03-31] MEDS ORDERED: levETIRAcetam INJ 1,000 MG in SODIUM CHLORIDE 0.9% INJ 100 ML IV SCH (21:00)
[2017-04-01] VITALS (16 sets, daily range): BP systolic 92–130; BP diastolic 61–79; PULSE 77–92; RESP 14–20; TEMP 98.1–98.7; O2SAT 96–100
[2017-04-01] MEDS: PHENYTOIN INJ 100 MG/2 ML VIAL IV SCH ×4 (01:03→20:23)
[2017-04-01] MEDS: DEXAMETHASONE SOD PHOS 4 MG/ML VIAL IV PUSH SCH ×5 (01:03→23:44)
[2017-04-01] MEDS: AZTREONAM INJ 2,000 MG in SODIUM CHLORIDE 0.9% INJ 100 ML IV SCH ×4 (02:08→20:23)
[2017-04-01] MEDS: CLINDAMYCIN INJ 600 MG in SODIUM CHLORIDE 0.9% INJ 100 ML IV SCH ×4 (02:08→20:23)
[2017-04-01] MEDS: CHLORHEXIDINE GLUCONATE 2 % 1 PACK (2 CLOTHS) TOP SCH (03:47)
[2017-04-01] MEDS: SODIUM CHLOR 0.9% 1000 ML INJ 1,000 ML IV SCH (03:48)
[2017-04-01 05:18] LABS: APTT (PATIENT) 23.2 SEC (24.3-30.1)
[2017-04-01 05:33] LABS: HEMATOCRIT 36.1 % (39.0-51.0); MEAN CELL VOLUME 89.7 FL (80.0-100.0); MEAN CORPUSCULAR HEMOGLOBIN 30.2 PG (27.0-34.0); MEAN CORPUSCULAR HGB CONC 33.6 % (32.0-36.0); PLATELET COUNT 149 TH/MM3 (150-450); RED BLOOD COUNT 4.03 MIL/MM3 (4.50-5.90); RED CELL DISTRIBUTION WIDTH 17.2 % (11.6-17.2); REVIEW FLAG FINAL; WHITE BLOOD COUNT 15.2 TH/MM3 (4.0-11.0)
[2017-04-01 05:37] LABS: BICARBONATE 24.7 MEQ/L (21.0-32.0); MAGNESIUM 2.1 MG/DL (1.5-2.5); POTASSIUM 4.1 MEQ/L (3.5-5.1)
[2017-04-01] MEDS: LORazepam 2 MG/ML VIAL IV PUSH PRN (08:31)
[2017-04-01] MEDS: levETIRAcetam 1000 MG INJ 100 ML IV SCH ×2 (08:49→20:22)
[2017-04-01] MEDS: CHLORHEXIDINE 0.12% (ORAL KIT) 15 ML CUP MT SCH ×2 (08:49→20:23)
[2017-04-01] MEDS: DOCUSATE SODIUM 100 MG CAP PO SCH ×2 (08:50→20:51)
[2017-04-01] MEDS: SODIUM CHLORIDE 0.9% FLUSH 5 ML FLUSH IVF SCH ×2 (08:50→20:51)
[2017-04-01] MEDS: PANTOPRAZOLE SODIUM 40 MG VIAL IVP SCH (08:50)
[2017-04-01] MEDS: LACTULOSE SYRUP 20 GM/30 ML CUP PO SCH ×4 (08:50→20:51)
[2017-04-01] MEDS: PANTOPRAZOLE SOD 40 MG DELAYED RELEASE TAB PO SCH (09:00)
[2017-04-01] MEDS ORDERED: MANNITOL INJ 50 ML ONE (09:09)
[2017-04-01] MEDS: MANNITOL 12.5 GM/50 ML VIAL IV SCH ×2 (09:40→09:53)
[2017-04-01] MEDS ORDERED: MANNITOL 12.5 GM/50 ML VIAL IV SCH (10:00)
--- NOTE | 2017-04-01 10:38 | RADRPT ---
EXAM DATE/TIME: 04/01/2017 10:22 [facility] COMPARISON: CT BRAIN W/O CONTRAST, March 31, 2017, 14:47. CT BRAIN W/O CONTRAST, March 26, 2017, 14:47. MRI B RAIN STEALTH W CONTRAST, March 25, 2017, 16:10. CT BRAIN W/O CONTRAST, March 31, 2017, 20:07. INDICATIONS : Follow up bleed, post op brain tumor removal. RADIATION DOSE: 34.47 CTDIvol (mGy) MEDICAL HISTORY : Seizures. Carcinoma, lung. chemo, radiation, brain tumor SURGICAL HISTORY : port, brain tumor removal ENCOUNTER: Subsequent ACUITY: 2 weeks PAIN SCALE: Non-responsive LOCATION: cranial TECHNIQUE: Multiple contiguous axial images were obtained of the head. Using automated exposure control and adj ustment of the mA and/or kV according to patient size, radiation dose was kept as low as reasonably a chievable to obtain optimal diagnostic quality images. DICOM format image data is available electro nically for review and comparison. FINDINGS: Large evolving hemorrhage is present in the right parietal-occipital region. This is associated with vasogenic edema and moderate mass effect. The hemorrhage measures 5 cm x 3.5 cm. The left hemisphere is unremarkable There is minimal persistent right to left shift of 6 mm. This is stable in the interval. Posterior fossa remains unremarkable. CONCLUSION: Evolving parenchymal hemorrhage right parietal-occipital region as described above a ssociated with the presumed metastatic deposit. Findings remain relatively stable. Xavi Campos MD FACR on April 01, 2017 at 10:34 Board Certified Radiologist. This report was verified electronically.
--- NOTE | 2017-04-01 11:41 | HHI.NSPN ---
(Nancy Barajas) Note Status Status: Progress Note (Gatito Palmer MD) Interval History Interval History Mr. Mendosa is a 52 y/o male underwent right parietal craniotomy for resection of brain mets 03/26/17. 03/27: intubated and sedated. post/op CT Head completed. possible extubation today. EEG yesterday report noted. Dilantin levels yesterday was 11. 03/28:extubated, doing very well, brushing his teeth. Surgical pain controlled. EEG yesterday still shows sharps abnormalities. 03/29: no clinical seizures overnight, sitting up in chair eating breakfast. 04/01: pt with recurrent seizures over the weekend, f/u CT Head shows acute hematoma within surgical bed. had more seizures this morning, worsening left side weakness, now unable to move. remains awake, alert but intermittently confused (Nancy Barajas) Labs, Micro, & Vital Signs Results Date Time Temp Pulse Resp B/P Pulse Ox O2 Delivery O2 Flow Rate FiO2 04/01/17 07:07 97 21 04/01/17 06:00 85 04/01/17 04:00 84 04/01/17 04:00 98.1 84 20 109/68 96 04/01/17 02:00 92 04/01/17 00:00 92 04/01/17 00:00 98.3 92 20 107/73 97 03/31/17 22:00 94 03/31/17 20:00 92 03/31/17 20:00 99.8 100 20 118/84 97 03/31/17 19:00 95 Room Air 03/31/17 18:00 102 03/31/17 16:00 106 03/31/17 16:00 98.7 99 19 129/79 98 03/31/17 14:00 103 03/31/17 12:00 108 03/31/17 12:00 98.1 99 17 124/76 98 04/01/17 07:00 Intake Total 2811 ml Output Total 2900 ml Balance -89 ml Constitutional Vital Signs Date Time Temp Pulse Resp B/P Pulse Ox O2 Delivery O2 Flow Rate FiO2 04/01/17 07:07 97 21 04/01/17 06:00 85 04/01/17 04:00 84 04/01/17 04:00 98.1 84 20 109/68 96 04/01/17 02:00 92 04/01/17 00:00 92 04/01/17 00:00 98.3 92 20 107/73 97 03/31/17 22:00 94 03/31/17 20:00 92 03/31/17 20:00 99.8 100 20 118/84 97 03/31/17 19:00 95 Room Air 03/31/17 18:00 102 03/31/17 16:00 106 03/31/17 16:00 98.7 99 19 129/79 98 03/31/17 14:00 103 03/31/17 12:00 108 03/31/17 12:00 98.1 99 17 124/76 98 04/01/17 07:00 Intake Total 2811 ml Output Total 2900 ml Balance -89 ml (Nancy Barajas) Review of Systems/Exam Exam Mr. Mendosa remains awake, appears confused, follows simple commands. Extraocular movements and visual jimenes to confrontation are intact Facial sensory motor testing is normal Sensation is intact to light touch in the upper and lower extremities Motor: moves right side well, 0/5 left upper and lower (Nancy Barajas) Medications Current Medications Current Medications Medications (Trade) Dose Ordered Sig/Pina Route PRN Reason Start Time Stop Time Status Last Admin Dose Admin Sodium Chloride (NS 1000 ml Inj) 1,000 ml @ 75 mls/hr [id number] IV 03/23/17 20:23 03/26/17 06:08 Miscellaneous Information 1 Q361D XX 03/23/17 20:30 Chlorhexidine Gluconate (Chlorhexidine 2% Cloth) Taper DAILY@04 TOP 03/24/17 04:00 03/20/18 03:59 03/28/17 03:12 Chlorhexidine Gluconate 3 pack 3 pack UNSCH PRN TOP HYGIENIC CARE 03/23/17 20:30 Midazolam HCl (Versed 100 Mg/ ml Inj) 100 ml @ 0 mls/hr TITRATE IV 03/23/17 20:30 03/26/17 17:46 Dexamethasone Sodium Phosphate 6 mg 6 mg Q6HR IV PUSH 03/24/17 00:00 04/01/17 05:40 Potassium Chloride 100 ml @ 50 mls/hr Q2H PRN IV For Potassium 2.8 - 3.2 mEq/L 03/23/17 20:45 Potassium Chloride (KCl 20 Meq Premix Inj) 100 ml @ 50 mls/hr Q2H PRN IV For Potassium 2.8 - 3.2 mEq/L 03/23/17 20:45 Potassium Bicarb/ Potassium Chloride 50 meq 50 meq UNSCH PRN PO For Potassium 3.3 - 3.5 mEq/L 03/23/17 20:45 Potassium Chloride 100 ml @ 25 mls/hr UNSCH PRN IV For Potassium 3.3 - 3.5 mEq/L 03/23/17 20:45 Potassium Chloride 100 ml @ 50 mls/hr Q2H PRN IV For Potassium 3.3 - 3.5 mEq/L 03/23/17 20:45 Magnesium Sulfate/ Sodium Chloride (Magnesium Sulfate Inj/NS Inj) 100 ml @ 50 mls/hr UNSCH PRN IV For Magnesium 0.9 - 1.1 mg/dL 03/23/17 20:45 Magnesium Oxide 800 mg 800 mg UNSCH PRN PO For Magnesium 1.2 - 1.6 mg/dL 03/23/17 20:45 Magnesium Sulfate/ Sodium Chloride (Magnesium Sulfate Inj/NS Inj) 100 ml @ 50 mls/hr UNSCH PRN IV For Magnesium 1.2 - 1.6 mg/dL 03/23/17 20:45 Potassium Phosphate 2000 mg 2,000 mg Q4H PRN PO For Phosphorus < 2.5 mg/dL 03/23/17 20:45 Sodium Phosphate/ Sodium Chloride (Sodium Phosphate Inj/NS 250 ml Inj) 250 ml @ 42 mls/hr UNSCH PRN IV For Phosphorus < 2.5 mg/dL 03/23/17 20:45 Potassium Phosphate 2000 mg 2,000 mg UNSCH PRN PO/TUBE SEE LABEL COMMENTS 03/23/17 20:45 Potassium Phosphate 30 mmol/ Sodium Chloride 260 ml @ 42 mls/hr UNSCH PRN IV SEE LABEL COMMENTS 03/23/17 20:45 Clindamycin Phosphate 600 mg/ Sodium Chloride 104 ml @ 208 mls/hr Q8H IV 03/24/17 03:00 04/01/17 02:08 Aztreonam/Sodium Chloride (Azactam Inj/NS Inj) 100 ml @ 200 mls/hr Q8H IV 03/24/17 03:00 04/01/17 02:08 Lorazepam (Ativan Inj) 2 mg Q2H PRN IV PUSH seizure 03/24/17 02:00 04/01/17 08:31 Lactulose (Lactulose Liq) 30 ml QID PO 03/24/17 09:00 04/01/17 08:50 Chlorhexidine Gluconate 15 ml 15 ml BID@08,20 MT 03/26/17 08:00 04/01/17 08:49 Propofol 100 ml @ 0 mls/hr TITRATE IV 03/25/17 22:30 03/27/17 08:12 Potassium Chloride/Sodium Chloride (NS + KCl 20 Meq Inj) 1,000 ml @ 100 mls/hr Q10H IV 03/26/17 14:00 04/01/17 00:00 IV Flush (NS Flush) 2 ml UNSCH PRN IVF FLUSH AFTER USING IV ACCESS 03/26/17 14:00 IV Flush (NS Flush) 2 ml BID IVF 03/26/17 21:00 03/31/17 20:34 Bisacodyl (Dulcolax Supp) 10 mg DAILY PRN RECTAL CONSTIPATION 03/26/17 14:00 Docusate Sodium (Colace) 100 mg BID PO 03/26/17 21:00 04/01/17 08:50 Pantoprazole Sodium (Protonix) 40 mg DAILY PO 03/27/17 09:00 03/29/17 09:14 Pantoprazole Sodium (Protonix Inj) 40 mg DAILY IVP 03/27/17 09:00 04/01/17 08:50 Ondansetron HCl (Zofran Inj) 4 mg Q6H PRN IV NAUSEA OR VOMITING 03/26/17 14:00 03/27/17 21:52 Calcium Gluconate 1 gm 1 gm UNSCH PRN IV SEE LABEL COMMENTS 03/26/17 14:00 Potassium Chloride 100 ml @ 50 mls/hr UNSCH PRN IV POTASSIUM LESS THAN 4 03/26/17 14:00 Magnesium Sulfate/ Sodium Chloride (Magnesium Sulfate Inj/NS Inj) 108 ml @ 108 mls/hr UNSCH PRN IV MAGNESIUM LESS THAN 2 03/26/17 14:00 Acetaminophen/ Hydrocodone Bitart ([place] 10-325 Mg) 1 tab Q4H PRN PO PAIN SCALE 1 TO 5 03/26/17 14:00 03/28/17 17:50 Acetaminophen/ Hydrocodone Bitart ([place] 10-325 Mg) 2 tab Q4H PRN PO PAIN SCALE 6 TO 10 03/26/17 14:00 Morphine Sulfate (Morphine Inj) 2 mg Q2H PRN IV PUSH PAIN SCALE 1 TO 6 03/26/17 14:00 Morphine Sulfate (Morphine Inj) 4 mg Q2H PRN IV PUSH PAIN SCALE 7 TO 10 03/26/17 14:00 Acetaminophen (Tylenol) 650 mg Q4H PRN PO TEMPERATURE > 101.5 F 03/26/17 14:00 Phenytoin Sodium 150 mg 150 mg Q6H IV 03/31/17 20:00 04/01/17 08:48 Levetriacetam (Keppra 1000 Mg Inj) 100 ml @ 400 mls/hr Q12H IV 03/31/17 21:00 04/01/17 08:49 Mannitol (Mannitol Inj) 25 gm Q8H IV 04/01/17 17:00 04/01/17 09:53 (Nancy Barajas) Medical Decision Making MDM Remarks 52 y/o male presents for seizures MRI Brain shows left right parietal mass lesion, suspected for metastatic lung CA. s/p right parietal craniotomy with resection of brain mass 03/26/17 f/u CT Head 03/26/17 with expected postsurgical changes DVT, PE, s/p placement of IVC filter EEG 03/26/17 reports poss right epileptiform activities f/u CT Brain 04/01/17 with moderate right parietal hematoma, pt with recurrent seizures and left side plegia (Nancy Barajas) Plan Plan Remarks stat repeat f/u CT Head this am shows moderate hematoma causing mass effect or midline shift with recurrent seizures and left hemiplegia, Dr. Palmer reviewed f/u CT Head today, recommend repeat craniotomy with evacuation of hematoma start Mannitol 25 gm q 8 hours, hold for serum os greater than 310, cont current AEDs, Dilantin levels therapeutic today, cont seizure precautions repeat EEG per Dr. Palmer cont PT, OT, ST cont neuro checks dw in detail, all questions answered (Nancy Barajas) Attending Statement Mr Navya suffered a hemorrhage related to heparin administration. He is getting worse. I discussed with his the alternatives of treatment. He has significant mass effect and I recommend consideration to a surgical decompression. We have discussed the details including the [id number] details of the surgical procedure, its indications, alternatives, risks, and potential complications. Risks and potential complications include, but are not limited to, infection, blood loss, CSF leak, partial or complete loss of sight in one or both eyes, paresis, paralysis, permanent pain or difficulty swallowing, loss of bowel or bladder function, complications from anesthesia, blood clot, stroke , myocardial infarction, or even . The exam, history, and the medical decision-making described in the above note were completed with the assistance of the mid-level provider. I reviewed and agree with the findings presented. I attest that I had a [id number] encounter with the patient on the same day, and personally performed and documented my assessment and findings in the medical record. (Gatito Palmer MD) Nancy Barajas Apr 01, 2017 11:41 Gatito Palmer MD Apr 01, 2017 14:56
[2017-04-01] MEDS ORDERED: fentaNYL CITRATE 250 MCG/5 ML AMP ONE (11:44)
[2017-04-01] MEDS ORDERED: LACTATED RINGER'S 1000 ML INJ 2,000 ML IV ONE (12:00)
[2017-04-01] MEDS ORDERED: ONDANSETRON HCL 4 MG/2 ML VIAL IV PUSH ONE (12:00)
[2017-04-01] MEDS ORDERED: PROPOFOL 200 MG/20 ML AMP IV ONE (12:00)
[2017-04-01] MEDS ORDERED: LIDOCAINE 1%/EPINEPHrine 1:100,000 SOLN 30 ML VIAL INFIL ONE (12:00)
[2017-04-01] MEDS ORDERED: ceFAZolin INJ 1,000 MG VIAL IV ONE (13:00)
[2017-04-01] MEDS ORDERED: NS + KCL 20 MEQ INJ 1,000 ML IV SCH (13:14)
[2017-04-01] MEDS ORDERED: CALCIUM GLUCONATE 10% 1 GM/10 ML VIAL IV PRN (13:15)
[2017-04-01] MEDS ORDERED: ACETAMINOPHEN/HYDROcodone 325 MG/10 MG TAB PO PRN ×2 (13:15)
[2017-04-01] MEDS ORDERED: POTASSIUM CHLOR 20 MEQ PREMIX 100 ML IV PRN (13:15)
[2017-04-01] MEDS ORDERED: SODIUM CHLORIDE 0.9% FLUSH 5 ML FLUSH IVF PRN (13:15)
[2017-04-01] MEDS ORDERED: ACETAMINOPHEN 325 MG TAB PO PRN (13:15)
[2017-04-01] MEDS ORDERED: MAGNESIUM SULFATE INJ 4 GM in SODIUM CHLORIDE 0.9% INJ 100 ML IV PRN (13:15)
[2017-04-01] MEDS ORDERED: BISACODYL 10 MG SUPP RECTAL PRN (13:15)
[2017-04-01] MEDS ORDERED: MORPHINE SULFATE 4 MG/ML INJ IV PUSH PRN ×2 (13:15)
[2017-04-01] MEDS ORDERED: THROMBIN (TOPICAL) 5,000 UNIT VIAL TOPICAL ONE (13:27)
[2017-04-01] MEDS ORDERED: GELFOAM SIZE 100 TOP ONE (13:27)
[2017-04-01] MEDS ORDERED: GENTAMICIN SULFATE 80 MG/2 ML VIAL IRRIGATION ONE (13:27)
[2017-04-01] MEDS: LACOSAMIDE INJ 150 MG in SODIUM CHLORIDE 0.9% INJ 100 ML IV SCH ×3 (13:50→22:12)
[2017-04-01] MEDS ORDERED: MIDAZOLAM HCL 2 MG/2 ML VIAL ONE (14:14)
[2017-04-01] MEDS ORDERED: DO NOT ADM ANY ANTICOAGULANT DRUGS PRN (14:53)
[2017-04-01] MEDS: NS + KCL 20 MEQ INJ 1,000 ML IV SCH ×3 (15:00→20:00)
--- NOTE | 2017-04-01 15:00 | PD.OP ---
Operative Report Date of Surgery: Apr 01, 2017 Preoperative Diagnosis: Intracerebral hemorrhage Postoperative Diagnosis: Intracerebral hemorrhage Procedure: Right parietal craniotomy, evacuation of intracerebral hematoma Anesthesia: general Surgeon: Gatito Palmer Abalone Diver(s): Jaleel Operation and Findings: INDICATIONS FOR THE PROCEDURE Mr Mendosa is a 52-year-old male with history of lung carcinoma who presented with new onset seizures and left sided weakness. he was found to have a right parietal lobe mass with severe edema, causing mass effect on the underlying brain and midline shift. He underwent a craniotomy with resection of a mas. He was placed in IV heparin and developed a hemorrhage with left side hemiplegia. Surgical decompression was indicated. I have discussed with his the [id number] details of the procedure, its indications, alternatives, risks and potential complications with the patient including but not limited to the risk of infection, hemorrhage, paralysis, stroke, heart attack, even vegetative state or even the possibility of . The patient fully understands. All her questions were answered. No guarantees were given. She voiced requesting the procedure and provided informed consent. She has been offered the alternative of not having aggressive management. DETAILS OF THE SURGICAL PROCEDURE After the induction of general anesthesia the patient was endotracheally intubated and mechanically ventilated. A Nunez catheter, bilateral BG hose and sequential compression devices were placed and kept throughout the procedure. The patient was positioned supine on a 3080 table over a soft mattress. The head was placed on a gel doughnut. All pressure points were carefully padded with egg crate mattress. The eyes were tapped shut after ointment was applied by the anesthesiologist to prevent corneal abrasion. A Nara hugger was placed over the exposed lower body to maintain control of the core body temperature. The right temporal parietal area was shaved, prepped and draped in the usual sterile fashion. A standard inverted question sam incision was outlined on the scalp and infiltrated with 1% lidocaine with epinephrine. The skin incision was made with a #10 blade down to the level of the periosteum in the prior suture region. A subperiosteal dissection was performed reflecting the scalp flap anteriorly. The scalp was covered with a moist sponge and held in position using fish hooks. The craniotomy flap was elevated. The dura was bulging, tense with pressure due to the underlying mass effect. The dura was opened with a 15 blade and metzembaun sissors and retracted with 4-0 Neurolon sutures attached to the fascia. An intracerebral hematoma was readily localized. Through a small corticotomy the hematoma was evacuated using microsurgical dissection, with the micro-bipolar forceps, microscissors, micro-suction, and gentle irrigation. The specimen was sent to the lab for histological analysis. Appropriate hemostasis was then secured using the bipolar center machine operator. Then the incision was irrigated with saline solution. The dural edges were tacked to the bone. The craniotomy flap was then repositioned and secured in place using Biomed plates and screws. A 7 millimeter Lorenzo-Evans drain was then left in the subgaleal space and externalized through a separate stab incision. The incision was then closed in layers. 0 Vicryl in interrupted sutures were used to close the temporalis fascia. The galea was closed with interrupted 3- 0 Vicryl. Modesta were applied to the skin. The drain was secured with a 3-0 nylon. At the end of the procedure, the sponge, needle and instrument counts were all correct. Estimated blood loss was less than 100 cc. No blood transfusion was given. No intraoperative complications occurred. The patient received prophylactic antibiotics. The patient was then transferred to the recovery room in stable condition. Gatito Palmer MD Apr 01, 2017 14:59
--- NOTE | 2017-04-01 15:11 | HHI.PR ---
Subjective Remarks Follow up for metastatic lung cancer with brain metastasis, seizure activity. 03/31: Seen in his bedroom in the presence of Nurse Mr Ervin and his , for me he is stable and alert and oriented, complaint of constipation working on this with lactulose and Colace, has also Left Upper arm and left leg weakness. had seizures today and giving 300 mg of Dilantin at this time as per neurosurgery specialist. 04/01: Status post evaluation by Neurosurgery seen by Doctor Gatito Palmer who reviewed the Stat CT brain for 04/01/17 has Moderate right parietal hematoma causing mass effect of midline shift with recurrent seizure and left Hemiplegia, was recommended to repeat Craniotomy and evacuation of Hematoma, started on Mannitol 25 grams every 8 hours and hold for serum osmolality greater than 310, continue current AEDs, Dilantin levels therapeutic, continue Seizure precautions and to repeat EEG. I came twice to see the patient but was in surgery and will be followed by Service Dog Trainer when come back to ICU Objective Vital Signs Date Time Temp Pulse Resp B/P Pulse Ox O2 Delivery O2 Flow Rate FiO2 04/01/17 15:03 100 50 04/01/17 07:07 97 21 04/01/17 07:00 97 Room Air 04/01/17 06:00 85 04/01/17 04:00 84 04/01/17 04:00 98.1 84 20 109/68 96 04/01/17 02:00 92 04/01/17 00:00 92 04/01/17 00:00 98.3 92 20 107/73 97 03/31/17 22:00 94 03/31/17 20:00 92 03/31/17 20:00 99.8 100 20 118/84 97 03/31/17 19:00 95 Room Air 03/31/17 18:00 102 03/31/17 16:00 106 03/31/17 16:00 98.7 99 19 129/79 98 I/O 03/31/17 03/31/17 03/31/17 04/01/17 04/01/17 04/01/17 06:59 14:59 22:59 06:59 14:59 22:59 Intake Total 996 ml 1070 ml 800 ml 941 ml 447 ml Output Total 1150 ml 1900 ml 500 ml 500 ml 1200 ml Balance -154 ml -830 ml 300 ml 441 ml -753 ml IV Total 996 ml 1070 ml 800 ml 941 ml 447 ml Output Urine Total 1150 ml 1900 ml 500 ml 500 ml 1200 ml # Bowel Movements 0 0 0 0 0 Result Diagram: 04/01/17 0410 04/01/17 0410 Imaging Last Impressions Head CT 04/01/17 0000 Signed Impressions: Service Date/Time: Saturday, April 01, 2017 10:22 - CONCLUSION: Evolving parenchymal hemorrhage right parietal-occipital region as described above associated with the presumed metastatic deposit. Findings remain relatively stable. 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 Inferior vena caval filter will be placed via the femoral vein. Jesu Veras MD IVC Filter Placement X-Ray 03/25/17 0000 Signed Impressions: Service Date/Time: Saturday, March 25, 2017 16:24 - CONCLUSION: Uncomplicated inferior vena cava filter placement as above. Jesu Veras MD Brain MRI 03/25/17 0000 Signed Impressions: Service Date/Time: Saturday, March 25, 2017 16:10 - CONCLUSION: 2 cm enhancing mass in the right parietal region Jesu Veras MD Chest X-Ray 03/24/17 0600 Signed Impressions: Service Date/Time: Friday, March 24, 2017 11:08 - CONCLUSION: Stable opacity at the apex of the left hemithorax. 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 Other Results Laboratory Tests Test 03/29/17 04/01/17 19:55 04:10 Prothrombin Time 14.1 SEC Prothromb Time International 1.3 RATIO Ratio White Blood Count 15.2 TH/MM3 Red Blood Count 4.03 MIL/MM3 Hemoglobin 12.1 GM/DL Hematocrit 36.1 % Mean Corpuscular Volume 89.7 FL Mean Corpuscular Hemoglobin 30.2 PG Mean Corpuscular Hemoglobin 33.6 % Concent Red Cell Distribution Width 17.2 % Platelet Count 149 TH/MM3 Mean Platelet Volume 7.1 FL Activated Partial 23.2 SEC Thromboplast Time Sodium Level 136 MEQ/L Potassium Level 4.1 MEQ/L Chloride Level 102 MEQ/L Carbon Dioxide Level 24.7 MEQ/L Anion Gap 9 MEQ/L Blood Urea Nitrogen 24 MG/DL Creatinine 0.56 MG/DL Estimat Glomerular Filtration 152 ML/MIN Rate Random Glucose 94 MG/DL Calcium Level 9.2 MG/DL Phosphorus Level 2.9 MG/DL Magnesium Level 2.1 MG/DL Phenytoin (Dilantin) Level 16.9 MCG/ML Medications and IVs Current Medications Medications (Trade) Dose Ordered Sig/Pina Route Start Time Stop Time Status Last Admin Miscellaneous Information 1 Q361D XX 03/23/17 20:30 (Chlorhexidine 2% Cloth) Taper DAILY@04 TOP 03/24/17 04:00 03/20/18 03:59 03/28/17 03:12 Chlorhexidine Gluconate 3 pack 3 pack UNSCH PRN TOP 03/23/17 20:30 (Versed 100 Mg/ ml Inj) 100 ml @ 0 mls/hr TITRATE IV 03/23/17 20:30 03/26/17 17:46 Dexamethasone Sodium Phosphate 6 mg 6 mg Q6HR IV PUSH 03/24/17 00:00 04/01/17 05:40 Potassium Chloride 100 ml @ 50 mls/hr Q2H PRN IV 03/23/17 20:45 (KCl 20 Meq Premix Inj) 100 ml @ 50 mls/hr Q2H PRN IV 03/23/17 20:45 Potassium Bicarb/ Potassium Chloride 50 meq 50 meq UNSCH PRN PO 03/23/17 20:45 Potassium Chloride 100 ml @ 25 mls/hr UNSCH PRN IV 03/23/17 20:45 Potassium Chloride 100 ml @ 50 mls/hr Q2H PRN IV 03/23/17 20:45 (Magnesium Sulfate Inj/NS Inj) 100 ml @ 50 mls/hr UNSCH PRN IV 03/23/17 20:45 Magnesium Oxide 800 mg 800 mg UNSCH PRN PO 03/23/17 20:45 (Magnesium Sulfate Inj/NS Inj) 100 ml @ 50 mls/hr UNSCH PRN IV 03/23/17 20:45 Potassium Phosphate 2000 mg 2,000 mg Q4H PRN PO 03/23/17 20:45 (Sodium Phosphate Inj/NS 250 ml Inj) 250 ml @ 42 mls/hr UNSCH PRN IV 03/23/17 20:45 Potassium Phosphate 2000 mg 2,000 mg UNSCH PRN PO/TUBE 03/23/17 20:45 Potassium Phosphate 30 mmol/ Sodium Chloride 260 ml @ 42 mls/hr UNSCH PRN IV 03/23/17 20:45 Clindamycin Phosphate 600 mg/ Sodium Chloride 104 ml @ 208 mls/hr Q8H IV 03/24/17 03:00 04/01/17 13:40 (Azactam Inj/NS Inj) 100 ml @ 200 mls/hr Q8H IV 03/24/17 03:00 04/01/17 13:45 (Ativan Inj) 2 mg Q2H PRN IV PUSH 03/24/17 02:00 04/01/17 08:31 (Lactulose Liq) 30 ml QID PO 03/24/17 09:00 04/01/17 08:50 Chlorhexidine Gluconate 15 ml 15 ml BID@08,20 MT 03/26/17 08:00 04/01/17 08:49 Propofol 100 ml @ 0 mls/hr TITRATE IV 03/25/17 22:30 03/27/17 08:12 (NS + KCl 20 Meq Inj) 1,000 ml @ 100 mls/hr Q10H IV 03/26/17 14:00 04/01/17 00:00 (Zofran Inj) 4 mg Q6H PRN IV 03/26/17 14:00 03/27/17 21:52 Phenytoin Sodium 150 mg 150 mg Q6H IV 03/31/17 20:00 04/01/17 08:48 (Keppra 1000 Mg Inj) 100 ml @ 400 mls/hr Q12H IV 03/31/17 21:00 04/01/17 08:49 Mannitol 25 gm 25 gm Q8H IV 04/01/17 17:00 04/01/17 09:53 (Vimpat Inj/NS Inj) 115 ml @ 115 mls/hr Q8HR IV 04/01/17 14:00 04/01/17 13:50 (NS Flush) 2 ml UNSCH PRN IVF 04/01/17 13:15 IV Flush 2 ml 2 ml BID IVF 04/01/17 21:00 (Ancef 2 Gm Premix) 50 ml @ 100 mls/hr Q8H IV 04/01/17 21:00 04/02/17 13:29 (Dulcolax Supp) 10 mg DAILY PRN RECTAL 04/01/17 13:15 (Colace) 100 mg BID PO 04/01/17 21:00 (Protonix) 40 mg DAILY PO 04/02/17 09:00 (Protonix Inj) 40 mg DAILY IVP 04/02/17 09:00 Calcium Gluconate 1 gm 1 gm UNSCH PRN IV 04/01/17 13:15 Potassium Chloride 100 ml @ 50 mls/hr UNSCH PRN IV 04/01/17 13:15 (Magnesium Sulfate Inj/NS Inj) 108 ml @ 108 mls/hr UNSCH PRN IV 04/01/17 13:15 ([place] 10-325 Mg) 1 tab Q4H PRN PO 04/01/17 13:15 ([place] 10-325 Mg) 2 tab Q4H PRN PO 04/01/17 13:15 (Morphine Inj) 2 mg Q2H PRN IV PUSH 04/01/17 13:15 (Morphine Inj) 4 mg Q2H PRN IV PUSH 04/01/17 13:15 (Tylenol) 650 mg Q4H PRN PO 04/01/17 13:15 A/P Assessment and Plan Mr. Mendosa is a pleasant 52 year old male with a history of stage IV lung cancer who was admitted due to possible stroke and seizure activity. In the ER initially was awake alert then developed focal left-sided seizures followed by generalized seizure for 5 min, received Ativan for this. Initially aroused from postictal state and then again had recurrent generalized seizure activity. Patient was intubated for airway protection. CT of the head showed right parietal mass 1.7 cm suspicious for metastatic lesion. Patient was admitted to ICU and neurosurgery was consulted. Patient underwent craniotomy with mass resection, now on new evaluation by Neurosurgery seen by Doctor Gatito Palmer who reviewed the Stat CT brain for 04/01/17 has Moderate right parietal hematoma causing mass effect of midline shift with recurrent seizure and left Hemiplegia, was recommended to repeat Craniotomy and evacuation of Hematoma, started on Mannitol 25 grams every 8 hours and hold for serum osmolality greater than 310, continue current AEDs, Dilantin levels therapeutic, continue Seizure precautions and to repeat EEG. I came twice to see the patient but was in surgery and will be followed by Service Dog Trainer when come back to ICU - Metastatic non-small cell lung cancer - Metastatic right parietal mass with surrounding edema - Acute seizure - New onset seizure is likely due to mass, edema. - s/p craniotomy, surgical resection of the mass 03/26/17 - Continue Dexamethasone 6mg IV Q6hrs, Keppra 1000 mg PO Q12hrs, Phenytoin dose increased, 150 mg PO Q6hrs. - Phenytoin level 9.8 continue with Seizures today Neurosurgery specialist giving 300 mg more of Dilantin and following. - Acute respiratory failure hypoxic and hypercarbic - Extubated on 03/27/2017. Maintain O2 via NC to keep O2 sat > 90%. - No clear indication to continue Aztreonam and Clindamycin. - IF okay with Neurosurgery, consider discontinuing antibiotics. - History of DVT, PE - Cleared by surgery, Heme/Onc started heparin drip today without bolus. - IVC filter placed on 03/25/2017. -Leukocytosis probable Steroids related. -Constipation continue Lactulose and Colace. Full code. Heparin Drip. Not seen by me today will continue to be followed by Service Dog Trainer when comes back from Surgery. Discharge Planning Once cleared by specialists. Landon Pennington MD Apr 01, 2017 15:11
[2017-04-01 15:19] LABS: BLOOD GAS BASE EXCESS 0.3 mmol/L (-2-2); BLOOD GAS CARBOXYHEMOGLOBIN 2.3 % (0-4); BLOOD GAS HCO3 24 mmol/L (22-26); BLOOD GAS METHEMOGLOBIN 1.1 % (0-2); BLOOD GAS O2 HGB SATURATION 97 % (90-100); BLOOD GAS OXYGEN CONTENT 15.1 Vol % (12.0-20.0); BLOOD GAS PCO2 36 mmHg (38-42); BLOOD GAS PO2 212 mmHg (61-120); BLOOD GAS TOTAL HGB 10.7 G/DL (12.0-16.0); CRITICAL VALUE NO; OXYGEN DEVICE VENTILATOR; TEMP CORR TO 98.6
[2017-04-01 15:20] LABS: DRAW SITE LT RADIAL; FIO2 50 %; NUMBER OF ARTERIAL PUNCTURES 1; STAT YES; VENT SETTINGS AC 550/15/+5PEEP
--- NOTE | 2017-04-01 16:00 | PD.ONC.PN ---
Subjective Subjective Remarks Afebrile overnight. Patient seen in PACU. Intubated, sedated. Per nursing staff, post-operatively he was taken off sedation and was following commands and moving all extremities. Objective Data Date Time Temp Pulse Resp B/P Pulse Ox O2 Delivery O2 Flow Rate FiO2 04/01/17 15:22 100 40 04/01/17 15:03 100 50 04/01/17 07:07 97 21 04/01/17 07:00 97 Room Air 04/01/17 06:00 85 04/01/17 04:00 84 04/01/17 04:00 98.1 84 20 109/68 96 04/01/17 02:00 92 04/01/17 00:00 92 04/01/17 00:00 98.3 92 20 107/73 97 03/31/17 22:00 94 03/31/17 20:00 92 03/31/17 20:00 99.8 100 20 118/84 97 03/31/17 19:00 95 Room Air 03/31/17 18:00 102 03/31/17 16:00 106 03/31/17 16:00 98.7 99 19 129/79 98 04/01/17 04/01/17 04/01/17 07:00 15:00 23:00 Intake Total 941 ml 447 ml Output Total 500 ml 1200 ml Balance 441 ml -753 ml Result Diagram: 04/01/17 0410 04/01/17 0410 Laboratory Results Laboratory Tests Test 04/01/17 04/01/17 04:10 15:04 White Blood Count 15.2 TH/MM3 Red Blood Count 4.03 MIL/MM3 Hemoglobin 12.1 GM/DL Hematocrit 36.1 % Mean Corpuscular Volume 89.7 FL Mean Corpuscular Hemoglobin 30.2 PG Mean Corpuscular Hemoglobin 33.6 % Concent Red Cell Distribution Width 17.2 % Platelet Count 149 TH/MM3 Mean Platelet Volume 7.1 FL Activated Partial 23.2 SEC Thromboplast Time Sodium Level 136 MEQ/L Potassium Level 4.1 MEQ/L Chloride Level 102 MEQ/L Carbon Dioxide Level 24.7 MEQ/L Anion Gap 9 MEQ/L Blood Urea Nitrogen 24 MG/DL Creatinine 0.56 MG/DL Estimat Glomerular Filtration 152 ML/MIN Rate Random Glucose 94 MG/DL Calcium Level 9.2 MG/DL Phosphorus Level 2.9 MG/DL Magnesium Level 2.1 MG/DL Phenytoin (Dilantin) Level 16.9 MCG/ML Blood Gas Puncture Site LT RADIAL Blood Gas Patient Temperature 98.6 Blood Gas HCO3 24 mmol/L Blood Gas Base Excess 0.3 mmol/L Blood Gas Oxygen Saturation 97 % Arterial Blood pH 7.44 Arterial Blood Partial 36 mmHg Pressure CO2 Arterial Blood Partial 212 mmHg Pressure O2 Arterial Blood Oxygen Content 15.1 Vol % Arterial Blood 2.3 % Carboxyhemoglobin Arterial Blood Methemoglobin 1.1 % Blood Gas Hemoglobin 10.7 G/DL Oxygen Delivery Device VENTILATOR Blood Gas Ventilator Setting AC 550/15/+5PEEP Blood Gas Inspired Oxygen 50 % Imaging Studies Last [address] 04/01/17 0000 Signed Impressions: Service Date/Time: Saturday, April 01, 2017 10:22 - CONCLUSION: Evolving parenchymal hemorrhage right parietal-occipital region as described above associated with the presumed metastatic deposit. Findings remain relatively stable. Xavi Campos MD FACR Administered Medications Medications (Trade) Dose Ordered Sig/Pina Route PRN Reason Start Time Stop Time Status Last Admin Dose Admin Chlorhexidine Gluconate Taper DAILY@04 TOP 03/24/17 04:00 03/20/18 03:59 03/28/17 03:12 Midazolam HCl (Versed 100 Mg/ ml Inj) 100 ml @ 0 mls/hr TITRATE IV 03/23/17 20:30 03/26/17 17:46 Dexamethasone Sodium Phosphate 6 mg 6 mg Q6HR IV PUSH 03/24/17 00:00 04/01/17 05:40 Clindamycin Phosphate 600 mg/ Sodium Chloride 104 ml @ 208 mls/hr Q8H IV 03/24/17 03:00 04/01/17 13:40 Aztreonam/Sodium Chloride (Azactam Inj/NS Inj) 100 ml @ 200 mls/hr Q8H IV 03/24/17 03:00 04/01/17 13:45 Lorazepam (Ativan Inj) 2 mg Q2H PRN IV PUSH seizure 03/24/17 02:00 04/01/17 08:31 Lactulose (Lactulose Liq) 30 ml QID PO 03/24/17 09:00 04/01/17 08:50 Chlorhexidine Gluconate 15 ml 15 ml BID@08,20 MT 03/26/17 08:00 04/01/17 08:49 Potassium Chloride/Sodium Chloride (NS + KCl 20 Meq Inj) 1,000 ml @ 100 mls/hr Q10H IV 03/26/17 14:00 04/01/17 00:00 Ondansetron HCl (Zofran Inj) 4 mg Q6H PRN IV NAUSEA OR VOMITING 03/26/17 14:00 03/27/17 21:52 Phenytoin Sodium 150 mg 150 mg Q6H IV 03/31/17 20:00 04/01/17 08:48 Levetriacetam (Keppra 1000 Mg Inj) 100 ml @ 400 mls/hr Q12H IV 03/31/17 21:00 04/01/17 08:49 Mannitol 25 gm 25 gm Q8H IV 04/01/17 17:00 04/01/17 09:53 Lacosamide/Sodium Chloride (Vimpat Inj/NS Inj) 115 ml @ 115 mls/hr Q8HR IV 04/01/17 14:00 04/01/17 13:50 Objective Remarks GENERAL: Intubated, sedated male supine in bed. SKIN: Warm and dry. HEAD: Normocephalic. bandages along scalp. SS drainage from JOEY drain EYES:No injection or drainage. NECK: Supple, trachea midline. CARDIOVASCULAR: Regular rate and rhythm RESPIRATORY: anterior jimenes clear. on mechanical ventilation GASTROINTESTINAL: Abdomen nondistended. EXTREMITIES: No cyanosis NEUROLOGICAL: intubated, sedated Assessment/Plan Problem List: (1) Intracerebral hemorrhage Status: Acute Plan: 04/01-->s/p Right parietal craniotomy, evacuation of intracerebral hematoma 03.31--had seizure, developed left hemiparesis. then had further deterioration of motor function. CT brain showed hemorrhage. 03.29--started on heparin (2) Metastatic primary lung cancer Status: Acute Plan: admitted with new onset seizure. --CT showed a new 1.7 cm mass in the right parietal lobe with significant vasogenic edema. also had a brain MRI which showed a single 2-cm peripherally enhancing lesion in the right parietal high complexity with marked surrounding vasogenic edema. no other lesion noted. No midline shift noted. --s/p craniotomy and resection of mass via Dr. Palmer on 03/26/17 History: --Metastatic non-small cell lung cancer. 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 --was treated with radiation with concurrent cisplatin and Taxol. received two cycles of consolidation chemotherapy after concurrent treatment. --developed supraclavicular adenopathy and progression of disease. then received radiation. --subsequently was started on Opdivo and had a good response. --recent CT reportedly showed good response and no evidence of progression of disease. 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 --on Vimpat, Dilantin, Keppra (4) DVT (deep venous thrombosis) Status: Acute Plan: --s/p IVC filter in IR --History of multiple DVTs and pulmonary embolism. --last thromboembolic event was several months ago. --with his metastatic disease and history of multiple clots, he likely is going to have another thromboembolic event without the anticoagulation. --developed ICH while on heparin Assessment 52y/o male with metastatic lung cancer who presented with new-onset seizure. h/o Metastatic non-small cell lung cancer. Recurrent DVT and pulmonary embolism. He was on Lovenox. Osteoarthritis. Hyperlipidemia. Gastroesophageal reflux disease (GERD). Plan 1. monitor CBC 2. hold all anticoagulation 3. supportive care Attending Statement The exam, history, and the medical decision-making described in the above note were completed with the assistance of the mid-level provider. I reviewed and agree with the findings presented. I attest that I had a [id number] encounter with the patient on the same day, and personally performed and documented my assessment and findings in the medical record. s/p craniotomy and evacuation of hematoma anticoagulation d/c'd difficult situation--patient with a history of pulmonary embolism secondary to malignancy case discussed with Dr. Palmer this AM Problem Qualifiers (1) DVT (deep venous thrombosis): Luisa Sal Apr 01, 2017 16:00 Fermin Hickman MD Apr 01, 2017 22:36
--- NOTE | 2017-04-01 16:30 | MG ---
cc: SRIDEVI COX M.D. Lab No: Date: 03/31/2017 Age: Sex: M Race: INDICATION An EEG was obtained on this 52-year-old patient with a history of seizures. DESCRIPTION The patient is described as awake and alert during the study. Some hallucinations. Initially there appears to be some asleep point drowsiness. There are intermixed theta and delta rhythms with beta and alpha activity and the rhythms are possibly slower on the right than left. There are some small sharp waves / discharges. There is a lot of artifact. The patient is intermittently talking and there is a near dominance by alpha activity in the posterior head regions. Hyperventilation was not performed. Photic stimulation was unremarkable. INTERPRETATION Abnormal EEG because of intermittent bilateral slowing possibly right more than left suggestive of right more than left hemisphere structural abnormality. No distinct paroxysmal discharge present. MD COLUMBA Reed/KK /3:50 PM /4:21 PM
[2017-04-01] MEDS: PROPOFOL 1000 MG/100 ML INJ 100 ML IV SCH ×2 (16:42→23:44)
--- NOTE | 2017-04-01 17:20 | RADRPT ---
EXAM DATE/TIME: 04/01/2017 16:54 [facility] COMPARISON: CHEST SINGLE AP, March 24, 2017, 11:08. INDICATIONS : Post ET tube placement MEDICAL HISTORY : Carcinoma, lung. brain mass, seizures SURGICAL HISTORY : Craniotomy. ENCOUNTER: Subsequent ACUITY: 2 weeks PAIN SCORE: Non-responsive. LOCATION: Bilateral chest FINDINGS: The endotracheal tube is in good position. There is been partial reinflation of the left upper lobe. The patient's [id number] is in satisfactory position. Note is made of a large left paratracheal mass. There is elevation of the left hemidiaphragm. CONCLUSION: 1. The tip of the ET tube is approximately 2.5 cm above the lulú. 2. Large left paratracheal mass. Jaleel Campos MD on April 01, 2017 at 17:18 Board Certified Radiologist. This report was verified electronically.
[2017-04-01 20:02] LABS: BLOOD GAS BASE EXCESS 1.7 mmol/L (-2-2); BLOOD GAS CARBOXYHEMOGLOBIN 1.6 % (0-4); BLOOD GAS HCO3 25 mmol/L (22-26); BLOOD GAS METHEMOGLOBIN 0.9 % (0-2); BLOOD GAS O2 HGB SATURATION 97 % (90-100); BLOOD GAS OXYGEN CONTENT 16.1 Vol % (12.0-20.0); BLOOD GAS PCO2 35 mmHg (38-42); BLOOD GAS PO2 182 mmHg (61-120); BLOOD GAS TOTAL HGB 11.5 G/DL (12.0-16.0); CRITICAL VALUE NO; OXYGEN DEVICE VENTILATOR; TEMP CORR TO 98.6
[2017-04-01 20:03] LABS: DRAW SITE RT RADIAL; FIO2 40 %; NUMBER OF ARTERIAL PUNCTURES 1; STAT YES; ULNAR PULSE PRESENT; VENT SETTINGS AC/15/600/PEEP5
[2017-04-01] MEDS: ceFAZolin 2 GM PREMIX 50 ML IV SCH (20:23)
--- NOTE | 2017-04-01 21:24 | HHI.CCPN ---
Subjective Remarks/Hospital Course Hospital Course: Patient is a 51-year-old male with past medical history significant for stage IV lung cancer (Dr. Hickman is the oncologist), chronic Lovenox therapy for DVT and PE, who presented to the emergency department for evaluation of possible stroke and new onset seizure. EMS was called for new onset focal seizures involving left lower extremity. According to paramedics en route patient started having weakness and shaking of the left upper and lower extremity with possible facial droop, but without loss of consciousness. In the ER initially was awake alert then developed focal left-sided seizures followed by generalized seizure for 5 min, received Ativan for this. Initially aroused from postictal state and then again had recurrent generalized seizure activity. Patient was intubated for airway protection. CT of the head showed right parietal mass 1.7 cm suspicious for metastatic lesion. I was contacted for admission. Patient was started on Versed infusion. Patient had been already loaded with Cerebyx 1 g, I will continue 100 mg IV every 8 hours. Also an EEG had been ordered. I have ordered MRI of the brain neurosurgery consult. I evaluated the patient in the Main ICU. He is intubated sedated with Versed. He purposefully moves all 4 extremity Subjective: 03/25: persistent seizures yesterday. repeat cerebyx load and keppra load. plan to go to OR for tumor resection tomorrow. also has history of DVt/PE. will need IVC filter prior to OR. 03/26: went to OR today for crani. s/p crani, I evaluated the patient when he was immediately post-op. still somnolent from anesthesia. remains intubated. successful crani resection, minimal EBL. 03/27: Wild when sedation lightened - will need to perform rapid extubation. 03/28: Extubated and calm. Swallow eval good. 04/01: reconsulted. taken back to OR today for bleeding in the operative bed. left intubated post-op. follows commands in RUE,LUE,RLE. withdraws LLE. this is baseline neuro exam for patient. on my evaluation the patient is intubated and sedated, so no additional information is obtainable from the patient. ROS is unobtainable. past history was reviewed in the chart and unchanged from prior consult note. Objective Vital Signs Date Time Temp Pulse Resp B/P Pulse Ox O2 Delivery O2 Flow Rate FiO2 04/01/17 20:00 100 40 04/01/17 18:00 84 04/01/17 16:00 98.7 15 98/61 04/01/17 15:45 Mechanical Ventilator 03/31/17 07:27 2.00 Intake and Output 03/31/17 03/31/17 04/01/17 08:00 16:00 00:00 Intake Total 996 ml 1070 ml 800 ml Output Total 1150 ml 1900 ml 500 ml Balance -154 ml -830 ml 300 ml Result Diagram: 04/01/17 0410 04/01/17 0410 Other Results Laboratory Tests Test 04/01/17 04/01/17 15:04 19:44 Blood Gas Puncture Site LT RADIAL RT RADIAL Blood Gas Patient Temperature 98.6 98.6 Blood Gas HCO3 24 mmol/L 25 mmol/L (22-26) (22-26) Blood Gas Base Excess 0.3 mmol/L 1.7 mmol/L (-2-2) (-2-2) Blood Gas Oxygen Saturation 97 % (90-100) 97 % (90-100) Arterial Blood pH 7.44 7.47 (7.380-7.420) (7.380-7.420) Arterial Blood Partial 36 mmHg (38-42) 35 mmHg (38-42) Pressure CO2 Arterial Blood Partial 212 mmHg 182 mmHg Pressure O2 (61-120) (61-120) Arterial Blood Oxygen Content 15.1 Vol % 16.1 Vol % (12.0-20.0) (12.0-20.0) Arterial Blood 2.3 % (0-4) 1.6 % (0-4) Carboxyhemoglobin Arterial Blood Methemoglobin 1.1 % (0-2) 0.9 % (0-2) Blood Gas Hemoglobin 10.7 G/DL 11.5 G/DL (12.0-16.0) (12.0-16.0) Oxygen Delivery Device VENTILATOR VENTILATOR Blood Gas Ventilator Setting AC AC/15/600/PEEP5 550/15/+5PEEP Blood Gas Inspired Oxygen 50 % 40 % Imaging Last Impressions Head CT 04/01/17 0000 Signed Impressions: Service Date/Time: Saturday, April 01, 2017 10:22 - CONCLUSION: Evolving parenchymal hemorrhage right parietal-occipital region as described above associated with the presumed metastatic deposit. Findings remain relatively stable. Xavi Campos MD FACR Chest X-Ray 04/01/17 Signed Impressions: Service Date/Time: Saturday, April 01, 2017 16:54 - CONCLUSION: 1. The tip of the ET tube is approximately 2.5 cm above the lulú. 2. Large left paratracheal mass. Jaleel Campos MD Vena Cavagram 03/25/17 Signed Impressions: Service Date/Time: Saturday, March 25, 2017 16:24 - CONCLUSION: Right internal jugular vein, medial right subclavian vein and right brachiocephalic vein and found to be totally occluded in this patient. Inferior vena caval filter will be placed via the femoral vein. Jesu Veras MD IVC Filter Placement X-Ray 03/25/17 Signed Impressions: Service Date/Time: Saturday, March 25, 2017 16:24 - CONCLUSION: Uncomplicated inferior vena cava filter placement as above. Jesu Veras MD Brain MRI 03/25/17 Signed Impressions: Service Date/Time: Saturday, March 25, 2017 16:10 - CONCLUSION: 2 cm enhancing mass in the right parietal region Jesu Veras MD Objective Remarks GENERAL: middle-aged male, lying in bed, intubated, sedated, critically ill. SKIN: Warm and dry HEAD: head wrapped in kerlix. 2 basilia drains with small amount of sanguinous drainage. EYES: Pupils equal and round. No scleral icterus. No injection or drainage. ENT: No nasal bleeding or discharge. ett in place. NECK: Trachea midline. No JVD CARDIOVASCULAR: regular rate, rhythm. RESPIRATORY: Breath sounds equal bilaterally. Clear. GASTROINTESTINAL: Abdomen soft, non-tender, nondistended. MUSCULOSKELETAL: Extremities without clubbing, cyanosis, or edema. NEUROLOGICAL: RASS -3. fc in RUE, LUE, RLE. withdraws in LLE. baseline neuro exam for patient. 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 04/01: crani with evacuation of hematoma A/P Assessment and Plan Assessment: 52yM with metastatic lung cancer, mets to brain presents originally with intractable seizures. now s/p craniotomy with tumor resection and now additionally POD 0 s/p re-exploration and evacuation of hematoma in the operative bed. remains critically ill, intubated. will keep intubated and sedated given high risk for re-bleed. repeat head CT in AM. close etco2 monitoring. avoid hypertension, hypercarbia, hypoxia. NEURO: New-onset seizures Acute encephalopathy Right parietal mass with surrounding edema - New onset Seizures secondary to metastatic brain lesion - Ativan when necessary for seizure, propofol for vent synchrony - Decadron. - Neurosurgery following - Crani 03/26 with tumor resection - re-exploration 04/01 for bleeding in operative bed - cerebyx 100 mg IV every 8 hours - f/u post-op CT head RESP: Pulmonary insufficiency post-op Stage IV lung cancer - Continue mechanical ventilation - no SBT today given recent post-op. will discuss with Dr. Palmer possibility of wean to extubate tomorrow. - DuoNeb every 6 hours when necessary if needed - vent bundle, hob at 30 degrees, nebs - etco2 monitoring. goal paco2 35- 40. repeat abg in AM. CV: - Normal saline mivf @ 75cc/hr. GI: - hold on OG tube for now. will re-eval in AM depending on clinical course. : - Monitor renal function closely. Nunez catheter. ID: - no suspicion of infection. vangie-op abx per nsgy. HEME: Stage IV lung cancer History of DVT and PE on chronic anticoagulation - Consult oncology Dr. Hickman - Hold Lovenox secondary to metastatic brain lesion - IVC filter 03/25. ENDO: - Electrolyte replacement per protocol PROPH: - Bilateral lower extremity SCDs. Avoid chemical DVT prophylaxis due to brain metastases. IV Protonix LINES: - Utilize peripheral IVs, central line if needed This patient remains critically ill with one or more organ systems which are or may become a threat to life. I have spent in excess of 31 minutes discontinuously in the care and management of this patient. This time is exclusive of procedures, and includes, but is not limited to, evaluation of the patient, review of the medical record, discussions with family, consultants, nursing staff, or respiratory therapy, and documentation in the medical record. William Art MD Apr 01, 2017 21:24
[2017-04-02] VITALS (18 sets, daily range): BP systolic 95–141; BP diastolic 60–87; PULSE 74–116; RESP 15–26; TEMP 97–99.1; O2SAT 95–100
[2017-04-02] MEDS: PHENYTOIN INJ 100 MG/2 ML VIAL IV SCH ×4 (02:14→19:59)
[2017-04-02] MEDS: CLINDAMYCIN INJ 600 MG in SODIUM CHLORIDE 0.9% INJ 100 ML IV SCH ×3 (02:16→20:39)
[2017-04-02] MEDS: CHLORHEXIDINE GLUCONATE 2 % 1 PACK (2 CLOTHS) TOP SCH (03:13)
[2017-04-02] MEDS: AZTREONAM INJ 2,000 MG in SODIUM CHLORIDE 0.9% INJ 100 ML IV SCH ×3 (03:13→20:39)
[2017-04-02] MEDS: ceFAZolin 2 GM PREMIX 50 ML IV SCH ×2 (05:09→14:03)
[2017-04-02] MEDS: NS + KCL 20 MEQ INJ 1,000 ML IV SCH ×2 (05:09→17:28)
[2017-04-02] MEDS: DEXAMETHASONE SOD PHOS 4 MG/ML VIAL IV PUSH SCH ×3 (05:09→17:33)
[2017-04-02] MEDS: LACOSAMIDE INJ 150 MG in SODIUM CHLORIDE 0.9% INJ 100 ML IV SCH ×3 (05:09→22:05)
--- NOTE | 2017-04-02 05:12 | RADRPT ---
EXAM DATE/TIME: 04/02/2017 04:24 [facility] COMPARISON: CT BRAIN W/O CONTRAST, April 01, 2017, 10:22. INDICATIONS : Follow up mass. RADIATION DOSE: 53.40 CTDIvol (mGy) MEDICAL HISTORY : Cardiovascular disease. Seizures. Lung cancer. Brain tumor. SURGICAL HISTORY : Brain tumor removed. ENCOUNTER: Subsequent ACUITY: 1 week PAIN SCALE: Non-responsive LOCATION: cranial TECHNIQUE: Multiple contiguous axial images were obtained of the head. Using automated exposure control and adj ustment of the mA and/or kV according to patient size, radiation dose was kept as low as reasonably a chievable to obtain optimal diagnostic quality images. DICOM format image data is available electro nically for review and comparison. FINDINGS: Interval placement of drain into the right parieto-occipital hematoma with almost complete resolution of the blood products. There are a few areas of residual low just deep to the craniotomy flap measu ring up to 9 mm. Diffuse vasogenic edema in the right hemisphere with 3 mm midline shift towards the left (previously measured 7 mm). Opacities in the left hemisphere or posterior fossa. There is goo d approximation of the craniotomy flap. CONCLUSION: Interval evacuation and drain placement of right parietal occipital hematoma. Reduction of midline s hift to 3 mm. Eitan Thornton MD on April 02, 2017 at 5:07 Board Certified Radiologist. This report was verified electronically.
[2017-04-02 05:47] LABS: AUTOMATED NEUTROPHIL # 10.9 TH/MM3 (1.8-7.7); BASOPHIL % 0.1 % (0.0-2.0); HEMATOCRIT 35.7 % (39.0-51.0); HEMO FLAGS DIFF FINAL; LYMPH % 4.3 % (9.0-44.0); LYMPHOCYTE # 0.5 TH/MM3 (1.0-4.8); MEAN CELL VOLUME 90.5 FL (80.0-100.0); MEAN CORPUSCULAR HEMOGLOBIN 30.4 PG (27.0-34.0); MEAN CORPUSCULAR HGB CONC 33.6 % (32.0-36.0); MONO % 6.4 % (0.0-8.0); NEUT % 89.2 % (16.0-70.0); PLATELET COUNT 109 TH/MM3 (150-450); RED BLOOD COUNT 3.94 MIL/MM3 (4.50-5.90); RED CELL DISTRIBUTION WIDTH 17.1 % (11.6-17.2); WHITE BLOOD COUNT 12.2 TH/MM3 (4.0-11.0)
[2017-04-02 06:02] LABS: APTT (PATIENT) 22.9 SEC (24.3-30.1); INTERNATIONAL NORMALIZED RATIO 1.2 RATIO; PROTHROMBIN TIME - PATIENT 13.7 SEC (9.8-11.6)
[2017-04-02 06:27] LABS: BICARBONATE 25.6 MEQ/L (21.0-32.0); POTASSIUM 4.7 MEQ/L (3.5-5.1)
[2017-04-02] MEDS: CHLORHEXIDINE 0.12% (ORAL KIT) 15 ML CUP MT SCH ×2 (08:03→19:59)
[2017-04-02] MEDS: PANTOPRAZOLE SODIUM 40 MG VIAL IVP SCH (08:32)
[2017-04-02] MEDS: LACTULOSE SYRUP 20 GM/30 ML CUP PO SCH ×4 (08:34→19:59)
[2017-04-02] MEDS: DOCUSATE SODIUM 100 MG CAP PO SCH (08:34)
[2017-04-02] MEDS: SODIUM CHLORIDE 0.9% FLUSH 5 ML FLUSH IVF SCH ×2 (08:34→19:59)
[2017-04-02] MEDS: levETIRAcetam 1000 MG INJ 100 ML IV SCH ×2 (08:34→19:59)
[2017-04-02] MEDS: MANNITOL 12.5 GM/50 ML VIAL IV SCH ×2 (08:44→17:33)
[2017-04-02] MEDS ORDERED: PANTOPRAZOLE SOD 40 MG DELAYED RELEASE TAB PO SCH (09:00)
--- NOTE | 2017-04-02 09:17 | HHI.NSPN ---
(Nancy Barajas) Note Status Status: Progress Note (Nancy Barajas) Interval History Interval History Mr. Mendosa is a 52 y/o male underwent right parietal craniotomy for resection of brain mets 03/26/17. 03/27: intubated and sedated. post/op CT Head completed. possible extubation today. EEG yesterday report noted. Dilantin levels yesterday was 11. 03/28:extubated, doing very well, brushing his teeth. Surgical pain controlled. EEG yesterday still shows sharps abnormalities. 03/29: no clinical seizures overnight, sitting up in chair eating breakfast. 04/01: pt with recurrent seizures over the weekend, f/u CT Head shows acute hematoma within surgical bed. had more seizures this morning, worsening left side weakness, now unable to move. remains awake, alert but intermittently confused 04/02: f/u CT Head this morning completed, intubated and sedated. (Nancy Barajas) Labs, Micro, & Vital Signs Results Date Time Temp Pulse Resp B/P Pulse Ox O2 Delivery O2 Flow Rate FiO2 04/02/17 06:00 86 04/02/17 04:20 100 100 04/02/17 04:15 100 40 04/02/17 04:00 82 04/02/17 04:00 97.0 82 17 110/78 100 04/02/17 04:00 40 04/02/17 02:00 81 04/02/17 01:10 100 40 04/02/17 00:00 40 04/02/17 00:00 98.0 88 17 115/60 97 04/02/17 00:00 88 04/01/17 22:00 77 04/01/17 21:08 100 40 04/01/17 20:00 88 04/01/17 20:00 40 04/01/17 20:00 100 40 04/01/17 20:00 98.2 81 15 92/67 99 04/01/17 18:00 84 04/01/17 18:00 88 04/01/17 16:45 98 40 04/01/17 16:00 86 04/01/17 16:00 98.7 90 15 98/61 100 04/01/17 15:45 99 22 125/83 100 Mechanical Ventilator 60 04/01/17 15:30 40 04/01/17 15:30 83 15 100/66 100 Mechanical Ventilator 40 04/01/17 15:22 100 40 04/01/17 15:15 72 15 115/72 100 Mechanical Ventilator 40 04/01/17 15:03 100 50 04/01/17 15:00 80 15 112/72 100 Mechanical Ventilator 60 04/01/17 14:55 97.8 71 15 124/79 100 Mechanical Ventilator 60 04/01/17 14:55 60 04/01/17 12:00 90 04/01/17 12:00 98.2 88 14 111/77 99 04/01/17 10:00 82 04/02/17 07:00 Intake Total 4835 ml Output Total 3460 ml Balance 1375 ml Constitutional Vital Signs Date Time Temp Pulse Resp B/P Pulse Ox O2 Delivery O2 Flow Rate FiO2 04/02/17 06:00 86 04/02/17 04:20 100 100 04/02/17 04:15 100 40 04/02/17 04:00 82 04/02/17 04:00 97.0 82 17 110/78 100 04/02/17 04:00 40 04/02/17 02:00 81 04/02/17 01:10 100 40 04/02/17 00:00 40 04/02/17 00:00 98.0 88 17 115/60 97 04/02/17 00:00 88 04/01/17 22:00 77 04/01/17 21:08 100 40 04/01/17 20:00 88 04/01/17 20:00 40 04/01/17 20:00 100 40 04/01/17 20:00 98.2 81 15 92/67 99 04/01/17 18:00 84 04/01/17 18:00 88 04/01/17 16:45 98 40 04/01/17 16:00 86 04/01/17 16:00 98.7 90 15 98/61 100 04/01/17 15:45 99 22 125/83 100 Mechanical Ventilator 60 04/01/17 15:30 40 04/01/17 15:30 83 15 100/66 100 Mechanical Ventilator 40 04/01/17 15:22 100 40 04/01/17 15:15 72 15 115/72 100 Mechanical Ventilator 40 04/01/17 15:03 100 50 04/01/17 15:00 80 15 112/72 100 Mechanical Ventilator 60 04/01/17 14:55 97.8 71 15 124/79 100 Mechanical Ventilator 60 04/01/17 14:55 60 04/01/17 12:00 90 04/01/17 12:00 98.2 88 14 111/77 99 04/01/17 10:00 82 04/02/17 07:00 Intake Total 4835 ml Output Total 3460 ml Balance 1375 ml (Nancy Barajas) Review of Systems/Exam Exam Mr. Mendosa is intubated and sedated on diprivan. surgical wound with clean kerlix dressing, JOEY drains x 2 with minimal drainage CN: pupils 3 mm equal b/l Motor: sedated, not following for testing (Nancy Barajas) Medications Current Medications Current Medications Medications (Trade) Dose Ordered Sig/Pina Route PRN Reason Start Time Stop Time Status Last Admin Dose Admin Miscellaneous Information 1 [id number] XX 03/23/17 20:30 Chlorhexidine Gluconate (Chlorhexidine 2% Cloth) Taper DAILY@04 TOP 03/24/17 04:00 03/20/18 03:59 04/02/17 03:13 Chlorhexidine Gluconate 3 pack 3 pack UNSCH PRN TOP HYGIENIC CARE 03/23/17 20:30 Midazolam HCl (Versed 100 Mg/ ml Inj) 100 ml @ 0 mls/hr TITRATE IV 03/23/17 20:30 03/26/17 17:46 Dexamethasone Sodium Phosphate 6 mg 6 mg Q6HR IV PUSH 03/24/17 00:00 04/02/17 05:09 Potassium Chloride 100 ml @ 50 mls/hr Q2H PRN IV For Potassium 2.8 - 3.2 mEq/L 03/23/17 20:45 Potassium Chloride (KCl 20 Meq Premix Inj) 100 ml @ 50 mls/hr Q2H PRN IV For Potassium 2.8 - 3.2 mEq/L 03/23/17 20:45 Potassium Bicarb/ Potassium Chloride 50 meq 50 meq UNSCH PRN PO For Potassium 3.3 - 3.5 mEq/L 03/23/17 20:45 Potassium Chloride 100 ml @ 25 mls/hr UNSCH PRN IV For Potassium 3.3 - 3.5 mEq/L 03/23/17 20:45 Potassium Chloride 100 ml @ 50 mls/hr Q2H PRN IV For Potassium 3.3 - 3.5 mEq/L 03/23/17 20:45 Magnesium Sulfate/ Sodium Chloride (Magnesium Sulfate Inj/NS Inj) 100 ml @ 50 mls/hr UNSCH PRN IV For Magnesium 0.9 - 1.1 mg/dL 03/23/17 20:45 Magnesium Oxide 800 mg 800 mg UNSCH PRN PO For Magnesium 1.2 - 1.6 mg/dL 03/23/17 20:45 Magnesium Sulfate/ Sodium Chloride (Magnesium Sulfate Inj/NS Inj) 100 ml @ 50 mls/hr UNSCH PRN IV For Magnesium 1.2 - 1.6 mg/dL 03/23/17 20:45 Potassium Phosphate 2000 mg 2,000 mg Q4H PRN PO For Phosphorus < 2.5 mg/dL 03/23/17 20:45 Sodium Phosphate/ Sodium Chloride (Sodium Phosphate Inj/NS 250 ml Inj) 250 ml @ 42 mls/hr UNSCH PRN IV For Phosphorus < 2.5 mg/dL 03/23/17 20:45 Potassium Phosphate 2000 mg 2,000 mg UNSCH PRN PO/TUBE SEE LABEL COMMENTS 03/23/17 20:45 Potassium Phosphate 30 mmol/ Sodium Chloride 260 ml @ 42 mls/hr UNSCH PRN IV SEE LABEL COMMENTS 03/23/17 20:45 Clindamycin Phosphate 600 mg/ Sodium Chloride 104 ml @ 208 mls/hr Q8H IV 03/24/17 03:00 04/02/17 02:16 Aztreonam/Sodium Chloride (Azactam Inj/NS Inj) 100 ml @ 200 mls/hr Q8H IV 03/24/17 03:00 04/02/17 03:13 Lorazepam (Ativan Inj) 2 mg Q2H PRN IV PUSH seizure 03/24/17 02:00 04/01/17 08:31 Lactulose (Lactulose Liq) 30 ml QID PO 03/24/17 09:00 04/01/17 08:50 Chlorhexidine Gluconate 15 ml 15 ml BID@08,20 MT 03/26/17 08:00 04/02/17 08:03 Potassium Chloride/Sodium Chloride (NS + KCl 20 Meq Inj) 1,000 ml @ 100 mls/hr Q10H IV 03/26/17 14:00 04/01/17 15:00 Ondansetron HCl (Zofran Inj) 4 mg Q6H PRN IV NAUSEA OR VOMITING 03/26/17 14:00 03/27/17 21:52 Phenytoin Sodium 150 mg 150 mg Q6H IV 03/31/17 20:00 04/02/17 08:02 Levetriacetam (Keppra 1000 Mg Inj) 100 ml @ 400 mls/hr Q12H IV 03/31/17 21:00 04/02/17 08:34 Mannitol 25 gm 25 gm Q8H IV 04/01/17 17:00 04/02/17 08:44 Lacosamide/Sodium Chloride (Vimpat Inj/NS Inj) 115 ml @ 115 mls/hr Q8HR IV 04/01/17 14:00 04/02/17 05:09 IV Flush (NS Flush) 2 ml UNSCH PRN IVF FLUSH AFTER USING IV ACCESS 04/01/17 13:15 IV Flush 2 ml 2 ml BID IVF 04/01/17 21:00 04/01/17 20:51 Cefazolin Sodium/ Dextrose (Ancef 2 Gm Premix) 50 ml @ 100 mls/hr Q8H IV 04/01/17 21:00 04/02/17 13:29 04/02/17 05:09 Bisacodyl (Dulcolax Supp) 10 mg DAILY PRN RECTAL CONSTIPATION 04/01/17 13:15 Docusate Sodium (Colace) 100 mg BID PO 04/01/17 21:00 Pantoprazole Sodium (Protonix) 40 mg DAILY PO 04/02/17 09:00 Pantoprazole Sodium (Protonix Inj) 40 mg DAILY IVP 04/02/17 09:00 04/02/17 08:32 Calcium Gluconate 1 gm 1 gm UNSCH PRN IV SEE LABEL COMMENTS 04/01/17 13:15 Potassium Chloride 100 ml @ 50 mls/hr UNSCH PRN IV POTASSIUM LESS THAN 4 04/01/17 13:15 Magnesium Sulfate/ Sodium Chloride (Magnesium Sulfate Inj/NS Inj) 108 ml @ 108 mls/hr UNSCH PRN IV MAGNESIUM LESS THAN 2 04/01/17 13:15 Acetaminophen/ Hydrocodone Bitart (Avinger 10-325 Mg) 1 tab Q4H PRN PO PAIN SCALE 1 TO 5 04/01/17 13:15 Acetaminophen/ Hydrocodone Bitart (Avinger 10-325 Mg) 2 tab Q4H PRN PO PAIN SCALE 6 TO 10 04/01/17 13:15 Morphine Sulfate (Morphine Inj) 2 mg Q2H PRN IV PUSH PAIN SCALE 1 TO 6 04/01/17 13:15 Morphine Sulfate (Morphine Inj) 4 mg Q2H PRN IV PUSH PAIN SCALE 7 TO 10 04/01/17 13:15 Acetaminophen (Tylenol) 650 mg Q4H PRN PO TEMPERATURE > 101.5 F 04/01/17 13:15 Miscellaneous Information ALL NURSING DEPARTME... UNSCH PRN .XX SEE LABEL COMMENTS 04/01/17 14:53 04/02/17 14:52 Propofol (Diprivan 1000 Mg/100ml Inj) 100 ml @ 0 mls/hr TITRATE IV 04/01/17 16:00 04/01/17 23:44 (Nancy Barajas) Medical Decision Making MDM Remarks 52 y/o male presents for seizures MRI Brain shows left right parietal mass lesion, suspected for metastatic lung CA. s/p right parietal craniotomy with resection of brain mass 03/26/17 f/u CT Head 03/26/17 with expected postsurgical changes DVT, PE, s/p placement of IVC filter EEG 03/26/17 reports poss right epileptiform activities f/u CT Brain 04/01/17 with moderate right parietal hematoma, pt with recurrent seizures and left side plegia, s/p redo right craniotomy with evacuation of parietal hematoma 04/01/17, f/u CT Head 04/02 better with improved midline shift (Nancy Barajas) Plan Plan Remarks cont Mannitol 25 gm q 8 hours, hold for serum os greater than 310, ok to start vent weaning to extubate cont current AEDs, cont seizure precautions ok to restart PT, OT, ST cont neuro checks nonchemical dvt prophylaxis with SCDs and TEDs, no chem proph due to ICH (Nancy Barajas) Attending Statement The exam, history, and the medical decision-making described in the above note were completed with the assistance of the mid-level provider. I reviewed and agree with the findings presented. I attest that I had a [id number] encounter with the patient on the same day, and personally performed and documented my assessment and findings in the medical record. (Gatito Palmer MD) Nancy Barajas Apr 02, 2017 09:17 Gatito Palmer MD Apr 03, 2017 19:17
--- NOTE | 2017-04-02 10:00 | HHI.CCPN ---
Subjective Remarks/Hospital Course Hospital Course: Patient is a 51-year-old male with past medical history significant for stage IV lung cancer (Dr. Hickman is the oncologist), chronic Lovenox therapy for DVT and PE, who presented to the emergency department for evaluation of possible stroke and new onset seizure. EMS was called for new onset focal seizures involving left lower extremity. According to paramedics en route patient started having weakness and shaking of the left upper and lower extremity with possible facial droop, but without loss of consciousness. In the ER initially was awake alert then developed focal left-sided seizures followed by generalized seizure for 5 min, received Ativan for this. Initially aroused from postictal state and then again had recurrent generalized seizure activity. Patient was intubated for airway protection. CT of the head showed right parietal mass 1.7 cm suspicious for metastatic lesion. I was contacted for admission. Patient was started on Versed infusion. Patient had been already loaded with Cerebyx 1 g, I will continue 100 mg IV every 8 hours. Also an EEG had been ordered. I have ordered MRI of the brain neurosurgery consult. I evaluated the patient in the Main ICU. He is intubated sedated with Versed. He purposefully moves all 4 extremity 03/25: persistent seizures yesterday. repeat cerebyx load and keppra load. plan to go to OR for tumor resection tomorrow. also has history of DVt/PE. will need IVC filter prior to OR. 03/26: went to OR today for crani. s/p crani, I evaluated the patient when he was immediately post-op. still somnolent from anesthesia. remains intubated. successful crani resection, minimal EBL. 03/27: Wild when sedation lightened - will need to perform rapid extubation. 03/28: Extubated and calm. Swallow eval good. 04/01: reconsulted. taken back to OR today for bleeding in the operative bed. left intubated post-op. follows commands in RUE,LUE,RLE. withdraws LLE. this is baseline neuro exam for patient. on my evaluation the patient is intubated and sedated, so no additional information is obtainable from the patient. ROS is unobtainable. past history was reviewed in the chart and unchanged from prior consult note. Subjective: 04/02: Status post right craniotomy for evacuation of hematoma. Currently on ventilator and following commands. Afebrile. Objective Vital Signs Date Time Temp Pulse Resp B/P Pulse Ox O2 Delivery O2 Flow Rate FiO2 04/02/17 09:10 99 40 04/02/17 06:00 86 04/02/17 04:00 97.0 17 110/78 04/01/17 15:45 Mechanical Ventilator 03/31/17 07:27 2.00 Intake and Output 04/01/17 04/01/17 04/02/17 08:00 16:00 00:00 Intake Total 941 ml 2647 ml 1078 ml Output Total 500 ml 2600 ml 440 ml Balance 441 ml 47 ml 638 ml Result Diagram: 04/02/17 0503 04/02/17 0503 Imaging Last Impressions Head CT 04/02/17 0500 Signed Impressions: Service Date/Time: Sunday, April 02, 2017 04:24 - CONCLUSION: Interval evacuation and drain placement of right parietal occipital hematoma. Reduction of midline shift to 3 mm. Eitan Thornton MD Chest X-Ray 04/01/17 0000 Signed Impressions: Service Date/Time: Saturday, April 01, 2017 16:54 - CONCLUSION: 1. The tip of the ET tube is approximately 2.5 cm above the lulú. 2. Large left paratracheal mass. 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 Inferior vena caval filter will be placed via the femoral vein. Jesu Veras MD IVC Filter Placement X-Ray 03/25/17 0000 Signed Impressions: Service Date/Time: Saturday, March 25, 2017 16:24 - CONCLUSION: Uncomplicated inferior vena cava filter placement as above. Jesu Veras MD Brain MRI 03/25/17 0000 Signed Impressions: Service Date/Time: Saturday, March 25, 2017 16:10 - CONCLUSION: 2 cm enhancing mass in the right parietal region Jesu Veras MD Objective Remarks GENERAL: 52-year-old male, critically ill currently resting in bed in no acute distress SKIN: Warm and dry HEAD: Head wrapped in clean Kerlix. 2 basilia drains with small amount of sanguinous drainage. EYES: Pupils equal and round about 2 mm bilaterally and reactive. No scleral icterus. No injection or drainage. ENT: No nasal bleeding or discharge. ett in place. NECK: Trachea midline. No JVD CARDIOVASCULAR: RRR. S1, S2. No S4. Without murmur RESPIRATORY: Breath sounds equal bilaterally. Clear. GASTROINTESTINAL: Abdomen soft, non-tender, nondistended. MUSCULOSKELETAL: Extremities without significant peripheral edema. NEUROLOGICAL: Movement in RUE, LUE, RLE. withdraws in LLE. baseline neuro exam for patient. 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 - f/u post-op CT head showed improvement with right flexion 3 mm. BASILIA drain right posterior occipital hematoma -20/-40 SS Currently on morphine 2-4 mg IV every 3 hours. Pain EEG 04/01 revealed intermittent bilateral slowing possibly right more than left suggestive of right more than left hemisphere structural abnormality. No distinct paroxysmal discharge present. RESP: Postoperative respiratory failure Stage IV lung cancer/non-small cell metastases - Continue mechanical ventilation Okay to extubate today per neurosurgery - DuoNeb every 6 hours when necessary if needed - vent bundle, hob at 30 degrees, nebs - etco2 monitoring. goal paco2 35- 40. repeat abg in AM. CV: History of dyslipidemia - Normal saline mivf @ 75cc/hr. Currently not on vasopressors and/or antihypertensives GI: Constipation Gastroesophageal reflux disease -Bedside swallow evaluation Pantoprazole for GI prophylaxis Check KUB. Myla-Colace twice a day, MiraLAX twice a day. 1 dose Relistor today. Lactulose 4 times a day already. : - Monitor renal function closely. Nunez catheter. ID: Currently on aztreonam, clindamycin since 03/24. Blood cultures no growth. - no suspicion of infection. myla-op abx per nsgy. 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 Hickman -Develop intercerebral hemorrhage on heparin drip. - IVC filter 03/25. 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 Treated with radiation with cisplatin and Taxol. Started on op D ago with good response. ENDO: - Electrolyte replacement per protocol PROPH: - Bilateral lower extremity SCDs. Avoid chemical DVT prophylaxis due to brain metastases. IV Protonix LINES: - Utilize peripheral IVs, central line if needed Level II follow-up Juan Blount MD Apr 02, 2017 09:59
--- NOTE | 2017-04-02 10:15 | MG ---
cc: JAMEY COLLINS Lab No: [id number] Date: 04/02/2017 Age: 52 Sex: M Hyperventilation not performed. Unable to wiggle toes on the left. Hemorrhage on the right. Faby Stein. DESCRIPTION The recording starts in stage II sleep with synchronous and symmetric sleep spindles. Some mild diffuse theta slowing is noted. 9 Hz, 60 microvolt diffuse background is seen. No major hemisphere asymmetry is noted. No epileptiform or seizure activity is seen. Photic stimulation is performed without significant posterior driving. The patient is noted to snore throughout the recording. IMPRESSION A normal stage II sleep recording. No evidence for focal or diffuse abnormality. No right hemisphere epileptiform or seizure activity is noted. The patient is snoring quite a bit throughout the recording. Sleep apnea could be considered. MD NATALIA Thompson/PATRICIA /8:28 AM /9:50 AM
[2017-04-02] MEDS ORDERED: METHYLNALTREXONE BROMIDE 12 MG/0.6 ML VIAL SQ ONE (10:30)
[2017-04-02] MEDS ORDERED: GLYCERIN ADULT 2 GM SUPP RECTAL PRN (10:30)
--- NOTE | 2017-04-02 11:31 | PD.ONC.PN ---
Subjective Subjective Remarks Afebrile overnight. Patient resting in bed. Was extubated. moving all extremities, but some weakness in left arm and leg. Objective Data Date Time Temp Pulse Resp B/P Pulse Ox O2 Delivery O2 Flow Rate FiO2 04/02/17 09:55 100 Nasal Cannula 3 04/02/17 09:10 99 40 04/02/17 09:10 98 40 04/02/17 06:00 86 04/02/17 04:20 100 100 04/02/17 04:15 100 40 04/02/17 04:00 82 04/02/17 04:00 97.0 82 17 110/78 100 04/02/17 04:00 40 04/02/17 02:00 81 04/02/17 01:10 100 40 04/02/17 00:00 40 04/02/17 00:00 98.0 88 17 115/60 97 04/02/17 00:00 88 04/01/17 22:00 77 04/01/17 21:08 100 40 04/01/17 20:00 88 04/01/17 20:00 40 04/01/17 20:00 100 40 04/01/17 20:00 98.2 81 15 92/67 99 04/01/17 18:00 84 04/01/17 18:00 88 04/01/17 16:45 98 40 04/01/17 16:00 86 04/01/17 16:00 98.7 90 15 98/61 100 04/01/17 15:45 99 22 125/83 100 Mechanical Ventilator 60 04/01/17 15:30 40 04/01/17 15:30 83 15 100/66 100 Mechanical Ventilator 40 04/01/17 15:22 100 40 04/01/17 15:15 72 15 115/72 100 Mechanical Ventilator 40 04/01/17 15:03 100 50 04/01/17 15:00 80 15 112/72 100 Mechanical Ventilator 60 04/01/17 14:55 97.8 71 15 124/79 100 Mechanical Ventilator 60 04/01/17 14:55 60 04/01/17 12:00 90 04/01/17 12:00 98.2 88 14 111/77 99 04/02/17 04/02/17 04/02/17 07:00 15:00 23:00 Intake Total 1110 ml Output Total 420 ml Balance 690 ml Result Diagram: 04/02/17 0503 04/02/17 0503 Laboratory Results Laboratory Tests Test 04/01/17 04/01/17 04/02/17 15:04 19:44 05:03 Blood Gas Puncture Site LT RADIAL RT RADIAL Blood Gas Patient Temperature 98.6 98.6 Blood Gas HCO3 24 mmol/L 25 mmol/L Blood Gas Base Excess 0.3 mmol/L 1.7 mmol/L Blood Gas Oxygen Saturation 97 % 97 % Arterial Blood pH 7.44 7.47 Arterial Blood Partial 36 mmHg 35 mmHg Pressure CO2 Arterial Blood Partial 212 mmHg 182 mmHg Pressure O2 Arterial Blood Oxygen Content 15.1 Vol % 16.1 Vol % Arterial Blood 2.3 % 1.6 % Carboxyhemoglobin Arterial Blood Methemoglobin 1.1 % 0.9 % Blood Gas Hemoglobin 10.7 G/DL 11.5 G/DL Oxygen Delivery Device VENTILATOR VENTILATOR Blood Gas Ventilator Setting AC AC/15/600/PEEP5 550/15/+5PEEP Blood Gas Inspired Oxygen 50 % 40 % White Blood Count 12.2 TH/MM3 Red Blood Count 3.94 MIL/MM3 Hemoglobin 12.0 GM/DL Hematocrit 35.7 % Mean Corpuscular Volume 90.5 FL Mean Corpuscular Hemoglobin 30.4 PG Mean Corpuscular Hemoglobin 33.6 % Concent Red Cell Distribution Width 17.1 % Platelet Count 109 TH/MM3 Mean Platelet Volume 7.7 FL Neutrophils (%) (Auto) 89.2 % Lymphocytes (%) (Auto) 4.3 % Monocytes (%) (Auto) 6.4 % Eosinophils (%) (Auto) 0.0 % Basophils (%) (Auto) 0.1 % Neutrophils # (Auto) 10.9 TH/MM3 Lymphocytes # (Auto) 0.5 TH/MM3 Monocytes # (Auto) 0.8 TH/MM3 Eosinophils # (Auto) 0.0 TH/MM3 Basophils # (Auto) 0.0 TH/MM3 CBC Comment DIFF FINAL Differential Comment Prothrombin Time 13.7 SEC Prothromb Time International 1.2 RATIO Ratio Activated Partial 22.9 SEC Thromboplast Time Sodium Level 134 MEQ/L Potassium Level 4.7 MEQ/L Chloride Level 103 MEQ/L Carbon Dioxide Level 25.6 MEQ/L Anion Gap 5 MEQ/L Blood Urea Nitrogen 24 MG/DL Creatinine 0.55 MG/DL Estimat Glomerular Filtration 155 ML/MIN Rate Random Glucose 107 MG/DL Serum Osmolality 298 MOSM/KG Calcium Level 8.3 MG/DL Imaging Studies Last [address] 04/02/17 0500 Signed Impressions: Service Date/Time: Sunday, April 02, 2017 04:24 - CONCLUSION: Interval evacuation and drain placement of right parietal occipital hematoma. Reduction of midline shift to 3 mm. Eitan Thornton MD Administered Medications Medications (Trade) Dose Ordered Sig/Pina Route PRN Reason Start Time Stop Time Status Last Admin Dose Admin Chlorhexidine Gluconate (Chlorhexidine 2% Cloth) Taper DAILY@04 TOP 03/24/17 04:00 03/20/18 03:59 04/02/17 03:13 Dexamethasone Sodium Phosphate 6 mg 6 mg Q6HR IV PUSH 03/24/17 00:00 04/02/17 05:09 Clindamycin Phosphate 600 mg/ Sodium Chloride 104 ml @ 208 mls/hr Q8H IV 03/24/17 03:00 04/02/17 02:16 Aztreonam/Sodium Chloride (Azactam Inj/NS Inj) 100 ml @ 200 mls/hr Q8H IV 03/24/17 03:00 04/02/17 03:13 Lorazepam (Ativan Inj) 2 mg Q2H PRN IV PUSH seizure 03/24/17 02:00 04/01/17 08:31 Lactulose (Lactulose Liq) 30 ml QID PO 03/24/17 09:00 04/01/17 08:50 Chlorhexidine Gluconate 15 ml 15 ml BID@08,20 MT 03/26/17 08:00 04/02/17 08:03 Potassium Chloride/Sodium Chloride (NS + KCl 20 Meq Inj) 1,000 ml @ 100 mls/hr Q10H IV 03/26/17 14:00 04/01/17 15:00 Ondansetron HCl (Zofran Inj) 4 mg Q6H PRN IV NAUSEA OR VOMITING 03/26/17 14:00 03/27/17 21:52 Phenytoin Sodium 150 mg 150 mg Q6H IV 03/31/17 20:00 04/02/17 08:02 Levetriacetam (Keppra 1000 Mg Inj) 100 ml @ 400 mls/hr Q12H IV 03/31/17 21:00 04/02/17 08:34 Mannitol 25 gm 25 gm Q8H IV 04/01/17 17:00 04/02/17 08:44 Lacosamide/Sodium Chloride (Vimpat Inj/NS Inj) 115 ml @ 115 mls/hr Q8HR IV 04/01/17 14:00 04/02/17 05:09 IV Flush 2 ml 2 ml BID IVF 04/01/17 21:00 04/01/17 20:51 Cefazolin Sodium/ Dextrose (Ancef 2 Gm Premix) 50 ml @ 100 mls/hr Q8H IV 04/01/17 21:00 04/02/17 13:29 04/02/17 05:09 Pantoprazole Sodium (Protonix Inj) 40 mg DAILY IVP 04/02/17 09:00 04/02/17 08:32 Objective Remarks GENERAL: Middle aged male upright in bed in nad. SKIN: Warm and dry. HEAD: Normocephalic. clean bandages, scalp. JOEY drain w/SS drainage EYES:No injection or drainage. NECK: Supple, trachea midline. CARDIOVASCULAR: Regular rate and rhythm RESPIRATORY: anterior jimenes clear. on mechanical ventilation GASTROINTESTINAL: Abdomen nondistended. EXTREMITIES: No cyanosis NEUROLOGICAL: awake and alert, normal speech. facial movements symmetric. weakness left arm and left leg. Assessment/Plan Problem List: (1) Intracerebral hemorrhage Status: Acute Plan: 04/02: awake and alert, moving all extremities. + weakness in left arm and left leg. 04/01-->s/p Right parietal craniotomy, evacuation of intracerebral hematoma 8.--had seizure, developed left hemiparesis. then had further deterioration of motor function. CT brain showed hemorrhage. 03.29--started on heparin (2) Metastatic primary lung cancer Status: Acute Plan: admitted with new onset seizure. --CT showed a new 1.7 cm mass in the right parietal lobe with significant vasogenic edema. also had a brain MRI which showed a single 2-cm peripherally enhancing lesion in the right parietal high complexity with marked surrounding vasogenic edema. no other lesion noted. No midline shift noted. --s/p craniotomy and resection of mass via Dr. Palmer on 03/26/17 History: --Metastatic non-small cell lung cancer. 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 --was treated with radiation with concurrent cisplatin and Taxol. received two cycles of consolidation chemotherapy after concurrent treatment. --developed supraclavicular adenopathy and progression of disease. then received radiation. --subsequently was started on Opdivo and had a good response. --recent CT reportedly showed good response and no evidence of progression of disease. 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 --on Vimpat, Dilantin, Keppra (4) DVT (deep venous thrombosis) Status: Acute Plan: --s/p IVC filter in IR --History of multiple DVTs and pulmonary embolism. --last thromboembolic event was several months ago. --with his metastatic disease and history of multiple clots, he likely is going to have another thromboembolic event without the anticoagulation. --developed ICH while on heparin Assessment 52y/o male with metastatic lung cancer who presented with new-onset seizure. h/o Metastatic non-small cell lung cancer. Recurrent DVT and pulmonary embolism. He was on Lovenox. Osteoarthritis. Hyperlipidemia. Gastroesophageal reflux disease (GERD). Plan 1. monitor CBC--platelet count falling slightly, likely d/t recent ICH. 2. supportive care Attending Statement The exam, history, and the medical decision-making described in the above note were completed with the assistance of the mid-level provider. I reviewed and agree with the findings presented. I attest that I had a [id number] encounter with the patient on the same day, and personally performed and documented my assessment and findings in the medical record. Thrombocytopenia noted Will keep PLTs > 70 in the setting of recent intracranial bleed. check coags in am Problem Qualifiers (1) DVT (deep venous thrombosis): Luisa Sal Apr 02, 2017 11:31 Fermin Hickman MD Apr 02, 2017 23:28
--- NOTE | 2017-04-02 12:06 | RADRPT ---
EXAM DATE/TIME: 04/02/2017 11:19 [place] COMPARISON: No previous studies available for comparison. INDICATIONS : Constipation. MEDICAL HISTORY : Seizures. Carcinoma, lung. chemo, radiation, brain tumor. SURGICAL HISTORY : Craniotomy. ENCOUNTER: Subsequent ACUITY: 1 day PAIN SCORE: 0/10 LOCATION: abdomen. FINDINGS: Supine view of the abdomen was performed. The abdominal bowel gas pattern is normal. No abnormal ma sses, calcifications, or organomegaly is seen. The osseous structures are unremarkable. There is an IVC filter in place. CONCLUSION: No acute disease. Jesu Cervantes MD on April 02, 2017 at 12:02 Board Certified Radiologist. This report was verified electronically.
[2017-04-02] MEDS: POLYETHYLENE GLYCOL 17 GM PKG PO SCH ×2 (12:12→19:59)
[2017-04-02] MEDS: DOCUSATE SODIUM 50 MG/SENNA 8.6 MG TAB PO SCH ×2 (12:12→19:59)
--- NOTE | 2017-04-02 20:09 | HHI.PR ---
Review/Management Diagnosis parietal metastasis s/p resection secondary SZ--- Plan continue current anticonvulsants Diagnosis/Plan: Subjective Subjective Comments No acute events reported No further SZ--on vimpat, keppra, dilantin Active Medications Current Medications Medications (Trade) Dose Ordered Sig/Pina Route Start Time Stop Time Status Last Admin Miscellaneous Information 1 [id number] XX 03/23/17 20:30 (Chlorhexidine 2% Cloth) Taper DAILY@04 TOP 03/24/17 04:00 03/20/18 03:59 04/02/17 03:13 (Chlorhexidine 2% Cloth) 3 pack UNSCH PRN TOP 03/23/17 20:30 Dexamethasone Sodium Phosphate 6 mg 6 mg Q6HR IV PUSH 03/24/17 00:00 04/02/17 17:33 Potassium Chloride 100 ml @ 50 mls/hr Q2H PRN IV 03/23/17 20:45 (KCl 20 Meq Premix Inj) 100 ml @ 50 mls/hr Q2H PRN IV 03/23/17 20:45 Potassium Bicarb/ Potassium Chloride 50 meq 50 meq UNSCH PRN PO 03/23/17 20:45 Potassium Chloride 100 ml @ 25 mls/hr UNSCH PRN IV 03/23/17 20:45 Potassium Chloride 100 ml @ 50 mls/hr Q2H PRN IV 03/23/17 20:45 (Magnesium Sulfate Inj/NS Inj) 100 ml @ 50 mls/hr UNSCH PRN IV 03/23/17 20:45 Magnesium Oxide 800 mg 800 mg UNSCH PRN PO 03/23/17 20:45 (Magnesium Sulfate Inj/NS Inj) 100 ml @ 50 mls/hr UNSCH PRN IV 03/23/17 20:45 Potassium Phosphate 2000 mg 2,000 mg Q4H PRN PO 03/23/17 20:45 (Sodium Phosphate Inj/NS 250 ml Inj) 250 ml @ 42 mls/hr UNSCH PRN IV 03/23/17 20:45 Potassium Phosphate 2000 mg 2,000 mg UNSCH PRN PO/TUBE 03/23/17 20:45 Potassium Phosphate 30 mmol/ Sodium Chloride 260 ml @ 42 mls/hr UNSCH PRN IV 03/23/17 20:45 Clindamycin Phosphate 600 mg/ Sodium Chloride 104 ml @ 208 mls/hr Q8H IV 03/24/17 03:00 04/02/17 12:17 (Azactam Inj/NS Inj) 100 ml @ 200 mls/hr Q8H IV 03/24/17 03:00 04/02/17 12:13 (Ativan Inj) 2 mg Q2H PRN IV PUSH 03/24/17 02:00 04/01/17 08:31 (Lactulose Liq) 30 ml QID PO 03/24/17 09:00 04/02/17 19:59 Chlorhexidine Gluconate 15 ml 15 ml BID@08,20 MT 03/26/17 08:00 04/02/17 08:03 (NS + KCl 20 Meq Inj) 1,000 ml @ 100 mls/hr Q10H IV 03/26/17 14:00 04/02/17 17:28 (Zofran Inj) 4 mg Q6H PRN IV 03/26/17 14:00 03/27/17 21:52 Phenytoin Sodium 150 mg 150 mg Q6H IV 03/31/17 20:00 04/02/17 19:59 (Keppra 1000 Mg Inj) 100 ml @ 400 mls/hr Q12H IV 03/31/17 21:00 04/02/17 19:59 Mannitol 25 gm 25 gm Q8H IV 04/01/17 17:00 04/02/17 17:33 (Vimpat Inj/NS Inj) 115 ml @ 115 mls/hr Q8HR IV 04/01/17 14:00 04/02/17 14:41 (NS Flush) 2 ml UNSCH PRN IVF 04/01/17 13:15 (NS Flush) 2 ml BID IVF 04/01/17 21:00 04/02/17 19:59 (Dulcolax Supp) 10 mg DAILY PRN RECTAL 04/01/17 13:15 04/02/17 12:14 (Protonix Inj) 40 mg DAILY IVP 04/02/17 09:00 04/02/17 08:32 Calcium Gluconate 1 gm 1 gm UNSCH PRN IV 04/01/17 13:15 Potassium Chloride 100 ml @ 50 mls/hr UNSCH PRN IV 04/01/17 13:15 (Magnesium Sulfate Inj/NS Inj) 108 ml @ 108 mls/hr UNSCH PRN IV 04/01/17 13:15 ([place] 10-325 Mg) 1 tab Q4H PRN PO 04/01/17 13:15 ([place] 10-325 Mg) 2 tab Q4H PRN PO 04/01/17 13:15 (Morphine Inj) 2 mg Q2H PRN IV PUSH 04/01/17 13:15 (Morphine Inj) 4 mg Q2H PRN IV PUSH 04/01/17 13:15 (Tylenol) 650 mg Q4H PRN PO 04/01/17 13:15 (Myla-Colace) 1 tab BID PO 04/02/17 10:30 04/02/17 19:59 (Miralax) 17 gm BID PO 04/02/17 10:30 04/02/17 19:59 (Glycerin Adult Supp) 2 gm BID PRN RECTAL 04/02/17 10:30 Allergies Allergies Coded Allergies penicillin G (Unverified Allergy, Unknown, 04/02/17) Exam I&O / VS 04/01/17 04/01/17 04/02/17 15:00 23:00 07:00 Intake Total 2647 ml 1078 ml 1110 ml Output Total 2600 ml 440 ml 420 ml Balance 47 ml 638 ml 690 ml Intake Oral 0 ml IV Total 447 ml 1078 ml 1110 ml Other 2200 ml Output Urine Total 2500 ml 400 ml 400 ml Stool Total 0 ml 0 ml Drainage Total 40 ml 20 ml Estimated Blood Loss 100 ml # Bowel Movements 0 Vital Signs Date Time Temp Pulse Resp B/P Pulse Ox O2 Delivery O2 Flow Rate FiO2 04/02/17 18:00 100 04/02/17 16:00 116 04/02/17 16:00 98.5 116 26 141/87 95 04/02/17 14:00 98 04/02/17 12:00 98.1 94 15 127/82 100 04/02/17 12:00 94 04/02/17 10:00 94 04/02/17 09:55 100 Nasal Cannula 3 04/02/17 09:10 99 40 04/02/17 09:10 98 40 04/02/17 08:00 74 04/02/17 08:00 97.9 74 15 95/65 100 04/02/17 08:00 40 04/02/17 06:00 86 04/02/17 04:20 100 100 04/02/17 04:15 100 40 04/02/17 04:00 82 04/02/17 04:00 97.0 82 17 110/78 100 04/02/17 04:00 40 04/02/17 02:00 81 04/02/17 01:10 100 40 04/02/17 00:00 40 04/02/17 00:00 98.0 88 17 115/60 97 04/02/17 00:00 88 04/01/17 22:00 77 04/01/17 21:08 100 40 Exam Comments alert, follow commands, CN intact MOTOR 5/5 RUE, 4/5 LUE Objective Micro and Labs Laboratory Tests Test 04/02/17 05:03 White Blood Count 12.2 Red Blood Count 3.94 Hemoglobin 12.0 Hematocrit 35.7 Mean Corpuscular Volume 90.5 Mean Corpuscular Hemoglobin 30.4 Mean Corpuscular Hemoglobin 33.6 Concent Red Cell Distribution Width 17.1 Platelet Count 109 Mean Platelet Volume 7.7 Neutrophils (%) (Auto) 89.2 Lymphocytes (%) (Auto) 4.3 Monocytes (%) (Auto) 6.4 Eosinophils (%) (Auto) 0.0 Basophils (%) (Auto) 0.1 Neutrophils # (Auto) 10.9 Lymphocytes # (Auto) 0.5 Monocytes # (Auto) 0.8 Eosinophils # (Auto) 0.0 Basophils # (Auto) 0.0 CBC Comment DIFF FINAL Differential Comment Prothrombin Time 13.7 Prothromb Time International 1.2 Ratio Activated Partial 22.9 Thromboplast Time Sodium Level 134 Potassium Level 4.7 Chloride Level 103 Carbon Dioxide Level 25.6 Anion Gap 5 Blood Urea Nitrogen 24 Creatinine 0.55 Estimat Glomerular Filtration 155 Rate Random Glucose 107 Serum Osmolality 298 Calcium Level 8.3 Alfonso Wilkins PhD MD Apr 02, 2017 20:09
[2017-04-03] VITALS (13 sets, daily range): BP systolic 95–137; BP diastolic 50–87; PULSE 87–136; RESP 15–28; TEMP 97.3–100.4; O2SAT 94–97
[2017-04-03] MEDS: MANNITOL 12.5 GM/50 ML VIAL IV SCH ×3 (00:09→17:08)
[2017-04-03] MEDS: DEXAMETHASONE SOD PHOS 4 MG/ML VIAL IV PUSH SCH ×4 (00:10→17:08)
[2017-04-03] MEDS: NS + KCL 20 MEQ INJ 1,000 ML IV SCH ×3 (02:00→20:59)
[2017-04-03] MEDS: AZTREONAM INJ 2,000 MG in SODIUM CHLORIDE 0.9% INJ 100 ML IV SCH ×3 (02:17→20:41)
[2017-04-03] MEDS: PHENYTOIN INJ 100 MG/2 ML VIAL IV SCH ×4 (02:17→20:59)
[2017-04-03] MEDS: CLINDAMYCIN INJ 600 MG in SODIUM CHLORIDE 0.9% INJ 100 ML IV SCH ×3 (02:17→20:56)
[2017-04-03] MEDS: CHLORHEXIDINE GLUCONATE 2 % 1 PACK (2 CLOTHS) TOP SCH (02:23)
[2017-04-03] MEDS: LACOSAMIDE INJ 150 MG in SODIUM CHLORIDE 0.9% INJ 100 ML IV SCH ×3 (05:34→22:38)
[2017-04-03 05:43] LABS: INTERNATIONAL NORMALIZED RATIO 1.4 RATIO; PROTHROMBIN TIME - PATIENT 15.2 SEC (9.8-11.6)
--- NOTE | 2017-04-03 07:24 | HHI.CCPN ---
Subjective Remarks/Hospital Course Hospital Course: Patient is a 51-year-old male with past medical history significant for stage IV lung cancer (Dr. Hickman is the oncologist), chronic Lovenox therapy for DVT and PE, who presented to the emergency department for evaluation of possible stroke and new onset seizure. EMS was called for new onset focal seizures involving left lower extremity. According to paramedics en route patient started having weakness and shaking of the left upper and lower extremity with possible facial droop, but without loss of consciousness. In the ER initially was awake alert then developed focal left-sided seizures followed by generalized seizure for 5 min, received Ativan for this. Initially aroused from postictal state and then again had recurrent generalized seizure activity. Patient was intubated for airway protection. CT of the head showed right parietal mass 1.7 cm suspicious for metastatic lesion. I was contacted for admission. Patient was started on Versed infusion. Patient had been already loaded with Cerebyx 1 g, I will continue 100 mg IV every 8 hours. Also an EEG had been ordered. I have ordered MRI of the brain neurosurgery consult. I evaluated the patient in the Main ICU. He is intubated sedated with Versed. He purposefully moves all 4 extremity 03/25: persistent seizures yesterday. repeat cerebyx load and keppra load. plan to go to OR for tumor resection tomorrow. also has history of DVt/PE. will need IVC filter prior to OR. 03/26: went to OR today for crani. s/p crani, I evaluated the patient when he was immediately post-op. still somnolent from anesthesia. remains intubated. successful crani resection, minimal EBL. 03/27: Wild when sedation lightened - will need to perform rapid extubation. 03/28: Extubated and calm. Swallow eval good. 04/01: reconsulted. taken back to OR today for bleeding in the operative bed. left intubated post-op. follows commands in RUE,LUE,RLE. withdraws LLE. this is baseline neuro exam for patient. on my evaluation the patient is intubated and sedated, so no additional information is obtainable from the patient. ROS is unobtainable. past history was reviewed in the chart and unchanged from prior consult note. Subjective: 04/02: Status post right craniotomy for evacuation of hematoma. Currently on ventilator and following commands. Afebrile. 04/03: Gradually improving motor function left side. Objective Vital Signs Date Time Temp Pulse Resp B/P Pulse Ox O2 Delivery O2 Flow Rate FiO2 04/03/17 06:00 106 04/03/17 04:00 100.4 15 103/56 95 04/02/17 20:43 21 04/02/17 09:55 Nasal Cannula 3 Intake and Output 04/02/17 04/02/17 04/03/17 08:00 16:00 00:00 Intake Total 1110 ml 1999 ml 885 ml Output Total 420 ml 795 ml 660 ml Balance 690 ml 1204 ml 225 ml Result Diagram: 04/02/17 0503 04/02/17 0503 Imaging Last Impressions Head CT 04/02/17 0500 Signed Impressions: Service Date/Time: Sunday, April 02, 2017 04:24 - CONCLUSION: Interval evacuation and drain placement of right parietal occipital hematoma. Reduction of midline shift to 3 mm. Eitan Thornton MD Chest X-Ray 04/01/17 0000 Signed Impressions: Service Date/Time: Saturday, April 01, 2017 16:54 - CONCLUSION: 1. The tip of the ET tube is approximately 2.5 cm above the lulú. 2. Large left paratracheal mass. 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 Inferior vena caval filter will be placed via the femoral vein. Jesu Veras MD IVC Filter Placement X-Ray 03/25/17 0000 Signed Impressions: Service Date/Time: Saturday, March 25, 2017 16:24 - CONCLUSION: Uncomplicated inferior vena cava filter placement as above. Jesu Veras MD Brain MRI 03/25/17 0000 Signed Impressions: Service Date/Time: Saturday, March 25, 2017 16:10 - CONCLUSION: 2 cm enhancing mass in the right parietal region Jesu Veras MD Objective Remarks GENERAL: 52-year-old male, critically ill currently resting in bed in no acute distress SKIN: Warm and dry HEAD: Head wrapped in clean Kerlix. 2 basilia drains with small amount of sanguinous drainage. EYES: Pupils equal and round about 2 mm bilaterally and reactive. No scleral icterus. No injection or drainage. ENT: No nasal bleeding or discharge. ett in place. NECK: Trachea midline. No JVD CARDIOVASCULAR: RRR. S1, S2. No S4. Without murmur RESPIRATORY: Breath sounds equal bilaterally. Clear. GASTROINTESTINAL: Abdomen soft, non-tender, nondistended. MUSCULOSKELETAL: Extremities without significant peripheral edema. NEUROLOGICAL: Movement in RUE, LUE, RLE. withdraws in LLE. baseline neuro exam for patient. 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 - f/u post-op CT head showed improvement with right flexion 3 mm. BASILIA drain right posterior occipital hematoma -20/-40 SS Currently on morphine 2-4 mg IV every 3 hours. Pain EEG 04/01 revealed intermittent bilateral slowing possibly right more than left suggestive of right more than left hemisphere structural abnormality. No distinct paroxysmal discharge present. RESP: Postoperative respiratory failure Stage IV lung cancer/non-small cell metastases - Continue mechanical ventilation Okay to extubate today per neurosurgery - DuoNeb every 6 hours when necessary if needed - vent bundle, hob at 30 degrees, nebs - etco2 monitoring. goal paco2 35- 40. repeat abg in AM. CV: History of dyslipidemia - Normal saline mivf @ 75cc/hr. Currently not on vasopressors and/or antihypertensives GI: Constipation Gastroesophageal reflux disease -Bedside swallow evaluation Pantoprazole for GI prophylaxis Check KUB. Myla-Colace twice a day, MiraLAX twice a day. 1 dose Relistor today. Lactulose 4 times a day already. : - Monitor renal function closely. Nunez catheter. ID: Currently on aztreonam, clindamycin since 03/24. Blood cultures no growth. - no suspicion of infection. myla-op abx per nsgy. 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 Hickman -Develop intercerebral hemorrhage on heparin drip. - IVC filter 03/25. 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 Treated with radiation with cisplatin and Taxol. Started on op D ago with good response. Fibrinogen low - Onc will address. ENDO: - Electrolyte replacement per protocol PROPH: - Bilateral lower extremity SCDs. Avoid chemical DVT prophylaxis due to brain bleed. IV Protonix LINES: - Utilize peripheral IVs, central line if needed Overall impression: Stable hemodynamics and acceptable respiratory function. Nabor Westfall MD Apr 03, 2017 07:24
[2017-04-03] MEDS: CHLORHEXIDINE 0.12% (ORAL KIT) 15 ML CUP MT SCH ×2 (08:00→20:00)
[2017-04-03] MEDS: POLYETHYLENE GLYCOL 17 GM PKG PO SCH ×2 (08:20→20:57)
[2017-04-03] MEDS: SODIUM CHLORIDE 0.9% FLUSH 5 ML FLUSH IVF SCH ×2 (08:22→20:57)
[2017-04-03] MEDS: PANTOPRAZOLE SODIUM 40 MG VIAL IVP SCH (08:22)
[2017-04-03] MEDS: levETIRAcetam 1000 MG INJ 100 ML IV SCH ×2 (08:22→17:08)
[2017-04-03] MEDS: DOCUSATE SODIUM 50 MG/SENNA 8.6 MG TAB PO SCH ×2 (08:23→20:58)
[2017-04-03] MEDS: LACTULOSE SYRUP 20 GM/30 ML CUP PO SCH ×4 (08:23→20:57)
--- NOTE | 2017-04-03 08:59 | HHI.NSPN ---
(Ke Rehman) History Chief Complaint: Unable to obtain due to patient wandering off on his own thoughts. (Ke Rehman) Interval History Mr. Mendosa is a 52 y/o male underwent right parietal craniotomy for resection of brain mets 03/26/17. 03/27: intubated and sedated. post/op CT Head completed. possible extubation today. EEG yesterday report noted. Dilantin levels yesterday was 11. 03/28:extubated, doing very well, brushing his teeth. Surgical pain controlled. EEG yesterday still shows sharps abnormalities. 03/29: no clinical seizures overnight, sitting up in chair eating breakfast. 04/01: pt with recurrent seizures over the weekend, f/u CT Head shows acute hematoma within surgical bed. had more seizures this morning, worsening left side weakness, now unable to move. remains awake, alert but intermittently confused 04/02: f/u CT Head this morning completed, intubated and sedated. 04/03: Pt awake and alert. Denies headaches. No n/v. Follows commands well. Left hemiparesis LLE more than LUE. Pupils equal. (Ke Rehman) Review of Systems General: Negative for: fever, chills, insomnia Respiratory: Negative for: shortness of breath, cough, sputum Cardiovascular: Negative for: chest pain Gastrointestinal: Negative for: nausea, vomitting, diarrhea, constipation ( Ke Rehman) Exam Results Vital Signs Date Time Temp Pulse Resp B/P Pulse Ox O2 Delivery O2 Flow Rate FiO2 04/03/17 06:00 106 04/03/17 04:00 100.4 15 103/56 95 04/02/17 20:43 21 04/02/17 09:55 Nasal Cannula 3 Intake and Output 04/02/17 04/02/17 04/03/17 08:00 16:00 00:00 Intake Total 1110 ml 1999 ml 885 ml Output Total 420 ml 795 ml 660 ml Balance 690 ml 1204 ml 225 ml (Ke Rehman) Physical Examination Resp: CTA bilaterally Heart: NSR no murmurs Abd: soft positive bs Skin: No cyanosis or erythema. Incision healing well. JOEY drain in place. Muscle: Moves right side well. Left hemiparesis LLE more than LUE. Neuro: Pt awake and alert. Follows commands well. Speech clear and appropriate. Pupils equal 4mm bilaterally reactive bilaterally. (Ke Rehman) Lab, Micro, Other Results Last Impressions Head CT 04/02/17 0500 Signed Impressions: Service Date/Time: Sunday, April 02, 2017 04:24 - CONCLUSION: Interval evacuation and drain placement of right parietal occipital hematoma. Reduction of midline shift to 3 mm. Eitan Thornton MD Abdomen X-Ray 04/02/17 0000 Signed Impressions: Service Date/Time: Sunday, April 02, 2017 11:19 - CONCLUSION: No acute disease. Jesu Cervantes MD Chest X-Ray 04/01/17 0000 Signed Impressions: Service Date/Time: Saturday, April 01, 2017 16:54 - CONCLUSION: 1. The tip of the ET tube is approximately 2.5 cm above the lulú. 2. Large left paratracheal mass. 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 Inferior vena caval filter will be placed via the femoral vein. Jesu Veras MD IVC Filter Placement X-Ray 03/25/17 0000 Signed Impressions: Service Date/Time: Saturday, March 25, 2017 16:24 - CONCLUSION: Uncomplicated inferior vena cava filter placement as above. Jesu Veras MD Brain MRI 03/25/17 0000 Signed Impressions: Service Date/Time: Saturday, March 25, 2017 16:10 - CONCLUSION: 2 cm enhancing mass in the right parietal region Jesu Veras MD Laboratory Tests Test 04/03/17 05:15 Prothrombin Time 15.2 SEC Prothromb Time International 1.4 RATIO Ratio Fibrinogen 91 mg/dL Serum Osmolality 291 MOSM/KG 04/02/17 04/02/17 04/03/17 15:00 23:00 07:00 Intake Total 1999 ml 885 ml 956 ml Output Total 795 ml 660 ml 615 ml Balance 1204 ml 225 ml 341 ml Intake Oral 120 ml IV Total 1879 ml 885 ml 956 ml Output Urine Total 775 ml 650 ml 600 ml Stool Total 0 ml 0 ml 0 ml Drainage Total 20 ml 10 ml 15 ml (Ke Rehman) Medical Decision Making Impression and Plan A: 52 y/o male presents for seizures MRI Brain shows left right parietal mass lesion, suspected for metastatic lung CA. s/p right parietal craniotomy with resection of brain mass 03/26/17 f/u CT Head 03/26/17 with expected postsurgical changes DVT, PE, s/p placement of IVC filter EEG 03/26/17 reports poss right epileptiform activities f/u CT Brain 04/01/17 with moderate right parietal hematoma, pt with recurrent seizures and left side plegia, s/p redo right craniotomy with evacuation of parietal hematoma 04/01/17, f/u CT Head 04/02 better with improved midline shift Plan Plan Plan Remarks cont Mannitol 25 gm q 8 hours, hold for serum os greater than 310, cont current AEDs, cont seizure precautions Continue PT, OT, ST cont neuro checks continue with nonchemical dvt prophylaxis with SCDs and TEDs, no chem proph due to ICH (Ke Rehman) Attending Statement The exam, history, and the medical decision-making described in the above note were completed with the assistance of the mid-level provider. I reviewed and agree with the findings presented. I attest that I had a [id number] encounter with the patient on the same day, and personally performed and documented my assessment and findings in the medical record. Updated the family at bedside. (Irving Aldridge MD) Ke Rehman Apr 03, 2017 08:59 Irving Aldridge MD Apr 03, 2017 18:05
[2017-04-03] MEDS: LORazepam 2 MG/ML VIAL IV PUSH PRN ×2 (11:06→11:38)
[2017-04-03] MEDS ORDERED: METOPROLOL TARTRATE 5 MG/5 ML VIAL ONE (11:14)
[2017-04-03] MEDS ORDERED: METOPROLOL TARTRATE 5 MG/5 ML VIAL IV PUSH PRN (11:15)
[2017-04-03] MEDS ORDERED: LORazepam 2 MG/ML VIAL IV PUSH ONE (11:45)
--- NOTE | 2017-04-03 15:43 | MG ---
cc: JAMEY COLLINS M.D. Lab No: [id number] Date: 04/03/2017 Age: Sex: M Race: Hyperventilation not performed. Old stroke, left arm posturing, heart rate increase. MEDICATION Keppra, Vimpat, Dilantin, mannitol. DESCRIPTION Diffuse what probably is some sweat artifact was noted but in addition some diffuse 2 Hz slowing is seen. The recording overall is synchronous and symmetric. No epileptiform or seizure activity is noted. Some 4 Hz diffuse slowing is noted. No spikes or sharp waves are seen. IMPRESSION Diffuse slowing consistent with a severe diffuse encephalopathy but no focal abnormality was noted. No seizure activity was seen. MD NATALIA Thompson/TLL /3:27 PM /3:34 PM
[2017-04-03] MEDS ORDERED: SOD PHOSPHATE/SOD BIPHOSPHATE (ADULT) ENEMA 133ML RECTAL ONE (16:00)
--- NOTE | 2017-04-03 17:07 | PD.ONC.PN ---
Subjective Subjective Remarks Tmax 100.4 overnight Patient resting in bed in no distress; he is somewhat lethargic Her RN, he had another seizure this morning Objective Data Date Time Temp Pulse Resp B/P Pulse Ox O2 Delivery O2 Flow Rate FiO2 04/03/17 12:00 97.6 132 28 137/58 95 04/03/17 10:24 96 21 04/03/17 08:00 99.5 107 20 95/63 95 04/03/17 06:00 106 04/03/17 04:00 100.4 118 15 103/56 95 04/03/17 04:00 118 04/03/17 02:00 128 04/03/17 02:00 115 04/03/17 00:00 98.6 115 27 126/87 97 04/03/17 00:00 115 04/02/17 22:00 93 04/02/17 20:43 95 21 04/02/17 20:00 99.1 101 24 129/85 95 04/02/17 20:00 101 04/02/17 18:00 100 04/03/17 04/03/17 04/03/17 07:00 15:00 23:00 Intake Total 956 ml Output Total 615 ml Balance 341 ml Result Diagram: 04/02/17 0503 04/02/17 0503 Laboratory Results Laboratory Tests Test 04/03/17 04/03/17 05:15 12:40 Prothrombin Time 15.2 SEC Prothromb Time International 1.4 RATIO Ratio Fibrinogen 91 mg/dL Serum Osmolality 291 MOSM/KG Phenytoin (Dilantin) Level 11.8 MCG/ML Administered Medications Medications (Trade) Dose Ordered Sig/Pina Route PRN Reason Start Time Stop Time Status Last Admin Dose Admin Chlorhexidine Gluconate (Chlorhexidine 2% Cloth) Taper DAILY@04 TOP 03/24/17 04:00 03/20/18 03:59 04/02/17 03:13 Dexamethasone Sodium Phosphate 6 mg 6 mg Q6HR IV PUSH 03/24/17 00:00 04/03/17 12:40 Clindamycin Phosphate 600 mg/ Sodium Chloride 104 ml @ 208 mls/hr Q8H IV 03/24/17 03:00 04/03/17 12:39 Aztreonam/Sodium Chloride (Azactam Inj/NS Inj) 100 ml @ 200 mls/hr Q8H IV 03/24/17 03:00 04/03/17 12:39 Lorazepam (Ativan Inj) 2 mg Q2H PRN IV PUSH seizure 03/24/17 02:00 04/03/17 11:38 Lactulose (Lactulose Liq) 30 ml QID PO 03/24/17 09:00 04/03/17 08:23 Chlorhexidine Gluconate 15 ml 15 ml BID@08,20 MT 03/26/17 08:00 04/02/17 08:03 Potassium Chloride/Sodium Chloride (NS + KCl 20 Meq Inj) 1,000 ml @ 100 mls/hr Q10H IV 03/26/17 14:00 04/03/17 09:08 Ondansetron HCl (Zofran Inj) 4 mg Q6H PRN IV NAUSEA OR VOMITING 03/26/17 14:00 03/27/17 21:52 Phenytoin Sodium (Dilantin Inj) 150 mg Q6H IV 03/31/17 20:00 04/03/17 14:41 Mannitol 25 gm 25 gm Q8H IV 04/01/17 17:00 04/03/17 08:22 Lacosamide/Sodium Chloride (Vimpat Inj/NS Inj) 115 ml @ 115 mls/hr Q8HR IV 04/01/17 14:00 04/03/17 14:39 IV Flush (NS Flush) 2 ml BID IVF 04/01/17 21:00 04/03/17 08:22 Bisacodyl (Dulcolax Supp) 10 mg DAILY PRN RECTAL SEE LABEL COMMENTS 04/01/17 13:15 04/02/17 12:14 Pantoprazole Sodium (Protonix Inj) 40 mg DAILY IVP 04/02/17 09:00 04/03/17 08:22 Senna/Docusate Sodium (Myla-Colace) 1 tab BID PO 04/02/17 10:30 04/03/17 08:23 Polyethylene Glycol (Miralax) 17 gm BID PO 04/02/17 10:30 04/03/17 08:20 Objective Remarks GENERAL: Middle aged male upright in bed in [facility]. SKIN: Warm and dry. HEAD: Normocephalic. Posterior drains from head with serosanguineous drainage EYES:No injection or drainage. NECK: Supple, trachea midline. CARDIOVASCULAR: Regular rate and rhythm RESPIRATORY: Clear anteriorly. GASTROINTESTINAL: Abdomen nondistended. EXTREMITIES: No cyanosis NEUROLOGICAL: Awake and alert, normal speech. Facial movements symmetric. Left side hemiparesis. Assessment/Plan Problem List: (1) Intracerebral hemorrhage Status: Acute Plan: 04/03: Patient had another seizure this morning per nurse. 04/02: awake and alert, moving all extremities. + weakness in left arm and left leg. 04/01-->s/p Right parietal craniotomy, evacuation of intracerebral hematoma 03.31--had seizure, developed left hemiparesis. then had further deterioration of motor function. CT brain showed hemorrhage. 03.29--started on heparin (2) Metastatic primary lung cancer Status: Acute Plan: admitted with new onset seizure. --CT showed a new 1.7 cm mass in the right parietal lobe with significant vasogenic edema. also had a brain MRI which showed a single 2-cm peripherally enhancing lesion in the right parietal high complexity with marked surrounding vasogenic edema. no other lesion noted. No midline shift noted. --s/p craniotomy and resection of mass via Dr. Palmer on 03/26/17 History: --Metastatic non-small cell lung cancer. 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 --was treated with radiation with concurrent cisplatin and Taxol. received two cycles of consolidation chemotherapy after concurrent treatment. --developed supraclavicular adenopathy and progression of disease. then received radiation. --subsequently was started on Opdivo and had a good response. --recent CT reportedly showed good response and no evidence of progression of disease. 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 --on Vimpat, Dilantin, Keppra (4) DVT (deep venous thrombosis) Status: Acute Plan: --s/p IVC filter in IR --History of multiple DVTs and pulmonary embolism. --last thromboembolic event was several months ago. --with his metastatic disease and history of multiple clots, he likely is going to have another thromboembolic event without the anticoagulation. --developed ICH while on heparin Assessment 52y/o male with metastatic lung cancer who presented with new-onset seizure. h/o Metastatic non-small cell lung cancer. Recurrent DVT and pulmonary embolism. He was on Lovenox. Osteoarthritis. Hyperlipidemia. Gastroesophageal reflux disease (GERD). Plan 1. Per nursing, patient had what appeared to be another seizure earlier this morning. 2. EEG was obtained that showed no obvious seizure activity. 3. We'll monitor CBC to keep platelets greater than 70,000 given his recent cerebral hemorrhage. Attending Statement The exam, history, and the medical decision-making described in the above note were completed with the assistance of the mid-level provider. I reviewed and agree with the findings presented. I attest that I had a [id number] encounter with the patient on the same day, and personally performed and documented my assessment and findings in the medical record. Mild thrombocytopenia --due to consumption/DIC low fibrinogen Will transfuse 2 units of Cryo Check daily fibrinogen and keep > 150 Check coags in AM No anti-coagulation at this time due to ICH Will transfus eto keep PLTs >70,000 needs rehab/PT d/w rn Problem Qualifiers (1) DVT (deep venous thrombosis): Yakelin Mackay Apr 03, 2017 17:07 Fermin Hickman MD Apr 04, 2017 00:06
[2017-04-03] MEDS ORDERED: PHENYTOIN INJ 500 MG in SODIUM CHLORIDE 0.9% INJ 100 ML IV ONE (17:30)
[2017-04-03] MEDS ORDERED: FOSPHENYTOIN INJ 500 MGPE in SODIUM CHLORIDE 0.9% INJ 50 ML IV ONE (18:30)
[2017-04-04] VITALS (18 sets, daily range): BP systolic 99–164; BP diastolic 55–76; PULSE 77–105; RESP 17–30; TEMP 97.3–99.7; O2SAT 93–99
[2017-04-04] MEDS ORDERED: diphenhydrAMINE HCL 25 MG CAP PO PRN
[2017-04-04] MEDS: DEXAMETHASONE SOD PHOS 4 MG/ML VIAL IV PUSH SCH ×4 (00:22→17:41)
[2017-04-04] MEDS: MANNITOL 12.5 GM/50 ML VIAL IV SCH ×3 (00:22→17:41)
[2017-04-04] MEDS: levETIRAcetam 1000 MG INJ 100 ML IV SCH ×3 (00:22→15:31)
[2017-04-04] MEDS: CLINDAMYCIN INJ 600 MG in SODIUM CHLORIDE 0.9% INJ 100 ML IV SCH (03:20)
[2017-04-04] MEDS: CHLORHEXIDINE GLUCONATE 2 % 1 PACK (2 CLOTHS) TOP SCH (03:20)
[2017-04-04] MEDS: AZTREONAM INJ 2,000 MG in SODIUM CHLORIDE 0.9% INJ 100 ML IV SCH (03:20)
[2017-04-04 04:50] LABS: HEMATOCRIT 25.5 % (39.0-51.0); MEAN CELL VOLUME 89.7 FL (80.0-100.0); MEAN CORPUSCULAR HEMOGLOBIN 31.4 PG (27.0-34.0); PLATELET COUNT 57 TH/MM3 (150-450); RED BLOOD COUNT 2.84 MIL/MM3 (4.50-5.90); RED CELL DISTRIBUTION WIDTH 17.1 % (11.6-17.2); WHITE BLOOD COUNT 18.9 TH/MM3 (4.0-11.0)
[2017-04-04 05:01] LABS: INTERNATIONAL NORMALIZED RATIO 1.2 RATIO; PROTHROMBIN TIME - PATIENT 13.4 SEC (9.8-11.6)
[2017-04-04 05:15] LABS: BICARBONATE 24.2 MEQ/L (21.0-32.0)
[2017-04-04 05:32] LABS: REVIEW FLAG AUTO DIFF
[2017-04-04] MEDS: LACOSAMIDE INJ 150 MG in SODIUM CHLORIDE 0.9% INJ 100 ML IV SCH ×3 (06:13→21:26)
[2017-04-04] MEDS: PHENYTOIN INJ 100 MG/2 ML VIAL IV SCH ×3 (06:13→21:24)
[2017-04-04] MEDS: CHLORHEXIDINE 0.12% (ORAL KIT) 15 ML CUP MT SCH ×2 (08:00→19:31)
[2017-04-04] MEDS: DOCUSATE SODIUM 50 MG/SENNA 8.6 MG TAB PO SCH ×2 (08:52→21:24)
[2017-04-04] MEDS: PANTOPRAZOLE SODIUM 40 MG VIAL IVP SCH (08:52)
[2017-04-04] MEDS: NS + KCL 20 MEQ INJ 1,000 ML IV SCH (08:52)
[2017-04-04] MEDS: LACTULOSE SYRUP 20 GM/30 ML CUP PO SCH ×4 (08:53→19:31)
[2017-04-04] MEDS: SODIUM CHLORIDE 0.9% FLUSH 5 ML FLUSH IVF SCH ×2 (08:53→21:00)
[2017-04-04] MEDS: POLYETHYLENE GLYCOL 17 GM PKG PO SCH ×2 (08:53→19:31)
[2017-04-04] MEDS ORDERED: FUROSEMIDE 20 MG/2 ML VIAL IV PUSH ONE (09:30)
--- NOTE | 2017-04-04 09:30 | HHI.CCPN ---
Subjective Remarks/Hospital Course Hospital Course: Patient is a 51-year-old male with past medical history significant for stage IV lung cancer (Dr. Hickman is the oncologist), chronic Lovenox therapy for DVT and PE, who presented to the emergency department for evaluation of possible stroke and new onset seizure. EMS was called for new onset focal seizures involving left lower extremity. According to paramedics en route patient started having weakness and shaking of the left upper and lower extremity with possible facial droop, but without loss of consciousness. In the ER initially was awake alert then developed focal left-sided seizures followed by generalized seizure for 5 min, received Ativan for this. Initially aroused from postictal state and then again had recurrent generalized seizure activity. Patient was intubated for airway protection. CT of the head showed right parietal mass 1.7 cm suspicious for metastatic lesion. I was contacted for admission. Patient was started on Versed infusion. Patient had been already loaded with Cerebyx 1 g, I will continue 100 mg IV every 8 hours. Also an EEG had been ordered. I have ordered MRI of the brain neurosurgery consult. I evaluated the patient in the Main ICU. He is intubated sedated with Versed. He purposefully moves all 4 extremity 03/25: persistent seizures yesterday. repeat cerebyx load and keppra load. plan to go to OR for tumor resection tomorrow. also has history of DVt/PE. will need IVC filter prior to OR. 03/26: went to OR today for crani. s/p crani, I evaluated the patient when he was immediately post-op. still somnolent from anesthesia. remains intubated. successful crani resection, minimal EBL. 03/27: Wild when sedation lightened - will need to perform rapid extubation. 03/28: Extubated and calm. Swallow eval good. 04/01: reconsulted. taken back to OR today for bleeding in the operative bed. left intubated post-op. follows commands in RUE,LUE,RLE. withdraws LLE. this is baseline neuro exam for patient. on my evaluation the patient is intubated and sedated, so no additional information is obtainable from the patient. ROS is unobtainable. past history was reviewed in the chart and unchanged from prior consult note. Subjective: 04/02: Status post right craniotomy for evacuation of hematoma. Currently on ventilator and following commands. Afebrile. 04/03: Seizures today requiring ativan X 4, multiple AEDs. 04/04: Leukocytosis after seizures yesterday. No seizures in past 16 hours. Start diuresis and concentrate serum a little more - trying to reduce cerebral edema. Decadron continues. Objective Vital Signs Date Time Temp Pulse Resp B/P Pulse Ox O2 Delivery O2 Flow Rate FiO2 04/04/17 08:21 98 21 04/04/17 08:00 79 04/04/17 08:00 98.3 26 118/65 04/02/17 09:55 Nasal Cannula 3 Intake and Output 04/03/17 04/03/17 04/03/17 07:59 15:59 23:59 Intake Total 956 ml 1209 ml 1196 ml Output Total 615 ml 546 ml 610 ml Balance 341 ml 663 ml 586 ml Result Diagram: 04/04/17 0359 04/04/17 0359 Imaging Last Impressions Head CT 04/02/17 0500 Signed Impressions: Service Date/Time: Sunday, April 02, 2017 04:24 - CONCLUSION: Interval evacuation and drain placement of right parietal occipital hematoma. Reduction of midline shift to 3 mm. Eitan Thornton MD Chest X-Ray 04/01/17 0000 Signed Impressions: Service Date/Time: Saturday, April 01, 2017 16:54 - CONCLUSION: 1. The tip of the ET tube is approximately 2.5 cm above the lulú. 2. Large left paratracheal mass. 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 Inferior vena caval filter will be placed via the femoral vein. Jesu Veras MD IVC Filter Placement X-Ray 03/25/17 0000 Signed Impressions: Service Date/Time: Saturday, March 25, 2017 16:24 - CONCLUSION: Uncomplicated inferior vena cava filter placement as above. Jesu Veras MD Brain MRI 03/25/17 0000 Signed Impressions: Service Date/Time: Saturday, March 25, 2017 16:10 - CONCLUSION: 2 cm enhancing mass in the right parietal region Jesu Veras MD Objective Remarks GENERAL: 52-year-old male, critically ill currently resting in bed in no acute distress SKIN: Warm and dry HEAD: Head wrapped in clean Kerlix. 2 basilia drains with small amount of sanguinous drainage. EYES: Pupils equal and round about 2 mm bilaterally and reactive. No scleral icterus. No injection or drainage. ENT: No nasal bleeding or discharge. ett in place. NECK: Trachea midline. Airway widely patent. CARDIOVASCULAR: RRR. S1, S2. No S4. Without murmur. No JVD. RESPIRATORY: Breath sounds equal bilaterally. Clear. GASTROINTESTINAL: Abdomen soft, non-tender, nondistended. MUSCULOSKELETAL: Extremities without significant peripheral edema. NEUROLOGICAL: Movement in RUE, LUE, RLE. withdraws in LLE. baseline neuro exam for patient. Speech clearer today. 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 - f/u post-op CT head showed improvement with right flexion 3 mm. BASILIA drain right posterior occipital hematoma -20/-40 SS Currently on morphine 2-4 mg IV every 3 hours. Pain EEG 04/01 revealed intermittent bilateral slowing possibly right more than left suggestive of right more than left hemisphere structural abnormality. No distinct paroxysmal discharge present. EEG 04/03 - diffuse slowing after ativan, no seizures. RESP: Postoperative respiratory failure Stage IV lung cancer/non-small cell metastases - DuoNeb every 6 hours when necessary if needed - vent bundle, hob at 30 degrees, nebs - etco2 monitoring. goal paco2 35- 40. repeat abg in AM. CV: History of dyslipidemia - Normal saline mivf @ 20cc/hr. Currently not on vasopressors and/or antihypertensives GI: Constipation Gastroesophageal reflux disease -Bedside swallow evaluation Pantoprazole for GI prophylaxis Check KUB. Myla-Colace twice a day, MiraLAX twice a day. : - Monitor renal function closely. Nunez catheter. ID: Currently on aztreonam, clindamycin since 03/24. Blood cultures no growth. - no suspicion of infection. myla-op abx per nsgy. 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 Hickman -Develop intercerebral hemorrhage on heparin drip. - IVC filter 03/25. 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 Treated with radiation with cisplatin and Taxol. Started on op D ago with good response. Fibrinogen low - Onc will address. ENDO: - Electrolyte replacement per protocol PROPH: - Bilateral lower extremity SCDs. Avoid chemical DVT prophylaxis due to brain bleed. IV Protonix LINES: - Utilize peripheral IVs, central line if needed Overall impression: Stable hemodynamics and acceptable respiratory function. Seizures now controlled on 3 AEDs. Nabor Westfall MD Apr 04, 2017 09:30
[2017-04-04] MEDS ORDERED: SODIUM CHLOR 0.9% 250 ML INJ 250 ML IV ONE (14:00)
[2017-04-04] MEDS ORDERED: FUROSEMIDE 40 MG/4 ML VIAL IV PUSH ONE (15:15)
--- NOTE | 2017-04-04 15:17 | HHI.PR ---
Review/Management Diagnosis parietal metastasis s/p resection secondary SZ--- Plan continue current anticonvulsants Diagnosis/Plan: Subjective Subjective Comments No acute events reported No additional SZ today. Had brief episode of left arm intermittent tightening yesterday--?focal SZ. Active Medications Current Medications Medications (Trade) Dose Ordered Sig/Pina Route Start Time Stop Time Status Last Admin Miscellaneous Information 1 [id number] XX 03/23/17 20:30 (Chlorhexidine 2% Cloth) Taper DAILY@04 TOP 03/24/17 04:00 03/20/18 03:59 04/02/17 03:13 (Chlorhexidine 2% Cloth) 3 pack UNSCH PRN TOP 03/23/17 20:30 Dexamethasone Sodium Phosphate 6 mg 6 mg Q6HR IV PUSH 03/24/17 00:00 04/04/17 11:31 Potassium Chloride 100 ml @ 50 mls/hr Q2H PRN IV 03/23/17 20:45 (KCl 20 Meq Premix Inj) 100 ml @ 50 mls/hr Q2H PRN IV 03/23/17 20:45 Potassium Bicarb/ Potassium Chloride 50 meq 50 meq UNSCH PRN PO 03/23/17 20:45 Potassium Chloride 100 ml @ 25 mls/hr UNSCH PRN IV 03/23/17 20:45 Potassium Chloride 100 ml @ 50 mls/hr Q2H PRN IV 03/23/17 20:45 (Magnesium Sulfate Inj/NS Inj) 100 ml @ 50 mls/hr UNSCH PRN IV 03/23/17 20:45 Magnesium Oxide 800 mg 800 mg UNSCH PRN PO 03/23/17 20:45 (Magnesium Sulfate Inj/NS Inj) 100 ml @ 50 mls/hr UNSCH PRN IV 03/23/17 20:45 Potassium Phosphate 2000 mg 2,000 mg Q4H PRN PO 03/23/17 20:45 (Sodium Phosphate Inj/NS 250 ml Inj) 250 ml @ 42 mls/hr UNSCH PRN IV 03/23/17 20:45 Potassium Phosphate 2000 mg 2,000 mg UNSCH PRN PO/TUBE 03/23/17 20:45 (Potassium Phosphate Inj/NS 250 ml Inj) 260 ml @ 42 mls/hr UNSCH PRN IV 03/23/17 20:45 (Ativan Inj) 2 mg Q2H PRN IV PUSH 03/24/17 02:00 04/03/17 11:38 (Lactulose Liq) 30 ml QID PO 03/24/17 09:00 04/03/17 08:23 Chlorhexidine Gluconate 15 ml 15 ml BID@08,20 MT 03/26/17 08:00 04/02/17 08:03 (NS + KCl 20 Meq Inj) 1,000 ml @ 50 mls/hr Q20H IV 03/26/17 14:00 04/04/17 08:52 (Zofran Inj) 4 mg Q6H PRN IV 03/26/17 14:00 03/27/17 21:52 Mannitol 25 gm 25 gm Q8H IV 04/01/17 17:00 04/04/17 08:53 (Vimpat Inj/NS Inj) 115 ml @ 115 mls/hr Q8HR IV 04/01/17 14:00 04/04/17 14:43 (NS Flush) 2 ml UNSCH PRN IVF 04/01/17 13:15 (NS Flush) 2 ml BID IVF 04/01/17 21:00 04/04/17 08:53 (Dulcolax Supp) 10 mg DAILY PRN RECTAL 04/01/17 13:15 04/02/17 12:14 (Protonix Inj) 40 mg DAILY IVP 04/02/17 09:00 04/04/17 08:52 Calcium Gluconate 1 gm 1 gm UNSCH PRN IV 04/01/17 13:15 Potassium Chloride 100 ml @ 50 mls/hr UNSCH PRN IV 04/01/17 13:15 (Magnesium Sulfate Inj/NS Inj) 108 ml @ 108 mls/hr UNSCH PRN IV 04/01/17 13:15 (Lanse 10-325 Mg) 1 tab Q4H PRN PO 04/01/17 13:15 (Lanse 10-325 Mg) 2 tab Q4H PRN PO 04/01/17 13:15 (Morphine Inj) 2 mg Q2H PRN IV PUSH 04/01/17 13:15 (Morphine Inj) 4 mg Q2H PRN IV PUSH 04/01/17 13:15 (Tylenol) 650 mg Q4H PRN PO 04/01/17 13:15 04/04/17 02:19 (Myla-Colace) 1 tab BID PO 04/02/17 10:30 04/04/17 08:52 (Miralax) 17 gm BID PO 04/02/17 10:30 04/03/17 08:20 (Glycerin Adult Supp) 2 gm BID PRN RECTAL 04/02/17 10:30 Metoprolol Tartrate 5 mg 5 mg Q6H PRN IV PUSH 04/03/17 11:15 (Keppra 1000 Mg Inj) 100 ml @ 400 mls/hr Q8H IV 04/03/17 16:00 04/04/17 08:52 Phenytoin Sodium 150 mg 150 mg Q8HR IV 04/03/17 22:00 04/04/17 14:44 (NS 250 ml Inj) 250 ml @ 15 mls/hr ONCE ONCE IV 04/04/17 14:00 04/05/17 06:39 04/04/17 14:43 (Lasix Inj) 40 mg ONCE ONCE IV PUSH 04/04/17 15:15 04/04/17 15:16 Allergies Allergies Coded Allergies penicillin G (Unverified Allergy, Unknown, 04/02/17) Exam I&O / VS 04/03/17 04/03/17 04/04/17 14:59 22:59 06:59 Intake Total 1209 ml 1196 ml 1784 ml Output Total 546 ml 610 ml 754 ml Balance 663 ml 586 ml 1030 ml Intake Oral 480 ml 480 ml 240 ml IV Total 729 ml 716 ml 1027 ml Cryoprecipitate 517 ml Output Urine Total 525 ml 600 ml 750 ml Stool Total 1 ml 0 ml Drainage Total 20 ml 10 ml 4 ml # Bowel Movements 0 Vital Signs Date Time Temp Pulse Resp B/P Pulse Ox O2 Delivery O2 Flow Rate FiO2 04/04/17 14:00 99 04/04/17 12:00 101 04/04/17 12:00 97.7 101 17 159/65 99 04/04/17 10:00 96 04/04/17 08:21 98 21 04/04/17 08:00 79 04/04/17 08:00 98.3 79 26 118/65 98 04/04/17 06:00 88 04/04/17 04:05 98.7 81 20 128/60 94 04/04/17 04:00 97.3 77 21 153/60 93 04/04/17 04:00 91 04/04/17 03:41 98.6 84 18 146/60 98 04/04/17 03:05 98.7 85 22 118/56 97 04/04/17 02:55 98.8 90 24 107/57 98 04/04/17 02:00 98 04/04/17 00:00 97.3 82 21 99/55 96 04/04/17 00:00 85 04/03/17 22:00 87 04/03/17 20:00 102 04/03/17 20:00 97.8 102 15 114/71 96 04/03/17 18:00 106 04/03/17 16:00 114 04/03/17 16:00 97.3 114 20 111/50 94 Exam Comments alert, follow commands, CN intact MOTOR 5/5 RUE, 4/5 LUE Objective Micro and Labs Laboratory Tests Test 04/03/17 04/04/17 04/04/17 04/04/17 23:00 00:36 03:59 14:23 Blood Bank Comment Acetaminophen Level LESS THAN 2.0 Blood Type A POSITIVE White Blood Count 18.9 Red Blood Count 2.84 Hemoglobin 8.9 Hematocrit 25.5 Mean Corpuscular Volume 89.7 Mean Corpuscular Hemoglobin 31.4 Mean Corpuscular Hemoglobin 35.0 Concent Red Cell Distribution Width 17.1 Platelet Count 57 Mean Platelet Volume 9.2 Prothrombin Time 13.4 Prothromb Time International 1.2 Ratio Fibrinogen 233 Sodium Level 137 Potassium Level 4.0 Chloride Level 103 Carbon Dioxide Level 24.2 Anion Gap 10 Blood Urea Nitrogen 23 Creatinine 0.59 Estimat Glomerular Filtration 143 Rate Random Glucose 118 Serum Osmolality 290 Calcium Level 8.3 Phenytoin (Dilantin) Level 16.8 Alfonso Wilkins PhD MD Apr 04, 2017 15:17
--- NOTE | 2017-04-04 15:21 | PD.ONC.PN ---
Subjective Subjective Remarks Afebrile overnight States he is feeling overall much better today No obvious bleeding Objective Data Date Time Temp Pulse Resp B/P Pulse Ox O2 Delivery O2 Flow Rate FiO2 04/04/17 14:00 99 04/04/17 12:00 101 04/04/17 12:00 97.7 101 17 159/65 99 04/04/17 10:00 96 04/04/17 08:21 98 21 04/04/17 08:00 79 04/04/17 08:00 98.3 79 26 118/65 98 04/04/17 06:00 88 04/04/17 04:05 98.7 81 20 128/60 94 04/04/17 04:00 97.3 77 21 153/60 93 04/04/17 04:00 91 04/04/17 03:41 98.6 84 18 146/60 98 04/04/17 03:05 98.7 85 22 118/56 97 04/04/17 02:55 98.8 90 24 107/57 98 04/04/17 02:00 98 04/04/17 00:00 97.3 82 21 99/55 96 04/04/17 00:00 85 04/03/17 22:00 87 04/03/17 20:00 102 04/03/17 20:00 97.8 102 15 114/71 96 04/03/17 18:00 106 04/03/17 16:00 114 04/03/17 16:00 97.3 114 20 111/50 94 04/04/17 04/04/17 04/04/17 07:00 15:00 23:00 Intake Total 1784 ml 1452 ml Output Total 754 ml 1804 ml Balance 1030 ml -352 ml Result Diagram: 04/04/17 0359 04/04/17 0359 Laboratory Results Laboratory Tests Test 04/03/17 04/04/17 04/04/17 04/04/17 23:00 00:36 03:59 14:23 Blood Bank Comment Acetaminophen Level LESS THAN 2.0 MCG/ML Blood Type A POSITIVE White Blood Count 18.9 TH/MM3 Red Blood Count 2.84 MIL/MM3 Hemoglobin 8.9 GM/DL Hematocrit 25.5 % Mean Corpuscular Volume 89.7 FL Mean Corpuscular Hemoglobin 31.4 PG Mean Corpuscular Hemoglobin 35.0 % Concent Red Cell Distribution Width 17.1 % Platelet Count 57 TH/MM3 Mean Platelet Volume 9.2 FL Prothrombin Time 13.4 SEC Prothromb Time International 1.2 RATIO Ratio Fibrinogen 233 mg/dL Sodium Level 137 MEQ/L Potassium Level 4.0 MEQ/L Chloride Level 103 MEQ/L Carbon Dioxide Level 24.2 MEQ/L Anion Gap 10 MEQ/L Blood Urea Nitrogen 23 MG/DL Creatinine 0.59 MG/DL Estimat Glomerular Filtration 143 ML/MIN Rate Random Glucose 118 MG/DL Serum Osmolality 290 MOSM/KG Calcium Level 8.3 MG/DL Phenytoin (Dilantin) Level 16.8 MCG/ML Administered Medications Medications (Trade) Dose Ordered Sig/Pina Route PRN Reason Start Time Stop Time Status Last Admin Dose Admin Chlorhexidine Gluconate (Chlorhexidine 2% Cloth) Taper DAILY@04 TOP 03/24/17 04:00 03/20/18 03:59 04/02/17 03:13 Dexamethasone Sodium Phosphate (Decadron Inj) 6 mg Q6HR IV PUSH 03/24/17 00:00 04/04/17 11:31 Lorazepam (Ativan Inj) 2 mg Q2H PRN IV PUSH seizure 03/24/17 02:00 04/03/17 11:38 Lactulose (Lactulose Liq) 30 ml QID PO 03/24/17 09:00 04/03/17 08:23 Chlorhexidine Gluconate 15 ml 15 ml BID@08,20 MT 03/26/17 08:00 04/02/17 08:03 Potassium Chloride/Sodium Chloride (NS + KCl 20 Meq Inj) 1,000 ml @ 50 mls/hr Q20H IV 03/26/17 14:00 04/04/17 08:52 Ondansetron HCl (Zofran Inj) 4 mg Q6H PRN IV NAUSEA OR VOMITING 03/26/17 14:00 03/27/17 21:52 Mannitol 25 gm 25 gm Q8H IV 04/01/17 17:00 04/04/17 08:53 Lacosamide/Sodium Chloride (Vimpat Inj/NS Inj) 115 ml @ 115 mls/hr Q8HR IV 04/01/17 14:00 04/04/17 14:43 IV Flush (NS Flush) 2 ml BID IVF 04/01/17 21:00 04/04/17 08:53 Bisacodyl (Dulcolax Supp) 10 mg DAILY PRN RECTAL SEE LABEL COMMENTS 04/01/17 13:15 04/02/17 12:14 Pantoprazole Sodium (Protonix Inj) 40 mg DAILY IVP 04/02/17 09:00 04/04/17 08:52 Acetaminophen (Tylenol) 650 mg Q4H PRN PO TEMPERATURE > 101.5 F 04/01/17 13:15 04/04/17 02:19 Senna/Docusate Sodium (Myla-Colace) 1 tab BID PO 04/02/17 10:30 04/04/17 08:52 Polyethylene Glycol 17 gm 17 gm BID PO 04/02/17 10:30 04/03/17 08:20 Levetriacetam (Keppra 1000 Mg Inj) 100 ml @ 400 mls/hr Q8H IV 04/03/17 16:00 04/04/17 08:52 Phenytoin Sodium 150 mg 150 mg Q8HR IV 04/03/17 22:00 04/04/17 14:44 Sodium Chloride (NS 250 ml Inj) 250 ml @ 15 mls/hr ONCE ONCE IV 04/04/17 14:00 04/05/17 06:39 04/04/17 14:43 Objective Remarks GENERAL: Middle aged male upright in bed in nad. SKIN: Warm and dry. HEAD: Normocephalic. Posterior drains from head with serosanguineous drainage EYES:No injection or drainage. NECK: Supple, trachea midline. CARDIOVASCULAR: Regular rate and rhythm RESPIRATORY: Clear anteriorly. GASTROINTESTINAL: Abdomen nondistended. EXTREMITIES: No cyanosis. Generalized lower extremity edema NEUROLOGICAL: Awake and alert, normal speech. Facial movements symmetric. Left side stronger Assessment/Plan Problem List: (1) Intracerebral hemorrhage Status: Acute Plan: 04/04: Platelets 57k today. Transfuse one unit platelets 04/03: Patient had another seizure this morning per nurse. 04/02: awake and alert, moving all extremities. + weakness in left arm and left leg. 04/01-->s/p Right parietal craniotomy, evacuation of intracerebral hematoma 03.31--had seizure, developed left hemiparesis. then had further deterioration of motor function. CT brain showed hemorrhage. 03.29--started on heparin (2) Metastatic primary lung cancer Status: Acute Plan: admitted with new onset seizure. --CT showed a new 1.7 cm mass in the right parietal lobe with significant vasogenic edema. also had a brain MRI which showed a single 2-cm peripherally enhancing lesion in the right parietal high complexity with marked surrounding vasogenic edema. no other lesion noted. No midline shift noted. --s/p craniotomy and resection of mass via Dr. Palmer on 03/26/17 History: --Metastatic non-small cell lung cancer. 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 --was treated with radiation with concurrent cisplatin and Taxol. received two cycles of consolidation chemotherapy after concurrent treatment. --developed supraclavicular adenopathy and progression of disease. then received radiation. --subsequently was started on Opdivo and had a good response. --recent CT reportedly showed good response and no evidence of progression of disease. 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 --on Emil Clark Keppra (4) DVT (deep venous thrombosis) Status: Acute Plan: --s/p IVC filter in IR --History of multiple DVTs and pulmonary embolism. --last thromboembolic event was several months ago. --with his metastatic disease and history of multiple clots, he likely is going to have another thromboembolic event without the anticoagulation. --developed ICH while on heparin Assessment 52y/o male with metastatic lung cancer who presented with new-onset seizure. h/o Metastatic non-small cell lung cancer. Recurrent DVT and pulmonary embolism. He was on Lovenox. Osteoarthritis. Hyperlipidemia. Gastroesophageal reflux disease (GERD). Plan 1. Transfuse one unit platelets as patient has high risk for recurrent bleeding due to recent cerebral hemorrhage 2. Patient with increasing bilateral lower extremity edema. Noted hospital cook is ordering Lasix. 3. Monitor CBC 4. Monitor fibrinogen daily. Attending Statement The exam, history, and the medical decision-making described in the above note were completed with the assistance of the mid-level provider. I reviewed and agree with the findings presented. I attest that I had a [id number] encounter with the patient on the same day, and personally performed and documented my assessment and findings in the medical record. Give platelets today. Having DIC Fibrinogen up after 2 units of cryo check daily fibrinogen check coags in am drop in Hb. anemia studies. check LDH and Haptoglobin in am. check direct Ozzy LE Doppler show extensive DVT--has IVC filter in place--anticoagulation is contr -indicated in the setting of ICH d/w rn Problem Qualifiers (1) DVT (deep venous thrombosis): Yakelin Mackay Apr 04, 2017 15:21 Fermin Hickman MD Apr 04, 2017 22:40
--- NOTE | 2017-04-04 17:11 | HHI.NSPN ---
(Minesh Lai) History Chief Complaint: Swelling to the legs. (Minesh Lai) Interval History Mr. Mendosa is a 52 y/o male underwent right parietal craniotomy for resection of brain mets 03/26/17. 03/27: intubated and sedated. post/op CT Head completed. possible extubation today. EEG yesterday report noted. Dilantin levels yesterday was 11. 03/28:extubated, doing very well, brushing his teeth. Surgical pain controlled. EEG yesterday still shows sharps abnormalities. 03/29: no clinical seizures overnight, sitting up in chair eating breakfast. Nursing called later following rounds, pt had episode of staring was unresponsive found slumped over in chair. no shaking episodes seen. will repeat EEG. obtain Dilantin levels. 03/30: The patient is awake and alert, talking with his family. When asked questions for the review of systems the patient rambles on about other things and was not able to be redirected back. He was oriented to person, place and time though. His expressed her concern about his mental status. He does readily interact. 03/31: This morning the patient is awake and alert with his present. He continues to ramble on about things not related to the question asked. Nursing reports that the patient is having visual hallucinations and is confused as to what his situation is. The patient reports bleeding from the surgical site during the night. Nursing states that apparently as he was asleep and moved about some of the scabbing to the surgical incision broke off and he did have some minor bleeding. As this note is being finished Nursing reports that the patient is having another seizure with twitching although he is awake. 04/01: pt with recurrent seizures over the weekend, f/u CT Head shows acute hematoma within surgical bed. had more seizures this morning, worsening left side weakness, now unable to move. remains awake, alert but intermittently confused 04/02: f/u CT Head this morning completed, intubated and sedated. 04/03: Pt awake and alert. Denies headaches. No n/v. Follows commands well. Left hemiparesis LLE more than LUE. Pupils equal. 04/04: The patient is awake and alert when seen. He says he is doing better than yesterday. His only complaint was swelling to the legs. (Minesh Lai) System Review Comments Constitutional: Patient denies any fever or chills. HEENT: Patient denies any head pain at surgical incision or any visual or hearing problems. Neck: Patient denies any neck pain. Respiratory: Patient denies any shortness of breath or productive cough. Cardiovascular: Patient denies any chest pain, palpitations or irregular heartbeat. Gastrointestinal: Patient denies any abdominal pain, nausea or vomiting. Genitourinary: Patient has a Nunez catheter. Musculoskeletal: Patient complains of swelling to the legs. He denies any extremity pain or weakness or back pain. Neurologic: Patient denies any headache, dizziness, numbness or tingling. (Minesh Lai) Exam Results Vital Signs Date Time Temp Pulse Resp B/P Pulse Ox O2 Delivery O2 Flow Rate FiO2 04/04/17 16:15 98.0 96 30 149/76 96 04/04/17 08:21 21 04/02/17 09:55 Nasal Cannula 3 Intake and Output 04/03/17 04/03/17 04/04/17 08:00 16:00 00:00 Intake Total 956 ml 1209 ml 1196 ml Output Total 615 ml 546 ml 610 ml Balance 341 ml 663 ml 586 ml (Minesh Lai) Physical Examination General: The patient is awake & alert, readily interacts, speech is rambling and not focused on questions being asked, affect improved, no apparent distress. HEENT: Surgical incision to posterior scalp w/intact jamaal, mild edema along incision, JOEY drain sites w/o any drainage, erythema or streaking to either. PERRLA, EOMI. MMM & pink, tongue midline to protrusion. Left eyelid ptosis Neck: Active ROM w/o any pain, no JVD, trachea midline. Respiratory: CTAB w/o W/R/R, equal excursion, nonlaboured, on RA. Cardiovascular: S1S2 w/RRR w/o M/G/R, radial & pedal pulses 2+ bilaterally, cap refill < 2 sec. Monitor is sinus rhythm w/o any ectopy noted. Gastrointestinal: Abdomen soft, nontender, positive bowel sounds. Skin: Warm, dry & intact except for surgical incision to posterior scalp, no evident rashes, ulcerations or other lesions. Musculoskeletal: CHAVEZ, no evident deformity or clubbing. Neurologic: AAOx3. Speech clear but confused, rambling and not appropriate to what was asked. PERRLA 4 mm brisk. Tongue midline to protrusion. Left eyelid ptosis. Shoulder shrug on right strong but left weak. Sensation intact to light touch to all extremities. Motor strength RUE & RLE 5/5, left biceps & triceps 4+/5, left deltoid 4/5, left plantar flexion & extension 3/5, left knee flexion & hip flexion 1/5. (Minesh Lai) Lab, Micro, Other Results Recent Impressions Head CT 04/02/17 0500 Signed Impressions: Service Date/Time: Sunday, April 02, 2017 04:24 - CONCLUSION: Interval evacuation and drain placement of right parietal occipital hematoma. Reduction of midline shift to 3 mm. Eitan Thornton MD Abdomen X-Ray 04/02/17 0000 Signed Impressions: Service Date/Time: Sunday, April 02, 2017 11:19 - CONCLUSION: No acute disease. Jesu Cervantes MD ///// 06:00 18:00 06:00 18:00 06:00 18:00 Intake Total 2188 ml 1999 ml 1841 ml 1209 ml 2980 ml 1452 ml Output Total 860 ml 795 ml 1275 ml 546 ml 1364 ml 1804 ml Balance 1328 ml 1204 ml 566 ml 663 ml 1616 ml -352 ml Intake Oral 0 ml 120 ml 480 ml 720 ml 450 ml IV Total 2188 ml 1879 ml 1841 ml 729 ml 1743 ml 1002 ml Cryoprecipitate 517 ml Output Urine Total 800 ml 775 ml 1250 ml 525 ml 1350 ml 1800 ml Stool Total 0 ml 0 ml 0 ml 1 ml 0 ml Drainage Total 60 ml 20 ml 25 ml 20 ml 14 ml 4 ml # Bowel Movements 0 0 Laboratory Tests Test 04/01/17 04/02/17 04/03/1717 19:44 05:03 05:15 12:40 Blood Gas Puncture Site RT RADIAL Blood Gas Patient Temperature 98.6 Blood Gas HCO3 25 mmol/L Blood Gas Base Excess 1.7 mmol/L Blood Gas Oxygen Saturation 97 % Arterial Blood pH 7.47 Arterial Blood Partial 35 mmHg Pressure CO2 Arterial Blood Partial 182 mmHg Pressure O2 Arterial Blood Oxygen Content 16.1 Vol % Arterial Blood 1.6 % Carboxyhemoglobin Arterial Blood Methemoglobin 0.9 % Blood Gas Hemoglobin 11.5 G/DL Oxygen Delivery Device VENTILATOR Blood Gas Ventilator Setting AC/15/600/PEEP5 Blood Gas Inspired Oxygen 40 % White Blood Count 12.2 TH/MM3 Red Blood Count 3.94 MIL/MM3 Hemoglobin 12.0 GM/DL Hematocrit 35.7 % Mean Corpuscular Volume 90.5 FL Mean Corpuscular Hemoglobin 30.4 PG Mean Corpuscular Hemoglobin 33.6 % Concent Red Cell Distribution Width 17.1 % Platelet Count 109 TH/MM3 Mean Platelet Volume 7.7 FL Neutrophils (%) (Auto) 89.2 % Lymphocytes (%) (Auto) 4.3 % Monocytes (%) (Auto) 6.4 % Eosinophils (%) (Auto) 0.0 % Basophils (%) (Auto) 0.1 % Neutrophils # (Auto) 10.9 TH/MM3 Lymphocytes # (Auto) 0.5 TH/MM3 Monocytes # (Auto) 0.8 TH/MM3 Eosinophils # (Auto) 0.0 TH/MM3 Basophils # (Auto) 0.0 TH/MM3 CBC Comment DIFF FINAL Differential Comment Prothrombin Time 13.7 SEC 15.2 SEC Prothromb Time International 1.2 RATIO 1.4 RATIO Ratio Activated Partial 22.9 SEC Thromboplast Time Sodium Level 134 MEQ/L Potassium Level 4.7 MEQ/L Chloride Level 103 MEQ/L Carbon Dioxide Level 25.6 MEQ/L Anion Gap 5 MEQ/L Blood Urea Nitrogen 24 MG/DL Creatinine 0.55 MG/DL Estimat Glomerular Filtration 155 ML/MIN Rate Random Glucose 107 MG/DL Serum Osmolality 298 MOSM/KG 291 MOSM/KG Calcium Level 8.3 MG/DL Fibrinogen 91 mg/dL Phenytoin (Dilantin) Level 11.8 MCG/ML Test 04/03/17 04/04/17 04/04/17 04/04/17 23:00 00:36 03:59 14:23 Blood Bank Comment Acetaminophen Level LESS THAN 2.0 MCG/ML Blood Type A POSITIVE White Blood Count 18.9 TH/MM3 Red Blood Count 2.84 MIL/MM3 Hemoglobin 8.9 GM/DL Hematocrit 25.5 % Mean Corpuscular Volume 89.7 FL Mean Corpuscular Hemoglobin 31.4 PG Mean Corpuscular Hemoglobin 35.0 % Concent Red Cell Distribution Width 17.1 % Platelet Count 57 TH/MM3 Mean Platelet Volume 9.2 FL Prothrombin Time 13.4 SEC Prothromb Time International 1.2 RATIO Ratio Fibrinogen 233 mg/dL Sodium Level 137 MEQ/L Potassium Level 4.0 MEQ/L Chloride Level 103 MEQ/L Carbon Dioxide Level 24.2 MEQ/L Anion Gap 10 MEQ/L Blood Urea Nitrogen 23 MG/DL Creatinine 0.59 MG/DL Estimat Glomerular Filtration 143 ML/MIN Rate Random Glucose 118 MG/DL Serum Osmolality 290 MOSM/KG Calcium Level 8.3 MG/DL Phenytoin (Dilantin) Level 16.8 MCG/ML Vital Signs Date Time Temp Pulse Resp B/P Pulse Ox O2 Delivery O2 Flow Rate FiO2 04/04/17 16:15 98.0 96 30 149/76 96 04/04/17 16:00 99.7 101 22 164/70 98 04/04/17 16:00 105 04/04/17 16:00 99.7 105 23 149/76 98 04/04/17 14:00 99 04/04/17 12:00 101 04/04/17 12:00 97.7 101 17 159/65 99 04/04/17 10:00 96 04/04/17 08:21 98 21 04/04/17 08:00 79 04/04/17 08:00 98.3 79 26 118/65 98 04/04/17 06:00 88 04/04/17 04:05 98.7 81 20 128/60 94 04/04/17 04:00 97.3 77 21 153/60 93 04/04/17 04:00 91 04/04/17 03:41 98.6 84 18 146/60 98 04/04/17 03:05 98.7 85 22 118/56 97 04/04/17 02:55 98.8 90 24 107/57 98 04/04/17 02:00 98 04/04/17 00:00 97.3 82 21 99/55 96 04/04/17 00:00 85 04/03/17 22:00 87 04/03/17 20:00 102 04/03/17 20:00 97.8 102 15 114/71 96 04/03/17 18:00 106 04/03/17 16:00 114 04/03/17 16:00 97.3 114 20 111/50 94 04/03/17 14:00 136 04/03/17 12:00 132 04/03/17 12:00 97.6 132 28 137/58 95 04/03/17 10:24 96 21 04/03/17 10:00 128 04/03/17 08:00 99.5 107 20 95/63 95 04/03/17 08:00 110 04/03/17 06:00 106 04/03/17 04:00 100.4 118 15 103/56 95 04/03/17 04:00 118 04/03/17 02:00 128 04/03/17 02:00 115 04/03/17 00:00 98.6 115 27 126/87 97 04/03/17 00:00 115 04/02/17 22:00 93 04/02/17 20:43 95 21 04/02/17 20:00 99.1 101 24 129/85 95 04/02/17 20:00 101 04/02/17 18:00 100 04/02/17 16:00 116 04/02/17 16:00 98.5 116 26 141/87 95 04/02/17 14:00 98 04/02/17 12:00 98.1 94 15 127/82 100 04/02/17 12:00 94 04/02/17 10:00 94 04/02/17 09:55 100 Nasal Cannula 3 04/02/17 09:10 99 40 04/02/17 09:10 98 40 04/02/17 08:00 74 04/02/17 08:00 97.9 74 15 95/65 100 04/02/17 08:00 40 04/02/17 06:00 86 04/02/17 04:20 100 100 04/02/17 04:15 100 40 04/02/17 04:00 82 04/02/17 04:00 97.0 82 17 110/78 100 04/02/17 04:00 40 04/02/17 02:00 81 04/02/17 01:10 100 40 04/02/17 00:00 40 04/02/17 00:00 98.0 88 17 115/60 97 04/02/17 00:00 88 04/01/17 22:00 77 04/01/17 21:08 100 40 04/01/17 20:00 88 04/01/17 20:00 40 04/01/17 20:00 100 40 04/01/17 20:00 98.2 81 15 92/67 99 04/01/17 18:00 84 04/01/17 18:00 88 (Minesh Lai) Medical Decision Making Impression and Plan Impression: 52 y/o male presents for seizures MRI Brain shows left right parietal mass lesion, suspected for metastatic lung CA. 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 Patient still with confusion, motor weakness to LLE>LUE. Plan: Continue neuro checks. Continue PT, OT, ST Continue AEDs per Neurology. Continue seizure precautions. Hydralazine 20 mg IV PRN SBP > 160 mm Hg. (Minesh Lai) Attending Statement The exam, history, and the medical decision-making described in the above note were completed with the assistance of the mid-level provider. I reviewed and agree with the findings presented. I attest that I had a [id number] encounter with the patient on the same day, and personally performed and documented my assessment and findings in the medical record. Neurologic exam is slowly improving Continue antiepileptic medications Most recent EEG without focal seizure activity Continuing therapy (Damian Hickman MD) Minesh Lai Apr 04, 2017 17:11 Damian Hickman MD May 27, 2017 07:50
[2017-04-04] MEDS ORDERED: hydrALAZINE HCL 20 MG/ML VIAL IV PRN (17:15)
--- NOTE | 2017-04-04 19:07 | RADRPT ---
EXAM DATE/TIME: 04/04/2017 17:39 [facility] COMPARISON: No previous studies available for comparison. INDICATIONS : Bilateral leg swelling. MEDICAL HISTORY : Hypercholesterolemia. Seizures. Carcinoma, lung. Intracranial hemorrhage. Anticoagulant therapy, Love nox. Arthritis. Chemotherapy. Radiation therapy. Measles. Deep vein thrombosis. SURGICAL HISTORY : Right craniotomy for resection of brain mets. Port placement. Right knee surgery. IVC filter. ENCOUNTER: Initial ACUITY: 1 day PAIN SCORE: 5/10 LOCATION: Bilateral legs. TECHNIQUE: Venous ultrasound of the left and right leg was performed from the inguinal ligament to the proximal calf. Real-time, color Doppler and spectral tracing, compression and augmentation techniques were us ed. FINDINGS: Examination is positive for extensive deep venous thrombosis in the lower extremity bilaterally inclu ding both femoral, popliteal, peroneal and posterior tibial veins as well as the saphenous veins. CONCLUSION: 1. Extensive occlusive deep venous thrombosis in both lower extremities. Scott Layton MD on April 04, 2017 at 19:04 Board Certified Radiologist. This report was verified electronically.
[2017-04-05] VITALS (14 sets, daily range): BP systolic 100–111; BP diastolic 62–68; PULSE 61–86; RESP 14–25; TEMP 97.8–99.8; O2SAT 97–100
[2017-04-05] MEDS: NS + KCL 20 MEQ INJ 1,000 ML IV SCH ×2 (00:45→13:44)
[2017-04-05] MEDS: DEXAMETHASONE SOD PHOS 4 MG/ML VIAL IV PUSH SCH ×4 (00:45→17:41)
[2017-04-05] MEDS: levETIRAcetam 1000 MG INJ 100 ML IV SCH ×3 (00:45→17:41)
[2017-04-05] MEDS: MANNITOL 12.5 GM/50 ML VIAL IV SCH ×3 (00:45→21:45)
[2017-04-05] MEDS: CHLORHEXIDINE GLUCONATE 2 % 1 PACK (2 CLOTHS) TOP SCH (00:46)
[2017-04-05] MEDS: LACOSAMIDE INJ 150 MG in SODIUM CHLORIDE 0.9% INJ 100 ML IV SCH ×3 (05:28→21:48)
[2017-04-05] MEDS: PHENYTOIN INJ 100 MG/2 ML VIAL IV SCH ×3 (05:38→21:47)
[2017-04-05 06:03] LABS: AUTOMATED NEUTROPHIL # 16.6 TH/MM3 (1.8-7.7); BASOPHIL % 0.2 % (0.0-2.0); EOSINOPHIL % 0.2 % (0.0-4.0); LYMPH % 2.2 % (9.0-44.0); LYMPHOCYTE # 0.4 TH/MM3 (1.0-4.8); MEAN CELL VOLUME 90.3 FL (80.0-100.0); MEAN CORPUSCULAR HGB CONC 34.4 % (32.0-36.0); MONO % 4.5 % (0.0-8.0); NEUT % 92.9 % (16.0-70.0); PLATELET COUNT 87 TH/MM3 (150-450); RED BLOOD COUNT 2.66 MIL/MM3 (4.50-5.90); RED CELL DISTRIBUTION WIDTH 17.6 % (11.6-17.2); WHITE BLOOD COUNT 17.8 TH/MM3 (4.0-11.0)
[2017-04-05 06:07] LABS: HEMO FLAGS AUTO DIFF
[2017-04-05 06:12] LABS: INTERNATIONAL NORMALIZED RATIO 1.1 RATIO; PROTHROMBIN TIME - PATIENT 12.7 SEC (9.8-11.6)
[2017-04-05 06:27] LABS: BICARBONATE 26.6 MEQ/L (21.0-32.0); POTASSIUM 4.3 MEQ/L (3.5-5.1)
[2017-04-05] MEDS: CHLORHEXIDINE 0.12% (ORAL KIT) 15 ML CUP MT SCH ×2 (08:00→20:00)
[2017-04-05] MEDS: LACTULOSE SYRUP 20 GM/30 ML CUP PO SCH ×4 (09:00→21:00)
[2017-04-05] MEDS: SODIUM CHLORIDE 0.9% FLUSH 5 ML FLUSH IVF SCH ×2 (09:00→21:46)
[2017-04-05] MEDS: POLYETHYLENE GLYCOL 17 GM PKG PO SCH ×2 (09:05→21:46)
[2017-04-05] MEDS: PANTOPRAZOLE SODIUM 40 MG VIAL IVP SCH (09:06)
[2017-04-05] MEDS: DOCUSATE SODIUM 50 MG/SENNA 8.6 MG TAB PO SCH ×2 (09:06→21:46)
[2017-04-05 09:07] LABS: PLATELET ESTIMATE SMEAR LOW (NORMAL); PLATELET MORPHOLOGY NORMAL (NORMAL); SCAN/DIFF AUTO DIFF CONFIRMED
--- NOTE | 2017-04-05 09:42 | HHI.NSPN ---
(Ke Rehman) History Chief Complaint: Swelling to the legs. (Ke Rehman) Interval History Mr. Mendosa is a 52 y/o male underwent right parietal craniotomy for resection of brain mets 03/26/17. 03/27: intubated and sedated. post/op CT Head completed. possible extubation today. EEG yesterday report noted. Dilantin levels yesterday was 11. 03/28:extubated, doing very well, brushing his teeth. Surgical pain controlled. EEG yesterday still shows sharps abnormalities. 03/29: no clinical seizures overnight, sitting up in chair eating breakfast. 04/01: pt with recurrent seizures over the weekend, f/u CT Head shows acute hematoma within surgical bed. had more seizures this morning, worsening left side weakness, now unable to move. remains awake, alert but intermittently confused 04/02: f/u CT Head this morning completed, intubated and sedated. 04/03: Pt awake and alert. Denies headaches. No n/v. Follows commands well. Left hemiparesis LLE more than LUE. Pupils equal. 04/04: Pt awake and alert. Denies headache. No n/v. Follows commands well. Left hemiparesis improving. Pt has bilateral DVT. Has a hx of IVC filter in place. (Ke Rehman) Review of Systems General: Negative for: fever, chills, insomnia Respiratory: Negative for: shortness of breath, cough, sputum Cardiovascular: Negative for: chest pain Gastrointestinal: Negative for: nausea, vomitting, diarrhea, constipation ( Ke Rehman) Exam Results Vital Signs Date Time Temp Pulse Resp B/P Pulse Ox O2 Delivery O2 Flow Rate FiO2 04/05/17 08:06 98 21 04/05/17 08:00 77 04/05/17 08:00 97.8 14 108/65 04/02/17 09:55 Nasal Cannula 3 Intake and Output 04/04/17 04/04/17 04/05/17 08:00 16:00 00:00 Intake Total 1784 ml 1452 ml 1210 ml Output Total 754 ml 1804 ml 2404 ml Balance 1030 ml -352 ml -1194 ml (Ke Rehman) Physical Examination Resp: CTA bilaterally Heart: NSR no murmurs Abd: Soft positive bs Skin: Incision clean and dry. JOEY drains in place Muscle: Left hemiparesis improving slowly. LLE weaker than LUE. Edema bilateral LEs Right more than left. Neuro: Pt awake and alert. Follows commands well. Speech clear and appropriate. (Ke Rehman) Lab, Micro, Other Results Last Impressions Lower Extremity Ultrasound 04/04/17 0000 Signed Impressions: Service Date/Time: March 17:39 - CONCLUSION: 1. Extensive occlusive deep venous thrombosis in both lower extremities. Scott Layton MD Head CT 04/02/17 0500 Signed Impressions: Service Date/Time: Sunday, April 02, 2017 04:24 - CONCLUSION: Interval evacuation and drain placement of right parietal occipital hematoma. Reduction of midline shift to 3 mm. Eitan Thornton MD Abdomen X-Ray 04/02/17 0000 Signed Impressions: Service Date/Time: Sunday, April 02, 2017 11:19 - CONCLUSION: No acute disease. Jesu Cervantes MD Chest X-Ray 04/01/17 0000 Signed Impressions: Service Date/Time: Saturday, April 01, 2017 16:54 - CONCLUSION: 1. The tip of the ET tube is approximately 2.5 cm above the lulú. 2. Large left paratracheal mass. 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 Inferior vena caval filter will be placed via the femoral vein. Jesu Veras MD IVC Filter Placement X-Ray 03/25/17 0000 Signed Impressions: Service Date/Time: Saturday, March 25, 2017 16:24 - CONCLUSION: Uncomplicated inferior vena cava filter placement as above. Jesu Veras MD Brain MRI 03/25/17 0000 Signed Impressions: Service Date/Time: Saturday, March 25, 2017 16:10 - CONCLUSION: 2 cm enhancing mass in the right parietal region Jesu Veras MD Laboratory Tests Test 04/04/17 04/04/17 04/05/17 14:23 18:52 05:10 Blood Bank Comment Serum Osmolality 291 MOSM/KG 288 MOSM/KG White Blood Count 17.8 TH/MM3 Red Blood Count 2.66 MIL/MM3 Hemoglobin 8.3 GM/DL Hematocrit 24.0 % Mean Corpuscular Volume 90.3 FL Mean Corpuscular Hemoglobin 31.0 PG Mean Corpuscular Hemoglobin 34.4 % Concent Red Cell Distribution Width 17.6 % Platelet Count 87 TH/MM3 Mean Platelet Volume 9.0 FL Neutrophils (%) (Auto) 92.9 % Lymphocytes (%) (Auto) 2.2 % Monocytes (%) (Auto) 4.5 % Eosinophils (%) (Auto) 0.2 % Basophils (%) (Auto) 0.2 % Neutrophils # (Auto) 16.6 TH/MM3 Lymphocytes # (Auto) 0.4 TH/MM3 Monocytes # (Auto) 0.8 TH/MM3 Eosinophils # (Auto) 0.0 TH/MM3 Basophils # (Auto) 0.0 TH/MM3 CBC Comment AUTO DIFF Differential Comment AUTO DIFF CONFIRMED Platelet Estimate LOW Platelet Morphology Comment NORMAL Haptoglobin 318 MG/DL Prothrombin Time 12.7 SEC Prothromb Time International 1.1 RATIO Ratio Fibrinogen 191 mg/dL Sodium Level 132 MEQ/L Potassium Level 4.3 MEQ/L Chloride Level 101 MEQ/L Carbon Dioxide Level 26.6 MEQ/L Anion Gap 4 MEQ/L Blood Urea Nitrogen 21 MG/DL Creatinine 0.46 MG/DL Estimat Glomerular Filtration 191 ML/MIN Rate Random Glucose 107 MG/DL Calcium Level 8.0 MG/DL Phosphorus Level 1.6 MG/DL Magnesium Level 2.0 MG/DL Lactate Dehydrogenase 238 U/L Blood Type A POSITIVE Direct Antiglobulin Test NEGATIVE (Ozzy) 04/04/17 04/04/17 04/05/17 15:00 23:00 07:00 Intake Total 1452 ml 1210 ml 942 ml Output Total 1804 ml 2404 ml 850 ml Balance -352 ml -1194 ml 92 ml Intake Oral 450 ml 360 ml 100 ml IV Total 1002 ml 850 ml 842 ml Output Urine Total 1800 ml 2400 ml 850 ml Drainage Total 4 ml 4 ml # Bowel Movements 0 0 0 (Ke Rehman) Medical Decision Making Impression and Plan A: 52 y/o male presents for seizures MRI Brain shows left right parietal mass lesion, suspected for metastatic lung CA. s/p right parietal craniotomy with resection of brain mass 03/26/17 f/u CT Head 03/26/17 with expected postsurgical changes DVT, PE, s/p placement of IVC filter EEG 03/26/17 reports poss right epileptiform activities f/u CT Brain 04/01/17 with moderate right parietal hematoma, pt with recurrent seizures and left side plegia, s/p redo right craniotomy with evacuation of parietal hematoma 04/01/17, f/u CT Head 04/02 better with improved midline shift Plan Plan Plan Remarks cont Mannitol 25 gm q 8 hours, hold for serum os greater than 310, cont current AEDs, cont seizure precautions Continue PT, OT, ST cont neuro checks continue with nonchemical dvt prophylaxis with SCDs and TEDs, no chem proph due to ICH (Ke Rehman) Attending Statement The exam, history, and the medical decision-making described in the above note were completed with the assistance of the mid-level provider. I reviewed and agree with the findings presented. I attest that I had a [id number] encounter with the patient on the same day, and personally performed and documented my assessment and findings in the medical record. Taper off mannitol and continue with the current management. (Irving Aldridge MD) Ke Rehman Apr 05, 2017 09:42 Irving Aldridge MD Apr 05, 2017 14:22
[2017-04-05] MEDS ORDERED: LIDOCAINE 1%/EPINEPHrine 1:100,000 SOLN 50 ML VIAL INFIL ONE (11:30)
[2017-04-05] MEDS ORDERED: LIDOCAINE 2%/EPINEPHrine 1:100,000 50ML MDV INFIL ONE (12:45)
--- NOTE | 2017-04-05 15:16 | PD.ONC.PN ---
Subjective Subjective Remarks awake and alert no seizure activity lower extremity swelling b/l gaining strength back in left upper arm. able to move left foot and toes today had PT Objective Data Date Time Temp Pulse Resp B/P Pulse Ox O2 Delivery O2 Flow Rate FiO2 04/05/17 14:00 84 04/05/17 12:00 81 04/05/17 12:00 98.2 81 18 111/66 100 04/05/17 10:00 76 04/05/17 08:06 98 21 04/05/17 08:00 77 04/05/17 08:00 97.8 77 14 108/65 98 04/05/17 06:00 75 04/05/17 04:00 98.3 79 18 104/68 99 04/05/17 04:00 79 04/05/17 02:00 84 04/05/17 00:00 78 04/05/17 00:00 98.5 78 18 100/62 99 04/04/17 22:00 91 04/04/17 20:00 84 04/04/17 20:00 98.5 78 18 100/62 99 04/04/17 18:00 98 04/04/17 16:15 98.0 96 30 149/76 96 04/04/17 16:00 99.7 101 22 164/70 98 04/04/17 16:00 105 04/04/17 16:00 99.7 105 23 149/76 98 04/05/17 04/05/17 04/05/17 07:00 15:00 23:00 Intake Total 942 ml 1683 ml Output Total 850 ml 1100 ml Balance 92 ml 583 ml Result Diagram: 04/05/17 0504/05/17 0510 Laboratory Results Laboratory Tests Test 04/04/17 04/05/17 18:52 05:10 Serum Osmolality 291 MOSM/KG 288 MOSM/KG White Blood Count 17.8 TH/MM3 Red Blood Count 2.66 MIL/MM3 Hemoglobin 8.3 GM/DL Hematocrit 24.0 % Mean Corpuscular Volume 90.3 FL Mean Corpuscular Hemoglobin 31.0 PG Mean Corpuscular Hemoglobin 34.4 % Concent Red Cell Distribution Width 17.6 % Platelet Count 87 TH/MM3 Mean Platelet Volume 9.0 FL Neutrophils (%) (Auto) 92.9 % Lymphocytes (%) (Auto) 2.2 % Monocytes (%) (Auto) 4.5 % Eosinophils (%) (Auto) 0.2 % Basophils (%) (Auto) 0.2 % Neutrophils # (Auto) 16.6 TH/MM3 Lymphocytes # (Auto) 0.4 TH/MM3 Monocytes # (Auto) 0.8 TH/MM3 Eosinophils # (Auto) 0.0 TH/MM3 Basophils # (Auto) 0.0 TH/MM3 CBC Comment AUTO DIFF Differential Comment AUTO DIFF CONFIRMED Platelet Estimate LOW Platelet Morphology Comment NORMAL Haptoglobin 318 MG/DL Prothrombin Time 12.7 SEC Prothromb Time International 1.1 RATIO Ratio Fibrinogen 191 mg/dL Sodium Level 132 MEQ/L Potassium Level 4.3 MEQ/L Chloride Level 101 MEQ/L Carbon Dioxide Level 26.6 MEQ/L Anion Gap 4 MEQ/L Blood Urea Nitrogen 21 MG/DL Creatinine 0.46 MG/DL Estimat Glomerular Filtration 191 ML/MIN Rate Random Glucose 107 MG/DL Calcium Level 8.0 MG/DL Phosphorus Level 1.6 MG/DL Magnesium Level 2.0 MG/DL Lactate Dehydrogenase 238 U/L Blood Type A POSITIVE Direct Antiglobulin Test NEGATIVE (Ozzy) Administered Medications Medications (Trade) Dose Ordered Sig/Pina Route PRN Reason Start Time Stop Time Status Last Admin Dose Admin Chlorhexidine Gluconate (Chlorhexidine 2% Cloth) Taper DAILY@04 TOP 03/24/17 04:00 03/20/18 03:59 04/05/17 00:46 Dexamethasone Sodium Phosphate 6 mg 6 mg Q6HR IV PUSH 03/24/17 00:00 04/05/17 11:16 Sodium Phosphate/ Sodium Chloride (Sodium Phosphate Inj/NS 250 ml Inj) 250 ml @ 42 mls/hr UNSCH PRN IV For Phosphorus < 2.5 mg/dL 03/23/17 20:45 04/05/17 09:05 Lorazepam (Ativan Inj) 2 mg Q2H PRN IV PUSH seizure 03/24/17 02:00 04/03/17 11:38 Lactulose (Lactulose Liq) 30 ml QID PO 03/24/17 09:00 04/03/17 08:23 Chlorhexidine Gluconate 15 ml 15 ml BID@08,20 MT 03/26/17 08:00 04/02/17 08:03 Potassium Chloride/Sodium Chloride (NS + KCl 20 Meq Inj) 1,000 ml @ 50 mls/hr Q20H IV 03/26/17 14:00 04/05/17 13:44 Ondansetron HCl 4 mg 4 mg Q6H PRN IV NAUSEA OR VOMITING 03/26/17 14:00 03/27/17 21:52 Lacosamide/Sodium Chloride (Vimpat Inj/NS Inj) 115 ml @ 115 mls/hr Q8HR IV 04/01/17 14:00 04/05/17 13:44 IV Flush (NS Flush) 2 ml BID IVF 04/01/17 21:00 04/05/17 09:00 Bisacodyl (Dulcolax Supp) 10 mg DAILY PRN RECTAL SEE LABEL COMMENTS 04/01/17 13:15 04/02/17 12:14 Pantoprazole Sodium (Protonix Inj) 40 mg DAILY IVP 04/02/17 09:00 04/05/17 09:06 Acetaminophen (Tylenol) 650 mg Q4H PRN PO TEMPERATURE > 101.5 F 04/01/17 13:15 04/04/17 02:19 Senna/Docusate Sodium (Myla-Colace) 1 tab BID PO 04/02/17 10:30 04/05/17 09:06 Polyethylene Glycol 17 gm 17 gm BID PO 04/02/17 10:30 04/05/17 09:05 Levetriacetam (Keppra 1000 Mg Inj) 100 ml @ 400 mls/hr Q8H IV 04/03/17 16:00 04/05/17 09:09 Phenytoin Sodium (Dilantin Inj) 150 mg Q8HR IV 04/03/17 22:00 04/05/17 13:43 Objective Remarks GENERAL:nad SKIN: Warm and dry. LYMPHATIC: No adenopathy. CARDIOVASCULAR: Regular rate and rhythm without murmurs. RESPIRATORY: Breath sounds equal bilaterally. No accessory muscle use. GASTROINTESTINAL: Abdomen soft, non-tender, nondistended. EXTREMITIES: No cyanosis, b/l le edema Assessment/Plan Problem List: (1) Intracerebral hemorrhage Status: Acute Plan: 04/04: Platelets 57k today. Transfuse one unit platelets 04/03: Patient had another seizure this morning per nurse. 04/02: awake and alert, moving all extremities. + weakness in left arm and left leg. 04/01-->s/p Right parietal craniotomy, evacuation of intracerebral hematoma 8.--had seizure, developed left hemiparesis. then had further deterioration of motor function. CT brain showed hemorrhage. 8.11--started on heparin (2) Metastatic primary lung cancer Status: Acute Plan: admitted with new onset seizure. --CT showed a new 1.7 cm mass in the right parietal lobe with significant vasogenic edema. also had a brain MRI which showed a single 2-cm peripherally enhancing lesion in the right parietal high complexity with marked surrounding vasogenic edema. no other lesion noted. No midline shift noted. --s/p craniotomy and resection of mass via Dr. Palmer on 03/26/17 History: --Metastatic non-small cell lung cancer. 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 --was treated with radiation with concurrent cisplatin and Taxol. received two cycles of consolidation chemotherapy after concurrent treatment. --developed supraclavicular adenopathy and progression of disease. then received radiation. --subsequently was started on Opdivo and had a good response. --recent CT reportedly showed good response and no evidence of progression of disease. 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 --on Vimpat, Dilantin, Keppra (4) DVT (deep venous thrombosis) Status: Acute Plan: --s/p IVC filter in IR --History of multiple DVTs and pulmonary embolism. --last thromboembolic event was several months ago. --with his metastatic disease and history of multiple clots, he likely is going to have another thromboembolic event without the anticoagulation. --developed ICH while on heparin Assessment 52y/o male with metastatic lung cancer who presented with new-onset seizure. h/o Metastatic non-small cell lung cancer. Recurrent DVT and pulmonary embolism. He was on Lovenox. Osteoarthritis. Hyperlipidemia. Gastroesophageal reflux disease (GERD). Plan 1. Thrombocytopenia due to DIC: PLT > 70 transfuse to keep > 70 2. DIC: keep fibrinigen > 150 3. Severe anemia: transfuse 1 unit of pRBC 4 LE DVT: AC is contra-indicated --has IVC filter in place --elevate LE /warm compresses 5. Intracranial bleed 6: Stage IV NSCLC d/w rn Time spent in evaluating/discussion with this patient 30 minutes Problem Qualifiers (1) DVT (deep venous thrombosis): Fermin Hickman MD Apr 05, 2017 15:16
--- NOTE | 2017-04-05 16:10 | HHI.CCPN ---
Subjective Remarks/Hospital Course Hospital Course: Patient is a 51-year-old male with past medical history significant for stage IV lung cancer (Dr. Hickman is the oncologist), chronic Lovenox therapy for DVT and PE, who presented to the emergency department for evaluation of possible stroke and new onset seizure. EMS was called for new onset focal seizures involving left lower extremity. According to paramedics en route patient started having weakness and shaking of the left upper and lower extremity with possible facial droop, but without loss of consciousness. In the ER initially was awake alert then developed focal left-sided seizures followed by generalized seizure for 5 min, received Ativan for this. Initially aroused from postictal state and then again had recurrent generalized seizure activity. Patient was intubated for airway protection. CT of the head showed right parietal mass 1.7 cm suspicious for metastatic lesion. I was contacted for admission. Patient was started on Versed infusion. Patient had been already loaded with Cerebyx 1 g, I will continue 100 mg IV every 8 hours. Also an EEG had been ordered. I have ordered MRI of the brain neurosurgery consult. I evaluated the patient in the Main ICU. He is intubated sedated with Versed. He purposefully moves all 4 extremity 03/25: persistent seizures yesterday. repeat cerebyx load and keppra load. plan to go to OR for tumor resection tomorrow. also has history of DVt/PE. will need IVC filter prior to OR. 03/26: went to OR today for crani. s/p crani, I evaluated the patient when he was immediately post-op. still somnolent from anesthesia. remains intubated. successful crani resection, minimal EBL. 03/27: Wild when sedation lightened - will need to perform rapid extubation. 03/28: Extubated and calm. Swallow eval good. 04/01: reconsulted. taken back to OR today for bleeding in the operative bed. left intubated post-op. follows commands in RUE,LUE,RLE. withdraws LLE. this is baseline neuro exam for patient. on my evaluation the patient is intubated and sedated, so no additional information is obtainable from the patient. ROS is unobtainable. past history was reviewed in the chart and unchanged from prior consult note. 04/02: Status post right craniotomy for evacuation of hematoma. Currently on ventilator and following commands. Afebrile. 04/03: Seizures today requiring ativan X 4, multiple AEDs. 04/04: Leukocytosis after seizures yesterday. No seizures in past 16 hours. Start diuresis and concentrate serum a little more - trying to reduce cerebral edema. Decadron continues. Subjective: 04/05: No seizures. Resting comfortably in bed in no acute distress. JOEY drains removed. Remains on 3 antiepileptics. Objective Vital Signs Date Time Temp Pulse Resp B/P Pulse Ox O2 Delivery O2 Flow Rate FiO2 04/05/17 14:00 84 04/05/17 12:00 98.2 18 111/66 100 04/05/17 08:06 21 04/02/17 09:55 Nasal Cannula 3 Intake and Output 04/04/17 04/04/17 04/05/17 08:00 16:00 00:00 Intake Total 1784 ml 1452 ml 1210 ml Output Total 754 ml 1804 ml 2404 ml Balance 1030 ml -352 ml -1194 ml Result Diagram: 04/05/17 0510 04/05/17 0510 Imaging Last Impressions Lower Extremity Ultrasound 04/04/17 0000 Signed Impressions: Service Date/Time: March 17:39 - CONCLUSION: 1. Extensive occlusive deep venous thrombosis in both lower extremities. Scott Layton MD Head CT 04/02/17 0500 Signed Impressions: Service Date/Time: Sunday, April 02, 2017 04:24 - CONCLUSION: Interval evacuation and drain placement of right parietal occipital hematoma. Reduction of midline shift to 3 mm. Eitan Thornton MD Abdomen X-Ray 04/02/17 0000 Signed Impressions: Service Date/Time: Sunday, April 02, 2017 11:19 - CONCLUSION: No acute disease. Jesu Cervantes MD Chest X-Ray 04/01/17 0000 Signed Impressions: Service Date/Time: Saturday, April 01, 2017 16:54 - CONCLUSION: 1. The tip of the ET tube is approximately 2.5 cm above the lulú. 2. Large left paratracheal mass. 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 Inferior vena caval filter will be placed via the femoral vein. Jesu Veras MD IVC Filter Placement X-Ray 03/25/17 0000 Signed Impressions: Service Date/Time: Saturday, March 25, 2017 16:24 - CONCLUSION: Uncomplicated inferior vena cava filter placement as above. Jesu Veras MD Brain MRI 03/25/17 0000 Signed Impressions: Service Date/Time: Saturday, March 25, 2017 16:10 - CONCLUSION: 2 cm enhancing mass in the right parietal region Jesu Veras MD Objective Remarks GENERAL: 52-year-old male, currently resting in bed in no acute distress SKIN: Warm and dry HEAD: [place], clean dry and intact. EYES: Pupils equal and round about 2 mm bilaterally and reactive. No scleral icterus. No injection or drainage. ENT: No nasal bleeding or discharge. ett in place. NECK: Trachea midline. Airway widely patent. CARDIOVASCULAR: RRR. S1, S2. No S4. Without murmur. No JVD. RESPIRATORY: Breath sounds equal bilaterally. Clear. GASTROINTESTINAL: Abdomen soft, non-tender, nondistended. MUSCULOSKELETAL: Extremities without significant peripheral edema. NEUROLOGICAL: Moves all 4 extremities spontaneously. Peripheral neuropathy noted. Normal voice. Phonation Procedures 03/26/2017 Stereotactic image guided right parietal craniotomy with microsurgical resection of unknown small cell carcinoma 03/29/2017 EEG INTERPRETATION Abnormal EEG because of bilateral slowing, right more than left, maximum right central parietal with associated sharp discharges which are epileptiform but no ictal activity present. 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 - f/u post-op CT head showed improvement with right flexion 3 mm. JOEY drain right posterior occipital hematoma -2/-6 Currently on Hank[place]/morphine 2-4 mg IV every 3 hours. Pain EEG 04/01 revealed intermittent bilateral slowing possibly right more than left suggestive of right more than left hemisphere structural abnormality. No distinct paroxysmal discharge present. EEG 04/03 - diffuse slowing after ativan, no seizures. RESP: Postoperative respiratory failure Stage IV lung cancer/non-small cell metastases - DuoNeb every 6 hours when necessary if needed Nasal cannula to maintain saturations greater than equal to 92% Incentive spirometry while awake CV: History of dyslipidemia Discontinue IV fluids Currently not on vasopressors and/or antihypertensives GI: Constipation Gastroesophageal reflux disease -Bedside swallow evaluation Pantoprazole for GI prophylaxis Myla-Colace twice a day for bowel regimen : - Monitor renal function closely. Nunez catheter. ID: - no suspicion of infection. myla-op abx per nsgy. 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 Hickman -Develop intercerebral hemorrhage on heparin drip. - IVC filter 03/25. 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 Treated with radiation with cisplatin and Taxol. ENDO/FEN: Hyponatremia Hypophosphatemia - Electrolyte replacement per protocol Received 30 mols K-Phos IV 1. Recheck in a.m. PROPH: - Bilateral lower extremity SCDs. Avoid chemical DVT prophylaxis due to brain bleed. IV Protonix LINES: - Utilize peripheral IVs, central line if needed Level II follow-up Juan Blount MD Apr 05, 2017 16:10
[2017-04-05] MEDS ORDERED: ACETAMINOPHEN 325 MG TAB PO ONE (22:45)
[2017-04-05] MEDS ORDERED: diphenhydrAMINE HCL 25 MG CAP PO ONE (22:45)
[2017-04-06] VITALS (14 sets, daily range): BP systolic 95–113; BP diastolic 53–83; PULSE 65–94; RESP 12–21; TEMP 98.1–98.4; O2SAT 96–99
[2017-04-06] MEDS: levETIRAcetam 1000 MG INJ 100 ML IV SCH ×4 (00:14→23:42)
[2017-04-06] MEDS: DEXAMETHASONE SOD PHOS 4 MG/ML VIAL IV PUSH SCH ×5 (00:14→23:42)
[2017-04-06] MEDS: CHLORHEXIDINE GLUCONATE 2 % 1 PACK (2 CLOTHS) TOP SCH (04:00)
[2017-04-06 05:30] LABS: AUTOMATED NEUTROPHIL # 15.4 TH/MM3 (1.8-7.7); BASOPHIL % 0.1 % (0.0-2.0); EOSINOPHIL % 0.3 % (0.0-4.0); HEMATOCRIT 31.2 % (39.0-51.0); LYMPH % 2.9 % (9.0-44.0); LYMPHOCYTE # 0.5 TH/MM3 (1.0-4.8); MEAN CELL VOLUME 89.2 FL (80.0-100.0); MEAN CORPUSCULAR HEMOGLOBIN 30.1 PG (27.0-34.0); MEAN CORPUSCULAR HGB CONC 33.8 % (32.0-36.0); MONO % 4.3 % (0.0-8.0); NEUT % 92.4 % (16.0-70.0); PLATELET COUNT 89 TH/MM3 (150-450); RED CELL DISTRIBUTION WIDTH 16.7 % (11.6-17.2); WHITE BLOOD COUNT 16.7 TH/MM3 (4.0-11.0)
[2017-04-06 05:33] LABS: INTERNATIONAL NORMALIZED RATIO 1.1 RATIO; PROTHROMBIN TIME - PATIENT 12.4 SEC (9.8-11.6)
[2017-04-06 05:36] LABS: HEMO FLAGS AUTO DIFF
[2017-04-06] MEDS: PHENYTOIN INJ 100 MG/2 ML VIAL IV SCH ×3 (05:45→21:04)
[2017-04-06] MEDS: LACOSAMIDE INJ 150 MG in SODIUM CHLORIDE 0.9% INJ 100 ML IV SCH ×3 (05:45→21:04)
[2017-04-06 05:47] LABS: BICARBONATE 25.1 MEQ/L (21.0-32.0); MAGNESIUM 1.9 MG/DL (1.5-2.5); POTASSIUM 4.1 MEQ/L (3.5-5.1)
[2017-04-06] MEDS: CHLORHEXIDINE 0.12% (ORAL KIT) 15 ML CUP MT SCH ×2 (08:00→20:00)
[2017-04-06 08:11] LABS: BANDS 8 % (0-6); METAMYELOCYTES 2 % (0-1); MYELOCYTES 2 % (0-0); NEUTROPHIL # MANUAL DIFF 15.2 TH/MM3 (1.8-7.7); PLATELET ESTIMATE SMEAR LOW (NORMAL); PLATELET MORPHOLOGY NORMAL (NORMAL); POLYS (SEG NEUTROPHILS) 79 % (16-70); SCAN/DIFF FINAL DIFF MANUAL; WBC DIFF SAMPLE 100
--- NOTE | 2017-04-06 08:16 | HHI.NSPN ---
(Ke Rehman) History Chief Complaint: Swelling to the legs. (Ke Rehman) Interval History Mr. Mendosa is a 52 y/o male underwent right parietal craniotomy for resection of brain mets 03/26/17. 03/27: intubated and sedated. post/op CT Head completed. possible extubation today. EEG yesterday report noted. Dilantin levels yesterday was 11. 03/28:extubated, doing very well, brushing his teeth. Surgical pain controlled. EEG yesterday still shows sharps abnormalities. 03/29: no clinical seizures overnight, sitting up in chair eating breakfast. 04/01: pt with recurrent seizures over the weekend, f/u CT Head shows acute hematoma within surgical bed. had more seizures this morning, worsening left side weakness, now unable to move. remains awake, alert but intermittently confused 04/02: f/u CT Head this morning completed, intubated and sedated. 04/03: Pt awake and alert. Denies headaches. No n/v. Follows commands well. Left hemiparesis LLE more than LUE. Pupils equal. 04/04: Pt awake and alert. Denies headache. No n/v. Follows commands well. Left hemiparesis improving. Pt has bilateral DVT. Has a hx of IVC filter in place. 04/05: Pt awake and alert. Denies headaches. No n/v. Follows commands well. Left hemiparesis. (Ke Rehman) Review of Systems General: Negative for: fever, chills, insomnia Respiratory: Negative for: shortness of breath, cough, sputum Cardiovascular: Negative for: chest pain Gastrointestinal: Negative for: nausea, vomitting, diarrhea, constipation ( Ke eRhman) Exam Results Vital Signs Date Time Temp Pulse Resp B/P Pulse Ox O2 Delivery O2 Flow Rate FiO2 04/06/17 08:12 99 21 04/06/17 06:00 84 04/06/17 04:00 98.3 12 99/53 04/02/17 09:55 Nasal Cannula 3 Intake and Output 04/05/17 04/05/17 04/06/17 08:00 16:00 00:00 Intake Total 942 ml 1683 ml 720 ml Output Total 850 ml 1100 ml 620 ml Balance 92 ml 583 ml 100 ml (Ke Rheman) Physical Examination Resp: CTA bilaterally Heart: NSR no murmurs Abd: Soft positive bs Skin: Incision clean and dry. No signs of infection or complication. Muscle: Left hemiparesis improving slowly. LLE weaker than LUE. Edema bilateral LEs Right more than left. Neuro: Pt awake and alert. Follows commands well. Speech clear and appropriate. (Ke Rehman) Lab, Micro, Other Results Last Impressions Lower Extremity Ultrasound 04/04/17 0000 Signed Impressions: Service Date/Time: March 17:39 - CONCLUSION: 1. Extensive occlusive deep venous thrombosis in both lower extremities. Scott Layton MD Head CT 04/02/17 0500 Signed Impressions: Service Date/Time: Sunday, April 02, 2017 04:24 - CONCLUSION: Interval evacuation and drain placement of right parietal occipital hematoma. Reduction of midline shift to 3 mm. Eitan Thornton MD Abdomen X-Ray 04/02/17 0000 Signed Impressions: Service Date/Time: Sunday, April 02, 2017 11:19 - CONCLUSION: No acute disease. Jesu Cervantes MD Chest X-Ray 04/01/17 0000 Signed Impressions: Service Date/Time: Saturday, April 01, 2017 16:54 - CONCLUSION: 1. The tip of the ET tube is approximately 2.5 cm above the lulú. 2. Large left paratracheal mass. 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 Inferior vena caval filter will be placed via the femoral vein. Jesu Veras MD IVC Filter Placement X-Ray 03/25/17 0000 Signed Impressions: Service Date/Time: Saturday, March 25, 2017 16:24 - CONCLUSION: Uncomplicated inferior vena cava filter placement as above. Jesu Veras MD Brain MRI 03/25/17 0000 Signed Impressions: Service Date/Time: Saturday, March 25, 2017 16:10 - CONCLUSION: 2 cm enhancing mass in the right parietal region Jesu Veras MD Laboratory Tests Test 04/05/17 04/06/17 20:08 04:59 Serum Osmolality 288 MOSM/KG White Blood Count 16.7 TH/MM3 Red Blood Count 3.50 MIL/MM3 Hemoglobin 10.5 GM/DL Hematocrit 31.2 % Mean Corpuscular Volume 89.2 FL Mean Corpuscular Hemoglobin 30.1 PG Mean Corpuscular Hemoglobin 33.8 % Concent Red Cell Distribution Width 16.7 % Platelet Count 89 TH/MM3 Mean Platelet Volume 8.2 FL Neutrophils (%) (Auto) 92.4 % Lymphocytes (%) (Auto) 2.9 % Monocytes (%) (Auto) 4.3 % Eosinophils (%) (Auto) 0.3 % Basophils (%) (Auto) 0.1 % Neutrophils # (Auto) 15.4 TH/MM3 Lymphocytes # (Auto) 0.5 TH/MM3 Monocytes # (Auto) 0.7 TH/MM3 Eosinophils # (Auto) 0.0 TH/MM3 Basophils # (Auto) 0.0 TH/MM3 CBC Comment AUTO DIFF Differential Total Cells 100 Counted Neutrophils % (Manual) 79 % Band Neutrophils % 8 % Lymphocytes % 5 % Monocytes % 4 % Neutrophils # (Manual) 15.2 TH/MM3 Metamyelocytes 2 % Myelocytes 2 % Differential Comment FINAL DIFF MANUAL Platelet Estimate LOW Platelet Morphology Comment NORMAL Prothrombin Time 12.4 SEC Prothromb Time International 1.1 RATIO Ratio Fibrinogen 133 mg/dL Sodium Level 134 MEQ/L Potassium Level 4.1 MEQ/L Chloride Level 99 MEQ/L Carbon Dioxide Level 25.1 MEQ/L Anion Gap 10 MEQ/L Blood Urea Nitrogen 22 MG/DL Creatinine 0.43 MG/DL Estimat Glomerular Filtration 206 ML/MIN Rate Random Glucose 101 MG/DL Calcium Level 8.3 MG/DL Phosphorus Level 2.5 MG/DL Magnesium Level 1.9 MG/DL 04/05/17 04/05/17 04/06/17 15:00 23:00 07:00 Intake Total 1683 ml 720 ml 435 ml Output Total 1100 ml 620 ml 550 ml Balance 583 ml 100 ml -115 ml Intake Oral 600 ml 720 ml 240 ml IV Total 1083 ml 195 ml Output Urine Total 1100 ml 620 ml 550 ml # Voids 2 1 # Bowel Movements 0 (Ke Rehman) Medical Decision Making Impression and Plan A: 52 y/o male presents for seizures MRI Brain shows left right parietal mass lesion, suspected for metastatic lung CA. s/p right parietal craniotomy with resection of brain mass 03/26/17 f/u CT Head 03/26/17 with expected postsurgical changes DVT, PE, s/p placement of IVC filter EEG 03/26/17 reports poss right epileptiform activities f/u CT Brain 04/01/17 with moderate right parietal hematoma, pt with recurrent seizures and left side plegia, s/p redo right craniotomy with evacuation of parietal hematoma 04/01/17, f/u CT Head 04/02 better with improved midline shift Plan Plan Plan Remarks Mannitol, weaned being stopped today. cont current AEDs, cont seizure precautions Continue PT, OT, ST cont neuro checks continue with nonchemical dvt prophylaxis with SCDs and TEDs, no chem proph due to ICH (Ke Rehman) Attending Statement The exam, history, and the medical decision-making described in the above note were completed with the assistance of the mid-level provider. I reviewed and agree with the findings presented. I attest that I had a [id number] encounter with the patient on the same day, and personally performed and documented my assessment and findings in the medical record. (Irving Aldridge MD) Ke Rehman Apr 06, 2017 08:16 Irving Aldridge MD Apr 06, 2017 11:15
[2017-04-06] MEDS: MANNITOL 12.5 GM/50 ML VIAL IV SCH (08:38)
[2017-04-06] MEDS: PANTOPRAZOLE SODIUM 40 MG VIAL IVP SCH (08:39)
[2017-04-06] MEDS: SODIUM CHLORIDE 0.9% FLUSH 5 ML FLUSH IVF SCH ×2 (08:39→21:00)
[2017-04-06] MEDS: DOCUSATE SODIUM 50 MG/SENNA 8.6 MG TAB PO SCH ×2 (08:39→21:04)
[2017-04-06] MEDS: POLYETHYLENE GLYCOL 17 GM PKG PO SCH ×2 (08:39→21:00)
[2017-04-06] MEDS: LACTULOSE SYRUP 20 GM/30 ML CUP PO SCH (08:40)
--- NOTE | 2017-04-06 10:12 | PD.ONC.PN ---
Subjective Subjective Remarks Afebrile overnight. Patient in good spirits today. feels strength improving in left arm and left leg. eager to go to floor and eventually rehab. Objective Data Date Time Temp Pulse Resp B/P Pulse Ox O2 Delivery O2 Flow Rate FiO2 04/06/17 08:12 99 21 04/06/17 06:00 84 04/06/17 04:00 91 04/06/17 04:00 98.3 91 12 99/53 97 04/06/17 02:00 84 04/06/17 01:53 98.2 65 12 99/56 98 04/06/17 00:00 98.1 68 12 95/63 98 04/06/17 00:00 68 04/05/17 22:00 86 04/05/17 20:00 99.5 86 20 107/66 97 04/05/17 20:00 86 04/05/17 19:48 99 21 04/05/17 18:00 61 04/05/17 16:00 99.8 86 25 101/65 97 04/05/17 16:00 86 04/05/17 14:00 84 04/05/17 12:00 81 04/05/17 12:00 98.2 81 18 111/66 100 04/06/17 04/06/17 04/06/17 06:59 14:59 22:59 Intake Total 435 ml Output Total 550 ml Balance -115 ml Result Diagram: 04/06/17 0459 04/06/17 0459 Laboratory Results Laboratory Tests Test 04/05/17 04/06/17 20:08 04:59 Serum Osmolality 288 MOSM/KG White Blood Count 16.7 TH/MM3 Red Blood Count 3.50 MIL/MM3 Hemoglobin 10.5 GM/DL Hematocrit 31.2 % Mean Corpuscular Volume 89.2 FL Mean Corpuscular Hemoglobin 30.1 PG Mean Corpuscular Hemoglobin 33.8 % Concent Red Cell Distribution Width 16.7 % Platelet Count 89 TH/MM3 Mean Platelet Volume 8.2 FL Neutrophils (%) (Auto) 92.4 % Lymphocytes (%) (Auto) 2.9 % Monocytes (%) (Auto) 4.3 % Eosinophils (%) (Auto) 0.3 % Basophils (%) (Auto) 0.1 % Neutrophils # (Auto) 15.4 TH/MM3 Lymphocytes # (Auto) 0.5 TH/MM3 Monocytes # (Auto) 0.7 TH/MM3 Eosinophils # (Auto) 0.0 TH/MM3 Basophils # (Auto) 0.0 TH/MM3 CBC Comment AUTO DIFF Differential Total Cells 100 Counted Neutrophils % (Manual) 79 % Band Neutrophils % 8 % Lymphocytes % 5 % Monocytes % 4 % Neutrophils # (Manual) 15.2 TH/MM3 Metamyelocytes 2 % Myelocytes 2 % Differential Comment FINAL DIFF MANUAL Platelet Estimate LOW Platelet Morphology Comment NORMAL Prothrombin Time 12.4 SEC Prothromb Time International 1.1 RATIO Ratio Fibrinogen 133 mg/dL Sodium Level 134 MEQ/L Potassium Level 4.1 MEQ/L Chloride Level 99 MEQ/L Carbon Dioxide Level 25.1 MEQ/L Anion Gap 10 MEQ/L Blood Urea Nitrogen 22 MG/DL Creatinine 0.43 MG/DL Estimat Glomerular Filtration 206 ML/MIN Rate Random Glucose 101 MG/DL Calcium Level 8.3 MG/DL Phosphorus Level 2.5 MG/DL Magnesium Level 1.9 MG/DL Culture Results Microbiology Date/Time Procedure Status Source Growth 04/06/17 01:00 Stool Occult Blood (ARBEN) - Final Complete Stool Stool HEMOCCULT NEGATIVE Administered Medications Medications (Trade) Dose Ordered Sig/Pina Route PRN Reason Start Time Stop Time Status Last Admin Dose Admin Chlorhexidine Gluconate (Chlorhexidine 2% Cloth) Taper DAILY@04 TOP 03/24/17 04:00 03/20/18 03:59 04/05/17 00:46 Dexamethasone Sodium Phosphate 6 mg 6 mg Q6HR IV PUSH 03/24/17 00:00 04/06/17 05:45 Sodium Phosphate/ Sodium Chloride (Sodium Phosphate Inj/NS 250 ml Inj) 250 ml @ 42 mls/hr UNSCH PRN IV For Phosphorus < 2.5 mg/dL 03/23/17 20:45 04/05/17 09:05 Lorazepam (Ativan Inj) 2 mg Q2H PRN IV PUSH seizure 03/24/17 02:00 04/03/17 11:38 Lactulose (Lactulose Liq) 30 ml QID PO 03/24/17 09:00 04/03/17 08:23 Chlorhexidine Gluconate (Peridex 0.12% Liq) 15 ml BID@08,20 MT 03/26/17 08:00 04/06/17 08:00 Ondansetron HCl 4 mg 4 mg Q6H PRN IV NAUSEA OR VOMITING 03/26/17 14:00 03/27/17 21:52 Lacosamide/Sodium Chloride (Vimpat Inj/NS Inj) 115 ml @ 115 mls/hr Q8HR IV 04/01/17 14:00 04/06/17 05:45 IV Flush (NS Flush) 2 ml BID IVF 04/01/17 21:00 04/06/17 08:39 Bisacodyl (Dulcolax Supp) 10 mg DAILY PRN RECTAL SEE LABEL COMMENTS 04/01/17 13:15 04/02/17 12:14 Pantoprazole Sodium (Protonix Inj) 40 mg DAILY IVP 04/02/17 09:00 04/06/17 08:39 Acetaminophen (Tylenol) 650 mg Q4H PRN PO TEMPERATURE > 101.5 F 04/01/17 13:15 04/04/17 02:19 Senna/Docusate Sodium (Myla-Colace) 1 tab BID PO 04/02/17 10:30 04/05/17 21:46 Polyethylene Glycol 17 gm 17 gm BID PO 04/02/17 10:30 04/05/17 21:46 Levetriacetam (Keppra 1000 Mg Inj) 100 ml @ 400 mls/hr Q8H IV 04/03/17 16:00 04/06/17 08:35 Phenytoin Sodium (Dilantin Inj) 150 mg Q8HR IV 04/03/17 22:00 04/06/17 05:45 Objective Remarks GENERAL: Middle aged male upright in bed SKIN: Warm and dry. HEAD: Normocephalic. EYES: No injection or drainage. NECK: Supple, trachea midline. CARDIOVASCULAR: Regular rate and rhythm RESPIRATORY: Breath sounds equal bilaterally. No accessory muscle use. GASTROINTESTINAL: Abdomen soft, non-tender, nondistended. EXTREMITIES: No cyanosis, or edema. MUSCULOSKELETAL: Adequate muscle tone. NEUROLOGICAL: awake and alert, normal speech. moving all extremities. weakness in left arm and left leg. Assessment/Plan Problem List: (1) Intracerebral hemorrhage Status: Acute Plan: 04/06: platelets = 89K transfuse to keep > 70 04/04: Platelets 57k today. Transfuse one unit platelets 04/03: Patient had another seizure this morning per nurse. 04/02: awake and alert, moving all extremities. + weakness in left arm and left leg. 04/01-->s/p Right parietal craniotomy, evacuation of intracerebral hematoma 03.31--had seizure, developed left hemiparesis. then had further deterioration of motor function. CT brain showed hemorrhage. 03.29--started on heparin (2) Metastatic primary lung cancer Status: Acute Plan: admitted with new onset seizure. --CT showed a new 1.7 cm mass in the right parietal lobe with significant vasogenic edema. also had a brain MRI which showed a single 2-cm peripherally enhancing lesion in the right parietal high complexity with marked surrounding vasogenic edema. no other lesion noted. No midline shift noted. --s/p craniotomy and resection of mass via Dr. Palmer on 03/26/17 History: --Metastatic non-small cell lung cancer. 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 --was treated with radiation with concurrent cisplatin and Taxol. received two cycles of consolidation chemotherapy after concurrent treatment. --developed supraclavicular adenopathy and progression of disease. then received radiation. --subsequently was started on Opdivo and had a good response. --recent CT reportedly showed good response and no evidence of progression of disease. 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 --on Vimpat, BriandaantinClarisara (4) DVT (deep venous thrombosis) Status: Acute Plan: --s/p IVC filter in IR --History of multiple DVTs and pulmonary embolism. --last thromboembolic event was several months ago. --with his metastatic disease and history of multiple clots, he likely is going to have another thromboembolic event without the anticoagulation. --developed ICH while on heparin Assessment 52y/o male with metastatic lung cancer who presented with new-onset seizure. h/o Metastatic non-small cell lung cancer. Recurrent DVT and pulmonary embolism. He was on Lovenox. Osteoarthritis. Hyperlipidemia. Gastroesophageal reflux disease (GERD). Plan 1. monitor CBC, no transfusion needed at present 2. supportive care 3. once cleared by NS, recommend rehab. Attending Statement The exam, history, and the medical decision-making described in the above note were completed with the assistance of the mid-level provider. I reviewed and agree with the findings presented. I attest that I had a [id number] encounter with the patient on the same day, and personally performed and documented my assessment and findings in the medical record. Problem Qualifiers (1) DVT (deep venous thrombosis): Luisa Sal Apr 06, 2017 10:12 Fermin Hickman MD Apr 06, 2017 18:18
--- NOTE | 2017-04-06 11:07 | HHI.CCPN ---
Subjective Remarks/Hospital Course Hospital Course: Patient is a 51-year-old male with past medical history significant for stage IV lung cancer (Dr. Hickman is the oncologist), chronic Lovenox therapy for DVT and PE, who presented to the emergency department for evaluation of possible stroke and new onset seizure. EMS was called for new onset focal seizures involving left lower extremity. According to paramedics en route patient started having weakness and shaking of the left upper and lower extremity with possible facial droop, but without loss of consciousness. In the ER initially was awake alert then developed focal left-sided seizures followed by generalized seizure for 5 min, received Ativan for this. Initially aroused from postictal state and then again had recurrent generalized seizure activity. Patient was intubated for airway protection. CT of the head showed right parietal mass 1.7 cm suspicious for metastatic lesion. I was contacted for admission. Patient was started on Versed infusion. Patient had been already loaded with Cerebyx 1 g, I will continue 100 mg IV every 8 hours. Also an EEG had been ordered. I have ordered MRI of the brain neurosurgery consult. I evaluated the patient in the Main ICU. He is intubated sedated with Versed. He purposefully moves all 4 extremity 03/25: persistent seizures yesterday. repeat cerebyx load and keppra load. plan to go to OR for tumor resection tomorrow. also has history of DVt/PE. will need IVC filter prior to OR. 03/26: went to OR today for crani. s/p crani, I evaluated the patient when he was immediately post-op. still somnolent from anesthesia. remains intubated. successful crani resection, minimal EBL. 03/27: Wild when sedation lightened - will need to perform rapid extubation. 03/28: Extubated and calm. Swallow eval good. 04/01: reconsulted. taken back to OR today for bleeding in the operative bed. left intubated post-op. follows commands in RUE,LUE,RLE. withdraws LLE. this is baseline neuro exam for patient. on my evaluation the patient is intubated and sedated, so no additional information is obtainable from the patient. ROS is unobtainable. past history was reviewed in the chart and unchanged from prior consult note. 04/02: Status post right craniotomy for evacuation of hematoma. Currently on ventilator and following commands. Afebrile. 04/03: Seizures today requiring ativan X 4, multiple AEDs. 04/04: Leukocytosis after seizures yesterday. No seizures in past 16 hours. Start diuresis and concentrate serum a little more - trying to reduce cerebral edema. Decadron continues. 04/05: No seizures. Resting comfortably in bed in no acute distress. JOEY drains removed. Remains on 3 antiepileptics. Subjective: 04/06: Transfused PRBCs yesterday. No seizures since 48 hours. Currently sitting in chair in no distress. Objective Vital Signs Date Time Temp Pulse Resp B/P Pulse Ox O2 Delivery O2 Flow Rate FiO2 04/06/17 10:00 91 04/06/17 08:12 99 21 04/06/17 04:00 98.3 12 99/53 04/02/17 09:55 Nasal Cannula 3 Intake and Output 04/05/17 04/05/17 04/06/17 08:00 16:00 00:00 Intake Total 942 ml 1683 ml 720 ml Output Total 850 ml 1100 ml 620 ml Balance 92 ml 583 ml 100 ml Result Diagram: 04/06/17 0459 04/06/17 0459 Other Results Microbiology Date/Time Procedure Status Source Growth 04/06/17 01:00 Stool Occult Blood (ARBEN) - Final Complete Stool Stool HEMOCCULT NEGATIVE Imaging Last Impressions Lower Extremity Ultrasound 04/04/17 0000 Signed Impressions: Service Date/Time: March 17:39 - CONCLUSION: 1. Extensive occlusive deep venous thrombosis in both lower extremities. Scott Layton MD Head CT 04/02/17 0500 Signed Impressions: Service Date/Time: Sunday, April 02, 2017 04:24 - CONCLUSION: Interval evacuation and drain placement of right parietal occipital hematoma. Reduction of midline shift to 3 mm. Eitan Thornton MD Abdomen X-Ray 04/02/17 0000 Signed Impressions: Service Date/Time: Sunday, April 02, 2017 11:19 - CONCLUSION: No acute disease. Jesu Cervantes MD Chest X-Ray 04/01/17 0000 Signed Impressions: Service Date/Time: Saturday, April 01, 2017 16:54 - CONCLUSION: 1. The tip of the ET tube is approximately 2.5 cm above the lulú. 2. Large left paratracheal mass. Jaleel Campos MD Vena Cavagram 03/25/17 Signed Impressions: Service Date/Time: Saturday, March 25, 2017 16:24 - CONCLUSION: Right internal jugular vein, medial right subclavian vein and right brachiocephalic vein and found to be totally occluded in this patient. Inferior vena caval filter will be placed via the femoral vein. Jesu Veras MD IVC Filter Placement X-Ray 03/25/17 Signed Impressions: Service Date/Time: Saturday, March 25, 2017 16:24 - CONCLUSION: Uncomplicated inferior vena cava filter placement as above. Jesu Veras MD Brain MRI 03/25/17 Signed Impressions: Service Date/Time: Saturday, March 25, 2017 16:10 - CONCLUSION: 2 cm enhancing mass in the right parietal region Jesu Veras MD Objective Remarks GENERAL: 52-year-old male, currently resting in bed in no acute distress SKIN: Warm and dry HEAD: [place], clean dry and intact. EYES: Pupils equal and round about 2 mm bilaterally and reactive. No scleral icterus. No injection or drainage. ENT: No nasal bleeding or discharge. ett in place. NECK: Trachea midline. Airway widely patent. CARDIOVASCULAR: RRR. S1, S2. No S4. Without murmur. No JVD. RESPIRATORY: Breath sounds equal bilaterally. Clear. GASTROINTESTINAL: Abdomen soft, non-tender, nondistended. MUSCULOSKELETAL: Extremities without significant peripheral edema. NEUROLOGICAL: Moves all 4 extremities spontaneously. Peripheral neuropathy noted. Normal voice. Phonation Procedures 03/26/2017 Stereotactic image guided right parietal craniotomy with microsurgical resection of unknown small cell carcinoma 03/29/2017 EEG INTERPRETATION Abnormal EEG because of bilateral slowing, right more than left, maximum right central parietal with associated sharp discharges which are epileptiform but no ictal activity present. 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 - f/u post-op CT head showed improvement with right flexion 3 mm. JOEY drain right posterior occipital hematoma -2/-6 Currently on Rolfe/morphine 2-4 mg IV every 3 hours. Pain EEG 04/01 revealed intermittent bilateral slowing possibly right more than left suggestive of right more than left hemisphere structural abnormality. No distinct paroxysmal discharge present. EEG 04/03 - diffuse slowing after ativan, no seizures. RESP: Postoperative respiratory failure Stage IV lung cancer/non-small cell metastases - DuoNeb every 6 hours when necessary if needed Nasal cannula to maintain saturations greater than equal to 92% Incentive spirometry while awake CV: History of dyslipidemia Discontinue IV fluids Currently not on vasopressors and/or antihypertensives GI: Constipation Gastroesophageal reflux disease -Bedside swallow evaluation Pantoprazole for GI prophylaxis Myla-Colace twice a day for bowel regimen : - Monitor renal function closely. Nunez catheter. ID: - no suspicion of infection. myla-op abx per nsgy. 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 Hickman -Develop intercerebral hemorrhage on heparin drip. - IVC filter 03/25. 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 Treated with radiation with cisplatin and Taxol. ENDO/FEN: Hyponatremia Hypophosphatemia - Electrolyte replacement per protocol Received 30 mols K-Phos IV 1. Recheck in a.m. PROPH: - Bilateral lower extremity SCDs. Avoid chemical DVT prophylaxis due to brain bleed. IV Protonix LINES: - Utilize peripheral IVs, central line if needed Level II follow-up Juan Blount MD Apr 06, 2017 11:07
[2017-04-06] MEDS ORDERED: ACETAMINOPHEN 325 MG TAB PO ONE (23:45)
[2017-04-06] MEDS ORDERED: diphenhydrAMINE HCL 25 MG CAP PO ONE (23:45)
[2017-04-07] VITALS (12 sets, daily range): BP systolic 93–122; BP diastolic 65–76; PULSE 64–92; RESP 12–20; TEMP 98.2–98.8; O2SAT 95–100
[2017-04-07] MEDS: CHLORHEXIDINE GLUCONATE 2 % 1 PACK (2 CLOTHS) TOP SCH (04:00)
[2017-04-07 04:14] LABS: AUTOMATED NEUTROPHIL # 14.5 TH/MM3 (1.8-7.7); EOSINOPHIL % 0.2 % (0.0-4.0); HEMATOCRIT 26.8 % (39.0-51.0); LYMPH % 2.5 % (9.0-44.0); LYMPHOCYTE # 0.4 TH/MM3 (1.0-4.8); MEAN CELL VOLUME 89.3 FL (80.0-100.0); MEAN CORPUSCULAR HEMOGLOBIN 30.7 PG (27.0-34.0); MEAN CORPUSCULAR HGB CONC 34.4 % (32.0-36.0); MONO % 4.9 % (0.0-8.0); NEUT % 92.4 % (16.0-70.0); PLATELET COUNT 79 TH/MM3 (150-450); RED CELL DISTRIBUTION WIDTH 16.4 % (11.6-17.2); WHITE BLOOD COUNT 15.7 TH/MM3 (4.0-11.0)
[2017-04-07 04:29] LABS: HEMO FLAGS AUTO DIFF
[2017-04-07 04:44] LABS: BICARBONATE 26.2 MEQ/L (21.0-32.0); POTASSIUM 3.9 MEQ/L (3.5-5.1)
[2017-04-07] MEDS: LACOSAMIDE INJ 150 MG in SODIUM CHLORIDE 0.9% INJ 100 ML IV SCH ×3 (04:58→21:51)
[2017-04-07] MEDS: PHENYTOIN INJ 100 MG/2 ML VIAL IV SCH ×3 (05:36→21:50)
[2017-04-07] MEDS: DEXAMETHASONE SOD PHOS 4 MG/ML VIAL IV PUSH SCH ×3 (05:37→18:10)
[2017-04-07 05:38] LABS: BANDS 4 % (0-6); METAMYELOCYTES 2 % (0-1); NEUTROPHIL # MANUAL DIFF 15.1 TH/MM3 (1.8-7.7); PLATELET ESTIMATE SMEAR LOW (NORMAL); PLATELET MORPHOLOGY NORMAL (NORMAL); POLYS (SEG NEUTROPHILS) 90 % (16-70); SCAN/DIFF FINAL DIFF MANUAL; WBC DIFF SAMPLE 100
--- NOTE | 2017-04-07 07:10 | HHI.CCPN ---
Subjective Remarks/Hospital Course Hospital Course: Patient is a 51-year-old male with past medical history significant for stage IV lung cancer (Dr. Hickman is the oncologist), chronic Lovenox therapy for DVT and PE, who presented to the emergency department for evaluation of possible stroke and new onset seizure. EMS was called for new onset focal seizures involving left lower extremity. According to paramedics en route patient started having weakness and shaking of the left upper and lower extremity with possible facial droop, but without loss of consciousness. In the ER initially was awake alert then developed focal left-sided seizures followed by generalized seizure for 5 min, received Ativan for this. Initially aroused from postictal state and then again had recurrent generalized seizure activity. Patient was intubated for airway protection. CT of the head showed right parietal mass 1.7 cm suspicious for metastatic lesion. I was contacted for admission. Patient was started on Versed infusion. Patient had been already loaded with Cerebyx 1 g, I will continue 100 mg IV every 8 hours. Also an EEG had been ordered. I have ordered MRI of the brain neurosurgery consult. I evaluated the patient in the Main ICU. He is intubated sedated with Versed. He purposefully moves all 4 extremity 03/25: persistent seizures yesterday. repeat cerebyx load and keppra load. plan to go to OR for tumor resection tomorrow. also has history of DVt/PE. will need IVC filter prior to OR. 03/26: went to OR today for crani. s/p crani, I evaluated the patient when he was immediately post-op. still somnolent from anesthesia. remains intubated. successful crani resection, minimal EBL. 03/27: Wild when sedation lightened - will need to perform rapid extubation. 03/28: Extubated and calm. Swallow eval good. 04/01: reconsulted. taken back to OR today for bleeding in the operative bed. left intubated post-op. follows commands in RUE,LUE,RLE. withdraws LLE. this is baseline neuro exam for patient. on my evaluation the patient is intubated and sedated, so no additional information is obtainable from the patient. ROS is unobtainable. past history was reviewed in the chart and unchanged from prior consult note. 04/02: Status post right craniotomy for evacuation of hematoma. Currently on ventilator and following commands. Afebrile. 04/03: Seizures today requiring ativan X 4, multiple AEDs. 04/04: Leukocytosis after seizures yesterday. No seizures in past 16 hours. Start diuresis and concentrate serum a little more - trying to reduce cerebral edema. Decadron continues. 04/05: No seizures. Resting comfortably in bed in no acute distress. JOEY drains removed. Remains on 3 antiepileptics. Subjective: 04/06: Transfused PRBCs yesterday. No seizures since 48 hours. Currently sitting in chair in no distress. 04/07: Resting in bed. Transfused cryoprecipitate last night. No seizures overnight. Objective Vital Signs Date Time Temp Pulse Resp B/P Pulse Ox O2 Delivery O2 Flow Rate FiO2 04/07/17 06:00 64 04/07/17 04:00 98.2 20 106/67 97 04/07/17 00:29 21 Intake and Output 04/06/17 04/06/17 04/07/17 08:00 16:00 00:00 Intake Total 435 ml 660 ml 332 ml Output Total 550 ml 1150 ml 450 ml Balance -115 ml -490 ml -118 ml Result Diagram: 04/07/17 0326 04/07/17 0326 Other Results Laboratory Tests Test 04/06/17 04/06/17 04/06/17 04/07/17 15:43 20:51 23:42 03:26 Serum Osmolality 285 MOSM/KG 283 MOSM/KG Blood Bank Comment White Blood Count 15.7 TH/MM3 Red Blood Count 3.00 MIL/MM3 Hemoglobin 9.2 GM/DL Hematocrit 26.8 % Mean Corpuscular Volume 89.3 FL Mean Corpuscular Hemoglobin 30.7 PG Mean Corpuscular Hemoglobin 34.4 % Concent Red Cell Distribution Width 16.4 % Platelet Count 79 TH/MM3 Mean Platelet Volume 8.7 FL Neutrophils (%) (Auto) 92.4 % Lymphocytes (%) (Auto) 2.5 % Monocytes (%) (Auto) 4.9 % Eosinophils (%) (Auto) 0.2 % Basophils (%) (Auto) 0.0 % Neutrophils # (Auto) 14.5 TH/MM3 Lymphocytes # (Auto) 0.4 TH/MM3 Monocytes # (Auto) 0.8 TH/MM3 Eosinophils # (Auto) 0.0 TH/MM3 Basophils # (Auto) 0.0 TH/MM3 CBC Comment AUTO DIFF Differential Total Cells 100 Counted Neutrophils % (Manual) 90 % Band Neutrophils % 4 % Lymphocytes % 1 % Monocytes % 3 % Neutrophils # (Manual) 15.1 TH/MM3 Metamyelocytes 2 % Differential Comment FINAL DIFF MANUAL Platelet Estimate LOW Platelet Morphology Comment NORMAL Red Cell Morphology Comment NORMAL Fibrinogen 328 mg/dL Sodium Level 133 MEQ/L Potassium Level 3.9 MEQ/L Chloride Level 97 MEQ/L Carbon Dioxide Level 26.2 MEQ/L Anion Gap 10 MEQ/L Blood Urea Nitrogen 19 MG/DL Creatinine 0.49 MG/DL Estimat Glomerular Filtration 177 ML/MIN Rate Random Glucose 110 MG/DL Calcium Level 9.1 MG/DL Phosphorus Level 3.6 MG/DL Magnesium Level 2.0 MG/DL Imaging Last Impressions Lower Extremity Ultrasound 04/04/17 0000 Signed Impressions: Service Date/Time: March 17:39 - CONCLUSION: 1. Extensive occlusive deep venous thrombosis in both lower extremities. Scott Layton MD Head CT 04/02/17 0500 Signed Impressions: Service Date/Time: Sunday, April 02, 2017 04:24 - CONCLUSION: Interval evacuation and drain placement of right parietal occipital hematoma. Reduction of midline shift to 3 mm. Eitan Thornton MD Abdomen X-Ray 04/02/17 0000 Signed Impressions: Service Date/Time: Sunday, April 02, 2017 11:19 - CONCLUSION: No acute disease. Jesu Cervantes MD Chest X-Ray 04/01/17 0000 Signed Impressions: Service Date/Time: Saturday, April 01, 2017 16:54 - CONCLUSION: 1. The tip of the ET tube is approximately 2.5 cm above the lulú. 2. Large left paratracheal mass. 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 Inferior vena caval filter will be placed via the femoral vein. Jesu Veras MD IVC Filter Placement X-Ray 03/25/17 0000 Signed Impressions: Service Date/Time: Saturday, March 25, 2017 16:24 - CONCLUSION: Uncomplicated inferior vena cava filter placement as above. Jesu Veras MD Brain MRI 03/25/17 0000 Signed Impressions: Service Date/Time: Saturday, March 25, 2017 16:10 - CONCLUSION: 2 cm enhancing mass in the right parietal region Jesu Veras MD Objective Remarks GENERAL: 52-year-old male, currently resting in bed in no acute distress SKIN: Warm and dry HEAD: [place], clean dry and intact. EYES: Pupils equal and round about 2 mm bilaterally and reactive. No scleral icterus. No injection or drainage. ENT: No nasal bleeding or discharge. ett in place. NECK: Trachea midline. Airway widely patent. CARDIOVASCULAR: RRR. S1, S2. No S4. Without murmur. No JVD. RESPIRATORY: Breath sounds equal bilaterally. Clear. GASTROINTESTINAL: Abdomen soft, non-tender, nondistended. MUSCULOSKELETAL: Extremities without significant peripheral edema. NEUROLOGICAL: Moves all 4 extremities spontaneously. Peripheral neuropathy noted. Normal voice. Phonation Procedures 03/26/2017 Stereotactic image guided right parietal craniotomy with microsurgical resection of unknown small cell carcinoma 03/29/2017 EEG INTERPRETATION Abnormal EEG because of bilateral slowing, right more than left, maximum right central parietal with associated sharp discharges which are epileptiform but no ictal activity present. 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 - f/u post-op CT head showed improvement with right flexion 3 mm. JOEY drain right posterior occipital hematoma -2/-6 Currently on Lamar/morphine 2-4 mg IV every 3 hours. Pain EEG 04/01 revealed intermittent bilateral slowing possibly right more than left suggestive of right more than left hemisphere structural abnormality. No distinct paroxysmal discharge present. EEG 04/03 - diffuse slowing after ativan, no seizures. RESP: Postoperative respiratory failure Stage IV lung cancer/non-small cell metastases - DuoNeb every 6 hours when necessary if needed Nasal cannula to maintain saturations greater than equal to 92% Incentive spirometry while awake CV: History of dyslipidemia Discontinue IV fluids Currently not on vasopressors and/or antihypertensives GI: Constipation Gastroesophageal reflux disease -Bedside swallow evaluation Pantoprazole for GI prophylaxis Myla-Colace twice a day for bowel regimen : - Monitor renal function closely. Nunez catheter. ID: - no suspicion of infection. myla-op abx per nsgy. 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 Hickman -Develop intracerebral hemorrhage on heparin drip which was stopped. - IVC filter 03/25. 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 Treated with radiation with cisplatin and Taxol. - Transfused cryoprecipitate on 04/06 for low fibrinogen. ENDO/FEN: Hyponatremia Hypophosphatemia - Electrolyte replacement per protocol PROPH: - Bilateral lower extremity SCDs. Avoid chemical DVT prophylaxis due to brain bleed. IV Protonix LINES: - Utilize peripheral IVs, central line if needed Level II follow-up Ibrahima Solomon MD Apr 07, 2017 07:09
[2017-04-07] MEDS: CHLORHEXIDINE 0.12% (ORAL KIT) 15 ML CUP MT SCH ×2 (08:00→20:00)
[2017-04-07] MEDS: SODIUM CHLORIDE 0.9% FLUSH 5 ML FLUSH IVF SCH ×2 (08:03→20:55)
[2017-04-07] MEDS: DOCUSATE SODIUM 50 MG/SENNA 8.6 MG TAB PO SCH ×2 (08:03→20:55)
[2017-04-07] MEDS: levETIRAcetam 1000 MG INJ 100 ML IV SCH ×2 (08:03→16:48)
[2017-04-07] MEDS: PANTOPRAZOLE SODIUM 40 MG VIAL IVP SCH (08:03)
[2017-04-07] MEDS: POLYETHYLENE GLYCOL 17 GM PKG PO SCH ×2 (08:03→20:55)
--- NOTE | 2017-04-07 14:37 | PD.ONC.PN ---
Subjective Subjective Remarks Afebrile overnight. Seen at 9am, late entry d/t [employer] downtime. eager to go to rehab. tired of being in hospital. Objective Data Date Time Temp Pulse Resp B/P (MAP) Pulse Ox O2 Delivery O2 Flow Rate FiO2 04/07/17 07:39 98 21 04/07/17 06:00 64 04/07/17 04:00 78 04/07/17 04:00 98.2 78 20 106/67 (80) 97 04/07/17 02:50 98.3 66 15 109/68 (82) 99 04/07/17 02:00 68 04/07/17 01:00 98.2 68 18 101/66 (78) 98 04/07/17 00:29 95 21 04/07/17 00:00 65 04/07/17 00:00 98.3 65 12 93/65 (74) 96 04/06/17 22:00 74 04/06/17 20:00 82 04/06/17 20:00 98.3 81 20 110/65 (80) 96 04/06/17 18:00 85 04/06/17 16:00 80 04/06/17 16:00 98.4 78 21 99/64 (76) 97 04/07/17 04/07/17 04/07/17 07:00 15:00 23:00 Intake Total 705 ml Output Total 450 ml Balance 255 ml Result Diagram: 04/07/17 0326 04/07/17 0326 Laboratory Results Laboratory Tests Test 04/06/17 15:43 04/06/17 20:51 04/07/17 03:26 Serum Osmolality 285 MOSM/KG 283 MOSM/KG White Blood Count 15.7 TH/MM3 Red Blood Count 3.00 MIL/MM3 Hemoglobin 9.2 GM/DL Hematocrit 26.8 % Mean Corpuscular Volume 89.3 FL Mean Corpuscular Hemoglobin 30.7 PG Mean Corpuscular Hemoglobin Concent 34.4 % Red Cell Distribution Width 16.4 % Platelet Count 79 TH/MM3 Mean Platelet Volume 8.7 FL Neutrophils (%) (Auto) 92.4 % Lymphocytes (%) (Auto) 2.5 % Monocytes (%) (Auto) 4.9 % Eosinophils (%) (Auto) 0.2 % Basophils (%) (Auto) 0.0 % Neutrophils # (Auto) 14.5 TH/MM3 Lymphocytes # (Auto) 0.4 TH/MM3 Monocytes # (Auto) 0.8 TH/MM3 Eosinophils # (Auto) 0.0 TH/MM3 Basophils # (Auto) 0.0 TH/MM3 CBC Comment AUTO DIFF Differential Total Cells Counted 100 Neutrophils % (Manual) 90 % Band Neutrophils % 4 % Lymphocytes % 1 % Monocytes % 3 % Neutrophils # (Manual) 15.1 TH/MM3 Metamyelocytes 2 % Differential Comment FINAL DIFF MANUAL Platelet Estimate LOW Platelet Morphology Comment NORMAL Red Cell Morphology Comment NORMAL Fibrinogen 328 mg/dL Blood Urea Nitrogen 19 MG/DL Creatinine 0.49 MG/DL Random Glucose 110 MG/DL Calcium Level 9.1 MG/DL Phosphorus Level 3.6 MG/DL Magnesium Level 2.0 MG/DL Sodium Level 133 MEQ/L Potassium Level 3.9 MEQ/L Chloride Level 97 MEQ/L Carbon Dioxide Level 26.2 MEQ/L Anion Gap 10 MEQ/L Estimat Glomerular Filtration Rate 177 ML/MIN Culture Results Microbiology Date/Time Source Procedure Growth Status 04/06/17 01:00 Stool Stool Stool Occult Blood (ARBEN) - Final HEMOCCULT NEGATIVE Complete Administered Medications Medications (Trade) Dose Ordered Sig/Pina Route PRN Reason Start Time Stop Time Status Last Admin Dose Admin Chlorhexidine Gluconate (Chlorhexidine 2% Cloth) Taper DAILY@04 TOP 03/24/17 04:00 03/20/18 03:59 04/05/17 00:46 Dexamethasone Sodium Phosphate (Decadron Inj) 6 mg Q6HR IV PUSH 03/24/17 00:00 04/07/17 13:29 Sodium Phosphate 30 mmol/Sodium Chloride 250 ml @ 42 mls/hr UNSCH PRN IV For Phosphorus < 2.5 mg/dL 03/23/17 20:45 04/05/17 09:05 Lorazepam (Ativan Inj) 2 mg Q2H PRN IV PUSH seizure 03/24/17 02:00 04/03/17 11:38 Chlorhexidine Gluconate (Peridex 0.12% Liq) 15 ml BID@08,20 MT 03/26/17 08:00 04/06/17 08:00 Ondansetron HCl (Zofran Inj) 4 mg Q6H PRN IV NAUSEA OR VOMITING 03/26/17 14:00 03/27/17 21:52 Lacosamide 150 mg/ Sodium Chloride 115 ml @ 115 mls/hr Q8HR IV 04/01/17 14:00 04/07/17 14:08 IV Flush (NS Flush) 2 ml BID IVF 04/01/17 21:00 04/07/17 08:03 Bisacodyl (Dulcolax Supp) 10 mg DAILY PRN RECTAL SEE LABEL COMMENTS 04/01/17 13:15 04/02/17 12:14 Pantoprazole Sodium (Protonix Inj) 40 mg DAILY IVP 04/02/17 09:00 04/07/17 08:03 Acetaminophen (Tylenol) 650 mg Q4H PRN PO TEMPERATURE > 101.5 F 04/01/17 13:15 04/04/17 02:19 Senna/Docusate Sodium (Myla-Colace) 1 tab BID PO 04/02/17 10:30 04/07/17 08:03 Polyethylene Glycol (Miralax) 17 gm BID PO 04/02/17 10:30 04/07/17 08:03 Levetriacetam 100 ml @ 400 mls/hr Q8H IV 04/03/17 16:00 04/07/17 08:03 Phenytoin Sodium (Dilantin Inj) 150 mg Q8HR IV 04/03/17 22:00 04/07/17 13:53 Objective Remarks GENERAL: Middle aged male sitting up in chair next to bed in [facility]. SKIN: Warm and dry. HEAD: Normocephalic. EYES: No injection or drainage. NECK: Supple, trachea midline. CARDIOVASCULAR: Regular rate and rhythm RESPIRATORY: Breath sounds equal bilaterally. No accessory muscle use. GASTROINTESTINAL: Abdomen soft, non-tender, nondistended. EXTREMITIES: No cyanosis, or edema. MUSCULOSKELETAL: Adequate muscle tone. NEUROLOGICAL: awake and alert, normal speech. moving all extremities. Assessment/Plan Problem List: (1) Intracerebral hemorrhage ICD Codes: I61.9 - Nontraumatic intracerebral hemorrhage, unspecified Status: Acute Plan: 04/07: platelets=79K 04/06: platelets = 89K transfuse to keep > 70 04/04: Platelets 57k today. Transfuse one unit platelets 04/03: Patient had another seizure this morning per nurse. 04/02: awake and alert, moving all extremities. + weakness in left arm and left leg. 8/14-->s/p Right parietal craniotomy, evacuation of intracerebral hematoma 8.13--had seizure, developed left hemiparesis. then had further deterioration of motor function. CT brain showed hemorrhage. 8.11--started on heparin (2) Metastatic primary lung cancer ICD Codes: C34.90 - Malignant neoplasm of unspecified part of unspecified bronchus or lung Status: Acute Plan: admitted with new onset seizure. --CT showed a new 1.7 cm mass in the right parietal lobe with significant vasogenic edema. also had a brain MRI which showed a single 2-cm peripherally enhancing lesion in the right parietal high complexity with marked surrounding vasogenic edema. no other lesion noted. No midline shift noted. --s/p craniotomy and resection of mass via Dr. Palmer on 03/26/17 History: --Metastatic non-small cell lung cancer. 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 --was treated with radiation with concurrent cisplatin and Taxol. received two cycles of consolidation chemotherapy after concurrent treatment. --developed supraclavicular adenopathy and progression of disease. then received radiation. --subsequently was started on Opdivo and had a good response. --recent CT reportedly showed good response and no evidence of progression of disease. 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 --on Vimpat, Dilantin, Keppra (4) DVT (deep venous thrombosis) ICD Codes: I82.409 - Acute embolism and thrombosis of unspecified deep veins of unspecified lower extremity Status: Acute Plan: --s/p IVC filter in IR --History of multiple DVTs and pulmonary embolism. --last thromboembolic event was several months ago. --with his metastatic disease and history of multiple clots, he likely is going to have another thromboembolic event without the anticoagulation. --developed ICH while on heparin Assessment 52y/o male with metastatic lung cancer who presented with new-onset seizure. h/o Metastatic non-small cell lung cancer. Recurrent DVT and pulmonary embolism. He was on Lovenox. Osteoarthritis. Hyperlipidemia. Gastroesophageal reflux disease (GERD). Plan 1. monitor CBC, no transfusion needed at present 2.recommend discharge to [place]. waiting on NS to clear for discharge Attending Statement The exam, history, and the medical decision-making described in the above note were completed with the assistance of the mid-level provider. I reviewed and agree with the findings presented. I attest that I had a [id number] encounter with the patient on the same day, and personally performed and documented my assessment and findings in the medical record. Problem Qualifiers (1) DVT (deep venous thrombosis): Luisa Sal Apr 07, 2017 14:37 Fermin Hickman MD Apr 07, 2017 17:04
--- NOTE | 2017-04-07 14:43 | HHI.NSPN ---
(Ke Rehman) History Chief Complaint: Swelling to the legs. (Ke Rehman) Interval History Mr. Mendosa is a 52 y/o male underwent right parietal craniotomy for resection of brain mets 03/26/17. 03/27: intubated and sedated. post/op CT Head completed. possible extubation today. EEG yesterday report noted. Dilantin levels yesterday was 11. 03/28:extubated, doing very well, brushing his teeth. Surgical pain controlled. EEG yesterday still shows sharps abnormalities. 03/29: no clinical seizures overnight, sitting up in chair eating breakfast. 04/01: pt with recurrent seizures over the weekend, f/u CT Head shows acute hematoma within surgical bed. had more seizures this morning, worsening left side weakness, now unable to move. remains awake, alert but intermittently confused 04/02: f/u CT Head this morning completed, intubated and sedated. 04/03: Pt awake and alert. Denies headaches. No n/v. Follows commands well. Left hemiparesis LLE more than LUE. Pupils equal. 04/04: Pt awake and alert. Denies headache. No n/v. Follows commands well. Left hemiparesis improving. Pt has bilateral DVT. Has a hx of IVC filter in place. 04/05: Pt awake and alert. Denies headaches. No n/v. Follows commands well. Left hemiparesis. 04/07: Pt awake and alert. Denies headache. No nausea or vomiting. Left hemiparesis. bilateral DVT LEs. IVC in place. Pt received cryoprecipitate last night for low fibrinogen and platelet count. (Ke Rehman) Review of Systems General: Negative for: fever, chills, insomnia Respiratory: Negative for: shortness of breath, cough, sputum Cardiovascular: Negative for: chest pain Gastrointestinal: Negative for: nausea, vomitting, diarrhea, constipation ( Ke Rehman) Exam Results Vital Signs Date Time Temp Pulse Resp B/P (MAP) Pulse Ox O2 Delivery O2 Flow Rate FiO2 04/07/17 07:39 98 21 04/07/17 06:00 64 04/07/17 04:00 98.2 20 106/67 (80) Intake and Output 04/07/17 04/07/17 04/08/17 08:00 16:00 00:00 Intake Total 705 ml Output Total 450 ml Balance 255 ml (Ke Rehman) Physical Examination Resp: CTA bilaterally Heart: NSR no murmurs Abd: Soft positive bs Skin: Incision clean and dry. No signs of infection or complication. Muscle: Left hemiparesis improving slowly. LLE weaker than LUE. Edema bilateral LEs Right more than left. Neuro: Pt awake and alert. Follows commands well. Speech clear and appropriate. (Ke Rehman) Lab, Micro, Other Results Laboratory Tests Test 04/06/17 15:43 04/06/17 20:51 04/07/17 03:26 Serum Osmolality 285 MOSM/KG 283 MOSM/KG White Blood Count 15.7 TH/MM3 Red Blood Count 3.00 MIL/MM3 Hemoglobin 9.2 GM/DL Hematocrit 26.8 % Mean Corpuscular Volume 89.3 FL Mean Corpuscular Hemoglobin 30.7 PG Mean Corpuscular Hemoglobin Concent 34.4 % Red Cell Distribution Width 16.4 % Platelet Count 79 TH/MM3 Mean Platelet Volume 8.7 FL Neutrophils (%) (Auto) 92.4 % Lymphocytes (%) (Auto) 2.5 % Monocytes (%) (Auto) 4.9 % Eosinophils (%) (Auto) 0.2 % Basophils (%) (Auto) 0.0 % Neutrophils # (Auto) 14.5 TH/MM3 Lymphocytes # (Auto) 0.4 TH/MM3 Monocytes # (Auto) 0.8 TH/MM3 Eosinophils # (Auto) 0.0 TH/MM3 Basophils # (Auto) 0.0 TH/MM3 CBC Comment AUTO DIFF Differential Total Cells Counted 100 Neutrophils % (Manual) 90 % Band Neutrophils % 4 % Lymphocytes % 1 % Monocytes % 3 % Neutrophils # (Manual) 15.1 TH/MM3 Metamyelocytes 2 % Differential Comment FINAL DIFF MANUAL Platelet Estimate LOW Platelet Morphology Comment NORMAL Red Cell Morphology Comment NORMAL Fibrinogen 328 mg/dL Blood Urea Nitrogen 19 MG/DL Creatinine 0.49 MG/DL Random Glucose 110 MG/DL Calcium Level 9.1 MG/DL Phosphorus Level 3.6 MG/DL Magnesium Level 2.0 MG/DL Sodium Level 133 MEQ/L Potassium Level 3.9 MEQ/L Chloride Level 97 MEQ/L Carbon Dioxide Level 26.2 MEQ/L Anion Gap 10 MEQ/L Estimat Glomerular Filtration Rate 177 ML/MIN (Ke Rehman) Medical Decision Making Impression and Plan A: 52 y/o male presents for seizures MRI Brain shows left right parietal mass lesion, suspected for metastatic lung CA. s/p right parietal craniotomy with resection of brain mass 03/26/17 f/u CT Head 03/26/17 with expected postsurgical changes DVT, PE, s/p placement of IVC filter EEG 03/26/17 reports poss right epileptiform activities f/u CT Brain 04/01/17 with moderate right parietal hematoma, pt with recurrent seizures and left side plegia, s/p redo right craniotomy with evacuation of parietal hematoma 04/01/17, f/u CT Head 04/02 better with improved midline shift Plan Plan Plan Remarks cont current AEDs, cont seizure precautions Continue PT, OT, ST cont neuro checks (Ke Rehman) Attending Statement The exam, history, and the medical decision-making described in the above note were completed with the assistance of the mid-level provider. I reviewed and agree with the findings presented. I attest that I had a [id number] encounter with the patient on the same day, and personally performed and documented my assessment and findings in the medical record. (Irving Aldridge MD) Ke Rehman Apr 07, 2017 14:43 Irving Aldridge MD Apr 07, 2017 15:04
[2017-04-08] VITALS (13 sets, daily range): BP systolic 90–113; BP diastolic 57–75; PULSE 66–102; RESP 14–20; TEMP 98–99.5; O2SAT 97–99
[2017-04-08] MEDS: levETIRAcetam 1000 MG INJ 100 ML IV SCH ×2 (00:23→09:40)
[2017-04-08] MEDS: DEXAMETHASONE SOD PHOS 4 MG/ML VIAL IV PUSH SCH ×4 (00:24→17:18)
[2017-04-08] MEDS: CHLORHEXIDINE GLUCONATE 2 % 1 PACK (2 CLOTHS) TOP SCH (04:00)
[2017-04-08] MEDS: PHENYTOIN INJ 100 MG/2 ML VIAL IV SCH (05:35)
[2017-04-08 06:34] LABS: INTERNATIONAL NORMALIZED RATIO 1.1 RATIO
[2017-04-08] MEDS: LACOSAMIDE INJ 150 MG in SODIUM CHLORIDE 0.9% INJ 100 ML IV SCH (06:38)
[2017-04-08] MEDS: CHLORHEXIDINE 0.12% (ORAL KIT) 15 ML CUP MT SCH ×2 (08:00→19:50)
[2017-04-08] MEDS: SODIUM CHLORIDE 0.9% FLUSH 5 ML FLUSH IVF SCH ×2 (09:00→21:09)
[2017-04-08] MEDS: DOCUSATE SODIUM 50 MG/SENNA 8.6 MG TAB PO SCH ×2 (09:40→21:08)
[2017-04-08] MEDS: POLYETHYLENE GLYCOL 17 GM PKG PO SCH ×3 (09:40→21:08)
[2017-04-08] MEDS: PANTOPRAZOLE SODIUM 40 MG VIAL IVP SCH (09:41)
--- NOTE | 2017-04-08 10:22 | HHI.NSPN ---
(Nancy Barajas) Note Status Status: Progress Note (Nancy Barajas) Interval History Interval History Mr. Mendosa is a 52 y/o male underwent right parietal craniotomy for resection of brain mets 03/26/17. 03/27: intubated and sedated. post/op CT Head completed. possible extubation today. EEG yesterday report noted. Dilantin levels yesterday was 11. 03/28:extubated, doing very well, brushing his teeth. Surgical pain controlled. EEG yesterday still shows sharps abnormalities. 03/29: no clinical seizures overnight, sitting up in chair eating breakfast. 04/01: pt with recurrent seizures over the weekend, f/u CT Head shows acute hematoma within surgical bed. had more seizures this morning, worsening left side weakness, now unable to move. remains awake, alert but intermittently confused 04/02: f/u CT Head this morning completed, intubated and sedated. 04/08: doing well, reports left side much stronger. eager for rehab. (Nancy Barajas) Labs, Micro, & Vital Signs Results Date Time Temp Pulse Resp B/P (MAP) Pulse Ox O2 Delivery O2 Flow Rate FiO2 04/08/17 08:00 76 04/08/17 08:00 99.2 76 20 91/58 (69) 98 04/08/17 06:00 75 04/08/17 04:00 98.0 66 14 90/57 (68) 99 04/08/17 04:00 66 04/08/17 02:00 66 04/08/17 00:00 98.2 80 14 113/67 (82) 99 04/08/17 00:00 80 04/07/17 22:00 79 04/07/17 20:00 98.8 92 15 108/68 (81) 100 04/07/17 20:00 92 04/07/17 16:00 98.3 84 14 122/76 (91) 100 Constitutional Vital Signs Date Time Temp Pulse Resp B/P (MAP) Pulse Ox O2 Delivery O2 Flow Rate FiO2 04/08/17 08:00 76 04/08/17 08:00 99.2 76 20 91/58 (69) 98 04/08/17 06:00 75 04/08/17 04:00 98.0 66 14 90/57 (68) 99 04/08/17 04:00 66 04/08/17 02:00 66 04/08/17 00:00 98.2 80 14 113/67 (82) 99 04/08/17 00:00 80 04/07/17 22:00 79 04/07/17 20:00 98.8 92 15 108/68 (81) 100 04/07/17 20:00 92 04/07/17 16:00 98.3 84 14 122/76 (91) 100 (Nancy Barajas) Review of Systems/Exam Exam Awake, alert. Feeding himself breakfast. Speech is fluent. Conversing well. surgical incision healing well, jamaal intact. CN: pupils 4 mm equal Motor: left side paresis improving, 4+/5, moves right side 5/5 Bilateral lower extremity edema (Nancy Barajas) Medications Current Medications Current Medications Medications (Trade) Dose Ordered Sig/Pina Route PRN Reason Start Time Stop Time Status Last Admin Dose Admin Albuterol Sulfate (Albuterol Neb) 2.5 mg Q4HR NEB PRN INH SHORTNESS OF BREATH 03/23/17 20:30 Miscellaneous Information 1 [id number] XX 03/23/17 20:30 Chlorhexidine Gluconate (Chlorhexidine 2% Cloth) Taper DAILY@04 TOP 03/24/17 04:00 03/20/18 03:59 04/05/17 00:46 Chlorhexidine Gluconate (Chlorhexidine 2% Cloth) 3 pack UNSCH PRN TOP HYGIENIC CARE 03/23/17 20:30 Dexamethasone Sodium Phosphate (Decadron Inj) 6 mg Q6HR IV PUSH 03/24/17 00:00 04/08/17 05:39 Potassium Chloride 100 ml @ 50 mls/hr Q2H PRN IV For Potassium 2.8 - 3.2 mEq/L 03/23/17 20:45 Potassium Chloride 100 ml @ 50 mls/hr Q2H PRN IV For Potassium 2.8 - 3.2 mEq/L 03/23/17 20:45 Potassium Bicarb/ Potassium Chloride (K-Lyte Cl Eff) 50 meq UNSCH PRN PO For Potassium 3.3 - 3.5 mEq/L 03/23/17 20:45 Potassium Chloride 100 ml @ 25 mls/hr UNSCH PRN IV For Potassium 3.3 - 3.5 mEq/L 03/23/17 20:45 Potassium Chloride 100 ml @ 50 mls/hr Q2H PRN IV For Potassium 3.3 - 3.5 mEq/L 03/23/17 20:45 Magnesium Sulfate 4 gm/Sodium Chloride 100 ml @ 50 mls/hr UNSCH PRN IV For Magnesium 0.9 - 1.1 mg/dL 03/23/17 20:45 Magnesium Oxide (Mag-Ox) 800 mg UNSCH PRN PO For Magnesium 1.2 - 1.6 mg/dL 03/23/17 20:45 Magnesium Sulfate 2 gm/Sodium Chloride 100 ml @ 50 mls/hr UNSCH PRN IV For Magnesium 1.2 - 1.6 mg/dL 03/23/17 20:45 Potassium Phosphate (K-Phos) 2,000 mg Q4H PRN PO For Phosphorus < 2.5 mg/dL 03/23/17 20:45 Sodium Phosphate 30 mmol/Sodium Chloride 250 ml @ 42 mls/hr UNSCH PRN IV For Phosphorus < 2.5 mg/dL 03/23/17 20:45 04/05/17 09:05 Potassium Phosphate (K-Phos) 2,000 mg UNSCH PRN PO/TUBE SEE LABEL COMMENTS 03/23/17 20:45 Potassium Phosphate 30 mmol/ Sodium Chloride 260 ml @ 42 mls/hr UNSCH PRN IV SEE LABEL COMMENTS 03/23/17 20:45 Lorazepam (Ativan Inj) 2 mg Q2H PRN IV PUSH seizure 03/24/17 02:00 04/03/17 11:38 Chlorhexidine Gluconate (Peridex 0.12% Liq) 15 ml BID@08,20 MT 03/26/17 08:00 04/06/17 08:00 Ondansetron HCl (Zofran Inj) 4 mg Q6H PRN IV NAUSEA OR VOMITING 03/26/17 14:00 03/27/17 21:52 Lacosamide 150 mg/ Sodium Chloride 115 ml @ 115 mls/hr Q8HR IV 04/01/17 14:00 04/08/17 06:38 IV Flush (NS Flush) 2 ml UNSCH PRN IVF FLUSH AFTER USING IV ACCESS 04/01/17 13:15 IV Flush (NS Flush) 2 ml BID IVF 04/01/17 21:00 04/08/17 09:00 Bisacodyl (Dulcolax Supp) 10 mg DAILY PRN RECTAL SEE LABEL COMMENTS 04/01/17 13:15 04/02/17 12:14 Pantoprazole Sodium (Protonix Inj) 40 mg DAILY IVP 04/02/17 09:00 04/08/17 09:41 Calcium Gluconate (Calcium Gluconate Inj) 1 gm UNSCH PRN IV SEE LABEL COMMENTS 04/01/17 13:15 Potassium Chloride 100 ml @ 50 mls/hr UNSCH PRN IV POTASSIUM LESS THAN 4 04/01/17 13:15 Magnesium Sulfate 4 gm/Sodium Chloride 108 ml @ 108 mls/hr UNSCH PRN IV MAGNESIUM LESS THAN 2 04/01/17 13:15 Acetaminophen/ Hydrocodone Bitart (Rex 10-325 Mg) 1 tab Q4H PRN PO PAIN SCALE 1 TO 5 04/01/17 13:15 Acetaminophen/ Hydrocodone Bitart (Rex 10-325 Mg) 2 tab Q4H PRN PO PAIN SCALE 6 TO 10 04/01/17 13:15 Morphine Sulfate (Morphine Inj) 2 mg Q2H PRN IV PUSH PAIN SCALE 1 TO 6 04/01/17 13:15 Morphine Sulfate (Morphine Inj) 4 mg Q2H PRN IV PUSH PAIN SCALE 7 TO 10 04/01/17 13:15 Acetaminophen (Tylenol) 650 mg Q4H PRN PO TEMPERATURE > 101.5 F 04/01/17 13:15 04/04/17 02:19 Senna/Docusate Sodium (Myla-Colace) 1 tab BID PO 04/02/17 10:30 04/08/17 09:40 Polyethylene Glycol (Miralax) 17 gm BID PO 04/02/17 10:30 04/08/17 09:40 Glycerin (Glycerin Adult Supp) 2 gm BID PRN RECTAL CONSTIPATION 04/02/17 10:30 Metoprolol Tartrate (Lopressor Inj) 5 mg Q6H PRN IV PUSH pulse > 140 04/03/17 11:15 Levetriacetam 100 ml @ 400 mls/hr Q8H IV 04/03/17 16:00 04/08/17 09:40 Phenytoin Sodium (Dilantin Inj) 150 mg Q8HR IV 04/03/17 22:00 04/08/17 05:35 Hydralazine HCl (Apresoline Inj) 20 mg UNSCH X1 PRN IV SBP > 160 04/04/17 17:15 04/10/17 17:14 (Nancy Barajas) Medical Decision Making MDM Remarks 52 y/o male presents for seizures MRI Brain shows left right parietal mass lesion, suspected for metastatic lung CA. s/p right parietal craniotomy with resection of brain mass 03/26/17 f/u CT Head 03/26/17 with expected postsurgical changes DVT, PE, s/p placement of IVC filter EEG 03/26/17 reports poss right epileptiform activities f/u CT Brain 04/01/17 with moderate right parietal hematoma, pt with recurrent seizures and left side plegia, s/p redo right craniotomy with evacuation of parietal hematoma 04/01/17, f/u CT Head 04/02 better with improved midline shift, neurologically improving, improved left side plegia (Nancy Barajas) Plan Plan Remarks cont current AEDs, cont seizure precautions cont PT, OT, ST cont rehab efforts neuro improved cont mgt per other learning consultant clear to dc to rehab from N[facility] standpoint dc head jamaal 04/15/17 dw in room (Nancy Barajas) Attending Statement The exam, history, and the medical decision-making described in the above note were completed with the assistance of the mid-level provider. I reviewed and agree with the findings presented. I attest that I had a [id number] encounter with the patient on the same day, and personally performed and documented my assessment and findings in the medical record. (Gatito Palmer MD) Nancy Barajas Apr 08, 2017 10:22 Gatito Palmer MD Apr 14, 2017 17:44
--- NOTE | 2017-04-08 11:03 | PD.ONC.PN ---
Subjective Subjective Remarks Afebrile overnight. Eager to go to rehab. No overnight events. Objective Data Date Time Temp Pulse Resp B/P (MAP) Pulse Ox O2 Delivery O2 Flow Rate FiO2 04/08/17 10:00 102 04/08/17 08:00 76 04/08/17 08:00 99.2 76 20 91/58 (69) 98 04/08/17 06:00 75 04/08/17 04:00 98.0 66 14 90/57 (68) 99 04/08/17 04:00 66 04/08/17 02:00 66 04/08/17 00:00 98.2 80 14 113/67 (82) 99 04/08/17 00:00 80 04/07/17 22:00 79 04/07/17 20:00 98.8 92 15 108/68 (81) 100 04/07/17 20:00 92 04/07/17 16:00 98.3 84 14 122/76 (91) 100 04/08/17 04/08/17 04/08/17 06:59 14:59 22:59 Intake Total 824 ml Output Total 700 ml Balance 124 ml Result Diagram: 04/07/17 0326 04/07/17 0326 Laboratory Results Laboratory Tests Test 04/08/17 05:56 Prothrombin Time 12.0 SEC Prothromb Time International Ratio 1.1 RATIO Fibrinogen 219 mg/dL Culture Results Microbiology Date/Time Source Procedure Growth Status 04/06/17 01:00 Stool Stool Stool Occult Blood (ARBEN) - Final HEMOCCULT NEGATIVE Complete Administered Medications Medications (Trade) Dose Ordered Sig/Pina Route PRN Reason Start Time Stop Time Status Last Admin Dose Admin Chlorhexidine Gluconate (Chlorhexidine 2% Cloth) Taper DAILY@04 TOP 03/24/17 04:00 03/20/18 03:59 04/05/17 00:46 Dexamethasone Sodium Phosphate (Decadron Inj) 6 mg Q6HR IV PUSH 03/24/17 00:00 04/08/17 05:39 Sodium Phosphate 30 mmol/Sodium Chloride 250 ml @ 42 mls/hr UNSCH PRN IV For Phosphorus < 2.5 mg/dL 03/23/17 20:45 04/05/17 09:05 Lorazepam (Ativan Inj) 2 mg Q2H PRN IV PUSH seizure 03/24/17 02:00 04/03/17 11:38 Chlorhexidine Gluconate (Peridex 0.12% Liq) 15 ml BID@08,20 MT 03/26/17 08:00 04/06/17 08:00 Ondansetron HCl (Zofran Inj) 4 mg Q6H PRN IV NAUSEA OR VOMITING 03/26/17 14:00 03/27/17 21:52 Lacosamide 150 mg/ Sodium Chloride 115 ml @ 115 mls/hr Q8HR IV 04/01/17 14:00 04/08/17 06:38 IV Flush (NS Flush) 2 ml BID IVF 04/01/17 21:00 04/08/17 09:00 Bisacodyl (Dulcolax Supp) 10 mg DAILY PRN RECTAL SEE LABEL COMMENTS 04/01/17 13:15 04/02/17 12:14 Pantoprazole Sodium (Protonix Inj) 40 mg DAILY IVP 04/02/17 09:00 04/08/17 09:41 Acetaminophen (Tylenol) 650 mg Q4H PRN PO TEMPERATURE > 101.5 F 04/01/17 13:15 04/04/17 02:19 Senna/Docusate Sodium (Myla-Colace) 1 tab BID PO 04/02/17 10:30 04/08/17 09:40 Polyethylene Glycol (Miralax) 17 gm BID PO 04/02/17 10:30 04/08/17 09:40 Levetriacetam 100 ml @ 400 mls/hr Q8H IV 04/03/17 16:00 04/08/17 09:40 Phenytoin Sodium (Dilantin Inj) 150 mg Q8HR IV 04/03/17 22:00 04/08/17 05:35 Objective Remarks GENERAL: Middle aged male upright in chair next to bed in [facility]. SKIN: Warm and dry. HEAD: Normocephalic. EYES: No injection or drainage. NECK: Supple, trachea midline. CARDIOVASCULAR: Regular rate and rhythm RESPIRATORY: Breath sounds equal bilaterally. No accessory muscle use. GASTROINTESTINAL: Abdomen soft, non-tender, nondistended. EXTREMITIES: No cyanosis, or edema. MUSCULOSKELETAL: Adequate muscle tone. NEUROLOGICAL: awake and alert, normal speech. moving all extremities. + weakness in LUE and LLE Assessment/Plan Problem List: (1) Intracerebral hemorrhage ICD Codes: I61.9 - Nontraumatic intracerebral hemorrhage, unspecified Status: Acute Plan: transfuse to keep > 70 s/p Right parietal craniotomy, evacuation of intracerebral hematoma (2) Metastatic primary lung cancer ICD Codes: C34.90 - Malignant neoplasm of unspecified part of unspecified bronchus or lung Status: Acute Plan: admitted with new onset seizure. --CT showed a new 1.7 cm mass in the right parietal lobe with significant vasogenic edema. also had a brain MRI which showed a single 2-cm peripherally enhancing lesion in the right parietal high complexity with marked surrounding vasogenic edema. no other lesion noted. No midline shift noted. --s/p craniotomy and resection of mass via Dr. Palmer on 03/26/17 History: --Metastatic non-small cell lung cancer. 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 --was treated with radiation with concurrent cisplatin and Taxol. received two cycles of consolidation chemotherapy after concurrent treatment. --developed supraclavicular adenopathy and progression of disease. then received radiation. --subsequently was started on Opdivo and had a good response. --recent CT reportedly showed good response and no evidence of progression of disease. 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 --on Vimpat, Dilantin, Keppra (4) DVT (deep venous thrombosis) ICD Codes: I82.409 - Acute embolism and thrombosis of unspecified deep veins of unspecified lower extremity Status: Acute Plan: --s/p IVC filter in IR --History of multiple DVTs and pulmonary embolism. --last thromboembolic event was several months ago. --with his metastatic disease and history of multiple clots, he likely is going to have another thromboembolic event without the anticoagulation. --developed ICH while on heparin Assessment 52y/o male with metastatic lung cancer who presented with new-onset seizure. h/o Metastatic non-small cell lung cancer. Recurrent DVT and pulmonary embolism. He was on Lovenox. Osteoarthritis. Hyperlipidemia. Gastroesophageal reflux disease (GERD). Plan 1. oncology clear for discharge 2. no treatment planned until discharge from rehab 3. follow up in clinic. Attending Statement The exam, history, and the medical decision-making described in the above note were completed with the assistance of the mid-level provider. I reviewed and agree with the findings presented. I attest that I had a [id number] encounter with the patient on the same day, and personally performed and documented my assessment and findings in the medical record Thrombocytopenia and DIC platelet count improving Fibrinogen stable today no blood products today ongoing PT dc to rehab Problem Qualifiers (1) DVT (deep venous thrombosis): Luisa Sal Apr 08, 2017 11:03 Fermin Hickman MD Apr 08, 2017 22:30
[2017-04-08 11:26] LABS: AUTOMATED NEUTROPHIL # 13.9 TH/MM3 (1.8-7.7); BASOPHIL # 0.1 TH/MM3 (0-0.2); BASOPHIL % 0.3 % (0.0-2.0); EOSINOPHIL % 0.1 % (0.0-4.0); HEMATOCRIT 32.4 % (39.0-51.0); LYMPH % 2.7 % (9.0-44.0); LYMPHOCYTE # 0.4 TH/MM3 (1.0-4.8); MEAN CELL VOLUME 91.2 FL (80.0-100.0); MEAN CORPUSCULAR HEMOGLOBIN 30.1 PG (27.0-34.0); MONO % 4.3 % (0.0-8.0); NEUT % 92.6 % (16.0-70.0); PLATELET COUNT 120 TH/MM3 (150-450); RED BLOOD COUNT 3.55 MIL/MM3 (4.50-5.90); RED CELL DISTRIBUTION WIDTH 16.9 % (11.6-17.2)
[2017-04-08 11:32] LABS: HEMO FLAGS AUTO DIFF
--- NOTE | 2017-04-08 12:00 | HHI.CCPN ---
Subjective Remarks/Hospital Course Hospital Course: Patient is a 51-year-old male with past medical history significant for stage IV lung cancer (Dr. Hickman is the oncologist), chronic Lovenox therapy for DVT and PE, who presented to the emergency department for evaluation of possible stroke and new onset seizure. EMS was called for new onset focal seizures involving left lower extremity. According to paramedics en route patient started having weakness and shaking of the left upper and lower extremity with possible facial droop, but without loss of consciousness. In the ER initially was awake alert then developed focal left-sided seizures followed by generalized seizure for 5 min, received Ativan for this. Initially aroused from postictal state and then again had recurrent generalized seizure activity. Patient was intubated for airway protection. CT of the head showed right parietal mass 1.7 cm suspicious for metastatic lesion. I was contacted for admission. Patient was started on Versed infusion. Patient had been already loaded with Cerebyx 1 g, I will continue 100 mg IV every 8 hours. Also an EEG had been ordered. I have ordered MRI of the brain neurosurgery consult. I evaluated the patient in the Main ICU. He is intubated sedated with Versed. He purposefully moves all 4 extremity 03/25: persistent seizures yesterday. repeat cerebyx load and keppra load. plan to go to OR for tumor resection tomorrow. also has history of DVt/PE. will need IVC filter prior to OR. 03/26: went to OR today for crani. s/p crani, I evaluated the patient when he was immediately post-op. still somnolent from anesthesia. remains intubated. successful crani resection, minimal EBL. 03/27: Wild when sedation lightened - will need to perform rapid extubation. 03/28: Extubated and calm. Swallow eval good. 04/01: reconsulted. taken back to OR today for bleeding in the operative bed. left intubated post-op. follows commands in RUE,LUE,RLE. withdraws LLE. this is baseline neuro exam for patient. on my evaluation the patient is intubated and sedated, so no additional information is obtainable from the patient. ROS is unobtainable. past history was reviewed in the chart and unchanged from prior consult note. 04/02: Status post right craniotomy for evacuation of hematoma. Currently on ventilator and following commands. Afebrile. 04/03: Seizures today requiring ativan X 4, multiple AEDs. 04/04: Leukocytosis after seizures yesterday. No seizures in past 16 hours. Start diuresis and concentrate serum a little more - trying to reduce cerebral edema. Decadron continues. 04/05: No seizures. Resting comfortably in bed in no acute distress. JOEY drains removed. Remains on 3 antiepileptics. Subjective: 04/06: Transfused PRBCs yesterday. No seizures since 48 hours. Currently sitting in chair in no distress. 04/07: Resting in bed. Transfused cryoprecipitate last night. No seizures overnight. 04/08: Sitting up in a chair. Appears comfortable. No further seizures. Patient has been cleared for rehabilitation by neurosurgery. Objective Vital Signs Date Time Temp Pulse Resp B/P (MAP) Pulse Ox O2 Delivery O2 Flow Rate FiO2 04/08/17 10:00 102 04/08/17 08:00 99.2 20 91/58 (69) 98 04/07/17 07:39 21 Intake and Output 04/08/17 04/08/17 04/08/17 07:59 15:59 23:59 Intake Total 824 ml Output Total 700 ml Balance 124 ml Result Diagram: 04/08/17 1043 04/07/17 0326 Other Results Microbiology Date/Time Source Procedure Growth Status 04/06/17 01:00 Stool Stool Stool Occult Blood (ARBEN) - Final HEMOCCULT NEGATIVE Complete Imaging Last Impressions Lower Extremity Ultrasound 04/04/17 0000 Signed Impressions: Service Date/Time: March 17:39 - CONCLUSION: 1. Extensive occlusive deep venous thrombosis in both lower extremities. Scott Layton MD Head CT 04/02/17 0500 Signed Impressions: Service Date/Time: Sunday, April 02, 2017 04:24 - CONCLUSION: Interval evacuation and drain placement of right parietal occipital hematoma. Reduction of midline shift to 3 mm. Eitan Thornton MD Abdomen X-Ray 04/02/17 0000 Signed Impressions: Service Date/Time: Sunday, April 02, 2017 11:19 - CONCLUSION: No acute disease. Jesu Cervantes MD Chest X-Ray 04/01/17 0000 Signed Impressions: Service Date/Time: Saturday, April 01, 2017 16:54 - CONCLUSION: 1. The tip of the ET tube is approximately 2.5 cm above the lulú. 2. Large left paratracheal mass. 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 Inferior vena caval filter will be placed via the femoral vein. Jesu Veras MD IVC Filter Placement X-Ray 03/25/17 Signed Impressions: Service Date/Time: Saturday, March 25, 2017 16:24 - CONCLUSION: Uncomplicated inferior vena cava filter placement as above. Jesu Veras MD Brain MRI 03/25/17 0000 Signed Impressions: Service Date/Time: Saturday, March 25, 2017 16:10 - CONCLUSION: 2 cm enhancing mass in the right parietal region Jesu Veras MD Objective Remarks GENERAL: 52-year-old male, currently resting in bed in no acute distress SKIN: Warm and dry HEAD: [place], clean dry and intact. EYES: Pupils equal and round about 2 mm bilaterally and reactive. No scleral icterus. No injection or drainage. ENT: No nasal bleeding or discharge. ett in place. NECK: Trachea midline. Airway widely patent. CARDIOVASCULAR: RRR. S1, S2. No S4. Without murmur. No JVD. RESPIRATORY: Breath sounds equal bilaterally. Clear. GASTROINTESTINAL: Abdomen soft, non-tender, nondistended. MUSCULOSKELETAL: Extremities without significant peripheral edema. NEUROLOGICAL: Moves all 4 extremities spontaneously. Peripheral neuropathy noted. Normal voice. Phonation Procedures 03/26/2017 Stereotactic image guided right parietal craniotomy with microsurgical resection of unknown small cell carcinoma 03/29/2017 EEG INTERPRETATION Abnormal EEG because of bilateral slowing, right more than left, maximum right central parietal with associated sharp discharges which are epileptiform but no ictal activity present. 04/01: crani with evacuation of hematoma A/P Assessment and Plan NEURO: New-onset seizures with left hemiparesis Acute encephalopathy Right parietal mass with surrounding edema Status post stereotactic biopsy non-small cell carcinoma high-grade 03/26 Postop day 1 right craniotomy with evacuation right parieto-occipital hematoma - New onset Seizures secondary to metastatic brain lesion last non-small cell carcinoma - Decadron 6 milligrams IV every 6 hours - Neurosurgery following and cleared patient for transfer out of ICU. - Cerebyx 150 mg IV every 6 hours, Keppra 1000 mg IV twice a day and Vimpat 150 mg every 8 hours. Anticonvulsants per neurosurgery. - f/u post-op CT head showed improvement with right flexion 3 mm. JOEY drain right posterior occipital hematoma -2/-6 Currently on [place]/morphine 2-4 mg IV every 3 hours. Pain EEG 04/01 revealed intermittent bilateral slowing possibly right more than left suggestive of right more than left hemisphere structural abnormality. No distinct paroxysmal discharge present. EEG 04/03 - diffuse slowing after ativan, no seizures. RESP: Postoperative respiratory failure Stage IV lung cancer/non-small cell metastases - DuoNeb every 6 hours when necessary if needed Nasal cannula to maintain saturations greater than equal to 92% Incentive spirometry while awake CV: History of dyslipidemia Off IV fluids Currently not on vasopressors and/or antihypertensives GI: Constipation Gastroesophageal reflux disease -Bedside swallow evaluation Pantoprazole for GI prophylaxis Myla-Colace twice a day for bowel regimen : - Monitor renal function closely. Nunez catheter. ID: - no suspicion of infection. myla-op abx per nsgy. 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 Hickman -Develop intracerebral hemorrhage on heparin drip which was stopped. - IVC filter 03/25. 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 Treated with radiation with cisplatin and Taxol. - Transfused cryoprecipitate on 04/06 for low fibrinogen. ENDO/FEN: Hyponatremia Hypophosphatemia - Electrolyte replacement per protocol PROPH: - Bilateral lower extremity SCDs. Avoid chemical DVT prophylaxis due to brain bleed. IV Protonix LINES: - Utilize peripheral IVs, central line if needed Consult and transfer to hospitalist service for further medical management. Patient will be transferred out of ICU. Critical care signing off, please reconsult if needed. Level II follow-up Ibrahima Solomon MD Apr 08, 2017 12:00
[2017-04-08 13:32] LABS: BANDS 9 % (0-6); METAMYELOCYTES 3 % (0-1); MYELOCYTES 1 % (0-0); POLYS (SEG NEUTROPHILS) 80 % (16-70); WBC DIFF SAMPLE 100
[2017-04-08 13:34] LABS: PLATELET ESTIMATE SMEAR LOW (NORMAL); PLATELET MORPHOLOGY NORMAL (NORMAL); SCAN/DIFF FINAL DIFF MANUAL
[2017-04-08] MEDS ORDERED: PHENYTOIN SODIUM 100 MG CAP PO SCH (14:00)
[2017-04-08] MEDS: levETIRAcetam 500 MG TAB PO SCH ×2 (14:35→21:08)
[2017-04-08] MEDS: LACOSAMIDE 50 MG TAB PO SCH ×2 (15:31→21:08)
[2017-04-08] MEDS: PHENYTOIN SUSP 100 MG/4 ML CUP PO SCH ×2 (15:31→21:09)
--- NOTE | 2017-04-08 18:24 | HHI.PR ---
Review/Management Diagnosis parietal metastasis s/p resection secondary SZ--- Plan continue current anticonvulsants Diagnosis/Plan: Subjective Subjective Comments No acute events reported No headache No seizures Active Medications Current Medications Medications (Trade) Dose Ordered Sig/Pina Route Start Time Stop Time Status Last Admin (Albuterol Neb) 2.5 mg Q4HR NEB PRN INH 03/23/17 20:30 Miscellaneous Information 1 [id number] XX 03/23/17 20:30 (Chlorhexidine 2% Cloth) Taper DAILY@04 TOP 03/24/17 04:00 03/20/18 03:59 04/05/17 00:46 (Chlorhexidine 2% Cloth) 3 pack UNSCH PRN TOP 03/23/17 20:30 (Decadron Inj) 6 mg Q6HR IV PUSH 03/24/17 00:00 04/08/17 17:18 Potassium Chloride 100 ml @ 50 mls/hr Q2H PRN IV 03/23/17 20:45 Potassium Chloride 100 ml @ 50 mls/hr Q2H PRN IV 03/23/17 20:45 (K-Lyte Cl Eff) 50 meq UNSCH PRN PO 03/23/17 20:45 Potassium Chloride 100 ml @ 25 mls/hr UNSCH PRN IV 03/23/17 20:45 Potassium Chloride 100 ml @ 50 mls/hr Q2H PRN IV 03/23/17 20:45 Magnesium Sulfate 4 gm/Sodium Chloride 100 ml @ 50 mls/hr UNSCH PRN IV 03/23/17 20:45 (Mag-Ox) 800 mg UNSCH PRN PO 03/23/17 20:45 Magnesium Sulfate 2 gm/Sodium Chloride 100 ml @ 50 mls/hr UNSCH PRN IV 03/23/17 20:45 (K-Phos) 2,000 mg Q4H PRN PO 03/23/17 20:45 Sodium Phosphate 30 mmol/Sodium Chloride 250 ml @ 42 mls/hr UNSCH PRN IV 03/23/17 20:45 04/05/17 09:05 (K-Phos) 2,000 mg UNSCH PRN PO/TUBE 03/23/17 20:45 Potassium Phosphate 30 mmol/ Sodium Chloride 260 ml @ 42 mls/hr UNSCH PRN IV 03/23/17 20:45 (Ativan Inj) 2 mg Q2H PRN IV PUSH 03/24/17 02:00 04/03/17 11:38 (Peridex 0.12% Liq) 15 ml BID@08,20 MT 03/26/17 08:00 04/06/17 08:00 (Zofran Inj) 4 mg Q6H PRN IV 03/26/17 14:00 03/27/17 21:52 (NS Flush) 2 ml UNSCH PRN IVF 04/01/17 13:15 (NS Flush) 2 ml BID IVF 04/01/17 21:00 04/08/17 09:00 (Dulcolax Supp) 10 mg DAILY PRN RECTAL 04/01/17 13:15 04/02/17 12:14 (Protonix Inj) 40 mg DAILY IVP 04/02/17 09:00 04/08/17 09:41 (Calcium Gluconate Inj) 1 gm UNSCH PRN IV 04/01/17 13:15 Potassium Chloride 100 ml @ 50 mls/hr UNSCH PRN IV 04/01/17 13:15 Magnesium Sulfate 4 gm/Sodium Chloride 108 ml @ 108 mls/hr UNSCH PRN IV 04/01/17 13:15 (Eagar 10-325 Mg) 1 tab Q4H PRN PO 04/01/17 13:15 (Eagar 10-325 Mg) 2 tab Q4H PRN PO 04/01/17 13:15 (Morphine Inj) 2 mg Q2H PRN IV PUSH 04/01/17 13:15 (Morphine Inj) 4 mg Q2H PRN IV PUSH 04/01/17 13:15 (Tylenol) 650 mg Q4H PRN PO 04/01/17 13:15 04/04/17 02:19 (Myla-Colace) 1 tab BID PO 04/02/17 10:30 04/08/17 09:40 (Miralax) 17 gm BID PO 04/02/17 10:30 04/08/17 09:40 (Glycerin Adult Supp) 2 gm BID PRN RECTAL 04/02/17 10:30 (Lopressor Inj) 5 mg Q6H PRN IV PUSH 04/03/17 11:15 (Apresoline Inj) 20 mg UNSCH X1 PRN IV 04/04/17 17:15 04/10/17 17:14 (Vimpat) 150 mg Q8HR PO 04/08/17 14:00 04/08/17 15:31 (Keppra) 1,000 mg Q8HR PO 04/08/17 14:00 04/08/17 14:35 (Dilantin Liq) 150 mg Q8HR PO 04/08/17 15:00 04/08/17 15:31 Allergies Allergies Coded Allergies penicillin G (Unverified Allergy, Unknown, 04/02/17) Exam I&O / VS 04/08/17 04/08/17 04/09/17 15:00 23:00 07:00 Intake Total 875 ml Output Total 600 ml Balance 275 ml Intake Oral 400 ml IV Total 475 ml Output Urine Total 600 ml # Bowel Movements 1 Vital Signs Date Time Temp Pulse Resp B/P (MAP) Pulse Ox O2 Delivery O2 Flow Rate FiO2 04/08/17 18:00 97 04/08/17 16:00 94 04/08/17 16:00 99.5 94 17 109/75 (86) 98 04/08/17 14:00 101 04/08/17 12:00 95 04/08/17 12:00 99.3 95 20 110/75 (87) 98 04/08/17 10:00 102 04/08/17 08:00 76 04/08/17 08:00 99.2 76 20 91/58 (69) 98 04/08/17 06:00 75 04/08/17 04:00 98.0 66 14 90/57 (68) 99 04/08/17 04:00 66 04/08/17 02:00 66 04/08/17 00:00 98.2 80 14 113/67 (82) 99 04/08/17 00:00 80 04/07/17 22:00 79 04/07/17 20:00 98.8 92 15 108/68 (81) 100 04/07/17 20:00 92 Exam Comments alert, follow commands, CN intact MOTOR 5/5 RUE, 4+/5 LUE Objective Micro and Labs Laboratory Tests Test 04/08/17 05:56 04/08/17 10:43 Prothrombin Time 12.0 Prothromb Time International Ratio 1.1 Fibrinogen 219 White Blood Count 15.0 Red Blood Count 3.55 Hemoglobin 10.7 Hematocrit 32.4 Mean Corpuscular Volume 91.2 Mean Corpuscular Hemoglobin 30.1 Mean Corpuscular Hemoglobin Concent 33.0 Red Cell Distribution Width 16.9 Platelet Count 120 Mean Platelet Volume 8.0 Neutrophils (%) (Auto) 92.6 Lymphocytes (%) (Auto) 2.7 Monocytes (%) (Auto) 4.3 Eosinophils (%) (Auto) 0.1 Basophils (%) (Auto) 0.3 Neutrophils # (Auto) 13.9 Lymphocytes # (Auto) 0.4 Monocytes # (Auto) 0.7 Eosinophils # (Auto) 0.0 Basophils # (Auto) 0.1 CBC Comment AUTO DIFF Differential Total Cells Counted 100 Neutrophils % (Manual) 80 Band Neutrophils % 9 Lymphocytes % 5 Monocytes % 2 Neutrophils # (Manual) 14.0 Metamyelocytes 3 Myelocytes 1 Differential Comment FINAL DIFF MANUAL Platelet Estimate LOW Platelet Morphology Comment NORMAL Date/Time Source Procedure Growth Status 03/23/17 20:15 Blood Peripheral Aerobic Blood Culture - Final NO GROWTH IN 5 DAYS Complete 03/23/17 20:15 Blood Peripheral Anaerobic Blood Culture - Final NO GROWTH IN 5 DAYS Complete 04/06/17 01:00 Stool Stool Stool Occult Blood (ARBEN) - Final HEMOCCULT NEGATIVE Complete 03/23/17 06:40 Sputum Endotracheal Gram Stain - Final Complete 03/23/17 06:40 Sputum Endotracheal Sputum Culture - Final HEAVY GROWTH NORMAL RESPIRATORY ELIGIO Complete Alfonso Wilkins PhD Apr 08, 2017 18:24
[2017-04-09] VITALS (8 sets, daily range): BP systolic 95–114; BP diastolic 58–73; PULSE 62–82; RESP 17–20; TEMP 97.5–98.4; O2SAT 96–98
[2017-04-09] MEDS: DEXAMETHASONE SOD PHOS 4 MG/ML VIAL IV PUSH SCH ×3 (00:03→12:20)
[2017-04-09] MEDS: CHLORHEXIDINE GLUCONATE 2 % 1 PACK (2 CLOTHS) TOP SCH (04:00)
[2017-04-09] MEDS: levETIRAcetam 500 MG TAB PO SCH ×2 (06:18→12:20)
[2017-04-09] MEDS: LACOSAMIDE 50 MG TAB PO SCH ×2 (06:19→12:21)
[2017-04-09] MEDS: PHENYTOIN SUSP 100 MG/4 ML CUP PO SCH ×2 (06:19→12:20)
[2017-04-09] MEDS: CHLORHEXIDINE 0.12% (ORAL KIT) 15 ML CUP MT SCH (08:00)
[2017-04-09] MEDS: PANTOPRAZOLE SODIUM 40 MG VIAL IVP SCH (08:37)
[2017-04-09] MEDS: SODIUM CHLORIDE 0.9% FLUSH 5 ML FLUSH IVF SCH (08:37)
[2017-04-09] MEDS: POLYETHYLENE GLYCOL 17 GM PKG PO SCH (08:37)
[2017-04-09] MEDS: DOCUSATE SODIUM 50 MG/SENNA 8.6 MG TAB PO SCH (08:37)
[2017-04-09] MEDS ORDERED: LACO50 PO (12:05)
[2017-04-09] MEDS ORDERED: SENN1TAB PO (12:05)
[2017-04-09] MEDS ORDERED: PHEN125S9 PO (12:05)
[2017-04-09] MEDS ORDERED: POLY17S PO (12:05)
[2017-04-09] MEDS ORDERED: LEVE500 PO (12:05)
[2017-04-09] MEDS ORDERED: DEXA1TAB PO (12:51)
[2017-04-09] MEDS ORDERED: DEXA0.5T PO (12:51)
[2017-04-09] MEDS ORDERED: DEXA4TAB PO (12:51)
[2017-04-09] MEDS ORDERED: DEXA2TAB PO (12:51)
--- NOTE | 2017-04-09 12:52 | HHI.DCPOC ---
Discharge Care Plan Your Health Problems Are: Leg Swelling Goals to Promote Your Health * To prevent worsening of your condition and complications * To maintain your health at the optimal level Directions to Meet Your Goals Take your medications as prescribed Follow your dietary instruction Follow activity as directed Keep your appointments as scheduled Take your immunizations and boosters as scheduled If your symptoms worsen call your PCP, if no PCP go to Urgent Care Center or Emergency Room Smoking is Dangerous to Your Health. Avoid second hand smoke Call the 24-hour hour crisis hotline for domestic abuse at Darryl Lambert MD Apr 09, 2017 12:52
[2017-04-09] MEDS ORDERED: PANT20 PO (12:59)
[2017-04-09] MEDS ORDERED: DEXAMETHASONE 4 MG TAB PO SCH (20:00)
--- NOTE | 2017-04-09 20:35 | HHI.DS ---
Discharge Summary Admission Date Mar 23, 2017 at 20:28 Discharge Date: Apr 09, 2017 Admitting Diagnosis brain mass/neoplasm-metastaic; new onset seizure (1) New onset seizure ICD Code: R56.9 - Unspecified convulsions Diagnosis: Principal Status: Acute (2) Acute respiratory failure ICD Code: J96.00 - Acute respiratory failure, unspecified whether with hypoxia or hypercapnia Diagnosis: Principal Status: Acute (3) Brain metastases ICD Code: C79.31 - Secondary malignant neoplasm of brain Diagnosis: Principal Status: Acute (4) Neoplasm of brain causing mass effect on adjacent structures ICD Code: D49.6 - Neoplasm of unspecified behavior of brain Diagnosis: Principal Status: Acute (5) Pulmonary embolism ICD Code: I26.99 - Other pulmonary embolism without acute cor pulmonale Diagnosis: Secondary Status: Chronic (6) DVT (deep venous thrombosis) ICD Code: I82.409 - Acute embolism and thrombosis of unspecified deep veins of unspecified lower extremity Diagnosis: Secondary Status: Acute (7) Stage 4 lung cancer ICD Code: C34.90 - Malignant neoplasm of unspecified part of unspecified bronchus or lung Diagnosis: Secondary Status: Acute Procedures 03/26/2017 Stereotactic image guided right parietal craniotomy with microsurgical resection of unknown small cell carcinoma 03/29/2017 EEG INTERPRETATION Abnormal EEG because of bilateral slowing, right more than left, maximum right central parietal with associated sharp discharges which are epileptiform but no ictal activity present. 04/01: crani with evacuation of hematoma Brief History - From Admission Patient is a 51-year-old male with past medical history significant for stage IV lung cancer (Dr. Hickman is the oncologist), chronic Lovenox therapy for DVT and PE, who presented to the emergency department for evaluation of possible stroke and new onset seizure. EMS was called for new onset focal seizures involving left lower extremity. According to paramedics en route patient started having weakness and shaking of the left upper and lower extremity with possible facial droop, but without loss of consciousness. In the ER initially was awake alert then developed focal left-sided seizures followed by generalized seizure for 5 min, received Ativan for this. Initially aroused from postictal state and then again had recurrent generalized seizure activity. Patient was intubated for airway protection. CT of the head showed right parietal mass 1.7 cm suspicious for metastatic lesion. I was contacted for admission. Patient was started on Versed infusion. Patient had been already loaded with Cerebyx 1 g, I will continue 100 mg IV every 8 hours. Also an EEG had been ordered. I have ordered MRI of the brain neurosurgery consult. I evaluated the patient in the Main ICU. He is intubated sedated with Versed. He purposefully moves all 4 extremity CBC/BMP: 04/08/17 1043 04/07/17 0326 Significant Findings Laboratory Tests Test 04/06/17 20:51 04/07/17 03:26 04/08/17 05:56 04/08/17 10:43 White Blood Count 15.7 TH/MM3 (4.0-11.0) 15.0 TH/MM3 (4.0-11.0) Red Blood Count 3.00 MIL/MM3 (4.50-5.90) 3.55 MIL/MM3 (4.50-5.90) Hemoglobin 9.2 GM/DL (13.0-17.0) 10.7 GM/DL (13.0-17.0) Hematocrit 26.8 % (39.0-51.0) 32.4 % (39.0-51.0) Platelet Count 79 TH/MM3 (150-450) 120 TH/MM3 (150-450) Neutrophils (%) (Auto) 92.4 % (16.0-70.0) 92.6 % (16.0-70.0) Lymphocytes (%) (Auto) 2.5 % (9.0-44.0) 2.7 % (9.0-44.0) Neutrophils # (Auto) 14.5 TH/MM3 (1.8-7.7) 13.9 TH/MM3 (1.8-7.7) Lymphocytes # (Auto) 0.4 TH/MM3 (1.0-4.8) 0.4 TH/MM3 (1.0-4.8) Neutrophils % (Manual) 90 % (16-70) 80 % (16-70) Lymphocytes % 1 % (9-44) 5 % (9-44) Neutrophils # (Manual) 15.1 TH/MM3 (1.8-7.7) 14.0 TH/MM3 (1.8-7.7) Metamyelocytes 2 % (0-1) 3 % (0-1) Platelet Estimate LOW (NORMAL) LOW (NORMAL) Blood Urea Nitrogen 19 MG/DL (7-18) Creatinine 0.49 MG/DL (0.60-1.30) Random Glucose 110 MG/DL (74-106) Sodium Level 133 MEQ/L (136-145) Chloride Level 97 MEQ/L (98-107) Prothrombin Time 12.0 SEC (9.8-11.6) Fibrinogen 219 mg/dL (227-377) Band Neutrophils % 9 % (0-6) Myelocytes 1 % (0-0) PE at Discharge GENERAL: Alert, NAD. SKIN: Warm and dry. HEAD: S/p craniotomy, no bloody fluid drainage from the incision area BACK: Nontender without obvious deformity. No CVA tenderness. PSYCH: Pleasant mood NEUROLOGICAL: No obvious facial droop nor slurred speech, intact BL conjugate gaze, no nystagmus noted Hospital Course Patient had been intubated in the emergency room, CT head showed some a suspicious mass for metastasis. Patient had been loaded with antiepileptic drugs. Patient began seizing again, had a repeat antiepileptic drug loading. Neurosurgery had performed craniotomy on the patient with successful resectionn patient was eventually extubated however he had deteriorated a second time and went back to the OR as he was found to have an intracranial hematoma. Patient had seizures again afterwards requiring substantial when necessary antiepileptic drugs. Had been started on Decadron to minimize cerebral edema and eventually had his JOEY drains removed. He did require one blood transfusion along with cryoprecipitate. Patient had eventually remained seizure free for 5 days and his mental status had returned to a remarkably good level. 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 Patient had met maximum benefit from hospitalization and is clinically stable for discharge to a inpatient rehabilitation facility. His Decadron is to be tapered orally and he is to follow-up with both neurosurgery and oncology. Pt Condition on Discharge: Stable Discharge Disposition: Rehab Inpatient Discharge Time: > 30 minutes Discharge Instructions DIET: Follow Instructions for: Heart Healthy Diet Activities you can perform: Weight Bearing as Tesha Follow up Referrals: Neurosurgery - 04/15/17 with Gatito Palmer MD Oncology - 2 Weeks with Fermin Hickman MD New Medications: Dexamethasone (Dexamethasone) 0.5 Mg Tab 0.5 MG PO BID for Inflammation, #2 TAB 0 Refills start after finishing 1 mg dexamethasone regimen Dexamethasone (Dexamethasone) 1 Mg Tab 1 MG PO TID for Inflammation, #6 TAB 0 Refills start after 2 mg dexamethasone supply Dexamethasone (Dexamethasone) 2 Mg Tab 2 MG PO Q8HR for Inflammation, #7 TAB 0 Refills Start after completing 4 mg dexamethasone regimen Dexamethasone (Dexamethasone) 4 Mg Tab 4 MG PO Q8HR for Inflammation, #7 TAB 0 Refills Pantoprazole (Protonix) 20 Mg Tab 20 MG PO DAILY for Reflux, #30 TAB 0 Refills Lacosamide (Vimpat) 50 Mg Tab 150 MG PO Q8HR for Seizure Control, #90 TAB Levetiracetam (Keppra) 500 Mg Tab 1000 MG PO Q8HR for Seizure Control, #90 TAB Phenytoin (Phenytoin) 100 Mg/4 Ml Oral.susp 150 MG PO Q8HR for Seizure Control, #1 BOTTLE Polyethylene Glycol 3350 Powder (Polyethylene Glycol 3350 Powder) 17 Gm Pow 17 GM PO BID for Constipation, #1 BOTTLE Sennosides-Docusate Sodium (Senna Plus 8.6-50 mg) 1 Tab Tab 1 TAB PO BID for Constipation, #60 TAB Discontinued Medications: Enoxaparin Inj (Lovenox Inj) 80 mg/0.8 ML Syr 80 MG SQ BID for Blood Clot Prevention, SYRINGE 0 Refills Darryl Lambert MD Apr 09, 2017 20:35
--- NOTE | 2017-04-09 22:30 | PD.ONC.PN ---
Subjective Subjective Remarks Doing much better wants to go to rehab soon ok to transfer to [facility] change Decadron to PO 4mg po q8hrs f/u with me in clinic 1 week after discharge from rehab Objective Data Date Time Temp Pulse Resp B/P (MAP) Pulse Ox O2 Delivery O2 Flow Rate FiO2 04/09/17 12:00 98.4 82 18 114/73 (87) 97 04/09/17 12:00 82 04/09/17 10:00 77 04/09/17 08:00 98.3 70 17 99/66 (77) 96 04/09/17 08:00 70 04/09/17 06:00 62 04/09/17 04:00 98.1 74 20 98/63 (75) 98 04/09/17 04:00 71 04/09/17 03:39 97 04/09/17 02:00 64 04/09/17 00:00 67 04/09/17 00:00 97.5 69 18 95/58 (70) 96 04/09/17 04/09/17 04/09/17 06:59 14:59 22:59 Output Total 900 ml 600 ml Balance -900 ml -600 ml Result Diagram: 04/08/17 1043 04/07/17 0326 Objective Remarks GENERAL: nad SKIN: Warm and dry. HEAD: Normocephalic CARDIOVASCULAR: Regular rate and rhythm without murmurs. RESPIRATORY: Breath sounds equal bilaterally. No accessory muscle use. GASTROINTESTINAL: Abdomen soft, non-tender, nondistended. EXTREMITIES: No cyanosis, edematous Assessment/Plan Problem List: (1) Intracerebral hemorrhage ICD Codes: I61.9 - Nontraumatic intracerebral hemorrhage, unspecified Status: Acute Plan: transfuse to keep > 70 s/p Right parietal craniotomy, evacuation of intracerebral hematoma (2) Metastatic primary lung cancer ICD Codes: C34.90 - Malignant neoplasm of unspecified part of unspecified bronchus or lung Status: Acute Plan: admitted with new onset seizure. --CT showed a new 1.7 cm mass in the right parietal lobe with significant vasogenic edema. also had a brain MRI which showed a single 2-cm peripherally enhancing lesion in the right parietal high complexity with marked surrounding vasogenic edema. no other lesion noted. No midline shift noted. --s/p craniotomy and resection of mass via Dr. Palmer on 03/26/17 History: --Metastatic non-small cell lung cancer. 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 --was treated with radiation with concurrent cisplatin and Taxol. received two cycles of consolidation chemotherapy after concurrent treatment. --developed supraclavicular adenopathy and progression of disease. then received radiation. --subsequently was started on Opdivo and had a good response. --recent CT reportedly showed good response and no evidence of progression of disease. 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 --on Vimpat, Dilantin, Keppra (4) DVT (deep venous thrombosis) ICD Codes: I82.409 - Acute embolism and thrombosis of unspecified deep veins of unspecified lower extremity Status: Acute Plan: --s/p IVC filter in IR --History of multiple DVTs and pulmonary embolism. --last thromboembolic event was several months ago. --with his metastatic disease and history of multiple clots, he likely is going to have another thromboembolic event without the anticoagulation. --developed ICH while on heparin Assessment 52y/o male with metastatic lung cancer who presented with new-onset seizure. h/o Metastatic non-small cell lung cancer. Recurrent DVT and pulmonary embolism. He was on Lovenox. Osteoarthritis. Hyperlipidemia. Gastroesophageal reflux disease (GERD). Plan 1. oncology clear for discharge 2. no treatment planned until discharge from rehab 3. follow up in clinic. Problem Qualifiers (1) DVT (deep venous thrombosis): Fermin Hickman MD Apr 09, 2017 22:30
[2017-04-18] MEDS ORDERED: WHEEMIS3 (15:01)
[2017-04-18] MEDS ORDERED: TRANSPORT CHAIR1 MIS (15:01)
[2017-04-18] MEDS ORDERED: COMMODE 3-IN-11 MIS (15:01)
[2017-04-19] MEDS ORDERED: ACET1TAB86 PO (09:26)
[2017-04-19] MEDS ORDERED: DILA100C PO ×2 (09:26)
[2017-04-19] MEDS ORDERED: LACO50 PO (09:26)
[2017-04-19] MEDS ORDERED: PANT20 PO (09:26)
[2017-04-19] MEDS ORDERED: LEVE500 PO (09:26)
[2017-05-08] MEDS ORDERED: LEVE500T8 (11:20)
[2017-05-08] MEDS ORDERED: LORA1TAB12 (11:20)
== END 2017-04-09 13:37 | DRG 25 ==
LOC: PHED 19:19 → PHEDA 20:28 → N03A 23:16
PROVIDERS: ADMIT Internal Medicine; ATTEND Hospitalist
PROC: 0BH17EZ Insertion of Endotracheal Airway into Trachea, Via Natural or Artificial Opening (ICD-10-PCS; 2017-03-23)
PROC: 5A1945Z Respiratory Ventilation, 24-96 Consecutive Hours (ICD-10-PCS; 2017-03-23)
PROC: 06H03DZ Insertion of Intraluminal Device into Inferior Vena Cava, Percutaneous Approach (ICD-10-PCS; 2017-03-25)
PROC: B5191ZZ Fluoroscopy of Inferior Vena Cava using Low Osmolar Contrast (ICD-10-PCS; 2017-03-25)
PROC: 2W30XYZ Immobilization of Head using Other Device (ICD-10-PCS; 2017-03-26)
PROC: 00B00ZZ Excision of Brain, Open Approach (ICD-10-PCS; principal; 2017-03-26 11:38)
PROC: 00C70ZZ Extirpation of Matter from Cerebral Hemisphere, Open Approach (ICD-10-PCS; 2017-04-01)
PROC: 30233M1 Transfusion of Nonautologous Plasma Cryoprecipitate into Peripheral Vein, Percutaneous Approach (ICD-10-PCS; 2017-04-04)
PROC: 30233R1 Transfusion of Nonautologous Platelets into Peripheral Vein, Percutaneous Approach (ICD-10-PCS; 2017-04-04)
PROC: 30233N1 Transfusion of Nonautologous Red Blood Cells into Peripheral Vein, Percutaneous Approach (ICD-10-PCS; 2017-04-06)
DX: C79.31 Secondary malignant neoplasm of brain (principal); J96.01 Acute respiratory failure with hypoxia; I61.9 Nontraumatic intracerebral hemorrhage, unspecified; D65 Disseminated intravascular coagulation [defibrination syndrome]; G93.6 Cerebral edema; J96.02 Acute respiratory failure with hypercapnia; D69.59 Other secondary thrombocytopenia; C34.92 Malignant neoplasm of unspecified part of left bronchus or lung; E87.2 Acidosis; G81.94 Hemiplegia, unspecified affecting left nondominant side; G93.40 Encephalopathy, unspecified; E87.1 Hypo-osmolality and hyponatremia; G40.419 Other generalized epilepsy and epileptic syndromes, intractable, without status epilepticus; I82.403 Acute embolism and thrombosis of unspecified deep veins of lower extremity, bilateral; E83.39 Other disorders of phosphorus metabolism; E78.5 Hyperlipidemia, unspecified; K21.9 Gastro-esophageal reflux disease without esophagitis; D64.9 Anemia, unspecified; K59.00 Constipation, unspecified; D72.829 Elevated white blood cell count, unspecified; M19.90 Unspecified osteoarthritis, unspecified site; Z86.711 Personal history of pulmonary embolism; Z86.718 Personal history of other venous thrombosis and embolism; Z87.891 Personal history of nicotine dependence; Z79.01 Long term (current) use of anticoagulants; Z88.0 Allergy status to penicillin
CPT/HCPCS: 31500; 36430; 36591; 36600; 37191; 51702; 70450; 70552; 70553; 71010; 74000; 80048; 80053; 80185; 80307; 81001; 82140; 82272; 82378; 82805; 83010; 83605; 83615; 83735; 83930; 84100; 85007; 85025; 85027; 85384; 85610; 85730; 86850; 86880; 86900; 86901; 86920; 86965; 87040; 87070; 87205; 87641; 88307; 88331; 93005; 93970; 94002; 94003; 94150; 94640; 94664; 94770; 95819; 96365; 96374; 96375; 96376; 96413; 99214; A9579; C1713; C1769; C1880; C9113; C9254; G0463; J0330; J0690; J1100; J1165; J1580; J1642; J1644; J1940; J1953; J2060; J2150; J2212; J2250; J2370; J2405; J3010; J3370; J3480; J7030; J7040; J7050; J7120; J9299; P9016; P9035; Q2009; Q9967

== ENCOUNTER 2018-01-28 12:38 | Inpatient (IN) | payer BC ==
[2018-01-28] VITALS (7 sets, daily range): BP systolic 114–125; BP diastolic 80–95; PULSE 100–111; RESP 18; TEMP 98.4–100.9; O2SAT 95–98
[~2018-01-28] VITALS: Ht 177.8 cm; Wt 89.4 kg
[~2018-01-28 12:38] MED LIST changes: +ACET325T15 PO; +COMMODE 3-IN-11 MIS; +DILA100C PO; -ENOX80P SQ; +LACO50 PO; -LEVA750T PO; +LEVE500 PO; +LEVE500T8; +LORA1TAB12; -OSEL75 PO; +PANT20 PO; +PHEN100O PO; +POLY17S PO; +SENN1TAB PO; +TRANSPORT CHAIR1 MIS; +WHEEMIS3
[2018-01-28] MEDS ORDERED: ENOX80P SQ (13:47)
[2018-01-28] MEDS ORDERED: ALBUAER3 INH (13:47)
[2018-01-28] MEDS: SODIUM CHLOR 0.9% 1000 ML INJ 1,000 ML IV SCH (14:28)
[2018-01-28] MEDS ORDERED: ACETAMINOPHEN/HYDROcodone 325 MG/10 MG TAB PO PRN (14:45)
[2018-01-28] MEDS ORDERED: NALOXONE HCL 0.4 MG/ML AMP IV PUSH PRN (14:45)
[2018-01-28] MEDS ORDERED: SODIUM CHLORIDE 0.9% FLUSH 10 ML FLUSH IV FLUSH PRN ×2 (14:45→15:00)
[2018-01-28] MEDS ORDERED: ACETAMINOPHEN/HYDROcodone 325 MG/5 MG TAB PO PRN (14:45)
[2018-01-28] MEDS ORDERED: MAGNESIUM HYDROXIDE SUSP 30 ML CUP PO PRN (14:45)
[2018-01-28] MEDS ORDERED: ONDANSETRON ODT 4 MG TAB PO PRN (14:45)
[2018-01-28] MEDS ORDERED: ACETAMINOPHEN 325 MG TAB PO PRN (14:45)
[2018-01-28] MEDS ORDERED: BENZOCAINE-MENTHOL (SUGAR FREE) 15 MG-3.6 MG LOZENGE BUCCAL PRN (14:45)
--- NOTE | 2018-01-28 14:57 | RADRPT ---
EXAM DATE: 01/28/2018 2:47 PM EDT AGE/SEX: 52 years / Male INDICATIONS: Fever. Patient has a cough. CLINICAL DATA: This is the patient's subsequent encounter. Patient reports that signs and symptoms h ave been present for 1 day and indicates a pain score of 0/10. MEDICAL/SURGICAL HISTORY: Carcinoma, lung. Left lung CA, with Rad. Tx. And Chemo. None. COMPARISON: [facility], CT SIMULATION, 12/18/2017. . FINDINGS: The exam demonstrates an [id number] in place on the right. The catheter appears in satisfactory po sition. There is scarring and volume loss seen on the left. The mass and area of consolidation which was present in the left lung on previous exam appears to have improved. The visualized bony structures are grossly intact. CONCLUSION: Interval decrease in size the patient's left lung mass and area of consolidation. Overall, the chest has improved when compared to previous. [id number] in good position. Electronically signed by: Jaleel Campos MD 01/28/2018 2:56 PM EDT
[2018-01-28] MEDS ORDERED: AZTREONAM INJ 2,000 MG in SODIUM CHLORIDE 0.9% INJ 100 ML IV SCH (15:00)
[2018-01-28] MEDS ORDERED: ENOXAPARIN SODIUM 40 MG/0.4 ML SYRINGE SQ SCH (15:00)
--- NOTE | 2018-01-28 16:52 | HHI.HP ---
[facility] Unknown Admission Diagnosis Diagnoses: (1) Neutropenic fever Diagnosis: Principal (2) Neutropenia Diagnosis: Principal (3) Sepsis Diagnosis: Principal (4) Brain metastases Diagnosis: Secondary (5) Stage 4 lung cancer Diagnosis: Secondary Travel History International Travel<30 Days: No Contact w/Intl Traveler <30 Da: No Traveled to Known Affected Are: No Sepsis Criteria SIRS Criteria (2 or more): Temp > 100.9 or < 96.8, Heart rate over 90, WBC > 26590, < 4000 or > 10% bands Sepsis Criteria (SIRS+source): Infect source susp/known History of Present Illness Mr. Mendosa is a 52 year old male. He has a history of lung cancer with brain metastasis. He is actively undergoing treatments including chemotherapy. Patient was at the office today to get a treatment he was found to have a fever. He is sent to the hospital. Blood work obtained thus far shows neutropenia. Patient has not felt ill. Based on leukopenia, fever, and tachycardia sepsis criteria is present. His only complaint is a sore throat. No other complaints at this time. Review of Systems Constitutional: DENIES: Fatigue, Fever, Chills Eyes: DENIES: Diplopia, Eye inflammation, Eye pain Ears, nose, mouth, throat: COMPLAINS OF: Throat pain, DENIES: Hearing loss, Vertigo, Nasal discharge Respiratory: DENIES: Cough, Wheezing, Shortness of breath Cardiovascular: DENIES: Chest pain, Palpitations, Syncope Gastrointestinal: DENIES: Abdominal pain, Black stools, Bloody stools Musculoskeletal: DENIES: Joint pain, Muscle aches, Stiffness Integumentary: DENIES: Abnormal pigmentation, Nail changes, Pruritus, Rash Hematologic/lymphatic: DENIES: Bruising, Lymphadenopathy Immunologic/allergic: DENIES: Eczema, Urticaria Neurologic: DENIES: Abnormal gait, Headache, Paresthesias Psychiatric: DENIES: Anxiety, Confusion, Hallucinations Past Family Social History Past Medical History Hyperlipidemia (resolved) Seizure disorder secondary to brain cancer Past Surgical History Right knee meniscus surgery Brain surgery for metastasis Reported Medications Reported Meds & Active Scripts Active Dilantin (Phenytoin Extended) 100 Mg Cap 100 Mg PO 0900,1400 30 Days Dilantin (Phenytoin Extended) 100 Mg Cap 300 Mg PO HS 30 Days dose was increased since level was low please have PCP or Dr. Palmer repeat level in 1 week Eq Acetaminophen (Acetaminophen) 325 Mg Tab 650 Mg PO Q6HR PRN 30 Days Protonix (Pantoprazole Sodium) 20 Mg Tab 20 Mg PO DAILY Keppra (Levetiracetam) 500 Mg Tab 1,000 Mg PO Q8HR Vimpat (Lacosamide) 50 Mg Tab 150 Mg PO Q8HR Commode 3-in-1 (Device) 1 Mis Mis Ea .ROUTE DIRECTED Transport Chair Ultra Lig (Device) 1 Mis Mis Ea .ROUTE DIRECTED Wheelchair (Device) 1 Mis Mis Ea .XX DIRECTED Senna Plus 8.6-50 mg (Sennosides-Docusate Sodium) 1 Tab Tab 1 Tab PO BID Polyethylene Glycol 3350 Powder (Polyethylene Glycol) 17 Gm Pow 17 Gm PO BID Phenytoin 100 Mg/4 Ml Oral.susp 150 Mg PO Q8HR Reported Proair Hfa 8.5 GM Inh (Albuterol Sulfate) 90 Mcg/Act Aer 1 Puff INH Q4H 108 mcg/actuation Lovenox Inj (Enoxaparin Sodium) 80 mg/0.8 ML Syr 80 Mg SQ DAILY Levetiracetam 500 Mg Tab Lorazepam 1 Mg Tab Allergies: Coded Allergies: penicillin G (Verified Allergy, Unknown, 08/05/17) Active Ordered Medications Administered Medications Medications (Trade) Dose Ordered Sig/Pina Route PRN Reason Start Time Stop Time Status Last Admin Dose Admin Sodium Chloride 1,000 ml @ 84 mls/hr [id number] IV 01/28/18 14:00 01/28/18 14:28 Family History None Social History Past history of smoking, patient has quit No alcohol abuse No illicit drug abuse Physical Exam Vital Signs Vital Signs Date Time Temp Pulse Resp B/P (MAP) Pulse Ox O2 Delivery O2 Flow Rate FiO2 01/28/18 16:22 100.4 106 18 114/80 (91) 97 01/28/18 15:00 106 01/28/18 13:30 100 01/28/18 13:23 98.4 102 18 121/91 (101) 98 Physical Exam GENERAL: NAD, A&Ox3 HEAD: Normocephalic. NECK: Supple, trachea midline. No lymphadenopathy. EYES: No scleral icterus. No injection or drainage. CARDIOVASCULAR: Regular rate and rhythm without murmurs, gallops, or rubs. RESPIRATORY: Breath sounds equal bilaterally. No accessory muscle use. GASTROINTESTINAL: Abdomen soft, non-tender, nondistended. MUSCULOSKELETAL: No cyanosis, or edema. SKIN: Warm and dry. NEURO: No focal neurological deficitis. Laboratory Date/Time Source Procedure Growth Status 01/28/18 16:00 Blood Peripheral Aerobic Blood Culture Pending Received 01/28/18 16:00 Blood Peripheral Anaerobic Blood Culture Pending Received Septic Shock Reassessment Septic shock perfusion: reassessment completed Caprini VTE Risk Assessment Caprini VTE Risk Assessment: Mod/High Risk (score >= 2) Caprini Risk Assessment Model Point Value = 1 Point Value = 2 Point Value = 3 Point Value = 5 Age 41-60 Minor surgery BMI > 25 kg/m2 Swollen legs Varicose veins or History of unexplained or recurrent spontaneous Oral contraceptives or hormone replacement Sepsis (< 1 month) Serious lung disease, including pneumonia (< 1 month) Abnormal pulmonary function Acute myocardial infarction Congestive heart failure (< 1 month) History of inflammatory bowel disease Medical patient at bed rest Age 61-74 Arthroscopic surgery Major open surgery (> 45 min) Laparoscopic surgery (> 45 min) Malignancy Confined to bed (> 72 hours) Immobilizing plaster cast Central venous access Age >= 75 History of VTE Family history of VTE Factor V Leiden Prothrombin [id number] Lupus anticoagulant Anticardiolipin antibodies Elevated serum homocysteine Heparin-induced thrombocytopenia Other congenital or acquired thrombophilia Stroke (< 1 month) Elective arthroplasty Hip, pelvis, or leg fracture Acute spinal cord injury (< 1 month) Prophylaxis Regimen Total Risk Factor Score Risk Level Prophylaxis Regimen 0-1 Low Early ambulation 2 Moderate Order ONE of the following: *Sequential Compression Device (SCD) *Heparin 5000 units SQ BID 3-4 Higher Order ONE of the following medications: *Heparin 5000 units SQ TID *Enoxaparin/Lovenox 40 mg SQ daily (WT < 150 kg, CrCl > 30 mL/min) *Enoxaparin/Lovenox 30 mg SQ daily (WT < 150 kg, CrCl > 10-29 mL/min) *Enoxaparin/Lovenox 30 mg SQ BID (WT < 150 kg, CrCl > 30 mL/min) AND/OR *Sequential Compression Device (SCD) 5 or more Highest Order ONE of the following medications: *Heparin 5000 units SQ TID (Preferred with Epidurals) *Enoxaparin/Lovenox 40 mg SQ daily (WT < 150 kg, CrCl > 30 mL/min) *Enoxaparin/Lovenox 30 mg SQ daily (WT < 150 kg, CrCl > 10-29 mL/min) *Enoxaparin/Lovenox 30 mg SQ BID (WT < 150 kg, CrCl > 30 mL/min) AND *Sequential Compression Device (SCD) Assessment and Plan Problem List: (1) Stage 4 lung cancer ICD Code: C34.90 - Malignant neoplasm of unspecified part of unspecified bronchus or lung Status: Acute (2) Neutropenic fever ICD Code: D70.9 - Neutropenia, unspecified; R50.81 - Fever presenting with conditions classified elsewhere (3) Brain metastases ICD Code: C79.31 - Secondary malignant neoplasm of brain Status: Acute (4) Sepsis ICD Code: A41.9 - Sepsis, unspecified organism (5) Neutropenia ICD Code: D70.9 - Neutropenia, unspecified Assessment and Plan 52-year-old male admitted secondary to neutropenic fever Neutropenic fever Sepsis Pharyngitis may be an etiology as patient has a sore throat Urinary testing shows no evidence of infection Chest x-ray shows no evidence of infection Infections could be masked in this patient's immune compromised state Continue cefepime Continue vancomycin Continue azithromycin Probiotics Follow for resolution of fevers and cessation of signs of infection Lung cancer Brain metastasis Oncology consulted and following History of hyperlipidemia Not currently on active treatment History of seizure Continue antibiotics DVT prophylaxis Lovenox Physician Certification 2 Midnight Certification Type: Admission for Inpatient Services Order for Inpatient Services The services are ordered in accordance with Medicare regulations or non- Medicare payer requirements, as applicable. In the case of services not specified as inpatient-only, they are appropriately provided as inpatient services in accordance with the 2-midnight benchmark. Estimated LOS (days): 3 days is the estimated time the patient will need to remain in the hospital, assuming treatment plan goals are met and no additional complications. Post-Hospital Plan: Home Jaleel Shukla MD Jan 28, 2018 16:52
[2018-01-28] MEDS: NYSTAT/DIPHENHY/LIDO MOUTHWASH (Adult) 120ML SWISH-SWAL SCH ×2 (18:18→20:40)
[2018-01-28] MEDS: LACTOBACILLUS ACIDOPHILUS TAB PO SCH (18:18)
[2018-01-28] MEDS: AZITHROMYCIN INJ 500 MG in SODIUM CHLOR 0.9% 250 ML INJ 250 ML IV SCH (18:18)
[2018-01-28] MEDS: LACOSAMIDE 50 MG TAB PO SCH (20:23)
[2018-01-28] MEDS: VANCOMYCIN INJ 1,000 MG in SODIUM CHLOR 0.9% 250 ML INJ 250 ML IV SCH (20:33)
[2018-01-28] MEDS: PHENYTOIN SODIUM 100 MG CAP PO SCH (20:40)
[2018-01-28] MEDS: levETIRAcetam 500 MG TAB PO SCH (20:41)
[2018-01-28] MEDS: SODIUM CHLORIDE 0.9% FLUSH 10 ML FLUSH IV FLUSH SCH (20:42)
[2018-01-28] MEDS: ACETAMINOPHEN 325 MG TAB PO PRN (20:42)
[2018-01-28] MEDS: CEFEPIME INJ 2,000 MG in SODIUM CHLORIDE 0.9% INJ 100 ML IV SCH (22:27)
[2018-01-29] VITALS (11 sets, daily range): BP systolic 108–123; BP diastolic 72–84; PULSE 89–116; RESP 15–18; TEMP 99–103; O2SAT 96–100
[2018-01-29] MEDS: LACOSAMIDE 50 MG TAB PO SCH (03:26)
[2018-01-29] MEDS: SODIUM CHLOR 0.9% 1000 ML INJ 1,000 ML IV SCH ×3 (03:47→19:49)
[2018-01-29] MEDS: levETIRAcetam 500 MG TAB PO SCH ×3 (05:06→20:11)
[2018-01-29] MEDS: CEFEPIME INJ 2,000 MG in SODIUM CHLORIDE 0.9% INJ 100 ML IV SCH ×3 (05:16→21:33)
[2018-01-29 05:23] LABS: HEMATOCRIT 33.4 % (39.0-51.0); HEMOGLOBIN 11.5 GM/DL (13.0-17.0); MEAN CELL VOLUME 89.3 FL (80.0-100.0); MEAN CORPUSCULAR HEMOGLOBIN 30.9 PG (27.0-34.0); MEAN CORPUSCULAR HGB CONC 34.5 % (32.0-36.0); MEAN PLATELET VOLUME 8.6 FL (7.0-11.0); PLATELET COUNT 189 TH/MM3 (150-450); RED BLOOD COUNT 3.74 MIL/MM3 (4.50-5.90); RED CELL DISTRIBUTION WIDTH 20.8 % (11.6-17.2); WHITE BLOOD COUNT 1.3 TH/MM3 (4.0-11.0)
[2018-01-29 05:37] LABS: ALBUMIN 3.2 GM/DL (3.4-5.0); ALT (GPT) 20 U/L (12-78); AST (GOT) 14 U/L (15-37); BICARBONATE 23.2 MEQ/L (21.0-32.0); BLOOD UREA NITROGEN 10 MG/DL (7-18); CALCIUM 8.3 MG/DL (8.5-10.1); CHLORIDE 103 MEQ/L (98-107); CREATININE 0.82 MG/DL (0.60-1.30); GLOMERULAR FILTRATION RATE 98 ML/MIN (>89); GLUCOSE,RANDOM 92 MG/DL (74-106); SODIUM (NA) 136 MEQ/L (136-145)
[2018-01-29 05:39] LABS: ALKALINE PHOSPHATASE 109 U/L (45-117); TOTAL BILIRUBIN ADULT 0.3 MG/DL (0.2-1.0); TOTAL PROTEIN 7.5 GM/DL (6.4-8.2)
[2018-01-29 07:07] LABS: BANDS 8 % (0-6); LYMPHOCYTES 38 % (9-44); MONOCYTES 26 % (0-8); NEUTROPHIL # MANUAL DIFF 0.5 TH/MM3 (1.8-7.7); POLYS (SEG NEUTROPHILS) 28 % (16-70)
[2018-01-29] MEDS: NYSTAT/DIPHENHY/LIDO MOUTHWASH (Adult) 120ML SWISH-SWAL SCH ×4 (08:14→19:55)
[2018-01-29] MEDS: ACETAMINOPHEN 325 MG TAB PO PRN ×2 (08:14→12:52)
[2018-01-29] MEDS: PANTOPRAZOLE SOD 20 MG DELAYED RELEASE TAB PO SCH (08:14)
[2018-01-29] MEDS: LACTOBACILLUS ACIDOPHILUS TAB PO SCH ×3 (08:15→16:28)
[2018-01-29] MEDS: VANCOMYCIN INJ 1,000 MG in SODIUM CHLOR 0.9% 250 ML INJ 250 ML IV SCH ×2 (08:16→23:03)
[2018-01-29] MEDS: SODIUM CHLORIDE 0.9% FLUSH 10 ML FLUSH IV FLUSH SCH ×2 (09:00→20:10)
[2018-01-29] MEDS ORDERED: ENOXAPARIN SODIUM 80 MG/0.8 ML SYRINGE SQ SCH (09:00)
[2018-01-29 13:40] LABS: AUTOMATED NEUTROPHIL # 0.3 TH/MM3 (1.8-7.7); BASOPHIL % 0.3 % (0.0-2.0); EOSINOPHIL % 0.1 % (0.0-4.0); HEMATOCRIT 33.6 % (39.0-51.0); HEMOGLOBIN 11.4 GM/DL (13.0-17.0); LYMPH % 27.1 % (9.0-44.0); LYMPHOCYTE # 0.3 TH/MM3 (1.0-4.8); MEAN CELL VOLUME 88.9 FL (80.0-100.0); MEAN CORPUSCULAR HEMOGLOBIN 30.2 PG (27.0-34.0); MEAN PLATELET VOLUME 8.2 FL (7.0-11.0); MONO % 47.9 % (0.0-8.0); MONOCYTE # 0.5 TH/MM3 (0-0.9); NEUT % 24.6 % (16.0-70.0); PLATELET COUNT 187 TH/MM3 (150-450); RED BLOOD COUNT 3.78 MIL/MM3 (4.50-5.90); RED CELL DISTRIBUTION WIDTH 21.2 % (11.6-17.2); WHITE BLOOD COUNT 1.1 TH/MM3 (4.0-11.0)
--- NOTE | 2018-01-29 14:03 | PD.ONC.PN ---
Subjective Subjective Remarks Tmax 101.2 this AM. Patient still with sore throat today, although he states it feels a bit better. He reports soreness in his gums, which he attributes to a tough meat he ate last night for dinner. Objective Data Date Time Temp Pulse Resp B/P (MAP) Pulse Ox O2 Delivery O2 Flow Rate FiO2 01/29/18 12:00 99.7 108 18 120/72 (88) 99 01/29/18 09:30 99.3 01/29/18 08:00 101.2 89 18 111/76 (88) 97 01/29/18 04:00 99.0 114 15 123/83 (96) 96 01/29/18 04:00 110 01/29/18 00:00 105 01/29/18 00:00 99.5 101 18 120/84 (96) 100 01/28/18 21:30 99.0 01/28/18 20:00 100.9 111 18 125/95 (105) 95 01/28/18 20:00 108 01/28/18 16:49 100.1 01/28/18 16:22 100.4 106 18 114/80 (91) 97 01/28/18 15:00 106 01/29/18 01/29/18 01/29/18 07:00 15:00 23:00 Intake Total 1000 ml Output Total 800 ml Balance 200 ml Result Diagram: 01/29/18 1310 01/29/18 0345 Laboratory Results Laboratory Tests Test 01/29/18 03:45 01/29/18 13:10 White Blood Count 1.3 TH/MM3 1.1 TH/MM3 Red Blood Count 3.74 MIL/MM3 3.78 MIL/MM3 Hemoglobin 11.5 GM/DL 11.4 GM/DL Hematocrit 33.4 % 33.6 % Mean Corpuscular Volume 89.3 FL 88.9 FL Mean Corpuscular Hemoglobin 30.9 PG 30.2 PG Mean Corpuscular Hemoglobin Concent 34.5 % 34.0 % Red Cell Distribution Width 20.8 % 21.2 % Platelet Count 189 TH/MM3 187 TH/MM3 Mean Platelet Volume 8.6 FL 8.2 FL CBC Comment AUTO DIFF AUTO DIFF Differential Total Cells Counted 50 Neutrophils % (Manual) 28 % Band Neutrophils % 8 % Lymphocytes % 38 % Monocytes % 26 % Neutrophils # (Manual) 0.5 TH/MM3 Differential Comment FINAL DIFF MANUAL Platelet Estimate NORMAL Platelet Morphology Comment NORMAL Blood Urea Nitrogen 10 MG/DL Creatinine 0.82 MG/DL Random Glucose 92 MG/DL Total Protein 7.5 GM/DL Albumin 3.2 GM/DL Calcium Level 8.3 MG/DL Alkaline Phosphatase 109 U/L Aspartate Amino Transf (AST/SGOT) 14 U/L Alanine Aminotransferase (ALT/SGPT) 20 U/L Total Bilirubin 0.3 MG/DL Sodium Level 136 MEQ/L Potassium Level 3.8 MEQ/L Chloride Level 103 MEQ/L Carbon Dioxide Level 23.2 MEQ/L Anion Gap 10 MEQ/L Estimat Glomerular Filtration Rate 98 ML/MIN Neutrophils (%) (Auto) 24.6 % Lymphocytes (%) (Auto) 27.1 % Monocytes (%) (Auto) 47.9 % Eosinophils (%) (Auto) 0.1 % Basophils (%) (Auto) 0.3 % Neutrophils # (Auto) 0.3 TH/MM3 Lymphocytes # (Auto) 0.3 TH/MM3 Monocytes # (Auto) 0.5 TH/MM3 Eosinophils # (Auto) 0.0 TH/MM3 Basophils # (Auto) 0.0 TH/MM3 Culture Results Microbiology Date/Time Source Procedure Growth Status 01/28/18 16:00 Blood Peripheral Aerobic Blood Culture - Preliminary NO GROWTH IN 1 DAY Resulted 01/28/18 16:00 Blood Peripheral Anaerobic Blood Culture - Preliminary NO GROWTH IN 1 DAY Resulted 01/28/18 15:02 Blood Line Aerobic Blood Culture - Preliminary NO GROWTH IN 1 DAY Resulted 01/28/18 15:02 Blood Line Anaerobic Blood Culture - Preliminary NO GROWTH IN 1 DAY Resulted Administered Medications Medications (Trade) Dose Ordered Sig/Pina Route PRN Reason Start Time Stop Time Status Last Admin Dose Admin Acetaminophen (Tylenol) 650 mg Q4H PRN PO FEVER >100.4 01/28/18 13:45 01/29/18 12:52 Cefepime HCl 2000 mg/Sodium Chloride 100 ml @ 200 mls/hr Q8H IV 01/28/18 22:00 01/29/18 12:52 Sodium Chloride 1,000 ml @ 84 mls/hr [id number] IV 01/28/18 14:00 01/29/18 03:47 Multi-Ingredient Mouthwash/Gargle (Magic Mouthwash Adult Liq) 5 ml QID SWISH-SWAL 01/28/18 18:00 01/29/18 12:52 Pantoprazole Sodium (Protonix) 20 mg DAILY PO 01/29/18 09:00 01/29/18 08:14 Sodium Chloride (NS Flush) 2 ml BID IV FLUSH 01/28/18 21:00 01/28/18 20:42 Vancomycin HCl 1000 mg/Sodium Chloride 250 ml @ 250 mls/hr Q12H IV 01/28/18 22:00 01/29/18 08:16 Azithromycin 500 mg/Sodium Chloride 250 ml @ 250 mls/hr Q24H IV 01/28/18 18:00 01/28/18 18:18 Lactobacillus Acidophilus (Lactinex) 1 tab TID PO 01/28/18 18:00 01/29/18 08:15 Objective Remarks GENERAL: Middle aged male, sitting up in bed in nad. SKIN: Warm and dry. HEAD: Normocephalic. EYES: No injection or drainage. Pharynx: injected with white exudate noted. gums swollen, no bleeding visible. NECK: Supple, trachea midline. CARDIOVASCULAR: Regular rate and rhythm RESPIRATORY: Breath sounds equal bilaterally. No accessory muscle use. GASTROINTESTINAL: Abdomen soft, non-tender, nondistended. EXTREMITIES: No cyanosis NEUROLOGICAL: awake and alert. normal speech. moving extremities. Assessment/Plan Assessment 52y/o male with metastatic NSCLC admitted with neutropenic fever --progression on multiple lines of therapy. 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 --Most recently, he is on Taxotere and ramucirumab. --coordinated with radiation oncologist radiation of the most symptomatic right neck mass. --At the start of radiation, he has developed mucositis. ramucirumab was held, Taxotere continued. --came into Radiation Oncology in the morning to receive his radiation therapy, when he was found to be febrile. Plan 1. Neutropenic fever: --on Vanco, Cefepime and Zithromax --BC no growth --continue to monitor --source likely mucositis d/t radiation --dose with Neupogen today 2. h/o RUE DVT + bilateral LE DVT --on Lovenox 80mg SQ q 24 hours 3. Mucositis --supportive care with IVF --magic mouthwash Attending Statement The exam, history, and the medical decision-making described in the above note were completed with the assistance of the mid-level provider. I reviewed and agree with the findings presented. I attest that I had a [id number] encounter with the patient on the same day, and personally performed and documented my assessment and findings in the medical record. More consistent fever despite Cefepime, Vancomycin, Azythromycin. Cultures Blood x 2 sets negative. Still neutropenic, start GCSF. Throat still painful, whitish area ? Thrush vs ulceration. Start Fluconazole. Check soft tissue CT neck. Continue support. Consult ID. Luisa Sal Jan 29, 2018 14:03 Laurie Gómez MD Jan 29, 2018 18:31
--- NOTE | 2018-01-29 14:09 | HHI.PR ---
Subjective Remarks Fevers are still present. Patient has no complaints. White blood cell count trended from 0.8 to 1.3. Oncology has adjusted Lovenox to 80 mg daily as patient has a history of DVT. Objective Vital Signs Date Time Temp Pulse Resp B/P (MAP) Pulse Ox O2 Delivery O2 Flow Rate FiO2 01/29/18 12:50 101.4 01/29/18 12:00 99.7 108 18 120/72 (88) 99 01/29/18 09:30 99.3 01/29/18 08:00 101.2 89 18 111/76 (88) 97 01/29/18 04:00 99.0 114 15 123/83 (96) 96 01/29/18 04:00 110 01/29/18 00:00 105 01/29/18 00:00 99.5 101 18 120/84 (96) 100 01/28/18 21:30 99.0 01/28/18 20:00 100.9 111 18 125/95 (105) 95 01/28/18 20:00 108 01/28/18 16:49 100.1 01/28/18 16:22 100.4 106 18 114/80 (91) 97 01/28/18 15:00 106 I/O 01/28/18 01/28/18 01/28/18 01/29/18 01/29/18 01/29/18 07:00 15:00 23:00 07:00 15:00 23:00 Intake Total 1600 ml 1000 ml Output Total 400 ml 800 ml Balance 1200 ml 200 ml Intake Oral 1000 ml IV Total 600 ml 1000 ml Output Urine Total 400 ml 800 ml # Voids 1 # Bowel Movements 0 Result Diagram: 01/29/18 1310 01/29/18 0345 Objective Remarks GENERAL: NAD, A&Ox3 HEAD: Normocephalic. NECK: Supple, trachea midline. No lymphadenopathy. EYES: No scleral icterus. No injection or drainage. CARDIOVASCULAR: Regular rate and rhythm without murmurs, gallops, or rubs. RESPIRATORY: Breath sounds equal bilaterally. No accessory muscle use. GASTROINTESTINAL: Abdomen soft, non-tender, nondistended. MUSCULOSKELETAL: No cyanosis, or edema. SKIN: Warm and dry. NEURO: No focal neurological deficitis. A/P Problem List: (1) Neutropenic fever ICD Code: D70.9 - Neutropenia, unspecified; R50.81 - Fever presenting with conditions classified elsewhere (2) Stage 4 lung cancer ICD Code: C34.90 - Malignant neoplasm of unspecified part of unspecified bronchus or lung Status: Acute (3) Brain metastases ICD Code: C79.31 - Secondary malignant neoplasm of brain Status: Acute (4) Sepsis ICD Code: A41.9 - Sepsis, unspecified organism (5) Neutropenia ICD Code: D70.9 - Neutropenia, unspecified Assessment and Plan 52-year-old male admitted secondary to neutropenic fever Fever still remain. Patient still meets septic criteria. Antibiotics will continue. Follow blood cultures. Blood cultures negative at 24 hours. Neutropenic fever Sepsis Pharyngitis may be an etiology as patient has a sore throat Urinary testing shows no evidence of infection Chest x-ray shows no evidence of infection Infections could be masked in this patient's immune compromised state Continue cefepime Continue vancomycin Continue azithromycin Probiotics Follow for resolution of fevers and cessation of signs of infection Lung cancer Brain metastasis Oncology consulted and following Subacute DVT Lovenox 80 mg subcutaneous daily History of hyperlipidemia Not currently on active treatment History of seizure Continue antibiotics DVT prophylaxis Lovenox Jaleel Shukla MD Jan 29, 2018 14:09
[2018-01-29 15:11] LABS: BANDS 6 % (0-6); LYMPHOCYTES 16 % (9-44); METAMYELOCYTES 1 % (0-1); MONOCYTES 38 % (0-8); MYELOCYTES 1 % (0-0); NEUTROPHIL # MANUAL DIFF 0.5 TH/MM3 (1.8-7.7); POLYS (SEG NEUTROPHILS) 38 % (16-70)
[2018-01-29] MEDS: AZITHROMYCIN INJ 500 MG in SODIUM CHLOR 0.9% 250 ML INJ 250 ML IV SCH (16:28)
[2018-01-29] MEDS: ENOXAPARIN SODIUM 80 MG/0.8 ML SYRINGE SQ SCH (16:28)
[2018-01-29] MEDS ORDERED: NYSTAT/DIPHENHY/LIDO MOUTHWASH (Adult) 120ML SWISH-SWAL SCH (18:00)
[2018-01-29] MEDS: FILGRASTIM 300 MCG/ML VIAL SQ SCH (18:45)
[2018-01-29] MEDS ORDERED: FLUCONAZOLE 100 MG PREMIX BAG 50 ML IV SCH (20:00)
[2018-01-29] MEDS: PHENYTOIN SODIUM 100 MG CAP PO SCH (20:10)
[2018-01-29] MEDS ORDERED: IOHEXOL 350 MG/ML 10 ML VIAL (for RAD DIAG) IVCONTRAST ONE (21:32)
--- NOTE | 2018-01-29 23:03 | RADRPT ---
EXAM DATE: 01/29/2018 9:27 PM EDT AGE/SEX: 52 years / Male INDICATIONS: Right neck mass; fever, neutropenia. CLINICAL DATA: This is the patient's initial encounter. Patient reports that signs and symptoms have been present for 1 day and indicates a pain score of 4/10. MEDICAL/SURGICAL HISTORY: Stroke. Carcinoma, lung. None. RADIATION DOSE: 12.05 CTDI (mGy) COMPARISON: POI, CT SOFT TISSUE NECK W/O CONTRAST, 11/29/2017. . TECHNIQUE: Helical acquisition was performed using a multirow detector CT scanner during the adminis tration of 75 ml Omnipaque 350 (iohexol) nonionic water-soluble contrast as a single exam dose. Usi ng automated exposure control and adjustment of the mA and/or kV according to patient size, radiation dose was kept as low as reasonably achievable to obtain optimal diagnostic quality images. FINDINGS: There is asymmetric soft tissue fullness and heterogeneous enhancement encompassing the right wall of the oropharynx from the upper aspect of the oropharynx inferiorly into and encompassing the right pi riform sinus. The appearance would be worrisome for progressive mucosal neoplasm. There is matted vannesa nopathy in the adjacent jugular chain. The visualized brain and orbital facial structures are unremarkable. The contralateral left neck is g rossly benign in appearance. There is pleural and parenchymal disease in the left lung apex and to a minimal degree in the medial right lung apex. CONCLUSION: Right oropharyngeal mucosal mass process and matted adenopathy in the right jugular chain lymph nodes . Electronically signed by: Jesu Veras MD 01/29/2018 11:02 PM EDT
[2018-01-30] VITALS (8 sets, daily range): BP systolic 102–119; BP diastolic 65–81; PULSE 100–111; RESP 15–18; TEMP 99.2–100; O2SAT 95–99
[2018-01-30] MEDS: CEFEPIME INJ 2,000 MG in SODIUM CHLORIDE 0.9% INJ 100 ML IV SCH ×2 (04:39→16:06)
[2018-01-30 05:46] LABS: HEMATOCRIT 28.8 % (39.0-51.0); HEMOGLOBIN 9.9 GM/DL (13.0-17.0); MEAN CELL VOLUME 88.6 FL (80.0-100.0); MEAN CORPUSCULAR HEMOGLOBIN 30.4 PG (27.0-34.0); MEAN CORPUSCULAR HGB CONC 34.3 % (32.0-36.0); MEAN PLATELET VOLUME 8.2 FL (7.0-11.0); PLATELET COUNT 177 TH/MM3 (150-450); RED BLOOD COUNT 3.25 MIL/MM3 (4.50-5.90); RED CELL DISTRIBUTION WIDTH 21.2 % (11.6-17.2); WHITE BLOOD COUNT 1.4 TH/MM3 (4.0-11.0)
[2018-01-30 05:59] LABS: BICARBONATE 22.2 MEQ/L (21.0-32.0); CALCIUM 7.8 MG/DL (8.5-10.1); CREATININE 0.73 MG/DL (0.60-1.30)
[2018-01-30] MEDS: levETIRAcetam 500 MG TAB PO SCH ×3 (06:00→22:00)
[2018-01-30 07:58] LABS: BANDS 5 % (0-6); LYMPHOCYTES 26 % (9-44); MONOCYTES 53 % (0-8); NEUTROPHIL # MANUAL DIFF 0.3 TH/MM3 (1.8-7.7); POLYS (SEG NEUTROPHILS) 16 % (16-70)
[2018-01-30] MEDS ORDERED: POTASSIUM CHLORIDE 10 MEQ CONTROLLED RELEASE TAB PO ONE (08:15)
[2018-01-30] MEDS: LACTOBACILLUS ACIDOPHILUS TAB PO SCH ×3 (08:37→18:17)
[2018-01-30] MEDS: PANTOPRAZOLE SOD 20 MG DELAYED RELEASE TAB PO SCH (08:37)
[2018-01-30] MEDS: NYSTAT/DIPHENHY/LIDO MOUTHWASH (Adult) 120ML SWISH-SWAL SCH ×4 (08:38→21:45)
[2018-01-30] MEDS: SODIUM CHLORIDE 0.9% FLUSH 10 ML FLUSH IV FLUSH SCH ×2 (08:42→20:20)
[2018-01-30] MEDS: VANCOMYCIN INJ 1,000 MG in SODIUM CHLOR 0.9% 250 ML INJ 250 ML IV SCH ×2 (10:26→22:40)
--- NOTE | 2018-01-30 10:40 | HHI.PR ---
Subjective Remarks No improvement in neutrophils or leukocytes today. Fevers do appear to have slight interval improvement. Objective Vital Signs Date Time Temp Pulse Resp B/P (MAP) Pulse Ox O2 Delivery O2 Flow Rate FiO2 01/30/18 04:00 108 01/30/18 04:00 99.6 108 16 110/70 (83) 95 01/30/18 03:30 100.0 01/30/18 00:00 107 01/30/18 00:00 99.7 108 15 119/81 (94) 99 01/29/18 20:00 110 01/29/18 20:00 99.9 116 16 108/72 (84) 96 01/29/18 18:34 103.0 01/29/18 17:52 100.4 01/29/18 16:00 99.9 108 18 111/77 (88) 99 01/29/18 16:00 110 01/29/18 14:20 100.0 01/29/18 12:50 101.4 01/29/18 12:00 108 01/29/18 12:00 99.7 108 18 120/72 (88) 99 I/O 01/29/18 01/29/18 01/29/18 01/30/18 01/30/18 01/30/18 07:00 15:00 23:00 07:00 15:00 23:00 Intake Total 1000 ml 2000 ml 350 ml Output Total 800 ml 300 ml 900 ml Balance 200 ml 1700 ml -550 ml Intake Oral 600 ml IV Total 1000 ml 1400 ml 350 ml Output Urine Total 800 ml 300 ml 900 ml Result Diagram: 01/30/1843901/30/18 0440 Objective Remarks GENERAL: NAD, A&Ox3 HEAD: Normocephalic. MOUTH: Erythema at pharynx and palatoglossal arch. Ulceration at right of palatoglossal arch. NECK: Supple, trachea midline. No lymphadenopathy. EYES: No scleral icterus. No injection or drainage. CARDIOVASCULAR: Regular rate and rhythm without murmurs, gallops, or rubs. RESPIRATORY: Breath sounds equal bilaterally. No accessory muscle use. GASTROINTESTINAL: Abdomen soft, non-tender, nondistended. MUSCULOSKELETAL: No cyanosis, or edema. SKIN: Warm and dry. NEURO: No focal neurological deficitis. A/P Problem List: (1) Neutropenic fever ICD Code: D70.9 - Neutropenia, unspecified; R50.81 - Fever presenting with conditions classified elsewhere (2) Stage 4 lung cancer ICD Code: C34.90 - Malignant neoplasm of unspecified part of unspecified bronchus or lung Status: Acute (3) Brain metastases ICD Code: C79.31 - Secondary malignant neoplasm of brain Status: Acute (4) Sepsis ICD Code: A41.9 - Sepsis, unspecified organism (5) Neutropenia ICD Code: D70.9 - Neutropenia, unspecified Assessment and Plan 52-year-old male admitted secondary to neutropenic fever Fever still remain, though trend shows improved spacing and possibly downward trends in peaks. Antibiotics will continue. Follow blood cultures. ID consulted. MRI of neck to rule out tonsil abscess given progressive pain and swelling at his right pharynx and palatoglossal arch. Neutropenic fever Sepsis Pharyngitis may be an etiology as patient has a sore throat Urinary testing shows no evidence of infection Chest x-ray shows no evidence of infection Infections could be masked in this patient's immune compromised state Continue cefepime Continue vancomycin Continue azithromycin Probiotics Follow for resolution of fevers and cessation of signs of infection Lung cancer Brain metastasis Oncology consulted and following Subacute DVT Lovenox 80 mg subcutaneous daily History of hyperlipidemia Not currently on active treatment History of seizure Continue antibiotics DVT prophylaxis [place] Jaleel Shukla MD Jan 30, 2018 10:40
[2018-01-30] MEDS: SODIUM CHLOR 0.9% 1000 ML INJ 1,000 ML IV SCH (12:35)
[2018-01-30] MEDS: FILGRASTIM 300 MCG/ML VIAL SQ SCH (13:31)
--- NOTE | 2018-01-30 13:52 | PD.ONC.PN ---
Subjective Subjective Remarks Late entry, patient evaluated at 0800. Pt sitting on the side of the bed, visiting with . C/O right sided throat pain, worse upon waking Objective Data Date Time Temp Pulse Resp B/P (MAP) Pulse Ox O2 Delivery O2 Flow Rate FiO2 01/30/18 11:20 99.2 104 16 105/67 (80) 98 01/30/18 08:34 99.2 111 16 102/65 (77) 96 01/30/18 04:00 108 01/30/18 04:00 99.6 108 16 110/70 (83) 95 01/30/18 03:30 100.0 01/30/18 00:00 107 01/30/18 00:00 99.7 108 15 119/81 (94) 99 01/29/18 20:00 110 01/29/18 20:00 99.9 116 16 108/72 (84) 96 01/29/18 18:34 103.0 01/29/18 17:52 100.4 01/29/18 16:00 99.9 108 18 111/77 (88) 99 01/29/18 16:00 110 01/29/18 14:20 100.0 01/30/18 01/30/18 01/30/18 07:00 15:00 23:00 Intake Total 350 ml 250 ml Output Total 900 ml Balance -550 ml 250 ml Result Diagram: 01/30/180 01/30/18 044 Laboratory Results Laboratory Tests Test 01/29/18 20:45 01/30/18 04:40 Vancomycin Level Trough 6.6 MCG/ML White Blood Count 1.4 TH/MM3 Red Blood Count 3.25 MIL/MM3 Hemoglobin 9.9 GM/DL Hematocrit 28.8 % Mean Corpuscular Volume 88.6 FL Mean Corpuscular Hemoglobin 30.4 PG Mean Corpuscular Hemoglobin Concent 34.3 % Red Cell Distribution Width 21.2 % Platelet Count 177 TH/MM3 Mean Platelet Volume 8.2 FL CBC Comment AUTO DIFF Differential Total Cells Counted 62 Neutrophils % (Manual) 16 % Band Neutrophils % 5 % Lymphocytes % 26 % Monocytes % 53 % Neutrophils # (Manual) 0.3 TH/MM3 Differential Comment FINAL DIFF MANUAL Platelet Estimate NORMAL Platelet Morphology Comment NORMAL Blood Urea Nitrogen 8 MG/DL Creatinine 0.73 MG/DL Random Glucose 86 MG/DL Calcium Level 7.8 MG/DL Sodium Level 138 MEQ/L Potassium Level 3.4 MEQ/L Chloride Level 104 MEQ/L Carbon Dioxide Level 22.2 MEQ/L Anion Gap 12 MEQ/L Estimat Glomerular Filtration Rate 112 ML/MIN Culture Results Microbiology Date/Time Source Procedure Growth Status 01/28/18 16:00 Blood Peripheral Aerobic Blood Culture - Preliminary NO GROWTH IN 2 DAYS Resulted 01/28/18 16:00 Blood Peripheral Anaerobic Blood Culture - Preliminary NO GROWTH IN 2 DAYS Resulted 01/28/18 15:02 Blood Line Aerobic Blood Culture - Preliminary NO GROWTH IN 2 DAYS Resulted 01/28/18 15:02 Blood Line Anaerobic Blood Culture - Preliminary NO GROWTH IN 2 DAYS Resulted 01/29/18 18:35 Throat Group A Streptococcus Screen (ARBEN) - Final Complete 01/29/18 18:35 Throat Throat Culture - Preliminary Resulted Imaging Studies Last Impressions Neck CT 01/29/18 0000 Signed Impressions: CONCLUSION: Right oropharyngeal mucosal mass process and matted adenopathy in the right jug ular chain lymph nodes. Chest X-Ray 01/28/18 0000 Signed Impressions: CONCLUSION: Interval decrease in size the patient's left lung mass and area of consolidatio n. Overall, the chest has improved when compared to previous. [id number] in good position. Administered Medications Medications (Trade) Dose Ordered Sig/Pina Route PRN Reason Start Time Stop Time Status Last Admin Dose Admin Acetaminophen (Tylenol) 650 mg Q4H PRN PO FEVER >100.4 01/28/18 13:45 01/29/18 12:52 Cefepime HCl 2000 mg/Sodium Chloride 100 ml @ 200 mls/hr Q8H IV 01/28/18 22:00 01/30/18 04:39 Sodium Chloride 1,000 ml @ 84 mls/hr [id number] IV 01/28/18 14:00 01/30/18 12:35 Multi-Ingredient Mouthwash/Gargle (Magic Mouthwash Adult Liq) 5 ml QID SWISH-SWAL 01/28/18 18:00 01/30/18 08:38 Pantoprazole Sodium (Protonix) 20 mg DAILY PO 01/29/18 09:00 01/30/18 08:37 Sodium Chloride (NS Flush) 2 ml BID IV FLUSH 01/28/18 21:00 01/28/18 20:42 Vancomycin HCl 1000 mg/Sodium Chloride 250 ml @ 250 mls/hr Q12H IV 01/28/18 22:00 01/30/18 10:26 Azithromycin 500 mg/Sodium Chloride 250 ml @ 250 mls/hr Q24H IV 01/28/18 18:00 01/29/18 16:28 Lactobacillus Acidophilus (Lactinex) 1 tab TID PO 01/28/18 18:00 01/30/18 08:37 Enoxaparin Sodium (Lovenox Inj) 80 mg Q24H SQ 01/29/18 15:00 01/29/18 16:28 Filgrastim (Neupogen Inj) 300 mcg DAILY@14 SQ 01/29/18 18:30 01/29/18 18:45 Fluconazole/ Sodium Chloride 50 ml @ 50 mls/hr Q24H IV 01/29/18 20:00 01/29/18 19:45 Objective Remarks GENERAL: Middle-aged male sitting up in bed talking with his . In nad. SKIN: Warm and dry. HEAD: Normocephalic. EYES: No scleral icterus. No injection or drainage. NECK: Right sided mass, trachea midline. Peritonsillar area enlarged. Right tonsilar erythema with white exudates. CARDIOVASCULAR: +S1/S2, without murmurs. Tachycardic. RESPIRATORY: Inspiratory and expiratory wheezes throughout. Breath sounds equal bilaterally. No accessory muscle use. GASTROINTESTINAL: Abdomen soft, non-tender, nondistended. EXTREMITIES: No cyanosis, or edema. MUSCULOSKELETAL: Adequate muscle tone. NEUROLOGICAL: No obvious focal deficit. Awake, alert, and oriented x3. PSYCHIATRIC: Appropriate mood and affect; insight and judgment normal. Assessment/Plan Assessment 52y/o male with metastatic NSCLC admitted with neutropenic fever --progression on multiple lines of therapy. +known PERMANENT WAVER metastatic disease in the right occipital area. --Most recently, he is on Taxotere and ramucirumab. --coordinated with radiation oncologist radiation of the most symptomatic right neck mass. --At the start of radiation, he has developed mucositis. ramucirumab was held, Taxotere continued. --came into Radiation Oncology in the morning to receive his radiation therapy, when he was found to be febrile. Plan 1. Neutropenic fever: 01/30/18: --Continues on abx therapy: Vanco, Cefepime and zithromax --Awaiting ID consultation --Blood cultures no growth to date --Throat culture negative for strep, awaiting culture --Continue Neupogen --Tmax today: 100.0, Yesterday (01/29/18 @ 1834) temperature of 103.0 2. h/o RUE DVT + bilateral LE DVT 01/30/18: --continue lovenox 80mg SQ q 24 hours 3. Mucositis 01/30/18: --continue supportive care --continue gentle hydration with IVF Attending Statement The exam, history, and the medical decision-making described in the above note were completed with the assistance of the mid-level provider. I reviewed and agree with the findings presented. I attest that I had a [id number] encounter with the patient on the same day, and personally performed and documented my assessment and findings in the medical record. Feeling better,ambulating in halls, still neutropenic with low grade temp. CT neck and MRI noted. ENT consulted for tonsillar abscess vs. mass. Pt has NSCLCA - squamous cell cancer, not certain if this is a metastatic lesion from lung cancer vs second primary. R neck mass was previously treated. Continue abx and support. Cont anticoagulation. NO bleeding. Kerry Linn Jan 30, 2018 13:52 Laurie Gómez MD Jan 30, 2018 18:43
[2018-01-30] MEDS ORDERED: FILGRASTIM 300 MCG/ML VIAL SQ SCH (14:00)
--- NOTE | 2018-01-30 14:26 | PD.CONS ---
History of Present Illness Service Infectious disease Consult Requested By Dr. Gómez Reason for Consult Evaluate patient with neutropenic fever and mucositis Primary Care Physician Unknown Diagnoses: History of Present Illness Patient seen and examined. Records reviewed. Patient is a 52-year-old man with history of metastatic non-small cell lung cancer, and had progression of his disease, and now with R neck mass. He has been getting chemo and radiation treatment. He has developed mucositis while on radiation treatment. He was in the radiation center for his scheduled treatment and he was noted to be febrile. CBC showed neutropenia, so patient admitted to hospital for evaluation and treatment. Patient has had sore throat for several days prior to admission. He denies cough, no GI complaints , no N/V, no diarrhea, no complaints. He has had some difficulty swallowing. He denies SOB. He has had some mild improvement with magic mouthwash. His BC have been negative. Throat C/S negative for Group A Strep. UA is negative. He remains neutropenic and he is still running fevers. He is on Vancomycin, Cefepime and Diflucan. Infectious Disease consultation has been requested to evaluate patient with neutropenic fevers and mucositis. Review of Systems Constitutional: COMPLAINS OF: Fever, Chills, Change in appetite Eyes: COMPLAINS OF: Blurred vision, DENIES: Eye pain Ears, nose, mouth, throat: COMPLAINS OF: Oral lesions, Throat pain, Odynophagia , DENIES: Nasal discharge, Hoarseness, Toothache Respiratory: DENIES: Cough, Shortness of breath Cardiovascular: DENIES: Chest pain, Palpitations, Syncope, Dyspnea on Exertion , Lower Extremity Edema Gastrointestinal: COMPLAINS OF: Difficulty Swallowing, Anorexia, DENIES: Abdominal pain, Diarrhea, Nausea, Vomiting Genitourinary: DENIES: Urgency, Dysuria Musculoskeletal: COMPLAINS OF: Neck pain, DENIES: Joint pain, Joint Swelling Integumentary: DENIES: Pruritus, Rash Hematologic/lymphatic: DENIES: Bruising Neurologic: DENIES: Headache, Localized weakness Psychiatric: DENIES: Hallucinations Past Family Social History Allergies: Coded Allergies: penicillin G (Verified Allergy, Unknown, 08/05/17) Past Medical History Right neck mass DVT right upper extremity DVT bilateral lower extremity Metastatic non-small cell lung cancer Past Surgical History Craniotomy Right brain biopsy IVC filter placement Right lung biopsy Knee surgery Active Ordered Medications Current Medications Medications (Trade) Dose Ordered Sig/Pina Route Start Time Stop Time Status Last Admin (Tylenol) 650 mg Q4H PRN PO 01/28/18 13:45 01/29/18 12:52 Cefepime HCl 2000 mg/Sodium Chloride 100 ml @ 200 mls/hr Q8H IV 01/28/18 22:00 01/30/18 04:39 Sodium Chloride 1,000 ml @ 84 mls/hr [id number] IV 01/28/18 14:00 01/30/18 12:35 (Magic Mouthwash Adult Liq) 5 ml QID SWISH-SWAL 01/28/18 18:00 01/30/18 13:38 (Cepacol Extra Farhan (Sugar Free)) 1 lozenge Q2HR PRN BUCCAL 01/28/18 14:45 (Keppra) 1,000 mg Q8HR PO 01/28/18 22:00 (Protonix) 20 mg DAILY PO 01/29/18 09:00 01/30/18 08:37 (Dilantin) 300 mg HS PO 01/28/18 21:00 (NS Flush) 2 ml UNSCH PRN IV FLUSH 01/28/18 14:45 (NS Flush) 2 ml BID IV FLUSH 01/28/18 21:00 01/28/18 20:42 (Zofran Odt) 4 mg Q6H PRN PO 01/28/18 14:45 (Narcan Inj) 0.4 mg UNSCH PRN IV PUSH 01/28/18 14:45 (Milk Of Magnesia Liq) 30 ml Q12H PRN PO 01/28/18 14:45 (NS Flush) 5 ml UNSCH PRN IV FLUSH 01/28/18 15:00 (Heparin Central Flush) 250 units UNSCH PRN IV FLUSH 01/28/18 15:00 (Heparin Central Flush) 500 units UNSCH IV FLUSH 01/28/18 15:00 Vancomycin HCl 1000 mg/Sodium Chloride 250 ml @ 250 mls/hr Q12H IV 01/28/18 22:00 01/30/18 10:26 Azithromycin 500 mg/Sodium Chloride 250 ml @ 250 mls/hr Q24H IV 01/28/18 18:00 01/29/18 16:28 (Lactinex) 1 tab TID PO 01/28/18 18:00 01/30/18 13:31 (Lovenox Inj) 80 mg Q24H SQ 01/29/18 15:00 01/29/18 16:28 (Roxicodone) 5 mg Q4H PRN PO 01/29/18 14:15 (Neupogen Inj) 300 mcg DAILY@14 SQ 01/29/18 18:30 01/30/18 13:31 Fluconazole/ Sodium Chloride 50 ml @ 50 mls/hr Q24H IV 01/29/18 20:00 01/29/18 19:45 Family History Noncontributory to current ID problem Social History Ex-smoker Denies alcohol abuse Denies illicit drug use Physical Exam Vital Signs Vital Signs Date Time Temp Pulse Resp B/P (MAP) Pulse Ox O2 Delivery O2 Flow Rate FiO2 01/30/18 11:20 99.2 104 16 105/67 (80) 98 01/30/18 08:34 99.2 111 16 102/65 (77) 96 01/30/18 04:00 108 01/30/18 04:00 99.6 108 16 110/70 (83) 95 01/30/18 03:30 100.0 01/30/18 00:00 107 01/30/18 00:00 99.7 108 15 119/81 (94) 99 01/29/18 20:00 110 01/29/18 20:00 99.9 116 16 108/72 (84) 96 01/29/18 18:34 103.0 01/29/18 17:52 100.4 01/29/18 16:00 99.9 108 18 111/77 (88) 99 01/29/18 16:00 110 01/29/18 14:20 100.0 Physical Exam GENERAL: Patient is a well-nourished, well-developed male, awake and alert, not in respiratory distress. SKIN: Warm and dry. No generalized rash, no ecchymoses and no evidence of embolic lesions. HEAD: Atraumatic. Normocephalic. No temporal wasting, or tenderness. EYES: [place]ill conjunctiva. No petechia or hemorrhage. Pupils equal, round and reactive to light. Extraocular movements full and intact. No scleral icterus. No injection or drainage. EARS, NOSE AND THROAT: Nose without bleeding or purulent nasal discharge. No sinus tenderness. Mucous membranes pink and moist. Has erythema in posterior pharynx, swelling on R with some exudate. NECK: Has firm mass on R side of neck submandibular CARDIOVASCULAR: Regular rate and rhythm. No murmurs, rubs or gallops heard RESPIRATORY: . Breath sounds equal bilaterally. Has sp,e rhonchi on L side posteriorly. Port R upper chest looks ok ABDOMEN: Soft, non-tender, nondistended. Bowel sounds present and normoactive. No guarding. No rebound. No organomegaly. EXTREMITIES: No clubbing, cyanosis, or edema.No joint effusion, has good ROM. No calf tenderness. Well perfused and warm. NEUROLOGICAL: Awake and alert. Cranial nerves grossly intact. Motor grossly within normal limits. PSYCHIATRIC: Normal affect, calm and cooperative. LINE: No evidence of infection Laboratory Laboratory Tests Test 01/29/18 20:45 01/30/18 04:40 Vancomycin Level Trough 6.6 White Blood Count 1.4 Red Blood Count 3.25 Hemoglobin 9.9 Hematocrit 28.8 Mean Corpuscular Volume 88.6 Mean Corpuscular Hemoglobin 30.4 Mean Corpuscular Hemoglobin Concent 34.3 Red Cell Distribution Width 21.2 Platelet Count 177 Mean Platelet Volume 8.2 CBC Comment AUTO DIFF Differential Total Cells Counted 62 Neutrophils % (Manual) 16 Band Neutrophils % 5 Lymphocytes % 26 Monocytes % 53 Neutrophils # (Manual) 0.3 Differential Comment FINAL DIFF MANUAL Platelet Estimate NORMAL Platelet Morphology Comment NORMAL Blood Urea Nitrogen 8 Creatinine 0.73 Random Glucose 86 Calcium Level 7.8 Sodium Level 138 Potassium Level 3.4 Chloride Level 104 Carbon Dioxide Level 22.2 Anion Gap 12 Estimat Glomerular Filtration Rate 112 Date/Time Source Procedure Growth Status 01/28/18 16:00 Blood Peripheral Aerobic Blood Culture - Preliminary NO GROWTH IN 2 DAYS Resulted 01/28/18 16:00 Blood Peripheral Anaerobic Blood Culture - Preliminary NO GROWTH IN 2 DAYS Resulted 01/29/18 18:35 Throat Group A Streptococcus Screen (ARBEN) - Final Complete Result Diagram: 01/30/180 01/30/18 0440 Imaging RADIOLOGY STUDIES/FILMS REVIEWED Neck CT 01/29/18 0000 Signed Impressions: CONCLUSION: Right oropharyngeal mucosal mass process and matted adenopathy in the right jug ular chain lymph nodes. Chest X-Ray 01/28/18 0000 Signed Impressions: CONCLUSION: Interval decrease in size the patient's left lung mass and area of consolidatio n. Overall, the chest has improved when compared to previous. [id number] in good position. Assessment and Plan Assessment and Plan IMPRESSION Sepsis on admission Neutropenic fever Mucositis, on chemo and XRT to R neck mass Metastatic NSCL Ca RECOMMENDATION Repeat BC with next fevers Continue Vanco Continue Cefepime Continue Diflucan, increase dose OK to D/C Zithromax Follow temps and CBC Monitor progress I will follow along with you Thank you for this consultation Soledad Jewell MD Jan 30, 2018 14:26
[2018-01-30] MEDS ORDERED: GADODIAMIDE PF 287 MG/ML 20 ML VIAL (for RAD MRI) IVCONTRAST ONE (14:56)
[2018-01-30] MEDS: ENOXAPARIN SODIUM 80 MG/0.8 ML SYRINGE SQ SCH (16:06)
--- NOTE | 2018-01-30 18:18 | RADRPT ---
EXAM DATE: 01/30/2018 3:01 PM EDT AGE/SEX: 52 years / Male INDICATIONS: Redness and pain in throat with swelling in neck. CLINICAL DATA: This is the patient's subsequent encounter. Patient reports that signs and symptoms h ave been present for 4 - 6 days and indicates a pain score of 7/10. MEDICAL/SURGICAL HISTORY: Carcinoma, lung. Lymph nodes in right side of neck and face involveme nt from lung cancer, Brain cancer, Lymph cancer. . Rt and Lt knee surgery, brain tumor resection, br ain bleed evacuatio. COMPARISON: [facility] [place], CT SOFT TISSUE NECK W CONTRAST, 01/29/2018. . TECHNIQUE: Multisequence, multiplanar MRI examination was performed without contrast and after the i ntravenous administration of 17 ml Omniscan (gadodiamide) contrast as a single exam dose. FINDINGS: Nasopharynx: The nasopharyngeal airway has a normal configuration. No mucosal thickening or mass is seen. Oropharynx: Asymmetric enlargement of the right tonsil with central enhancing core measuring 2.6 x 1 .6 cm in size noted. Enhancing process extends along the mucosal surfaces into the adjacent oropharyn x. Left tonsillar pillars unremarkable. There is no extension across the midline. Larynx: The supraglottic, glottic, and infraglottic structures are intact. Parapharyngeal: The parapharyngeal space is intact. Salivary Glands: The parotid and submandibular glands are intact. Lymph Nodes: As demonstrated on CT there are nodular enhancing poorly marginated soft tissue nodules along right internal jugular lymph bubba chain extending throughout level 2 and 3 characteristic of malignant lymphadenopathy.. Thyroid: Homogeneous enhancement without evidence of nodule. Bones: Homogeneous signal in the marrow of the visualized osseous structures. Post Contrast: No abnormal areas of enhancement seen. CONCLUSION: 1. 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 2. Poorly marginated enhancing lymph nodes along the right internal jugular chain characteristic of malignant lymphadenopathy. Electronically signed by: Salbador Davenport MD 01/30/2018 6:17 PM EDT
[2018-01-30] MEDS: FLUCONAZOLE 400 MG PREMIX BAG 200 ML IV SCH (20:20)
[2018-01-30] MEDS: PHENYTOIN SODIUM 100 MG CAP PO SCH (20:21)
[2018-01-30 21:22] LABS: AUTOMATED NEUTROPHIL # 0.9 TH/MM3 (1.8-7.7); BASOPHIL % 0.1 % (0.0-2.0); EOSINOPHIL % 0.6 % (0.0-4.0); HEMATOCRIT 28.8 % (39.0-51.0); HEMOGLOBIN 9.8 GM/DL (13.0-17.0); LYMPH % 15.1 % (9.0-44.0); LYMPHOCYTE # 0.4 TH/MM3 (1.0-4.8); MEAN CELL VOLUME 88.5 FL (80.0-100.0); MEAN CORPUSCULAR HGB CONC 33.9 % (32.0-36.0); MEAN PLATELET VOLUME 8.6 FL (7.0-11.0); MONO % 46.1 % (0.0-8.0); MONOCYTE # 1.1 TH/MM3 (0-0.9); NEUT % 38.1 % (16.0-70.0); PLATELET COUNT 197 TH/MM3 (150-450); RED BLOOD COUNT 3.25 MIL/MM3 (4.50-5.90); RED CELL DISTRIBUTION WIDTH 20.8 % (11.6-17.2); WHITE BLOOD COUNT 2.3 TH/MM3 (4.0-11.0)
[2018-01-30 22:34] LABS: BANDS 14 % (0-6); LYMPHOCYTES 29 % (9-44); MONOCYTES 42 % (0-8); NEUTROPHIL # MANUAL DIFF 0.7 TH/MM3 (1.8-7.7); POLYS (SEG NEUTROPHILS) 15 % (16-70)
[2018-01-30 22:39] LABS: DOHLE BODIES PRESENT (NONE SEEN)
[2018-01-31] VITALS (9 sets, daily range): BP systolic 97–115; BP diastolic 67–77; PULSE 96–105; RESP 16–22; TEMP 98.1–99.3; O2SAT 95–97
[2018-01-31] MEDS: CEFEPIME INJ 2,000 MG in SODIUM CHLORIDE 0.9% INJ 100 ML IV SCH ×3 (00:50→15:15)
[2018-01-31] MEDS: SODIUM CHLOR 0.9% 1000 ML INJ 1,000 ML IV SCH (00:52)
[2018-01-31 05:49] LABS: HEMOGLOBIN 9.5 GM/DL (13.0-17.0); MEAN CELL VOLUME 88.9 FL (80.0-100.0); MEAN CORPUSCULAR HEMOGLOBIN 30.2 PG (27.0-34.0); MEAN PLATELET VOLUME 8.2 FL (7.0-11.0); PLATELET COUNT 176 TH/MM3 (150-450); RED BLOOD COUNT 3.15 MIL/MM3 (4.50-5.90); RED CELL DISTRIBUTION WIDTH 20.7 % (11.6-17.2); WHITE BLOOD COUNT 2.8 TH/MM3 (4.0-11.0)
[2018-01-31] MEDS: levETIRAcetam 500 MG TAB PO SCH ×3 (06:00→22:00)
[2018-01-31 06:16] LABS: ALBUMIN 2.5 GM/DL (3.4-5.0); ALKALINE PHOSPHATASE 105 U/L (45-117); ALT (GPT) 24 U/L (12-78); AST (GOT) 16 U/L (15-37); BICARBONATE 24.9 MEQ/L (21.0-32.0); BLOOD UREA NITROGEN 6 MG/DL (7-18); CHLORIDE 105 MEQ/L (98-107); CREATININE 0.65 MG/DL (0.60-1.30); GLOMERULAR FILTRATION RATE 128 ML/MIN (>89); GLUCOSE,RANDOM 87 MG/DL (74-106); SODIUM (NA) 139 MEQ/L (136-145); TOTAL BILIRUBIN ADULT 0.2 MG/DL (0.2-1.0); TOTAL PROTEIN 6.4 GM/DL (6.4-8.2)
[2018-01-31 08:18] LABS: BANDS 34 % (0-6); DOHLE BODIES PRESENT (NONE SEEN); LYMPHOCYTES 12 % (9-44); METAMYELOCYTES 2 % (0-1); MONOCYTES 33 % (0-8); MYELOCYTES 1 % (0-0); NEUTROPHIL # MANUAL DIFF 1.5 TH/MM3 (1.8-7.7); POLYS (SEG NEUTROPHILS) 18 % (16-70); TEARDROP RBCS 1+ (NORMAL); TOXIC GRANULATION 2+ (NORMAL)
[2018-01-31] MEDS: PANTOPRAZOLE SOD 20 MG DELAYED RELEASE TAB PO SCH (08:40)
[2018-01-31] MEDS: NYSTAT/DIPHENHY/LIDO MOUTHWASH (Adult) 120ML SWISH-SWAL SCH ×4 (08:41→20:25)
[2018-01-31] MEDS: LACTOBACILLUS ACIDOPHILUS TAB PO SCH ×3 (08:41→18:32)
[2018-01-31] MEDS: SODIUM CHLORIDE 0.9% FLUSH 10 ML FLUSH IV FLUSH SCH ×2 (08:55→20:24)
[2018-01-31] MEDS: VANCOMYCIN INJ 1,000 MG in SODIUM CHLOR 0.9% 250 ML INJ 250 ML IV SCH ×2 (10:15→22:20)
--- NOTE | 2018-01-31 10:43 | PD.ONC.PN ---
Subjective Subjective Remarks Pleasant gentlemen, sitting up in bed, talking to his . In no acute distress. --C/O right sided tongue pain, slight improvement in throat pain. Objective Data Date Time Temp Pulse Resp B/P (MAP) Pulse Ox O2 Delivery O2 Flow Rate FiO2 01/31/18 04:47 99.0 96 16 104/67 (79) 97 01/31/18 04:13 99 01/31/18 00:53 98.2 100 18 97/69 (78) 96 01/31/18 00:04 98 01/30/18 20:18 99.8 106 18 107/79 (88) 96 01/30/18 20:14 104 01/30/18 16:20 99.6 100 16 109/67 (81) 98 01/30/18 11:20 99.2 104 16 105/67 (80) 98 Result Diagram: 01/31/18 0445 01/31/18 0445 Laboratory Results Laboratory Tests Test 01/30/18 20:12 01/31/18 04:45 White Blood Count 2.3 TH/MM3 2.8 TH/MM3 Red Blood Count 3.25 MIL/MM3 3.15 MIL/MM3 Hemoglobin 9.8 GM/DL 9.5 GM/DL Hematocrit 28.8 % 28.0 % Mean Corpuscular Volume 88.5 FL 88.9 FL Mean Corpuscular Hemoglobin 30.0 PG 30.2 PG Mean Corpuscular Hemoglobin Concent 33.9 % 34.0 % Red Cell Distribution Width 20.8 % 20.7 % Platelet Count 197 TH/MM3 176 TH/MM3 Mean Platelet Volume 8.6 FL 8.2 FL Neutrophils (%) (Auto) 38.1 % Lymphocytes (%) (Auto) 15.1 % Monocytes (%) (Auto) 46.1 % Eosinophils (%) (Auto) 0.6 % Basophils (%) (Auto) 0.1 % Neutrophils # (Auto) 0.9 TH/MM3 Lymphocytes # (Auto) 0.4 TH/MM3 Monocytes # (Auto) 1.1 TH/MM3 Eosinophils # (Auto) 0.0 TH/MM3 Basophils # (Auto) 0.0 TH/MM3 CBC Comment AUTO DIFF AUTO DIFF Differential Total Cells Counted 100 100 Neutrophils % (Manual) 15 % 18 % Band Neutrophils % 14 % 34 % Lymphocytes % 29 % 12 % Monocytes % 42 % 33 % Neutrophils # (Manual) 0.7 TH/MM3 1.5 TH/MM3 Differential Comment FINAL DIFF MANUAL FINAL DIFF MANUAL Dohle Bodies PRESENT PRESENT Platelet Estimate NORMAL NORMAL Platelet Morphology Comment NORMAL NORMAL Metamyelocytes 2 % Myelocytes 1 % Toxic Granulation 2+ Tear Drop Cells 1+ Blood Urea Nitrogen 6 MG/DL Creatinine 0.65 MG/DL Random Glucose 87 MG/DL Total Protein 6.4 GM/DL Albumin 2.5 GM/DL Calcium Level 8.0 MG/DL Alkaline Phosphatase 105 U/L Aspartate Amino Transf (AST/SGOT) 16 U/L Alanine Aminotransferase (ALT/SGPT) 24 U/L Total Bilirubin 0.2 MG/DL Sodium Level 139 MEQ/L Potassium Level 3.6 MEQ/L Chloride Level 105 MEQ/L Carbon Dioxide Level 24.9 MEQ/L Anion Gap 9 MEQ/L Estimat Glomerular Filtration Rate 128 ML/MIN Culture Results Microbiology Date/Time Source Procedure Growth Status 01/28/18 16:00 Blood Peripheral Aerobic Blood Culture - Preliminary NO GROWTH IN 2 DAYS Resulted 01/28/18 16:00 Blood Peripheral Anaerobic Blood Culture - Preliminary NO GROWTH IN 2 DAYS Resulted 01/28/18 15:02 Blood Line Aerobic Blood Culture - Preliminary NO GROWTH IN 2 DAYS Resulted 01/28/18 15:02 Blood Line Anaerobic Blood Culture - Preliminary NO GROWTH IN 2 DAYS Resulted 01/29/18 18:35 Throat Group A Streptococcus Screen (ARBEN) - Final Complete 01/29/18 18:35 Throat Throat Culture - Final Complete Imaging Studies Last 48 hours Impressions Soft Tissue MRI 01/30/18 0000 Signed Impressions: CONCLUSION: 1. 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 2. Poorly marginated enhancing lymph nodes along the right internal jugular ch ain characteristic of malignant lymphadenopathy. Administered Medications Medications (Trade) Dose Ordered Sig/Pina Route PRN Reason Start Time Stop Time Status Last Admin Dose Admin Acetaminophen (Tylenol) 650 mg Q4H PRN PO FEVER >100.4 01/28/18 13:45 01/29/18 12:52 Sodium Chloride 1,000 ml @ 84 mls/hr [id number] IV 01/28/18 14:00 01/31/18 00:52 Multi-Ingredient Mouthwash/Gargle (Magic Mouthwash Adult Liq) 5 ml QID SWISH-SWAL 01/28/18 18:00 01/31/18 08:41 Pantoprazole Sodium (Protonix) 20 mg DAILY PO 01/29/18 09:00 01/31/18 08:40 Sodium Chloride (NS Flush) 2 ml BID IV FLUSH 01/28/18 21:00 01/28/18 20:42 Vancomycin HCl 1000 mg/Sodium Chloride 250 ml @ 250 mls/hr Q12H IV 01/28/18 22:00 01/31/18 10:15 Lactobacillus Acidophilus (Lactinex) 1 tab TID PO 01/28/18 18:00 01/31/18 08:41 Enoxaparin Sodium (Lovenox Inj) 80 mg Q24H SQ 01/29/18 15:00 01/30/18 16:06 Filgrastim (Neupogen Inj) 300 mcg DAILY@14 SQ 01/29/18 18:30 01/30/18 13:31 Fluconazole/ Sodium Chloride 200 ml @ 50 mls/hr Q24H IV 01/30/18 20:00 01/30/18 20:20 Cefepime HCl 2000 mg/Sodium Chloride 100 ml @ 200 mls/hr Q8H IV 01/31/18 08:00 01/31/18 08:40 Objective Remarks GENERAL: Middle-aged male, sitting up in bed. No acute distress noted. SKIN: Warm and dry. HEAD: Normocephalic. EYES: No scleral icterus. No injection or drainage. Mouth/Pharynx: Right peritonsilar area injected with white exudate and swollen. gums swollen, no bleeding visible. Right side tongue lesion with yellow exudate centrally and erythematous edging. Right/bottom Inner gum line with white patches. slight white patches to right ventral tongue surface NECK: Firm submandibular mass to right side neck. Trachea midline. CARDIOVASCULAR: Regular rate and rhythm without murmurs, gallops or rubs. RESPIRATORY: Scattered inspiratory wheezes throughout. Breath sounds equal bilaterally. No accessory muscle use. GASTROINTESTINAL: Abdomen soft, non-tender, nondistended. EXTREMITIES: No cyanosis, or edema. MUSCULOSKELETAL: Adequate muscle tone. NEUROLOGICAL: No obvious focal deficit. Awake, alert, and oriented x3. PSYCHIATRIC: Appropriate mood and affect; insight and judgment normal. Assessment/Plan Assessment 52y/o male with metastatic NSCLC admitted with neutropenic fever --progression on multiple lines of therapy. +known PSYCH ARNP metastatic disease in the right occipital area. --Most recently, he is on Taxotere and ramucirumab. --coordinated with radiation oncologist radiation of the most symptomatic right neck mass. --At the start of radiation, he has developed mucositis. ramucirumab was held, Taxotere continued. --came into Radiation Oncology in the morning to receive his radiation therapy, when he was found to be febrile. Plan 1. Neutropenic fever: 01/31/18: --Continues on abx therapy: Vanco, Cefepime, azithromycin discontinued by infectious disease. --Continues on fluconazole. --Awaiting ENT consultation --Blood cultures no growth to date --Throat culture negative for strep A. --Continue Neupogen --Tmax today: 99.0. 2. h/o RUE DVT + bilateral LE DVT 01/31/18: --Continue lovenox 80mg SQ q 24 hours --Ambulate often. 3. Mucositis 01/31/18: --continue supportive care --continue gentle hydration with IVF --Infectious disease on the case. --Awainting ENT consult. Attending Statement The exam, history, and the medical decision-making described in the above note were completed with the assistance of the mid-level provider. I reviewed and agree with the findings presented. I attest that I had a [id number] encounter with the patient on the same day, and personally performed and documented my assessment and findings in the medical record. Appreciate Consult from ENT, pt doing better, less swelling in tonsil with dexamethasone. Neutropenia resolved. Afebrile last 24 hours. Defer to ID/ENT abx therapy for out pt. Follow up in heme/onc clinic next week. Cont to hold XRT. Kerry Linn Jan 31, 2018 10:43 Laurie Gómez MD Jan 31, 2018 20:12
--- NOTE | 2018-01-31 13:48 | HHI.IDPN ---
Subjective Subjective Remarks Patient is a 52-year-old man with history of metastatic non-small cell lung cancer, and had progression of his disease, and now with R neck mass. He has been getting chemo and radiation treatment. He has developed mucositis while on radiation treatment. He was in the radiation center for his scheduled treatment and he was noted to be febrile. CBC showed neutropenia, so patient admitted to hospital for evaluation and treatment. Patient has had sore throat for several days prior to admission. He denies cough, no GI complaints , no N/V, no diarrhea, no complaints. He has had some difficulty swallowing. He denies SOB. He has had some mild improvement with magic mouthwash. His BC have been negative. Throat C/S negative for Group A Strep. UA is negative. He remains neutropenic and he is still running fevers. He is on Vancomycin, Cefepime and Diflucan. Infectious Disease consultation has been requested to evaluate patient with neutropenic fevers and mucositis. Notes reviewed Temps less than 100 Cultures negative WBC higher, ANC >1000 MRI soft tissue neck; mass in posterior pharynx and enlarged LN ENT has been consulted Antibiotics Current Medications Medications (Trade) Dose Ordered Sig/Pina Route Start Time Stop Time Status Last Admin (Tylenol) 650 mg Q4H PRN PO 01/28/18 13:45 01/29/18 12:52 Sodium Chloride 1,000 ml @ 84 mls/hr [id number] IV 01/28/18 14:00 01/31/18 00:52 (Magic Mouthwash Adult Liq) 5 ml QID SWISH-SWAL 01/28/18 18:00 01/31/18 08:41 (Cepacol Extra Farhan (Sugar Free)) 1 lozenge Q2HR PRN BUCCAL 01/28/18 14:45 (Keppra) 1,000 mg Q8HR PO 01/28/18 22:00 (Protonix) 20 mg DAILY PO 01/29/18 09:00 01/31/18 08:40 (Dilantin) 300 mg HS PO 01/28/18 21:00 (NS Flush) 2 ml UNSCH PRN IV FLUSH 01/28/18 14:45 (NS Flush) 2 ml BID IV FLUSH 01/28/18 21:00 01/28/18 20:42 (Zofran Odt) 4 mg Q6H PRN PO 01/28/18 14:45 (Narcan Inj) 0.4 mg UNSCH PRN IV PUSH 01/28/18 14:45 (Milk Of Magnesia Liq) 30 ml Q12H PRN PO 01/28/18 14:45 (NS Flush) 5 ml UNSCH PRN IV FLUSH 01/28/18 15:00 (Heparin Central Flush) 250 units UNSCH PRN IV FLUSH 01/28/18 15:00 (Heparin Central Flush) 500 units UNSCH IV FLUSH 01/28/18 15:00 Vancomycin HCl 1000 mg/Sodium Chloride 250 ml @ 250 mls/hr Q12H IV 01/28/18 22:00 01/31/18 10:15 (Lactinex) 1 tab TID PO 01/28/18 18:00 01/31/18 08:41 (Lovenox Inj) 80 mg Q24H SQ 01/29/18 15:00 01/30/18 16:06 (Roxicodone) 5 mg Q4H PRN PO 01/29/18 14:15 (Neupogen Inj) 300 mcg DAILY@14 SQ 01/29/18 18:30 01/30/18 13:31 Fluconazole/ Sodium Chloride 200 ml @ 50 mls/hr Q24H IV 01/30/18 20:00 01/30/18 20:20 Cefepime HCl 2000 mg/Sodium Chloride 100 ml @ 200 mls/hr Q8H IV 01/31/18 08:00 01/31/18 08:40 Lines Port no evidence of infection Past Medical History Right neck mass DVT right upper extremity DVT bilateral lower extremity Metastatic non-small cell lung cancer Past Surgical History Craniotomy Right brain biopsy IVC filter placement Right lung biopsy Knee surgery Allergies: Coded Allergies: penicillin G (Verified Allergy, Unknown, 08/05/17) Objective . Vital Signs Date Time Temp Pulse Resp B/P (MAP) Pulse Ox O2 Delivery O2 Flow Rate FiO2 01/31/18 12:43 98.1 100 21 107/74 (85) 95 01/31/18 08:34 98.4 105 16 100/69 (79) 96 01/31/18 04:47 99.0 96 16 104/67 (79) 97 01/31/18 04:13 99 01/31/18 00:53 98.2 100 18 97/69 (78) 96 01/31/18 00:04 98 01/30/18 20:18 99.8 106 18 107/79 (88) 96 01/30/18 20:14 104 01/30/18 16:20 99.6 100 16 109/67 (81) 98 . Laboratory Tests Test 01/30/18 04:40 01/30/18 20:12 01/31/18 04:45 White Blood Count 1.4 TH/MM3 2.3 TH/MM3 2.8 TH/MM3 Red Blood Count 3.25 MIL/MM3 3.25 MIL/MM3 3.15 MIL/MM3 Hemoglobin 9.9 GM/DL 9.8 GM/DL 9.5 GM/DL Hematocrit 28.8 % 28.8 % 28.0 % Mean Corpuscular Volume 88.6 FL 88.5 FL 88.9 FL Mean Corpuscular Hemoglobin 30.4 PG 30.0 PG 30.2 PG Mean Corpuscular Hemoglobin Concent 34.3 % 33.9 % 34.0 % Red Cell Distribution Width 21.2 % 20.8 % 20.7 % Platelet Count 177 TH/MM3 197 TH/MM3 176 TH/MM3 Mean Platelet Volume 8.2 FL 8.6 FL 8.2 FL CBC Comment AUTO DIFF AUTO DIFF AUTO DIFF Differential Total Cells Counted 62 100 100 Neutrophils % (Manual) 16 % 15 % 18 % Band Neutrophils % 5 % 14 % 34 % Lymphocytes % 26 % 29 % 12 % Monocytes % 53 % 42 % 33 % Neutrophils # (Manual) 0.3 TH/MM3 0.7 TH/MM3 1.5 TH/MM3 Differential Comment FINAL DIFF MANUAL FINAL DIFF MANUAL FINAL DIFF MANUAL Platelet Estimate NORMAL NORMAL NORMAL Platelet Morphology Comment NORMAL NORMAL NORMAL Neutrophils (%) (Auto) 38.1 % Lymphocytes (%) (Auto) 15.1 % Monocytes (%) (Auto) 46.1 % Eosinophils (%) (Auto) 0.6 % Basophils (%) (Auto) 0.1 % Neutrophils # (Auto) 0.9 TH/MM3 Lymphocytes # (Auto) 0.4 TH/MM3 Monocytes # (Auto) 1.1 TH/MM3 Eosinophils # (Auto) 0.0 TH/MM3 Basophils # (Auto) 0.0 TH/MM3 Dohle Bodies PRESENT PRESENT Metamyelocytes 2 % Myelocytes 1 % Toxic Granulation 2+ Tear Drop Cells 1+ Laboratory Tests Test 01/30/18 04:40 01/31/18 04:45 Blood Urea Nitrogen 8 MG/DL 6 MG/DL Creatinine 0.73 MG/DL 0.65 MG/DL Random Glucose 86 MG/DL 87 MG/DL Calcium Level 7.8 MG/DL 8.0 MG/DL Sodium Level 138 MEQ/L 139 MEQ/L Potassium Level 3.4 MEQ/L 3.6 MEQ/L Chloride Level 104 MEQ/L 105 MEQ/L Carbon Dioxide Level 22.2 MEQ/L 24.9 MEQ/L Anion Gap 12 MEQ/L 9 MEQ/L Estimat Glomerular Filtration Rate 112 ML/MIN 128 ML/MIN Total Protein 6.4 GM/DL Albumin 2.5 GM/DL Alkaline Phosphatase 105 U/L Aspartate Amino Transf (AST/SGOT) 16 U/L Alanine Aminotransferase (ALT/SGPT) 24 U/L Total Bilirubin 0.2 MG/DL Microbiology Date/Time Source Procedure Growth Status 01/28/18 16:00 Blood Peripheral Aerobic Blood Culture - Preliminary NO GROWTH IN 3 DAYS Resulted 01/28/18 16:00 Blood Peripheral Anaerobic Blood Culture - Preliminary NO GROWTH IN 3 DAYS Resulted 01/28/18 15:02 Blood Line Aerobic Blood Culture - Preliminary NO GROWTH IN 3 DAYS Resulted 01/28/18 15:02 Blood Line Anaerobic Blood Culture - Preliminary NO GROWTH IN 3 DAYS Resulted 01/29/18 18:35 Throat Group A Streptococcus Screen (ARBEN) - Final Complete 01/29/18 18:35 Throat Throat Culture - Final Complete Imaging Soft Tissue MRI 01/30/18 0000 Signed Impressions: CONCLUSION: 1. 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 2. Poorly marginated enhancing lymph nodes along the right internal jugular ch ain characteristic of malignant lymphadenopathy. Neck CT 01/29/18 0000 Signed Impressions: CONCLUSION: Right oropharyngeal mucosal mass process and matted adenopathy in the right jug ular chain lymph nodes. Chest X-Ray 01/28/18 Signed Impressions: CONCLUSION: Interval decrease in size the patient's left lung mass and area of consolidatio n. Overall, the chest has improved when compared to previous. [id number] in good position. Physical Exam GENERAL: awake and alert, not in respiratory distress. SKIN: Warm and dry. No generalized rash, no ecchymoses and no evidence of embolic lesions. HEAD: Atraumatic. Normocephalic. No temporal wasting, or tenderness. EYES: [place] conjunctiva. No petechia or hemorrhage. Pupils equal, round and reactive to light. Extraocular movements full and intact. No scleral icterus. No injection or drainage. EARS, NOSE AND THROAT: Nose without bleeding or purulent nasal discharge. No sinus tenderness. Mucous membranes pink and moist. Has erythema in posterior pharynx, swelling on R with some exudate. NECK: Has firm mass on R side of neck submandibular CARDIOVASCULAR: Regular rate and rhythm. No murmurs, rubs or gallops heard RESPIRATORY: . Breath sounds equal bilaterally. Has sp,e rhonchi on L side posteriorly. Port R upper chest looks ok ABDOMEN: Soft, non-tender, nondistended. Bowel sounds present and normoactive. No guarding. No rebound. No organomegaly. EXTREMITIES: No clubbing, cyanosis, or edema.No joint effusion, has good ROM. No calf tenderness. Well perfused and warm. NEUROLOGICAL: Awake and alert. Cranial nerves grossly intact. Motor grossly within normal limits. PSYCHIATRIC: Normal affect, calm and cooperative. LINE: No evidence of infection Assessment & Plan Remarks IMPRESSION Neutropenic fever, temps better, ANC higher R posterior pharynx mass seen on MRI Metastatic lung CA, on chemo and has received XRT RECOMMENDATION ENT has been consulted and pending Continue empiric Abx for neutropenic fevers: Vanco, Cefepime and Diflucan SHould be able to deescalate if temps stays down and WBC remains up Monitor temps Follow CBC Monitor progress Dr Leiva available this weekend if needed Soledad Jewell MD Jan 31, 2018 13:48
[2018-01-31] MEDS: FILGRASTIM 300 MCG/ML VIAL SQ SCH (13:55)
--- NOTE | 2018-01-31 14:01 | HHI.PR ---
Subjective Remarks Neutropenia improving. Fevers have resolved for now and is less fevers greater than 24 hours ago. He still has a sore throat with throat ulcerations. MRI did not show a focal abscess. Blood cultures now negative at 72 hours. Objective Vital Signs Date Time Temp Pulse Resp B/P (MAP) Pulse Ox O2 Delivery O2 Flow Rate FiO2 01/31/18 12:43 98.1 100 21 107/74 (85) 95 01/31/18 08:34 98.4 105 16 100/69 (79) 96 01/31/18 04:47 99.0 96 16 104/67 (79) 97 01/31/18 04:13 99 01/31/18 00:53 98.2 100 18 97/69 (78) 96 01/31/18 00:04 98 01/30/18 20:18 99.8 106 18 107/79 (88) 96 01/30/18 20:14 104 01/30/18 16:20 99.6 100 16 109/67 (81) 98 I/O 01/30/18 01/30/18 01/30/18 01/31/18 01/31/18 01/31/18 07:00 15:00 23:00 07:00 15:00 23:00 Intake Total 350 ml 250 ml 1008 ml Output Total 900 ml 850 ml Balance -550 ml 250 ml 158 ml Intake Oral 708 ml IV Total 350 ml 250 ml 300 ml Output Urine Total 900 ml 850 ml # Voids 1 # Bowel Movements 1 Result Diagram: 01/31/185 01/31/18 0445 Objective Remarks GENERAL: NAD, A&Ox3 HEAD: Normocephalic. MOUTH: Erythema at pharynx and palatoglossal arch. Ulceration at right of palatoglossal arch. NECK: Supple, trachea midline. No lymphadenopathy. EYES: No scleral icterus. No injection or drainage. CARDIOVASCULAR: Regular rate and rhythm without murmurs, gallops, or rubs. RESPIRATORY: Breath sounds equal bilaterally. No accessory muscle use. GASTROINTESTINAL: Abdomen soft, non-tender, nondistended. MUSCULOSKELETAL: No cyanosis, or edema. SKIN: Warm and dry. NEURO: No focal neurological deficitis. A/P Problem List: (1) Neutropenic fever ICD Code: D70.9 - Neutropenia, unspecified; R50.81 - Fever presenting with conditions classified elsewhere (2) Stage 4 lung cancer ICD Code: C34.90 - Malignant neoplasm of unspecified part of unspecified bronchus or lung Status: Acute (3) Brain metastases ICD Code: C79.31 - Secondary malignant neoplasm of brain Status: Acute (4) Sepsis ICD Code: A41.9 - Sepsis, unspecified organism (5) Neutropenia ICD Code: D70.9 - Neutropenia, unspecified Assessment and Plan 52-year-old male admitted secondary to neutropenic fever Fever resolved. Continue antibiotics and monitor fevers. Continue to monitor neutrophil counts. Monitor CBC and CMP. Neutropenic fever Sepsis Pharyngitis may be an etiology as patient has a sore throat Urinary testing shows no evidence of infection Chest x-ray shows no evidence of infection Infections could be masked in this patient's immune compromised state Continue cefepime Continue vancomycin Continue azithromycin Probiotics Follow for resolution of fevers and cessation of signs of infection Lung cancer Brain metastasis Oncology consulted and following Subacute DVT Lovenox 80 mg subcutaneous daily History of hyperlipidemia Not currently on active treatment History of seizure Continue antibiotics DVT prophylaxis LoveJaleel Solano MD Jan 31, 2018 14:01
--- NOTE | 2018-01-31 14:47 | PD.CONS ---
History of Present Illness Service ENT Consult Requested By Oncology Reason for Consult Right tonsil swelling Primary Care Physician Unknown Diagnoses: History of Present Illness 52-year-old man with history of metastatic non-small cell lung cancer, and had progression of his disease, and now with R neck mass. He has been getting chemo and radiation treatment. Has mucositis. Developed right tonsil swelling while neutropenic. On broad spectrum IV meds. Some improvement. Mass was not present earlier this week, developed suddenly. Neutropenia currently improving. Review of Systems Ears, nose, mouth, throat: COMPLAINS OF: Oral lesions, Throat pain, DENIES: Nasal discharge, Hoarseness, Ear Pain, Odynophagia Past Family Social History Allergies: Coded Allergies: penicillin G (Verified Allergy, Unknown, 08/05/17) Physical Exam Vital Signs Vital Signs Date Time Temp Pulse Resp B/P (MAP) Pulse Ox O2 Delivery O2 Flow Rate FiO2 01/31/18 12:43 98.1 100 21 107/74 (85) 95 01/31/18 08:34 98.4 105 16 100/69 (79) 96 01/31/18 04:47 99.0 96 16 104/67 (79) 97 01/31/18 04:13 99 01/31/18 00:53 98.2 100 18 97/69 (78) 96 01/31/18 00:04 98 01/30/18 20:18 99.8 106 18 107/79 (88) 96 01/30/18 20:14 104 01/30/18 16:20 99.6 100 16 109/67 (81) 98 Physical Exam GENERAL: This is a well-nourished, well-developed patient, in no apparent distress. SKIN: No rashes, ecchymoses or lesions. Cool and dry. HEAD: Atraumatic. Normocephalic. No temporal or scalp tenderness. EYES: Pupils equal round and reactive. Extraocular motions intact. No scleral icterus. No injection or drainage. ENT: Nose without bleeding, purulent drainage or septal hematoma. Throat with erythema, right tonsillar hypertrophy, exudate and ulcer. Uvula midline. Airway patent. NECK: Trachea midline. Right neck adenopathy. No abscess. Laboratory Laboratory Tests Test 01/30/18 20:12 01/31/18 04:45 White Blood Count 2.3 2.8 Red Blood Count 3.25 3.15 Hemoglobin 9.8 9.5 Hematocrit 28.8 28.0 Mean Corpuscular Volume 88.5 88.9 Mean Corpuscular Hemoglobin 30.0 30.2 Mean Corpuscular Hemoglobin Concent 33.9 34.0 Red Cell Distribution Width 20.8 20.7 Platelet Count 197 176 Mean Platelet Volume 8.6 8.2 Neutrophils (%) (Auto) 38.1 Lymphocytes (%) (Auto) 15.1 Monocytes (%) (Auto) 46.1 Eosinophils (%) (Auto) 0.6 Basophils (%) (Auto) 0.1 Neutrophils # (Auto) 0.9 Lymphocytes # (Auto) 0.4 Monocytes # (Auto) 1.1 Eosinophils # (Auto) 0.0 Basophils # (Auto) 0.0 CBC Comment AUTO DIFF AUTO DIFF Differential Total Cells Counted 100 100 Neutrophils % (Manual) 15 18 Band Neutrophils % 14 34 Lymphocytes % 29 12 Monocytes % 42 33 Neutrophils # (Manual) 0.7 1.5 Differential Comment FINAL DIFF MANUAL FINAL DIFF MANUAL Dohle Bodies PRESENT PRESENT Platelet Estimate NORMAL NORMAL Platelet Morphology Comment NORMAL NORMAL Metamyelocytes 2 Myelocytes 1 Toxic Granulation 2+ Tear Drop Cells 1+ Blood Urea Nitrogen 6 Creatinine 0.65 Random Glucose 87 Total Protein 6.4 Albumin 2.5 Calcium Level 8.0 Alkaline Phosphatase 105 Aspartate Amino Transf (AST/SGOT) 16 Alanine Aminotransferase (ALT/SGPT) 24 Total Bilirubin 0.2 Sodium Level 139 Potassium Level 3.6 Chloride Level 105 Carbon Dioxide Level 24.9 Anion Gap 9 Estimat Glomerular Filtration Rate 128 Date/Time Source Procedure Growth Status 01/28/18 16:00 Blood Peripheral Aerobic Blood Culture - Preliminary NO GROWTH IN 3 DAYS Resulted 01/28/18 16:00 Blood Peripheral Anaerobic Blood Culture - Preliminary NO GROWTH IN 3 DAYS Resulted 01/29/18 18:35 Throat Group A Streptococcus Screen (ARBEN) - Final Complete Result Diagram: 01/31/185 01/31/[address] and MRI reviewed. No drainable abscess. Assessment and Plan Assessment and Plan 52 year old male. Metastatic lung cancer with right neck and cranial disease. Became neutropenic developing mucositis. This appears to be an inflammatory tonsillar process. It looks like it is responding to meds. Will treat with 2 doses of Decadron tonight and D/C. Re-eval in a.m. Can consider bedside biopsy if indicated. A new tonsil malignancy appears unlikely. Scott Holder MD Jan 31, 2018 14:47
[2018-01-31] MEDS ORDERED: DEXAMETHASONE SOD PHOS 4 MG/ML VIAL IV PUSH ONE (15:00)
[2018-01-31] MEDS: ENOXAPARIN SODIUM 80 MG/0.8 ML SYRINGE SQ SCH (15:00)
[2018-01-31] MEDS: FLUCONAZOLE 400 MG PREMIX BAG 200 ML IV SCH (20:23)
[2018-01-31] MEDS: PHENYTOIN SODIUM 100 MG CAP PO SCH (20:26)
[2018-02-01] VITALS (13 sets, daily range): BP systolic 91–126; BP diastolic 64–93; PULSE 82–96; RESP 16–18; TEMP 97.6–98.6; O2SAT 95–97
[2018-02-01] MEDS: CEFEPIME INJ 2,000 MG in SODIUM CHLORIDE 0.9% INJ 100 ML IV SCH (00:10)
[2018-02-01] MEDS ORDERED: DEXAMETHASONE SOD PHOS 4 MG/ML VIAL IV ONE (03:00)
[2018-02-01 05:05] LABS: AUTOMATED NEUTROPHIL # 8.8 TH/MM3 (1.8-7.7); BASOPHIL % 0.3 % (0.0-2.0); HEMATOCRIT 30.2 % (39.0-51.0); HEMOGLOBIN 10.3 GM/DL (13.0-17.0); LYMPH % 4.2 % (9.0-44.0); LYMPHOCYTE # 0.5 TH/MM3 (1.0-4.8); MEAN CELL VOLUME 89.5 FL (80.0-100.0); MEAN CORPUSCULAR HEMOGLOBIN 30.4 PG (27.0-34.0); MEAN PLATELET VOLUME 8.4 FL (7.0-11.0); MONO % 14.5 % (0.0-8.0); MONOCYTE # 1.6 TH/MM3 (0-0.9); PLATELET COUNT 215 TH/MM3 (150-450); RED BLOOD COUNT 3.38 MIL/MM3 (4.50-5.90); RED CELL DISTRIBUTION WIDTH 21.4 % (11.6-17.2); WHITE BLOOD COUNT 10.9 TH/MM3 (4.0-11.0)
[2018-02-01] MEDS: levETIRAcetam 500 MG TAB PO SCH ×3 (05:10→21:50)
[2018-02-01 05:31] LABS: ALBUMIN 2.6 GM/DL (3.4-5.0); AST (GOT) 12 U/L (15-37); BLOOD UREA NITROGEN 6 MG/DL (7-18); CALCIUM 8.3 MG/DL (8.5-10.1); CHLORIDE 107 MEQ/L (98-107); CREATININE 0.61 MG/DL (0.60-1.30); GLOMERULAR FILTRATION RATE 138 ML/MIN (>89); GLUCOSE,RANDOM 100 MG/DL (74-106); SODIUM (NA) 141 MEQ/L (136-145)
[2018-02-01 05:32] LABS: ALT (GPT) 20 U/L (12-78)
[2018-02-01 05:34] LABS: ALKALINE PHOSPHATASE 110 U/L (45-117); TOTAL BILIRUBIN ADULT 0.2 MG/DL (0.2-1.0); TOTAL PROTEIN 6.8 GM/DL (6.4-8.2)
[2018-02-01 06:50] LABS: BANDS 18 % (0-6); CORRECTED NUCLEATED RBC 1 /100 WBC (0-0); LYMPHOCYTES 4 % (9-44); METAMYELOCYTES 1 % (0-1); MONOCYTES 13 % (0-8); NUCLEATED RED BLOOD CELL 1 (0-0); POLYS (SEG NEUTROPHILS) 64 % (16-70)
[2018-02-01 06:51] LABS: DOHLE BODIES PRESENT (NONE SEEN); SPHEROCYTES OCC (NORMAL); TOXIC GRANULATION 2+ (NORMAL)
[2018-02-01 06:53] LABS: TEARDROP RBCS 1+ (NORMAL)
--- NOTE | 2018-02-01 07:45 | HHI.PR ---
Subjective Remarks Feels better today. No throat swelling. Objective WBC up to 10.9. Only minimal right tonsil edema. Soft to palpation. Vital Signs Date Time Temp Pulse Resp B/P (MAP) Pulse Ox O2 Delivery O2 Flow Rate FiO2 02/01/18 04:31 98.0 93 18 91/64 (73) 95 02/01/18 04:07 87 02/01/18 00:22 85 02/01/18 00:07 97.9 87 18 101/73 (82) 96 01/31/18 20:31 99.3 105 115/77 (90) 97 01/31/18 20:16 102 01/31/18 15:49 98.8 100 22 110/73 (85) 95 01/31/18 12:43 98.1 100 21 107/74 (85) 95 01/31/18 08:34 98.4 105 16 100/69 (79) 96 I/O 01/31/18 01/31/18 01/31/18 02/01/18 02/01/18 02/01/18 07:00 15:00 23:00 07:00 15:00 23:00 Intake Total 1100 ml 2220 ml 970 ml Output Total 1150 ml 1475 ml Balance 1100 ml 1070 ml -505 ml Intake Oral 1920 ml 720 ml IV Total 1100 ml 300 ml 250 ml Output Urine Total 1150 ml 1475 ml # Bowel Movements 1 Result Diagram: 02/01/18 0428 02/01/18 0428 Assessment and Plan Assessment and Plan 52 year old male. Metastatic lung cancer with right neck and cranial disease. No longer neutropenic. Right tonsil nearly normal. No biopsy indicated. This appear to have been mucositis form radiation. In his florencio from chemo he developed tonsillitis and was staring to head to an abscess. With steroids reducing the inflammation, IV anti-infectives and the return of his immune status he is greatly improved. Defer to ID to determine his therapy, but should likely continue PO antibiotics to cover oral cavity/tonsillitis for a few days. ENT PRN. Scott Holder MD Feb 01, 2018 07:45
[2018-02-01] MEDS: NYSTAT/DIPHENHY/LIDO MOUTHWASH (Adult) 120ML SWISH-SWAL SCH ×4 (09:00→21:51)
--- NOTE | 2018-02-01 09:01 | PD.ONC.PN ---
Subjective Subjective Remarks Afebrile Patient reports he is overall feeling better Walking the halls Hoping to go home soon Right tonsil pain much improved Objective Data Date Time Temp Pulse Resp B/P (MAP) Pulse Ox O2 Delivery O2 Flow Rate FiO2 02/01/18 07:54 95 Room Air 02/01/18 07:54 97.6 82 18 103/73 (83) 95 02/01/18 04:31 98.0 93 18 91/64 (73) 95 02/01/18 04:07 87 02/01/18 00:22 85 02/01/18 00:07 97.9 87 18 101/73 (82) 96 01/31/18 20:31 99.3 105 115/77 (90) 97 01/31/18 20:16 102 01/31/18 15:49 98.8 100 22 110/73 (85) 95 01/31/18 12:43 98.1 100 21 107/74 (85) 95 02/01/18 02/01/18 02/01/18 07:00 15:00 23:00 Intake Total 970 ml Output Total 1475 ml Balance -505 ml Result Diagram: 02/01/18 0428 02/01/18 0428 Laboratory Results Laboratory Tests Test 02/01/18 04:28 White Blood Count 10.9 TH/MM3 Red Blood Count 3.38 MIL/MM3 Hemoglobin 10.3 GM/DL Hematocrit 30.2 % Mean Corpuscular Volume 89.5 FL Mean Corpuscular Hemoglobin 30.4 PG Mean Corpuscular Hemoglobin Concent 34.0 % Red Cell Distribution Width 21.4 % Platelet Count 215 TH/MM3 Mean Platelet Volume 8.4 FL Neutrophils (%) (Auto) 81.0 % Lymphocytes (%) (Auto) 4.2 % Monocytes (%) (Auto) 14.5 % Eosinophils (%) (Auto) 0.0 % Basophils (%) (Auto) 0.3 % Neutrophils # (Auto) 8.8 TH/MM3 Lymphocytes # (Auto) 0.5 TH/MM3 Monocytes # (Auto) 1.6 TH/MM3 Eosinophils # (Auto) 0.0 TH/MM3 Basophils # (Auto) 0.0 TH/MM3 CBC Comment AUTO DIFF Differential Total Cells Counted 100 Neutrophils % (Manual) 64 % Band Neutrophils % 18 % Lymphocytes % 4 % Monocytes % 13 % Neutrophils # (Manual) 9.0 TH/MM3 Metamyelocytes 1 % Nucleated Red Blood Cells 1 /100 WBC Differential Comment FINAL DIFF MANUAL Toxic Granulation 2+ Dohle Bodies PRESENT Platelet Estimate NORMAL Platelet Morphology Comment NORMAL Basophilic Stippling FAINT Spherocytes OCC Tear Drop Cells 1+ Blood Urea Nitrogen 6 MG/DL Creatinine 0.61 MG/DL Random Glucose 100 MG/DL Total Protein 6.8 GM/DL Albumin 2.6 GM/DL Calcium Level 8.3 MG/DL Alkaline Phosphatase 110 U/L Aspartate Amino Transf (AST/SGOT) 12 U/L Alanine Aminotransferase (ALT/SGPT) 20 U/L Total Bilirubin 0.2 MG/DL Sodium Level 141 MEQ/L Potassium Level 4.0 MEQ/L Chloride Level 107 MEQ/L Carbon Dioxide Level 25.0 MEQ/L Anion Gap 9 MEQ/L Estimat Glomerular Filtration Rate 138 ML/MIN Culture Results Microbiology Date/Time Source Procedure Growth Status 01/29/18 18:35 Throat Group A Streptococcus Screen (ARBEN) - Final Complete 01/29/18 18:35 Throat Throat Culture - Final Complete Administered Medications Medications (Trade) Dose Ordered Sig/Pina Route PRN Reason Start Time Stop Time Status Last Admin Dose Admin Acetaminophen (Tylenol) 650 mg Q4H PRN PO FEVER >100.4 01/28/18 13:45 01/29/18 12:52 Multi-Ingredient Mouthwash/Gargle (Magic Mouthwash Adult Liq) 5 ml QID SWISH-SWAL 01/28/18 18:00 01/31/18 18:32 Pantoprazole Sodium (Protonix) 20 mg DAILY PO 01/29/18 09:00 01/31/18 08:40 Sodium Chloride (NS Flush) 2 ml BID IV FLUSH 01/28/18 21:00 01/31/18 20:24 Vancomycin HCl 1000 mg/Sodium Chloride 250 ml @ 250 mls/hr Q12H IV 01/28/18 22:00 01/31/18 22:20 Lactobacillus Acidophilus (Lactinex) 1 tab TID PO 01/28/18 18:00 01/31/18 18:32 Enoxaparin Sodium (Lovenox Inj) 80 mg Q24H SQ 01/29/18 15:00 01/30/18 16:06 Filgrastim (Neupogen Inj) 300 mcg DAILY@14 SQ 01/29/18 18:30 02/01/18 16:00 01/31/18 13:55 Fluconazole/ Sodium Chloride 200 ml @ 50 mls/hr Q24H IV 01/30/18 20:00 01/31/18 20:23 Objective Remarks GENERAL: Middle-age male sitting in chair at bedside watching TV in no obvious distress. SKIN: Warm and dry. HEAD: Normocephalic. EYES: No injection or drainage. Mouth/Pharynx: Right peritonsilar area injected with white exudate and mildly swollen. NECK: Right side neck mass significantly decreased than previously seen. Trachea midline. CARDIOVASCULAR: Regular rate and rhythm without murmurs, gallops or rubs. RESPIRATORY: Scattered inspiratory wheezes throughout. Breath sounds equal bilaterally. No accessory muscle use. GASTROINTESTINAL: Abdomen soft, non-tender, nondistended. EXTREMITIES: No cyanosis, or edema. MUSCULOSKELETAL: Adequate muscle tone. NEUROLOGICAL: No obvious focal deficit. Awake, alert, and oriented x3. Assessment/Plan Assessment 52y/o male with metastatic NSCLC admitted with neutropenic fever Plan Ear nose and throat has evaluated the patient and feel that the right tonsillar edema is due to mucositis from the radiation. No biopsy is felt needed. Overall he is much improved. Blood cultures show no growth 3 days. He has been afebrile for almost 48 hours. His white blood cell count has recovered and Neupogen has been discontinued. I anticipate that he will likely be able to be discharged home possibly as early as tomorrow if he continues to be afebrile and cultures remain negative. Attending Statement The exam, history, and the medical decision-making described in the above note were completed with the assistance of the mid-level provider. I reviewed and agree with the findings presented. I attest that I had a [id number] encounter with the patient on the same day, and personally performed and documented my assessment and findings in the medical record. The patient is doing well. He is afebrile. His neutrophil count has recovered. Examination of the right tonsillar fossa reveals no mass. He has small adenopathy in the right neck. We will plan on discharge tomorrow. His Neupogen has been discontinued. Yakelin Mackay Feb 01, 2018 09:01 Vasu Boone MD Feb 01, 2018 14:48
[2018-02-01] MEDS: SODIUM CHLORIDE 0.9% FLUSH 10 ML FLUSH IV FLUSH SCH ×2 (11:01→21:50)
[2018-02-01] MEDS: VANCOMYCIN INJ 1,000 MG in SODIUM CHLOR 0.9% 250 ML INJ 250 ML IV SCH ×2 (11:03→23:39)
[2018-02-01] MEDS: PANTOPRAZOLE SOD 20 MG DELAYED RELEASE TAB PO SCH (11:04)
[2018-02-01] MEDS: LACTOBACILLUS ACIDOPHILUS TAB PO SCH ×3 (11:05→18:46)
--- NOTE | 2018-02-01 12:51 | HHI.PR ---
Subjective Remarks Continued improvement in patient's clinical status. No further fevers appear present. Neutropenia appears to continue to improve. ENT has evaluated this patient does not recommend biopsy. ENT has recommended continuation of antibiotics. Objective Vital Signs Date Time Temp Pulse Resp B/P (MAP) Pulse Ox O2 Delivery O2 Flow Rate FiO2 02/01/18 07:54 95 Room Air 02/01/18 07:54 97.6 82 18 103/73 (83) 95 02/01/18 04:31 98.0 93 18 91/64 (73) 95 02/01/18 04:07 87 02/01/18 00:22 85 02/01/18 00:07 97.9 87 18 101/73 (82) 96 01/31/18 20:31 99.3 105 115/77 (90) 97 01/31/18 20:16 102 01/31/18 15:49 98.8 100 22 110/73 (85) 95 I/O 01/31/18 01/31/18 01/31/18 02/01/18 02/01/18 02/01/18 07:00 15:00 23:00 07:00 15:00 23:00 Intake Total 1100 ml 2220 ml 970 ml Output Total 1150 ml 1475 ml Balance 1100 ml 1070 ml -505 ml Intake Oral 1920 ml 720 ml IV Total 1100 ml 300 ml 250 ml Output Urine Total 1150 ml 1475 ml # Bowel Movements 1 Result Diagram: 02/01/18 0428 02/01/18 0428 Objective Remarks GENERAL: NAD, A&Ox3 HEAD: Normocephalic. MOUTH: Erythema at pharynx and palatoglossal arch. Ulceration at right of palatoglossal arch. NECK: Supple, trachea midline. No lymphadenopathy. EYES: No scleral icterus. No injection or drainage. CARDIOVASCULAR: Regular rate and rhythm without murmurs, gallops, or rubs. RESPIRATORY: Breath sounds equal bilaterally. No accessory muscle use. GASTROINTESTINAL: Abdomen soft, non-tender, nondistended. MUSCULOSKELETAL: No cyanosis, or edema. SKIN: Warm and dry. NEURO: No focal neurological deficitis. A/P Problem List: (1) Neutropenic fever ICD Code: D70.9 - Neutropenia, unspecified; R50.81 - Fever presenting with conditions classified elsewhere (2) Stage 4 lung cancer ICD Code: C34.90 - Malignant neoplasm of unspecified part of unspecified bronchus or lung Status: Acute (3) Brain metastases ICD Code: C79.31 - Secondary malignant neoplasm of brain Status: Acute (4) Sepsis ICD Code: A41.9 - Sepsis, unspecified organism (5) Neutropenia ICD Code: D70.9 - Neutropenia, unspecified Assessment and Plan 52-year-old male admitted secondary to neutropenic fever No recurrence of fever. Neutropenia appears to be resolving well. Medically the patient has appeared to stabilize. Pending transition to p.o. antibiotics and then the patient will be considered for discharge. Neutropenic fever Sepsis Pharyngitis may be an etiology as patient has a sore throat Urinary testing shows no evidence of infection Chest x-ray shows no evidence of infection Infections could be masked in this patient's immune compromised state Continue cefepime Continue vancomycin Continue azithromycin Probiotics Follow for resolution of fevers and cessation of signs of infection Lung cancer Brain metastasis Oncology consulted and following Subacute DVT Lovenox 80 mg subcutaneous daily History of hyperlipidemia Not currently on active treatment History of seizure Continue antibiotics DVT prophylaxis Lovenox Discharge planning Oncology clearance and transition to p.o. antibiotic therapy are needed prior to discharge Jaleel Shukla MD Feb 01, 2018 12:51
[2018-02-01] MEDS: ENOXAPARIN SODIUM 80 MG/0.8 ML SYRINGE SQ SCH (16:17)
[2018-02-01] MEDS: FLUCONAZOLE 400 MG PREMIX BAG 200 ML IV SCH (21:46)
[2018-02-01] MEDS: PHENYTOIN SODIUM 100 MG CAP PO SCH (21:50)
[2018-02-02] VITALS: BP 106/75; PULSE 84; PULSE 85; RESP 17; TEMP 98.9; O2SAT 94
[2018-02-02 04:00] VITALS: PULSE 76
[2018-02-02 04:44] VITALS: BP 94/67; PULSE 84; RESP 16; TEMP 98.3; O2SAT 96
[2018-02-02 05:28] LABS: AUTOMATED NEUTROPHIL # 11.5 TH/MM3 (1.8-7.7); BASOPHIL % 0.1 % (0.0-2.0); EOSINOPHIL % 0.1 % (0.0-4.0); LYMPH % 5.5 % (9.0-44.0); LYMPHOCYTE # 0.8 TH/MM3 (1.0-4.8); MEAN CELL VOLUME 89.1 FL (80.0-100.0); MEAN CORPUSCULAR HEMOGLOBIN 29.6 PG (27.0-34.0); MEAN CORPUSCULAR HGB CONC 33.2 % (32.0-36.0); MONO % 12.4 % (0.0-8.0); MONOCYTE # 1.7 TH/MM3 (0-0.9); NEUT % 81.9 % (16.0-70.0); PLATELET COUNT 230 TH/MM3 (150-450); RED BLOOD COUNT 3.37 MIL/MM3 (4.50-5.90); RED CELL DISTRIBUTION WIDTH 21.2 % (11.6-17.2); WHITE BLOOD COUNT 14.1 TH/MM3 (4.0-11.0)
[2018-02-02 05:46] LABS: ALBUMIN 2.7 GM/DL (3.4-5.0); ALT (GPT) 19 U/L (12-78); AST (GOT) 11 U/L (15-37); BICARBONATE 27.9 MEQ/L (21.0-32.0); BLOOD UREA NITROGEN 9 MG/DL (7-18); CALCIUM 8.2 MG/DL (8.5-10.1); CHLORIDE 107 MEQ/L (98-107); CREATININE 0.75 MG/DL (0.60-1.30); GLOMERULAR FILTRATION RATE 109 ML/MIN (>89); GLUCOSE,RANDOM 83 MG/DL (74-106); SODIUM (NA) 143 MEQ/L (136-145)
[2018-02-02 05:49] LABS: ALKALINE PHOSPHATASE 112 U/L (45-117); TOTAL BILIRUBIN ADULT 0.2 MG/DL (0.2-1.0); TOTAL PROTEIN 6.7 GM/DL (6.4-8.2)
[2018-02-02] MEDS: levETIRAcetam 500 MG TAB PO SCH (06:07)
[2018-02-02 07:15] LABS: BANDS 23 % (0-6); CORRECTED NUCLEATED RBC 1 /100 WBC (0-0); LYMPHOCYTES 5 % (9-44); MONOCYTES 10 % (0-8); MYELOCYTES 1 % (0-0); NUCLEATED RED BLOOD CELL 1 (0-0); POLYS (SEG NEUTROPHILS) 61 % (16-70); TOXIC GRANULATION 2+ (NORMAL)
[2018-02-02 08:00] VITALS: PULSE 94
--- NOTE | 2018-02-02 08:22 | PD.ONC.PN ---
Subjective Subjective Remarks Afebrile Patient reports he feels well Looking forward to going home No acute complaints Objective Data Date Time Temp Pulse Resp B/P (MAP) Pulse Ox O2 Delivery O2 Flow Rate FiO2 02/02/18 04:44 98.3 84 16 94/67 (76) 96 02/02/18 04:00 76 02/02/18 00:00 98.9 84 17 106/75 (85) 94 02/02/18 00:00 85 02/01/18 21:40 96 Room Air 02/01/18 21:40 98.6 88 16 113/74 (87) 96 02/01/18 20:00 92 02/01/18 19:00 Room Air 02/01/18 18:00 97 Room Air 02/01/18 16:10 119/86 (97) 02/01/18 16:08 99 Room Air 02/01/18 16:05 97.6 95 18 126/93 (104) 97 02/01/18 16:00 96 02/01/18 13:15 97.7 91 18 113/85 (94) 96 02/01/18 12:00 82 02/02/18 02/02/18 02/02/18 07:00 15:00 23:00 Intake Total 930 ml Output Total 650 ml Balance 280 ml Result Diagram: 02/02/1844202/02/18442 Laboratory Results Laboratory Tests Test 02/02/18 04:43 White Blood Count 14.1 TH/MM3 Red Blood Count 3.37 MIL/MM3 Hemoglobin 10.0 GM/DL Hematocrit 30.0 % Mean Corpuscular Volume 89.1 FL Mean Corpuscular Hemoglobin 29.6 PG Mean Corpuscular Hemoglobin Concent 33.2 % Red Cell Distribution Width 21.2 % Platelet Count 230 TH/MM3 Mean Platelet Volume 8.0 FL Neutrophils (%) (Auto) 81.9 % Lymphocytes (%) (Auto) 5.5 % Monocytes (%) (Auto) 12.4 % Eosinophils (%) (Auto) 0.1 % Basophils (%) (Auto) 0.1 % Neutrophils # (Auto) 11.5 TH/MM3 Lymphocytes # (Auto) 0.8 TH/MM3 Monocytes # (Auto) 1.7 TH/MM3 Eosinophils # (Auto) 0.0 TH/MM3 Basophils # (Auto) 0.0 TH/MM3 CBC Comment AUTO DIFF Differential Total Cells Counted 100 Neutrophils % (Manual) 61 % Band Neutrophils % 23 % Lymphocytes % 5 % Monocytes % 10 % Neutrophils # (Manual) 12.0 TH/MM3 Myelocytes 1 % Nucleated Red Blood Cells 1 /100 WBC Differential Comment FINAL DIFF MANUAL Toxic Granulation 2+ Platelet Estimate NORMAL Platelet Morphology Comment NORMAL Blood Urea Nitrogen 9 MG/DL Creatinine 0.75 MG/DL Random Glucose 83 MG/DL Total Protein 6.7 GM/DL Albumin 2.7 GM/DL Calcium Level 8.2 MG/DL Alkaline Phosphatase 112 U/L Aspartate Amino Transf (AST/SGOT) 11 U/L Alanine Aminotransferase (ALT/SGPT) 19 U/L Total Bilirubin 0.2 MG/DL Sodium Level 143 MEQ/L Potassium Level 3.6 MEQ/L Chloride Level 107 MEQ/L Carbon Dioxide Level 27.9 MEQ/L Anion Gap 8 MEQ/L Estimat Glomerular Filtration Rate 109 ML/MIN Administered Medications Medications (Trade) Dose Ordered Sig/Pina Route PRN Reason Start Time Stop Time Status Last Admin Dose Admin Acetaminophen (Tylenol) 650 mg Q4H PRN PO FEVER >100.4 01/28/18 13:45 01/29/18 12:52 Multi-Ingredient Mouthwash/Gargle (Magic Mouthwash Adult Liq) 5 ml QID SWISH-SWAL 01/28/18 18:00 02/01/18 21:51 Pantoprazole Sodium (Protonix) 20 mg DAILY PO 01/29/18 09:00 02/01/18 11:04 Sodium Chloride (NS Flush) 2 ml BID IV FLUSH 01/28/18 21:00 02/01/18 21:50 Vancomycin HCl 1000 mg/Sodium Chloride 250 ml @ 250 mls/hr Q12H IV 01/28/18 22:00 02/01/18 23:39 Lactobacillus Acidophilus (Lactinex) 1 tab TID PO 01/28/18 18:00 02/01/18 18:46 Enoxaparin Sodium (Lovenox Inj) 80 mg Q24H SQ 01/29/18 15:00 02/01/18 16:17 Fluconazole/ Sodium Chloride 200 ml @ 50 mls/hr Q24H IV 01/30/18 20:00 02/01/18 21:46 Objective Remarks GENERAL: Middle-age male resting in bed in no obvious distress SKIN: Warm and dry. HEAD: Normocephalic. EYES: No injection or drainage. Mouth/Pharynx: Oropharynx mildly injected NECK: Right side neck swelling; stable. Trachea midline. CARDIOVASCULAR: Regular rate and rhythm without murmurs, gallops or rubs. RESPIRATORY: Scattered inspiratory wheezes on the left. Breathing unlabored at rest. GASTROINTESTINAL: Abdomen soft, non-tender, nondistended. EXTREMITIES: No cyanosis, or edema. MUSCULOSKELETAL: Adequate muscle tone. NEUROLOGICAL: No obvious focal deficit. Awake, alert, and oriented x3. Assessment/Plan Assessment 52y/o male with metastatic NSCLC admitted with neutropenic fever Plan The patient reports he feels much better. The swallowing is much improved. Ear nose and throat has signed off. He has blood cultures negative 4 days and has not had a fever in 72 hours. Patient is clear for discharge from oncology standpoint. No need to continue any antibiotics at this time. Patient was instructed to call if he develops any more symptoms or spikes another fever. He will follow-up in clinic next week. Yakelin Mackay Feb 02, 2018 08:22
[2018-02-02 08:27] VITALS: BP 105/79; PULSE 85; RESP 18; TEMP 97.6; O2SAT 98
[2018-02-02] MEDS: PANTOPRAZOLE SOD 20 MG DELAYED RELEASE TAB PO SCH (08:49)
[2018-02-02] MEDS: NYSTAT/DIPHENHY/LIDO MOUTHWASH (Adult) 120ML SWISH-SWAL SCH (08:49)
[2018-02-02] MEDS: SODIUM CHLORIDE 0.9% FLUSH 10 ML FLUSH IV FLUSH SCH (08:53)
[2018-02-02] MEDS: VANCOMYCIN INJ 1,000 MG in SODIUM CHLOR 0.9% 250 ML INJ 250 ML IV SCH (10:00)
[2018-02-02] MEDS: LACTOBACILLUS ACIDOPHILUS TAB PO SCH (11:55)
[2018-02-02] MEDS ORDERED: DIFL200T PO (12:00)
[2018-02-02] MEDS ORDERED: MAGICADU2 SWISH-SWAL (12:00)
[2018-02-02] MEDS ORDERED: LEVO750T3 PO (12:00)
[2018-02-02] MEDS ORDERED: LACTTAB8 PO (12:00)
--- NOTE | 2018-02-02 12:05 | HHI.DS ---
Discharge Summary Admission Date Jan 28, 2018 at 13:15 Discharge Date: Feb 02, 2018 Admitting Diagnosis (1) Stage 4 lung cancer ICD Code: C34.90 - Malignant neoplasm of unspecified part of unspecified bronchus or lung Diagnosis: Principal Status: Acute (2) Neutropenic fever ICD Code: D70.9 - Neutropenia, unspecified; R50.81 - Fever presenting with conditions classified elsewhere Diagnosis: Principal (3) Brain metastases ICD Code: C79.31 - Secondary malignant neoplasm of brain Diagnosis: Secondary Status: Acute (4) Sepsis ICD Code: A41.9 - Sepsis, unspecified organism Diagnosis: Principal (5) Neutropenia ICD Code: D70.9 - Neutropenia, unspecified Diagnosis: Principal Procedures None Brief History - From Admission Mr. Mendosa is a 52 year old male. He has a history of lung cancer with brain metastasis. He is actively undergoing treatments including chemotherapy. Patient was at the office today to get a treatment he was found to have a fever. He is sent to the hospital. Blood work obtained thus far shows neutropenia. Patient has not felt ill. Based on leukopenia, fever, and tachycardia sepsis criteria is present. His only complaint is a sore throat. No other complaints at this time. CBC/BMP: 02/02/18 0443 02/02/18 0443 Significant Findings Laboratory Tests Test 01/30/18 20:12 01/31/18 04:45 02/01/18 04:28 02/02/18 04:43 White Blood Count 2.3 TH/MM3 (4.0-11.0) 2.8 TH/MM3 (4.0-11.0) 14.1 TH/MM3 (4.0-11.0) Red Blood Count 3.25 MIL/MM3 (4.50-5.90) 3.15 MIL/MM3 (4.50-5.90) 3.38 MIL/MM3 (4.50-5.90) 3.37 MIL/MM3 (4.50-5.90) Hemoglobin 9.8 GM/DL (13.0-17.0) 9.5 GM/DL (13.0-17.0) 10.3 GM/DL (13.0-17.0) 10.0 GM/DL (13.0-17.0) Hematocrit 28.8 % (39.0-51.0) 28.0 % (39.0-51.0) 30.2 % (39.0-51.0) 30.0 % (39.0-51.0) Red Cell Distribution Width 20.8 % (11.6-17.2) 20.7 % (11.6-17.2) 21.4 % (11.6-17.2) 21.2 % (11.6-17.2) Monocytes (%) (Auto) 46.1 % (0.0-8.0) 14.5 % (0.0-8.0) 12.4 % (0.0-8.0) Neutrophils # (Auto) 0.9 TH/MM3 (1.8-7.7) 8.8 TH/MM3 (1.8-7.7) 11.5 TH/MM3 (1.8-7.7) Lymphocytes # (Auto) 0.4 TH/MM3 (1.0-4.8) 0.5 TH/MM3 (1.0-4.8) 0.8 TH/MM3 (1.0-4.8) Monocytes # (Auto) 1.1 TH/MM3 (0-0.9) 1.6 TH/MM3 (0-0.9) 1.7 TH/MM3 (0-0.9) Neutrophils % (Manual) 15 % (16-70) Band Neutrophils % 14 % (0-6) 34 % (0-6) 18 % (0-6) 23 % (0-6) Monocytes % 42 % (0-8) 33 % (0-8) 13 % (0-8) 10 % (0-8) Neutrophils # (Manual) 0.7 TH/MM3 (1.8-7.7) 1.5 TH/MM3 (1.8-7.7) 9.0 TH/MM3 (1.8-7.7) 12.0 TH/MM3 (1.8-7.7) Dohle Bodies PRESENT (NONE SEEN) PRESENT (NONE SEEN) PRESENT (NONE SEEN) Metamyelocytes 2 % (0-1) Myelocytes 1 % (0-0) 1 % (0-0) Toxic Granulation 2+ (NORMAL) 2+ (NORMAL) 2+ (NORMAL) Tear Drop Cells 1+ (NORMAL) 1+ (NORMAL) Blood Urea Nitrogen 6 MG/DL (7-18) 6 MG/DL (7-18) Albumin 2.5 GM/DL (3.4-5.0) 2.6 GM/DL (3.4-5.0) 2.7 GM/DL (3.4-5.0) Calcium Level 8.0 MG/DL (8.5-10.1) 8.3 MG/DL (8.5-10.1) 8.2 MG/DL (8.5-10.1) Neutrophils (%) (Auto) 81.0 % (16.0-70.0) 81.9 % (16.0-70.0) Lymphocytes (%) (Auto) 4.2 % (9.0-44.0) 5.5 % (9.0-44.0) Lymphocytes % 4 % (9-44) 5 % (9-44) Nucleated Red Blood Cells 1 /100 WBC (0-0) 1 /100 WBC (0-0) Basophilic Stippling FAINT (NORMAL) Aspartate Amino Transf (AST/SGOT) 12 U/L (15-37) 11 U/L (15-37) Hospital Course Mr. Mendosa is a lung cancer with brain metastasis. He also has metastasis of the right side of his neck. He has been receiving radiation at this area and he is also on chemotherapy. Came in the hospital after having fevers. He had ulcerations at his right tonsil. Etiology for his infection was not found. Blood cultures are negative for 5 days. The ulceration could be related to radiation or could have been where his infection was starting. No abscess was present on workup. Through time patient has had resolution of his throat pain and swelling. He has been treated with antifungals and antibiotics. Neutropenia has resolved. Fevers are resolved. Blood cultures are all negative. Medically clear and stable for discharge home at this point. Pt Condition on Discharge: Stable Discharge Disposition: Discharge Home Discharge Time: <= 30 minutes Discharge Instructions DIET: Follow Instructions for: As Tolerated, No Restrictions Activities you can perform: Regular-No Restrictions Follow up Referrals: Oncology - As Per Protocol PCP Follow-up - 2 Weeks New Medications: Fluconazole (Diflucan) 200 Mg Tab 200 MG PO DAILY for Infection, #7 TAB 0 Refills Lactobacillus Acidophilus (Lactobacillus Acidophilus) 1 Billion Cell Tab 1 TAB PO TIDAC for Nutritional Supplement, #30 TAB 0 Refills Levofloxacin (Levofloxacin) 750 Mg Tablet 750 MG PO DAILY for Infection, #9 TAB 0 Refills Qjvcbjud-Powqskpfcqyxhvf-Arrrlzurw Liq (Magic Mouthwash Adult Liq) 120 Ml Susp 5 ML SWISH-SWAL QID for Throat pain, #120 ML Continued Medications: Acetaminophen (Eq Acetaminophen) 325 Mg Tab 650 MG PO Q6HR PRN for PAIN SCALE 1 TO 10 for 30 Days, TAB Albuterol 8.5 GM Inh (Proair Hfa 8.5 GM Inh) 90 Mcg/Act Aer 1 PUFF INH Q4H, #1 INHALER 0 Refills 108 mcg/actuation Enoxaparin Inj (Lovenox Inj) 80 mg/0.8 ML Syr 80 MG SQ DAILY for Blood Clot Prevention, SYRINGE 0 Refills Lacosamide (Vimpat) 50 Mg Tab 150 MG PO Q8HR for Seizure Control, #90 TAB Levetiracetam (Keppra) 500 Mg Tab 1000 MG PO Q8HR for Seizure Control, #90 TAB Levetiracetam (Levetiracetam) 500 Mg Tab Lorazepam (Lorazepam) 1 Mg Tab Pantoprazole (Protonix) 20 Mg Tab 20 MG PO DAILY for Reflux, #30 TAB 0 Refills Phenytoin (Phenytoin) 100 Mg/4 Ml Oral.susp 150 MG PO Q8HR for Seizure Control, #1 BOTTLE Phenytoin Extended (Dilantin) 100 Mg Cap 300 MG PO HS for 30 Days, CAP dose was increased since level was low please have PCP or Dr. Palmer repeat level in 1 week Phenytoin Extended (Dilantin) 100 Mg Cap 100 MG PO 0900,1400 for 30 Days, CAP Polyethylene Glycol 3350 Powder (Polyethylene Glycol 3350 Powder) 17 Gm Pow 17 GM PO BID for Constipation, #1 BOTTLE Sennosides-Docusate Sodium (Senna Plus 8.6-50 mg) 1 Tab Tab 1 TAB PO BID for Constipation, #60 TAB Jaleel Shukla MD Feb 02, 2018 12:05
== END 2018-02-02 12:52 | disposition home or self-care (01) | DRG 872 ==
LOC: HCIN 13:15
PROVIDERS: ADMIT Hospitalist; ATTEND Hospitalist
DX: A41.9 Sepsis, unspecified organism (principal); C79.31 Secondary malignant neoplasm of brain; C77.0 Secondary and unspecified malignant neoplasm of lymph nodes of head, face and neck; D70.9 Neutropenia, unspecified; R13.10 Dysphagia, unspecified; C34.90 Malignant neoplasm of unspecified part of unspecified bronchus or lung; G40.802 Other epilepsy, not intractable, without status epilepticus; R50.81 Fever presenting with conditions classified elsewhere; E78.5 Hyperlipidemia, unspecified; K12.39 Other oral mucositis (ulcerative); J03.90 Acute tonsillitis, unspecified; Y84.2 Radiological procedure and radiotherapy as the cause of abnormal reaction of the patient, or of later complication, without mention of misadventure at the time of the procedure; Z79.01 Long term (current) use of anticoagulants; Z87.891 Personal history of nicotine dependence
CPT/HCPCS: 70491; 70543; 71045; 80048; 80053; 80202; 81001; 85007; 85027; 87040; 87070; 87880; A9579; J0456; J0692; J1100; J1442; J1450; J1642; J1650; J3370; J7030; J7050; Q9967